=== PATIENT | female | born 1935 | race African-American/Black ===

== ENCOUNTER → 2017-02-07 | Outpatient (CLI) | payer MEDICARE, OTHER ==
[2017-01-10 16:45] VITALS: BP 159/73
[~2017-02-07] MED LIST: AMLO10TA2 PO; ASPI-482 PO; ATOR20TA58 PO; BYSTOLIC10 MG PO; CALC667T PO; CLON0.2T PO; HYDR100T24 PO; OMEP40CA5 PO; VALS1TAB22 PO; VIT1TABL71 PO
--- NOTE | 2017-02-07 13:16 | RAD ---
Chest radiograph 2 view 02/07/2017. Clinical indication: Status post coronary artery bypass. Comparison: 01/06/2017 chest radiograph Findings: Interval median sternotomy and CABG. Small left and trace right pleural effusions and bibasilar atelectasis. No pneumothorax. Left upper extremity vascular stents. Impression: Interval median sternotomy and CABG with small left and trace right pleural effusions and bibasilar atelectasis .
== END | disposition home or self-care (01) ==
LOC: RAD 12:39
PROVIDERS: ATTEND Thoracic Surgery (Cardiothoracic Vascular Surgery)
DX: Z95.1 Presence of aortocoronary bypass graft (principal); J90 Pleural effusion, not elsewhere classified; J98.11 Atelectasis
CPT/HCPCS: 71020

== ENCOUNTER 2017-04-09 19:50 | Inpatient (IN) | payer MEDICARE, OTHER ==
[~2017-04-09] VITALS: Ht 165.1 cm; Wt 71.7 kg
[2017-04-09 21:11] LABS: BASO # 0.1 x10^3/uL (0.0-0.2); BASO % 1 % (0-3); EOS % 3 % (0-3); HEMATOCRIT 30.1 % (36.0-47.0); HEMOGLOBIN 9.7 g/dL (12.0-15.5); LYMPH # 0.6 x10^3/uL (1.0-4.8); LYMPH % 6 % (24-48); MEAN CORPUSCULAR HEMOGLOBIN 30 pg (25-35); MEAN CORPUSCULAR HGB CONC 32 g/dL (31-37); MEAN CORPUSCULAR VOLUME 92 fL (79-100); MONO % 11 % (0-9); NEUT % 80 % (31-73); PLATELET COUNT 182 x10^3/uL (140-400); RED BLOOD COUNT 3.29 x10^6/uL (3.50-5.40); WHITE BLOOD COUNT 9.1 x10^3/uL (4.0-11.0)
[2017-04-09 21:23] LABS: CALCIUM 9.1 mg/dL (8.5-10.1); CREATININE 3.8 mg/dL (0.6-1.0); GFR 13.8; POTASSIUM 3.5 mmol/L (3.5-5.1)
[2017-04-09 21:28] LABS: ALBUMIN 2.9 g/dL (3.4-5.0); ALBUMIN/GLOBULIN RATIO 0.9 (1.0-1.7); TOTAL BILIRUBIN 0.3 mg/dL (0.2-1.0); TOTAL PROTEIN 6.2 g/dL (6.4-8.2)
[2017-04-09] MEDS ORDERED: PIP/TAZO PER PHARMACY MC PRN (23:00)
[2017-04-09] MEDS ORDERED: PIPERACILLIN/TAZOBACTAM 2.25 GM in IV NORMAL SALINE 50ML 50 ML IV ONE (23:30)
[2017-04-09] MEDS ORDERED: ONDANSETRON PF 4 MG/2 ML VIAL. IV PRN (23:45)
--- NOTE | 2017-04-09 23:57 | PHYS DOC ---
Past Medical History Past Medical History: Arthritis, Hypertension, Pneumonia, Renal Disease Past Surgical History: Coronary Bypass Surgery, Hysterectomy, Knee Replacement , Other Additional Past Surgical Histo: ovarian cyst, cataracts Alcohol Use: None Drug Use: None Adult General Chief Complaint Chief Complaint: FEVER HPI HPI Patient is a 82 year old female who presents to the ER today secondary to fever 100.2 at home. Patient reports that she was recently diagnosed with pneumonia and has been on her third round of antibiotics currently. Patient has a history significant for hypertension, end-stage renal disease, currently on hemodialysis every Tuesday. Patient denies any nausea vomiting or diarrhea. Patient has any chest pain or shortness of breath. Patient does have a cough which is clear productive. Patient has any abdominal pain. Patient reports that she was diagnosed with pneumonia again on Tuesday and was started on another antibiotic. Patient reports she's been diagnosed with pneumonia now for approximately one month. Patient has a history significant for hypertension and end-stage renal disease and is currently on hemodialysis. Patient has any diabetes lung or liver problems. Patient has had bypass surgery on January 242016. Patient is status post total abdominal hysterectomy. Patient has had a total knee replacement. Review of systems Constitutional: fever chills Eyes: Denies change in visual acuity, redness, or eye pain All other review systems are negative except as documented in the history of present illness portion. Physical exam Constitutional: Well developed, well nourished, no acute distress, non-toxic appearance. HENT: Normocephalic, atraumatic, bilateral external ears normal, oropharynx moist, no oral exudates, nose normal. Eyes: conjunctiva normal, no discharge. Neck: Normal range of motion, no tenderness, supple, no stridor. Cardiovascular:Heart rate regular rhythm, Lungs & Thorax: Bilateral breath sounds clear to auscultation Abdomen: Bowel sounds normal, soft, no tenderness, no masses, no pulsatile masses. Skin: Warm, dry, Back: No tenderness, Extremities: No tenderness, no cyanosis, Neurologic: Alert and oriented X 3, normal motor function, normal sensory function, no focal deficits noted. Psychologic: Affect normal, judgement normal, mood normal. Patient with infiltrate versus atelectasis to her left lower lobe. Interpreted by MODESTO Woody Assessment and plan 1. 82-year-old female presents here today secondary to fever with a cough. Patient is currently being treated with her third round of antibiotics for pneumonia. Patient had a temperature 100.2 at home. Patient is currently afebrile here with a normal white count. Given her recent diagnosis, her fever at home, her answers renal disease the patient will need to be admitted to the hospital for IV antibiotics to treat her pneumonia that has been resistant to outpatient therapy. Patient's clinically hemodynamically stable. Patient is pulse oxing well. Patient be given vancomycin and Zosyn here in the ED. Patient be given duo nebs as needed. Review of Systems Review of Systems Constitutional: Denies fever or chills [] Eyes: Denies change in visual acuity, redness, or eye pain [] HENT: Denies nasal congestion or sore throat [] Respiratory: Denies cough or shortness of breath [] Cardiovascular: No additional information not addressed in HPI [] GI: Denies abdominal pain, nausea, vomiting, bloody stools or diarrhea [] : Denies dysuria or hematuria [] Musculoskeletal: Denies back pain or joint pain [] Integument: Denies rash or skin lesions [] Neurologic: Denies headache, focal weakness or sensory changes [] Endocrine: Denies polyuria or polydipsia [] Current Medications Current Medications Current Medications Medications (Trade) Dose Ordered Sig/Willard Start Time Stop Time Status Last Admin Dose Admin Piperacillin Sod/ Tazobactam Sod (Zosyn Per Pharmacy) 1 each PRN DAILY PRN 04/09/17 23:00 Piperacillin Sod/ Tazobactam Sod 2.25 gm/Sodium Chloride 50 ml @ 100 mls/hr 1X ONCE 04/09/17 23:30 04/09/17 23:59 04/09/17 23:08 100 MLS/HR Vancomycin HCl (Vanco Per Pharmacy) 1 each PRN DAILY PRN 04/09/17 23:00 Vancomycin HCl 1.75 gm/Sodium Chloride 500 ml @ 250 mls/hr 1X ONCE 04/10/17 00:00 04/10/17 01:59 04/09/17 23:36 250 MLS/HR Allergies Allergies Allergies Coded Allergies Type Severity Reaction Last Updated Verified No Known Drug Allergies 01/06/17 No Physical Exam Physical Exam Constitutional: Well developed, well nourished, no acute distress, non-toxic appearance. [] HENT: Normocephalic, atraumatic, bilateral external ears normal, oropharynx moist, no oral exudates, nose normal. [] Eyes: PERRLA, EOMI, conjunctiva normal, no discharge. [] Neck: Normal range of motion, no tenderness, supple, no stridor. [] Cardiovascular:Heart rate regular rhythm, no murmur [] Lungs & Thorax: Bilateral breath sounds clear to auscultation [] Abdomen: Bowel sounds normal, soft, no tenderness, no masses, no pulsatile masses. [] Skin: Warm, dry, no erythema, no rash. [] Back: No tenderness, no CVA tenderness. [] Extremities: No tenderness, no cyanosis, no clubbing, ROM intact, no edema. [] Neurologic: Alert and oriented X 3, normal motor function, normal sensory function, no focal deficits noted. [] Psychologic: Affect normal, judgement normal, mood normal. [] Current Patient Data Vital Signs Vital Signs Date Time Temp Pulse Resp B/P (MAP) Pulse Ox O2 Delivery O2 Flow Rate FiO2 04/09/17 22:25 73 16 168/73 (104) 94 Room Air 04/09/17 20:09 98.8 98.8 Lab Values Laboratory Tests Test 04/09/17 21:05 White Blood Count 9.1 x10^3/uL (4.0-11.0) Red Blood Count 3.29 x10^6/uL (3.50-5.40) L Hemoglobin 9.7 g/dL (12.0-15.5) L Hematocrit 30.1 % (36.0-47.0) L Mean Corpuscular Volume 92 fL (79-100) Mean Corpuscular Hemoglobin 30 pg (25-35) Mean Corpuscular Hemoglobin Concent 32 g/dL (31-37) Red Cell Distribution Width 18.0 % (11.5-14.5) H Platelet Count 182 x10^3/uL (140-400) Neutrophils (%) (Auto) 80 % (31-73) H Lymphocytes (%) (Auto) 6 % (24-48) L Monocytes (%) (Auto) 11 % (0-9) H Eosinophils (%) (Auto) 3 % (0-3) Basophils (%) (Auto) 1 % (0-3) Neutrophils # (Auto) 7.3 x10^3uL (1.8-7.7) Lymphocytes # (Auto) 0.6 x10^3/uL (1.0-4.8) L Monocytes # (Auto) 1.0 x10^3/uL (0.0-1.1) Eosinophils # (Auto) 0.2 x10^3/uL (0.0-0.7) Basophils # (Auto) 0.1 x10^3/uL (0.0-0.2) Sodium Level 138 mmol/L (136-145) Potassium Level 3.5 mmol/L (3.5-5.1) Chloride Level 102 mmol/L (98-107) Carbon Dioxide Level 23 mmol/L (21-32) Anion Gap 13 (6-14) Blood Urea Nitrogen 16 mg/dL (7-20) Creatinine 3.8 mg/dL (0.6-1.0) H Estimated GFR (Cockcroft-Gault) 13.8 BUN/Creatinine Ratio 4 (6-20) L Glucose Level 151 mg/dL (70-99) H Lactic Acid Level 1.0 mmol/L (0.4-2.0) Calcium Level 9.1 mg/dL (8.5-10.1) Total Bilirubin 0.3 mg/dL (0.2-1.0) Aspartate Amino Transferase (AST) 14 U/L (15-37) L Alanine Aminotransferase (ALT) 14 U/L (14-59) Alkaline Phosphatase 82 U/L (46-116) Troponin I Quantitative < 0.017 ng/mL (0.000-0.055) Total Protein 6.2 g/dL (6.4-8.2) L Albumin 2.9 g/dL (3.4-5.0) L Albumin/Globulin Ratio 0.9 (1.0-1.7) L Laboratory Tests 04/09/17 21:05 Laboratory Tests 04/09/17 21:05 EKG EKG [] Radiology/Procedures Radiology/Procedures [] Course & Med Decision Making Course & Med Decision Making Pertinent Labs and Imaging studies reviewed. (See chart for details) [] Dragon Disclaimer Dragon Disclaimer This electronic medical record was generated, in whole or in part, using a voice recognition dictation system. Departure Departure Impression: Primary Impression: Pneumonia Additional Impressions: Renal failure Failure of outpatient treatment Referrals: MAGNO MANCILLA MD (PCP) Problem Qualifiers HARLEY VALENTIN MD Apr 09, 2017 23:57
[2017-04-10] VITALS (7 sets, daily range): BP systolic 135–190; BP diastolic 50–66
[2017-04-10] MEDS ORDERED: VANCOMYCIN 1.75 GM in IV NORMAL SALINE 500ML BAG 500 ML IV ONE ×2
[2017-04-10] MEDS ORDERED: FERR-26 PO (01:18)
[2017-04-10] MEDS ORDERED: PRED20TA PO (01:18)
[2017-04-10] MEDS ORDERED: METO25TA4 PO (01:18)
[2017-04-10] MEDS ORDERED: POLY17PO29 PO (01:18)
[2017-04-10] MEDS ORDERED: ACET325T9 PO (01:18)
[2017-04-10] MEDS ORDERED: AMIO200T2 PO (01:18)
[2017-04-10] MEDS ORDERED: ASPI325T8 PO (01:18)
[2017-04-10] MEDS ORDERED: BENZ100C15 PO (01:29)
[2017-04-10] MEDS: VANCOMYCIN PER PHARMACY MC PRN ×2 (04:48→09:37)
[2017-04-10] MEDS: PIPERACILLIN/TAZOBACTAM 2.25 GM in IV NORMAL SALINE 50ML 50 ML IV SCH ×3 (06:03→20:55)
[2017-04-10] MEDS: IPRATRPIUM/ALBUTEROL 0.5/2.5MG 3 ML NEBU. NEB SCH ×4 (08:11→20:46)
--- NOTE | 2017-04-10 08:26 | RAD ---
AP chest. History: Fever. AP view was taken of the chest. The heart is enlarged. There are stents in vessels in the left upper arm. There is arthritis in the shoulders. There is atelectasis in the left lung. A mild retrocardiac infiltrate is possible. A lateral view would be of benefit. Impression: 1. Left base atelectasis although an infiltrate is possible.
[2017-04-10] MEDS: ACETAMINOPHEN 325 MG TABLET. PO PRN ×2 (09:14→21:17)
--- NOTE | 2017-04-10 10:09 | EKG ---
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
--- NOTE | 2017-04-10 12:57 | HP ---
ADMIT DATE: 04/10/2017 CHIEF COMPLAINT: Fever. HISTORY OF PRESENT ILLNESS: The patient is a pleasant 82-year-old female who has been treated for pneumonia as an outpatient. She is on third round of antibiotics. Apparently, she is failing that, she still has fever. She still has some shortness of breath and cough. Imaging studies are showing left basilar atelectasis versus infiltrates, I suspect she does have pneumonia. We will admit the patient with consultation to Pulmonary Medicine, IV antibiotics, breathing treatments and oxygen. PAST MEDICAL HISTORY: Arthritis, hypertension, pneumonia, renal disease, coronary artery bypass grafting, hysterectomy, knee replacement, cataracts and ovarian cyst. ALLERGIES: None. FAMILY HISTORY: Coronary artery disease. SOCIAL HISTORY: She does not drink, smoke or take drugs. MEDICATIONS: Reviewed. REVIEW OF SYSTEMS: GENERAL: No history of weight change, weakness or fevers. SKIN: No bruising, hair changes or rashes. EYES: No blurred, double or loss of vision. NOSE AND THROAT: No history of nosebleeds, hoarseness or sore throat. HEART: No history of palpitations, chest pain or shortness of breath on exertion. LUNGS: Denies cough, hemoptysis, wheezing. She complains of shortness of breath. GASTROINTESTINAL: Denies changes in appetite, nausea, vomiting, diarrhea or constipation. GENITOURINARY: No history of frequency, urgency, hesitancy or nocturia. NEUROLOGIC: Denies history of numbness, tingling, tremor or weakness. PSYCHIATRIC: No history of panic, anxiety or depression. ENDOCRINE: No history of heat or cold intolerance, polyuria or polydipsia. EXTREMITIES: Denies muscle weakness, joint pain, pain on walking or stiffness. PHYSICAL EXAMINATION: VITAL SIGNS: Temperature afebrile, pulse 90, respirations 20, blood pressure 117/54. GENERAL: She is alert, cooperative. HEART: Normal S1, S2. LUNGS: Right basilar crackles. ABDOMEN: Soft, positive bowel sounds. EXTREMITIES: 1+ edema. SKIN: No rashes. PSYCHIATRIC: She is flat, but pleasant. ENDOCRINE: No thyromegaly. LYMPHATICS: No cervical nodes. HEMATOPOIETIC: No bruising. LABORATORY DATA: White count 9, hemoglobin 9, platelets 182. Electrolytes normal other than creatinine of 3.8 and a glucose of 151. Albumin is a little low at 2.9. Troponin 0.017. ASSESSMENT AND PLAN: Pneumonia and [id number] renal failure. The patient has been admitted. We will start on IV antibiotics, breathing treatments, oxygen. Consult Pulmonary, consult Nephrology. Continue home medicines. DELONTE WRIGHT DO DR: LEONCIO/naif JOB#: [id number] / [id number]
[2017-04-10] MEDS ORDERED: traMADol 50 MG TABLET PO PRN (13:00)
--- NOTE | 2017-04-10 13:44 | CONS ---
DATE OF CONSULTATION: 04/10/2017 ATTENDING PHYSICIAN: Dr. Guo. REASON FOR CONSULTATION: Pneumonia, fever. HISTORY OF PRESENT ILLNESS: The patient is a pleasant 82-year-old female who has no history of tobacco use. The patient states that she has been treated as an outpatient for pneumonia recently and has had three rounds of antibiotics. She yesterday noted to have a fever of 101. As a result, she was evaluated in the Emergency Room. The patient had a chest x-ray, which was reviewed by me and it shows volume loss in the left lower lobe consistent with either atelectasis or infiltrate. She says when she went to the bathroom today she felt short of breath and had some tightness in her chest as well. She has been feeling tired as well. As a result, I have been asked to see her for further evaluation. She was started on antibiotics vancomycin and Zosyn for broad spectrum coverage. She gives no history to suggest aspiration. No weight loss. She has lower extremity edema, which is more noticeable recently, she is on dialysis. She makes minimal urine. PAST MEDICAL HISTORY: History of arthritis, hypertension, history of pneumonia, history of end-stage renal disease on hemodialysis, history of coronary artery bypass grafting, hysterectomy, knee replacement, cataracts, and ovarian cyst. FAMILY HISTORY: Coronary artery disease. SOCIAL HISTORY: Nonsmoker, nonalcoholic. MEDICATIONS: All reviewed as listed in the MRAD including antibiotics. ALLERGIES: None. PHYSICAL EXAMINATION: GENERAL: She is awake, following commands. VITAL SIGNS: Afebrile today. Her blood pressure latest is 147/50, it was high on admission, pulse ox 94% on room air. NECK: Supple. LUNGS: With diminished breath sounds posteriorly. CARDIOVASCULAR: Regular rate. ABDOMEN: Soft. EXTREMITIES: With 1+ pitting edema bilaterally. LABORATORY DATA: Reviewed. White cell count 9.1, hemoglobin 9.7 and platelets are 182. BUN 16, creatinine 3.8. IMPRESSION: 1. Unexplained fever at home, afebrile today. The sources could be pneumonia, although she has been recently treated as an outpatient on multiple occasions with oral antibiotics. We will need further information by obtaining CT of the chest to better assess for any infiltrates and also would like to rule out other sources of infection as well. 2. No significant history of tobacco use. 3. End-stage renal disease, on hemodialysis. 4. History of coronary artery bypass grafting with mild lower extremity edema. RECOMMENDATIONS: 1. Obtain noncontrast CT chest for further evaluation and to rule out any pneumonia as a cause of her subjective fever. 2. Obtain blood cultures for any fever spike. 3. Continue current broad-spectrum antibiotics, vancomycin and Zosyn. 4. Follow renal recommendations. 5. Further recommendations to follow after review of CT chest. MIGUEL MARY MD DR: AMAURI/naif JOB#: [id number] / [id number]
[2017-04-10] MEDS: PROMETH/CODEINE 6.25/10MG 5 ML SYRUP. PO PRN (14:23)
--- NOTE | 2017-04-10 15:56 | RAD ---
One or more of the following individualized dose reduction techniques were utilized for this examination: 1. Automated exposure control 2. Adjustment of the mA and/or kV according to patient size 3. Use of iterative reconstruction technique CT chest without contrast. History: Fever, cough CT scan of the chest was done without contrast. Thyroid is homogeneous. Peritracheal lymph node is upper normal in size. There are granulomatous calcifications in the subcarinal node. There are small bilateral pleural effusions. The heart is enlarged. Kidneys are small and atrophic. There are high density lesions in both kidneys likely complicated or hemorrhagic cyst. There are mild hazy groundglass infiltrates or edema in both lungs. There are no consolidating infiltrates. There is mild peribronchial thickening. There is scoliosis and degenerative change in the thoracic spine. The patient's had a previous sternotomy. Impression: 1. Ground groundglass infiltrates or pulmonary edema. 2. Small pleural effusions. 3. Cardiomegaly.
[2017-04-10] MEDS ORDERED: LABETALOL 20 MG/4 ML DISP.SYRIN. IVP PRN (21:15)
[2017-04-10] MEDS ORDERED: POLYETHYLENE GLYCOL 3350 17 GM PACKET. PO PRN (21:15)
[2017-04-10] MEDS ORDERED: BENZONATATE 100 MG CAPSULE. PO PRN (21:15)
[2017-04-10] MEDS ORDERED: LABETALOL 20 MG/4 ML DISP.SYRIN. IVP ONE (21:15)
[2017-04-10] MEDS ORDERED: ALBUTEROL SULFATE 2.5 MG/3 ML NEBU. NEB PRN (21:15)
[2017-04-10] MEDS: ACETAMINOPHEN 325 MG TABLET. PO SCH (21:18)
[2017-04-10] MEDS ORDERED: ATORVASTATIN CALCIUM 20 MG TABLET PO SCH (21:30)
[2017-04-11] MEDS ORDERED: DIALYSIS PATIENT. MC PRN (00:45)
[2017-04-11] MEDS: PROMETH/CODEINE 6.25/10MG 5 ML SYRUP. PO PRN ×3 (02:42→17:06)
[2017-04-11 03:03] VITALS: BP 163/68
[2017-04-11 04:57] LABS: BASO # 0.1 x10^3/uL (0.0-0.2); BASO % 1 % (0-3); EOS % 4 % (0-3); HEMATOCRIT 28.2 % (36.0-47.0); LYMPH # 0.7 x10^3/uL (1.0-4.8); LYMPH % 9 % (24-48); MEAN CORPUSCULAR HEMOGLOBIN 30 pg (25-35); MEAN CORPUSCULAR HGB CONC 32 g/dL (31-37); MEAN CORPUSCULAR VOLUME 93 fL (79-100); MONO % 12 % (0-9); NEUT % 75 % (31-73); PLATELET COUNT 164 x10^3/uL (140-400); RED BLOOD COUNT 3.05 x10^6/uL (3.50-5.40); RED CELL DISTRIBUTION WIDTH 18.8 % (11.5-14.5); WHITE BLOOD COUNT 8.6 x10^3/uL (4.0-11.0)
[2017-04-11 05:02] LABS: CALCIUM 9.4 mg/dL (8.5-10.1); CREATININE 6.1 mg/dL (0.6-1.0); POTASSIUM 3.9 mmol/L (3.5-5.1)
[2017-04-11] MEDS: PIPERACILLIN/TAZOBACTAM 2.25 GM in IV NORMAL SALINE 50ML 50 ML IV SCH ×3 (05:38→20:50)
[2017-04-11 07:00] VITALS: BP 182/66
[2017-04-11] MEDS: IPRATRPIUM/ALBUTEROL 0.5/2.5MG 3 ML NEBU. NEB SCH (07:36)
[2017-04-11] MEDS: CALCIUM ACETATE 667 MG CAPSULE PO SCH ×4 (08:00→17:07)
[2017-04-11] MEDS: ASPIRIN 325 MG TABLET PO SCH (08:44)
[2017-04-11] MEDS: amLODIPine BESYLATE 10 MG TABLET PO SCH (08:46)
[2017-04-11] MEDS: PANTOPRAZOLE 40 MG TABLET.DR. PO SCH (08:47)
[2017-04-11] MEDS: METOPROLOL TART IMMED RELEASE 25 MG TABLET. PO SCH ×2 (08:47→20:52)
[2017-04-11] MEDS: FOLIC/VIT B COMP W-C (RENAL) TABLET. PO SCH (08:47)
[2017-04-11] MEDS: AMIODARONE HCL 200 MG TABLET. PO SCH (08:48)
[2017-04-11] MEDS: predniSONE 20 MG TABLET PO SCH (08:48)
[2017-04-11] MEDS: ACETAMINOPHEN 325 MG TABLET. PO SCH (08:50)
[2017-04-11] MEDS: FERROUS SULFATE 325 MG TABLET. PO SCH ×2 (08:50→17:07)
--- NOTE | 2017-04-11 09:14 | PDOC ---
PULMONARY PROGRESS NOTES Subjective PT NOT MORE SOA CONTINUE COUGH Vitals Vital Signs Date Time Temp Pulse Resp B/P (MAP) Pulse Ox O2 Delivery O2 Flow Rate FiO2 04/11/17 08:50 80 175/62 04/11/17 07:37 96 Room Air 04/11/17 03:03 98.1 20 98.1 ROS: No Nausea, No Chest Pain, No Abdominal Pain, No Increase Cough General: Alert Lungs: Wheezing, Crackles Cardiovascular: S1, S2 Abdomen: Soft Neuro Exam: Alert Extremities: No Edema Skin: Warm Labs Laboratory Tests Test 04/09/17 21:05 04/11/17 04:05 04/11/17 04:15 White Blood Count 9.1 x10^3/uL (4.0-11.0) 8.6 x10^3/uL (4.0-11.0) Red Blood Count 3.29 x10^6/uL (3.50-5.40) 3.05 x10^6/uL (3.50-5.40) Hemoglobin 9.7 g/dL (12.0-15.5) 9.0 g/dL (12.0-15.5) Hematocrit 30.1 % (36.0-47.0) 28.2 % (36.0-47.0) Mean Corpuscular Volume 92 fL (79-100) 93 fL (79-100) Mean Corpuscular Hemoglobin 30 pg (25-35) 30 pg (25-35) Mean Corpuscular Hemoglobin Concent 32 g/dL (31-37) 32 g/dL (31-37) Red Cell Distribution Width 18.0 % (11.5-14.5) 18.8 % (11.5-14.5) Platelet Count 182 x10^3/uL (140-400) 164 x10^3/uL (140-400) Neutrophils (%) (Auto) 80 % (31-73) 75 % (31-73) Lymphocytes (%) (Auto) 6 % (24-48) 9 % (24-48) Monocytes (%) (Auto) 11 % (0-9) 12 % (0-9) Eosinophils (%) (Auto) 3 % (0-3) 4 % (0-3) Basophils (%) (Auto) 1 % (0-3) 1 % (0-3) Neutrophils # (Auto) 7.3 x10^3uL (1.8-7.7) 6.4 x10^3uL (1.8-7.7) Lymphocytes # (Auto) 0.6 x10^3/uL (1.0-4.8) 0.7 x10^3/uL (1.0-4.8) Monocytes # (Auto) 1.0 x10^3/uL (0.0-1.1) 1.1 x10^3/uL (0.0-1.1) Eosinophils # (Auto) 0.2 x10^3/uL (0.0-0.7) 0.3 x10^3/uL (0.0-0.7) Basophils # (Auto) 0.1 x10^3/uL (0.0-0.2) 0.1 x10^3/uL (0.0-0.2) Sodium Level 138 mmol/L (136-145) 137 mmol/L (136-145) Potassium Level 3.5 mmol/L (3.5-5.1) 3.9 mmol/L (3.5-5.1) Chloride Level 102 mmol/L (98-107) 103 mmol/L (98-107) Carbon Dioxide Level 23 mmol/L (21-32) 23 mmol/L (21-32) Anion Gap 13 (6-14) 11 (6-14) Blood Urea Nitrogen 16 mg/dL (7-20) 28 mg/dL (7-20) Creatinine 3.8 mg/dL (0.6-1.0) 6.1 mg/dL (0.6-1.0) Estimated GFR (Cockcroft-Gault) 13.8 8.0 BUN/Creatinine Ratio 4 (6-20) Glucose Level 151 mg/dL (70-99) 87 mg/dL (70-99) Lactic Acid Level 1.0 mmol/L (0.4-2.0) Calcium Level 9.1 mg/dL (8.5-10.1) 9.4 mg/dL (8.5-10.1) Total Bilirubin 0.3 mg/dL (0.2-1.0) Aspartate Amino Transf (AST/SGOT) 14 U/L (15-37) Alanine Aminotransferase (ALT/SGPT) 14 U/L (14-59) Alkaline Phosphatase 82 U/L (46-116) Troponin I Quantitative < 0.017 ng/mL (0.000-0.055) Total Protein 6.2 g/dL (6.4-8.2) Albumin 2.9 g/dL (3.4-5.0) Albumin/Globulin Ratio 0.9 (1.0-1.7) Laboratory Tests Test 04/11/17 04:05 04/11/17 04:15 White Blood Count 8.6 x10^3/uL (4.0-11.0) Red Blood Count 3.05 x10^6/uL (3.50-5.40) Hemoglobin 9.0 g/dL (12.0-15.5) Hematocrit 28.2 % (36.0-47.0) Mean Corpuscular Volume 93 fL (79-100) Mean Corpuscular Hemoglobin 30 pg (25-35) Mean Corpuscular Hemoglobin Concent 32 g/dL (31-37) Red Cell Distribution Width 18.8 % (11.5-14.5) Platelet Count 164 x10^3/uL (140-400) Neutrophils (%) (Auto) 75 % (31-73) Lymphocytes (%) (Auto) 9 % (24-48) Monocytes (%) (Auto) 12 % (0-9) Eosinophils (%) (Auto) 4 % (0-3) Basophils (%) (Auto) 1 % (0-3) Neutrophils # (Auto) 6.4 x10^3uL (1.8-7.7) Lymphocytes # (Auto) 0.7 x10^3/uL (1.0-4.8) Monocytes # (Auto) 1.1 x10^3/uL (0.0-1.1) Eosinophils # (Auto) 0.3 x10^3/uL (0.0-0.7) Basophils # (Auto) 0.1 x10^3/uL (0.0-0.2) Sodium Level 137 mmol/L (136-145) Potassium Level 3.9 mmol/L (3.5-5.1) Chloride Level 103 mmol/L (98-107) Carbon Dioxide Level 23 mmol/L (21-32) Anion Gap 11 (6-14) Blood Urea Nitrogen 28 mg/dL (7-20) Creatinine 6.1 mg/dL (0.6-1.0) Estimated GFR (Cockcroft-Gault) 8.0 Glucose Level 87 mg/dL (70-99) Calcium Level 9.4 mg/dL (8.5-10.1) Medications Active Scripts Medications Dose Route/Sig Max Daily Dose Days Date Category Benzonatate 100 Mg Capsule 1 Cap PO PRN Q8HRS PRN 04/10/17 Reported Prednisone 20 Mg Tablet 1 Tab PO DAILY 04/10/17 Reported Metoprolol Tartrate 25 Mg Tablet 1 Tab PO BID 04/10/17 Reported Amiodarone Hcl 200 Mg Tablet 1 Tab PO DAILY 04/10/17 Reported Miralax (Polyethylene Glycol 3350) 17 Gm Powd.pack 1 Packet PO PRN DAILY PRN 04/10/17 Reported Ferrous Sulfate 325 Mg Tablet 1 Tab PO BID 04/10/17 Reported Tylenol (Acetaminophen) 325 Mg Tablet 325 Mg PO DAILY 04/10/17 Reported Aspirin 325 Mg Tablet 1 Tab PO DAILY 04/10/17 Reported Helen-Homa Rx Tablet (Vit B Cmplx 3/Fa/Vit C/Biotin) 1 Each Tablet 1 Each PO DAILY 01/06/17 Reported Amlodipine Besylate 10 Mg Tablet 10 Mg PO DAILY 01/06/17 Reported Calcium Acetate 667 Mg Tablet 667 Mg PO TIDWMEALS 01/06/17 Reported Omeprazole 40 Mg Capsule.dr 40 Mg PO DAILY 01/06/17 Reported Hydralazine Hcl 100 Mg Tablet 100 Mg PO BID 01/06/17 Reported Clonidine Hcl 0.2 Mg Tablet 1 Tab PO QHS 01/06/17 Reported Atorvastatin Calcium 20 Mg Tablet 20 Mg PO HS 01/06/17 Reported Impression . 1. POSSIBLE PNEUMONIA 2. No significant history of tobacco use. 3. End-stage renal disease, on hemodialysis. 4. History of coronary artery bypass grafting with mild lower extremity edema. 5. ABNORMAL CXR CT CONFIRMED GROUND GLASS OPACITIES I THINK MOSTLY PULMONARY EDEMA 6. FEVER ETIOLOGY UNKNOWN DOUBT PULMONARY ORIGIN WILL CONSULT ID Impression: 1. Ground groundglass infiltrates or pulmonary edema. 2. Small pleural effusions. 3. Cardiomegaly. Plan . CONSULT ID CONTINUE ANTIBX FOR NOW ECHO SED RATE ANTHONY HELM MD Apr 11, 2017 09:14
[2017-04-11 11:00] VITALS: BP 159/61
--- NOTE | 2017-04-11 11:20 | PDOC2 ---
CONSULT Date of Consult Date of Consult DATE: 04/11/17 TIME: : Reason for Consult Reason for Consult: ESRD Referring Physician Referring Physician: KYLE Identification/Chief Complaint Chief Complaint SOB Problems: Source Source: Chart review, Patient History of Present Illness Reason for Visit: THIS IS AN 82 YR OLD ADMITTED WITH PNEUMONIA. MULTIPLE ORAL MEDS OP HAVE NOT HELPED. CXRAY CONCERNING FOR AN INFILTRATE. SHE HAS ESRD AND IS ON OP HD ON TTS. HER LAST HD WAS ON SAT. HER LABS ARE C/W ESRD Past Medical History Cardiovascular: HTN, Hyperlipidemia Pulmonary: No pertinent hx CENTRAL NERVOUS SYSTEM: Other GI: GERD Heme/Onc: Anemia NOS Hepatobiliary: No pertinent hx Psych: No pertinent hx Musculoskeletal: Osteoarthritis Rheumatologic: No pertinent hx Infectious disease: No pertinent hx Renal/: Chronic renal failure Endocrine: Hyperparathyroidism Past Surgical History Past Surgical History: Appendectomy, Cataract Removal, Total knee replacement, Tonsillectomy, Hysterectomy Family History Family History: Coronary Artery Disease, Diabetes, Kidney Disease Social History ALCOHOL: none Drugs: None Lives: with Family Current Problem List Problem List Problems Medical Problems: (1) Failure of outpatient treatment Status: Acute (2) Pneumonia Status: Acute (3) Renal failure Status: Acute Current Medications Current Medications Current Medications Piperacillin Sod/ Tazobactam Sod (Zosyn Per Pharmacy) 1 each PRN DAILY PRN MC SEE COMMENTS; Start 04/09/17 at 23:00 Vancomycin HCl (Vanco Per Pharmacy) 1 each PRN DAILY PRN MC SEE COMMENTS Last administered on 04/10/17 09:37; Start 04/09/17 at 23:00 Piperacillin Sod/ Tazobactam Sod 2.25 gm/Sodium Chloride 50 ml @ 100 mls/hr 1X ONCE IV Last administered on 04/09/17 23:08; Start 04/09/17 at 23:30; Stop 04/09/17 at 23:59; Status DC Vancomycin HCl 1.75 gm/Sodium Chloride 500 ml @ 250 mls/hr 1X ONCE IV Last administered on 04/09/17 23:36; Start 04/10/17 at 00:00; Stop 04/10/17 at 01:59 ; Status DC Ondansetron HCl (Zofran) 4 mg PRN Q8HRS PRN IV NAUSEA/VOMITING; Start 04/09/17 at 23:45; Stop 04/10/17 at 23:44; Status DC Acetaminophen (Tylenol) 650 mg PRN Q4HRS PRN PO FEVER Last administered on 04/10 21:17; Start 04/09/17 at 23:45; Stop 04/10/17 at 23:44; Status DC Albuterol/ Ipratropium (Duoneb) 3 ml RTQID NEB Last administered on 04/11/17 07:36; Start 04/10/17 at 08:00; Stop 04/11/17 at 07:59; Status DC Piperacillin Sod/ Tazobactam Sod 2.25 gm/Sodium Chloride 50 ml @ 100 mls/hr Q8HRS IV Last administered on 04/11/17 05:38; Start 04/10/17 at 06:00 Vancomycin HCl 1 each 1X ONCE MC ; Start 04/12/17 at 05:00; Stop 04/12/17 at 05 :01 Tramadol HCl (Ultram) 50 mg PRN Q6HRS PRN PO PAIN Last administered on 14:23; Start 04/10/17 at 13:00 Promethazine HCl/ Codeine (Phenergan With Codeine) 5 ml PRN Q4HRS PRN PO COUGH Last administered on 04/11/17 08:50; Start 04/10/17 at 13:00 Acetaminophen (Tylenol) 325 mg DAILY PO Last administered on 04/11/17 08:50; Start 04/10/17 at 21:18 Amiodarone HCl (Cordarone) 200 mg DAILY PO Last administered on 04/11/17 08:48 ; Start 04/11/17 at 09:00 Amlodipine Besylate (Norvasc) 10 mg DAILY PO Last administered on 04/11/17 08: 46; Start 04/11/17 at 09:00 Aspirin (Brandi Aspirin) 325 mg DAILY08 PO Last administered on 04/11/17 08:44 ; Start 04/11/17 at 08:00 Atorvastatin Calcium (Lipitor) 20 mg HS PO ; Start 04/10/17 at 21:30; Stop 04/10 at 21:30; Status DC Benzonatate (Tessalon Perle) 100 mg PRN Q8HRS PRN PO COUGH; Start 04/10/17 at 21:15 Clonidine HCl (Catapres) 0.2 mg QHS PO ; Start 04/11/17 at 21:00 Ferrous Sulfate (Feosol) 325 mg BIDWMEALS PO Last administered on 04/11/17 08: 50; Start 04/11/17 at 08:00 Metoprolol Tartrate (Lopressor) 25 mg BID PO Last administered on 04/11/17 08: 47; Start 04/11/17 at 09:00 Polyethylene Glycol (miraLAX PACKET) 17 gm PRN DAILY PRN PO CONSTIPATION Last administered on 04/11/17 08:44; Start 04/10/17 at 21:15 Prednisone (Prednisone) 20 mg DAILY PO Last administered on 04/11/17 08:48; Start 04/11/17 at 09:00 Calcium Acetate (Phoslo) 667 mg TIDWMEALS PO Last administered on 04/11/17 08: 00; Start 04/11/17 at 08:00 Hydralazine HCl (Apresoline) 100 mg BID PO Last administered on 04/11/17 08:50 ; Start 04/11/17 at 09:00 Pantoprazole Sodium (Protonix) 40 mg DAILYAC PO Last administered on 04/11/17 08:47; Start 04/11/17 at 07:30 Vitamin B Complex/ Vitamin C (Helen-Homa) 1 tab DAILY PO Last administered on 08:47; Start 04/11/17 at 09:00 Labetalol HCl (Normodyne) 20 mg 1X ONCE IVP Last administered on 04/10/17 21: 17; Start 04/10/17 at 21:15; Stop 04/10/17 at 21:16; Status DC Labetalol HCl (Normodyne) 10 mg PRN Q2HRS PRN IVP HYPERTENSION, SEE COMMENTS; Start 04/10/17 at 21:15 Acetaminophen (Tylenol) 650 mg PRN Q6HRS PRN PO PAIN; Start 04/10/17 at 21:15 Albuterol Sulfate (Ventolin Neb Soln) 2.5 mg PRN Q4HRS PRN NEB SHORTNESS OF BREATH; Start 04/10/17 at 21:15 Atorvastatin Calcium (Lipitor) 20 mg HS PO ; Start 04/11/17 at 21:00 Info (PHARMACY MONITORING -- do not chart) 1 each PRN DAILY PRN MC SEE COMMENTS ; Start 04/11/17 at 00:45 Active Scripts Active Reported Benzonatate 100 Mg Capsule 1 Cap PO PRN Q8HRS PRN Prednisone 20 Mg Tablet 1 Tab PO DAILY Metoprolol Tartrate 25 Mg Tablet 1 Tab PO BID Amiodarone Hcl 200 Mg Tablet 1 Tab PO DAILY Miralax (Polyethylene Glycol 3350) 17 Gm Powd.pack 1 Packet PO PRN DAILY PRN Ferrous Sulfate 325 Mg Tablet 1 Tab PO BID Tylenol (Acetaminophen) 325 Mg Tablet 325 Mg PO DAILY Aspirin 325 Mg Tablet 1 Tab PO DAILY Helen-Homa Rx Tablet (Vit B Cmplx 3/Fa/Vit C/Biotin) 1 Each Tablet 1 Each PO DAILY Amlodipine Besylate 10 Mg Tablet 10 Mg PO DAILY Calcium Acetate 667 Mg Tablet 667 Mg PO TIDWMEALS Omeprazole 40 Mg Capsule.dr 40 Mg PO DAILY Hydralazine Hcl 100 Mg Tablet 100 Mg PO BID Clonidine Hcl 0.2 Mg Tablet 1 Tab PO QHS Atorvastatin Calcium 20 Mg Tablet 20 Mg PO HS Allergies Allergies: Coded Allergies: No Known Drug Allergies (Unverified , 01/06/17) ROS General: YES: Fatigue, Malaise, Appetite PSYCHOLOGICAL ROS: YES: Anxiety Eyes: Yes Decreased vision HEENT: YES: Heacaches Respiratory: YES: Cough, Shortness of breath Gastrointestinal: Yes Constipation Genitourinary: YES Other (ANURIA) Musculoskeletal: Yes Muscular Weakness Neurological: Yes Weakness Skin: Yes Dry Skin Physical Exam General: Alert, Oriented X3 Heart: Regular rate Abdomen: Normal bowel sounds, Soft, No tenderness Extremities: No clubbing Skin: No breakdown Neuro: Normal speech, Cranial nerves 3-12 NL Psych/Mental Status: Mental status NL, Mood NL MUSCULOSKELETAL: No deformity, No swelling Vitals VITALS Vital Signs Date Time Temp Pulse Resp B/P (MAP) Pulse Ox O2 Delivery O2 Flow Rate FiO2 04/11/17 10:07 Room Air 04/11/17 08:50 80 175/62 04/11/17 07:37 96 04/11/17 07:00 98.1 20 98.1 Labs Labs Laboratory Tests Test 04/09/17 21:05 04/11/17 04:05 04/11/17 04:15 White Blood Count 9.1 x10^3/uL (4.0-11.0) 8.6 x10^3/uL (4.0-11.0) Red Blood Count 3.29 x10^6/uL (3.50-5.40) 3.05 x10^6/uL (3.50-5.40) Hemoglobin 9.7 g/dL (12.0-15.5) 9.0 g/dL (12.0-15.5) Hematocrit 30.1 % (36.0-47.0) 28.2 % (36.0-47.0) Mean Corpuscular Volume 92 fL (79-100) 93 fL (79-100) Mean Corpuscular Hemoglobin 30 pg (25-35) 30 pg (25-35) Mean Corpuscular Hemoglobin Concent 32 g/dL (31-37) 32 g/dL (31-37) Red Cell Distribution Width 18.0 % (11.5-14.5) 18.8 % (11.5-14.5) Platelet Count 182 x10^3/uL (140-400) 164 x10^3/uL (140-400) Neutrophils (%) (Auto) 80 % (31-73) 75 % (31-73) Lymphocytes (%) (Auto) 6 % (24-48) 9 % (24-48) Monocytes (%) (Auto) 11 % (0-9) 12 % (0-9) Eosinophils (%) (Auto) 3 % (0-3) 4 % (0-3) Basophils (%) (Auto) 1 % (0-3) 1 % (0-3) Neutrophils # (Auto) 7.3 x10^3uL (1.8-7.7) 6.4 x10^3uL (1.8-7.7) Lymphocytes # (Auto) 0.6 x10^3/uL (1.0-4.8) 0.7 x10^3/uL (1.0-4.8) Monocytes # (Auto) 1.0 x10^3/uL (0.0-1.1) 1.1 x10^3/uL (0.0-1.1) Eosinophils # (Auto) 0.2 x10^3/uL (0.0-0.7) 0.3 x10^3/uL (0.0-0.7) Basophils # (Auto) 0.1 x10^3/uL (0.0-0.2) 0.1 x10^3/uL (0.0-0.2) Sodium Level 138 mmol/L (136-145) 137 mmol/L (136-145) Potassium Level 3.5 mmol/L (3.5-5.1) 3.9 mmol/L (3.5-5.1) Chloride Level 102 mmol/L (98-107) 103 mmol/L (98-107) Carbon Dioxide Level 23 mmol/L (21-32) 23 mmol/L (21-32) Anion Gap 13 (6-14) 11 (6-14) Blood Urea Nitrogen 16 mg/dL (7-20) 28 mg/dL (7-20) Creatinine 3.8 mg/dL (0.6-1.0) 6.1 mg/dL (0.6-1.0) Estimated GFR (Cockcroft-Gault) 13.8 8.0 BUN/Creatinine Ratio 4 (6-20) Glucose Level 151 mg/dL (70-99) 87 mg/dL (70-99) Lactic Acid Level 1.0 mmol/L (0.4-2.0) Calcium Level 9.1 mg/dL (8.5-10.1) 9.4 mg/dL (8.5-10.1) Total Bilirubin 0.3 mg/dL (0.2-1.0) Aspartate Amino Transf (AST/SGOT) 14 U/L (15-37) Alanine Aminotransferase (ALT/SGPT) 14 U/L (14-59) Alkaline Phosphatase 82 U/L (46-116) Troponin I Quantitative < 0.017 ng/mL (0.000-0.055) Total Protein 6.2 g/dL (6.4-8.2) Albumin 2.9 g/dL (3.4-5.0) Albumin/Globulin Ratio 0.9 (1.0-1.7) Laboratory Tests Test 04/11/17 04:05 04/11/17 04:15 White Blood Count 8.6 x10^3/uL (4.0-11.0) Red Blood Count 3.05 x10^6/uL (3.50-5.40) Hemoglobin 9.0 g/dL (12.0-15.5) Hematocrit 28.2 % (36.0-47.0) Mean Corpuscular Volume 93 fL (79-100) Mean Corpuscular Hemoglobin 30 pg (25-35) Mean Corpuscular Hemoglobin Concent 32 g/dL (31-37) Red Cell Distribution Width 18.8 % (11.5-14.5) Platelet Count 164 x10^3/uL (140-400) Neutrophils (%) (Auto) 75 % (31-73) Lymphocytes (%) (Auto) 9 % (24-48) Monocytes (%) (Auto) 12 % (0-9) Eosinophils (%) (Auto) 4 % (0-3) Basophils (%) (Auto) 1 % (0-3) Neutrophils # (Auto) 6.4 x10^3uL (1.8-7.7) Lymphocytes # (Auto) 0.7 x10^3/uL (1.0-4.8) Monocytes # (Auto) 1.1 x10^3/uL (0.0-1.1) Eosinophils # (Auto) 0.3 x10^3/uL (0.0-0.7) Basophils # (Auto) 0.1 x10^3/uL (0.0-0.2) Sodium Level 137 mmol/L (136-145) Potassium Level 3.9 mmol/L (3.5-5.1) Chloride Level 103 mmol/L (98-107) Carbon Dioxide Level 23 mmol/L (21-32) Anion Gap 11 (6-14) Blood Urea Nitrogen 28 mg/dL (7-20) Creatinine 6.1 mg/dL (0.6-1.0) Estimated GFR (Cockcroft-Gault) 8.0 Glucose Level 87 mg/dL (70-99) Calcium Level 9.4 mg/dL (8.5-10.1) Assessment/Plan Assessment/Plan IMP PNEUMONIA ANEMIA HTN ESRD PLAN START ARANESP HD TOMORROW ANTIBIOTICS LONA ENGLAND MD Apr 11, 2017 11:20
--- NOTE | 2017-04-11 11:32 | PDOC ---
PROGRESS NOTES Chief Complaint Chief Complaint Fever ESRD CAD-CABG History of Present Illness History of Present Illness Pt seen at bedside. She is resting comfortably and in no acute distress. The patient denies SOB but does report a dry cough throughout the night. Patient seen by Dr. Perdomo, nephrology who will address ESRD and move forward with dialysis next AM. She is also being followed by Pulm who ordered a CT chest. Pulm plans to move forward with further recommendations following the results of the CT. Continue emperic abx for now. No acute complaints at this time. Will continue to monitor and follow pulmonology plan of care. It was also noted that 1/4 bottles of blood culture grew G+ cocci in clusters, I suspect contaminant. Will continue treatment with empiric Abx Zozysn and Vancomycin to cover. Vitals Vitals Vital Signs Date Time Temp Pulse Resp B/P (MAP) Pulse Ox O2 Delivery O2 Flow Rate FiO2 04/11/17 10:07 Room Air 04/11/17 08:50 80 175/62 04/11/17 07:37 96 04/11/17 07:00 98.1 20 98.1 Physical Exam General: Alert, Oriented X3, Cooperative, No acute distress Heart: Regular rate, Normal S1, Normal S2, No murmurs Lungs: Crackles (Left lower lobe) Abdomen: Normal bowel sounds, Soft, No tenderness Extremities: No clubbing, No cyanosis, Normal pulses, Other (BLE edema) Skin: No rashes, No breakdown, No significant lesion Labs LABS Laboratory Tests Test 04/11/17 04:05 04/11/17 04:15 White Blood Count 8.6 x10^3/uL (4.0-11.0) Red Blood Count 3.05 x10^6/uL (3.50-5.40) Hemoglobin 9.0 g/dL (12.0-15.5) Hematocrit 28.2 % (36.0-47.0) Mean Corpuscular Volume 93 fL (79-100) Mean Corpuscular Hemoglobin 30 pg (25-35) Mean Corpuscular Hemoglobin Concent 32 g/dL (31-37) Red Cell Distribution Width 18.8 % (11.5-14.5) Platelet Count 164 x10^3/uL (140-400) Neutrophils (%) (Auto) 75 % (31-73) Lymphocytes (%) (Auto) 9 % (24-48) Monocytes (%) (Auto) 12 % (0-9) Eosinophils (%) (Auto) 4 % (0-3) Basophils (%) (Auto) 1 % (0-3) Neutrophils # (Auto) 6.4 x10^3uL (1.8-7.7) Lymphocytes # (Auto) 0.7 x10^3/uL (1.0-4.8) Monocytes # (Auto) 1.1 x10^3/uL (0.0-1.1) Eosinophils # (Auto) 0.3 x10^3/uL (0.0-0.7) Basophils # (Auto) 0.1 x10^3/uL (0.0-0.2) Sodium Level 137 mmol/L (136-145) Potassium Level 3.9 mmol/L (3.5-5.1) Chloride Level 103 mmol/L (98-107) Carbon Dioxide Level 23 mmol/L (21-32) Anion Gap 11 (6-14) Blood Urea Nitrogen 28 mg/dL (7-20) Creatinine 6.1 mg/dL (0.6-1.0) Estimated GFR (Cockcroft-Gault) 8.0 Glucose Level 87 mg/dL (70-99) Calcium Level 9.4 mg/dL (8.5-10.1) Review of Systems Review of Systems Gen: +fatigue, +hunger, no fever or chills CV: No CP or palpitations Resp: + dry cough, No SOB Assessment and Plan Assessmemt and Plan Problems Medical Problems: (1) Failure of outpatient treatment Status: Acute (2) Pneumonia Status: Acute (3) Renal failure Status: Acute Assessment Fever PNA ESRD-on dialysis CAD-CABG Plan: continue monitoring home meds recheck labs CT chest PT/OT prn Ultram for pain prn Phenergan with Codeine for antitussive 1/4 blood cultures positive- Will Continue empiric abx Dialysis in the AM Nephrology following Pulm following-Will move forward with their plan of care Problems: Comment Review of Relevant I have reviewed the following items jonah (where applicable) has been applied. Labs Laboratory Tests Test 04/09/17 21:05 04/11/17 04:05 04/11/17 04:15 White Blood Count 9.1 x10^3/uL (4.0-11.0) 8.6 x10^3/uL (4.0-11.0) Red Blood Count 3.29 x10^6/uL (3.50-5.40) 3.05 x10^6/uL (3.50-5.40) Hemoglobin 9.7 g/dL (12.0-15.5) 9.0 g/dL (12.0-15.5) Hematocrit 30.1 % (36.0-47.0) 28.2 % (36.0-47.0) Mean Corpuscular Volume 92 fL (79-100) 93 fL (79-100) Mean Corpuscular Hemoglobin 30 pg (25-35) 30 pg (25-35) Mean Corpuscular Hemoglobin Concent 32 g/dL (31-37) 32 g/dL (31-37) Red Cell Distribution Width 18.0 % (11.5-14.5) 18.8 % (11.5-14.5) Platelet Count 182 x10^3/uL (140-400) 164 x10^3/uL (140-400) Neutrophils (%) (Auto) 80 % (31-73) 75 % (31-73) Lymphocytes (%) (Auto) 6 % (24-48) 9 % (24-48) Monocytes (%) (Auto) 11 % (0-9) 12 % (0-9) Eosinophils (%) (Auto) 3 % (0-3) 4 % (0-3) Basophils (%) (Auto) 1 % (0-3) 1 % (0-3) Neutrophils # (Auto) 7.3 x10^3uL (1.8-7.7) 6.4 x10^3uL (1.8-7.7) Lymphocytes # (Auto) 0.6 x10^3/uL (1.0-4.8) 0.7 x10^3/uL (1.0-4.8) Monocytes # (Auto) 1.0 x10^3/uL (0.0-1.1) 1.1 x10^3/uL (0.0-1.1) Eosinophils # (Auto) 0.2 x10^3/uL (0.0-0.7) 0.3 x10^3/uL (0.0-0.7) Basophils # (Auto) 0.1 x10^3/uL (0.0-0.2) 0.1 x10^3/uL (0.0-0.2) Sodium Level 138 mmol/L (136-145) 137 mmol/L (136-145) Potassium Level 3.5 mmol/L (3.5-5.1) 3.9 mmol/L (3.5-5.1) Chloride Level 102 mmol/L (98-107) 103 mmol/L (98-107) Carbon Dioxide Level 23 mmol/L (21-32) 23 mmol/L (21-32) Anion Gap 13 (6-14) 11 (6-14) Blood Urea Nitrogen 16 mg/dL (7-20) 28 mg/dL (7-20) Creatinine 3.8 mg/dL (0.6-1.0) 6.1 mg/dL (0.6-1.0) Estimated GFR (Cockcroft-Gault) 13.8 8.0 BUN/Creatinine Ratio 4 (6-20) Glucose Level 151 mg/dL (70-99) 87 mg/dL (70-99) Lactic Acid Level 1.0 mmol/L (0.4-2.0) Calcium Level 9.1 mg/dL (8.5-10.1) 9.4 mg/dL (8.5-10.1) Total Bilirubin 0.3 mg/dL (0.2-1.0) Aspartate Amino Transf (AST/SGOT) 14 U/L (15-37) Alanine Aminotransferase (ALT/SGPT) 14 U/L (14-59) Alkaline Phosphatase 82 U/L (46-116) Troponin I Quantitative < 0.017 ng/mL (0.000-0.055) Total Protein 6.2 g/dL (6.4-8.2) Albumin 2.9 g/dL (3.4-5.0) Albumin/Globulin Ratio 0.9 (1.0-1.7) Laboratory Tests Test 04/11/17 04:05 04/11/17 04:15 White Blood Count 8.6 x10^3/uL (4.0-11.0) Red Blood Count 3.05 x10^6/uL (3.50-5.40) Hemoglobin 9.0 g/dL (12.0-15.5) Hematocrit 28.2 % (36.0-47.0) Mean Corpuscular Volume 93 fL (79-100) Mean Corpuscular Hemoglobin 30 pg (25-35) Mean Corpuscular Hemoglobin Concent 32 g/dL (31-37) Red Cell Distribution Width 18.8 % (11.5-14.5) Platelet Count 164 x10^3/uL (140-400) Neutrophils (%) (Auto) 75 % (31-73) Lymphocytes (%) (Auto) 9 % (24-48) Monocytes (%) (Auto) 12 % (0-9) Eosinophils (%) (Auto) 4 % (0-3) Basophils (%) (Auto) 1 % (0-3) Neutrophils # (Auto) 6.4 x10^3uL (1.8-7.7) Lymphocytes # (Auto) 0.7 x10^3/uL (1.0-4.8) Monocytes # (Auto) 1.1 x10^3/uL (0.0-1.1) Eosinophils # (Auto) 0.3 x10^3/uL (0.0-0.7) Basophils # (Auto) 0.1 x10^3/uL (0.0-0.2) Sodium Level 137 mmol/L (136-145) Potassium Level 3.9 mmol/L (3.5-5.1) Chloride Level 103 mmol/L (98-107) Carbon Dioxide Level 23 mmol/L (21-32) Anion Gap 11 (6-14) Blood Urea Nitrogen 28 mg/dL (7-20) Creatinine 6.1 mg/dL (0.6-1.0) Estimated GFR (Cockcroft-Gault) 8.0 Glucose Level 87 mg/dL (70-99) Calcium Level 9.4 mg/dL (8.5-10.1) Microbiology 04/10/17 Blood Culture - Final, Complete Medications Current Medications Piperacillin Sod/ Tazobactam Sod (Zosyn Per Pharmacy) 1 each PRN DAILY PRN MC SEE COMMENTS; Start 04/09/17 at 23:00 Vancomycin HCl (Vanco Per Pharmacy) 1 each PRN DAILY PRN MC SEE COMMENTS Last administered on 04/10/17 09:37; Start 04/09/17 at 23:00 Piperacillin Sod/ Tazobactam Sod 2.25 gm/Sodium Chloride 50 ml @ 100 mls/hr 1X ONCE IV Last administered on 04/09/17 23:08; Start 04/09/17 at 23:30; Stop 04/09/17 at 23:59; Status DC Vancomycin HCl 1.75 gm/Sodium Chloride 500 ml @ 250 mls/hr 1X ONCE IV Last administered on 04/09/17 23:36; Start 04/10/17 at 00:00; Stop 04/10/17 at 01:59 ; Status DC Ondansetron HCl (Zofran) 4 mg PRN Q8HRS PRN IV NAUSEA/VOMITING; Start 04/09/17 at 23:45; Stop 04/10/17 at 23:44; Status DC Acetaminophen (Tylenol) 650 mg PRN Q4HRS PRN PO FEVER Last administered on 04/10 21:17; Start 04/09/17 at 23:45; Stop 04/10/17 at 23:44; Status DC Albuterol/ Ipratropium (Duoneb) 3 ml RTQID NEB Last administered on 04/11/17 07:36; Start 04/10/17 at 08:00; Stop 04/11/17 at 07:59; Status DC Piperacillin Sod/ Tazobactam Sod 2.25 gm/Sodium Chloride 50 ml @ 100 mls/hr Q8HRS IV Last administered on 04/11/17 05:38; Start 04/10/17 at 06:00 Vancomycin HCl 1 each 1X ONCE MC ; Start 04/12/17 at 05:00; Stop 04/12/17 at 05 :01 Tramadol HCl (Ultram) 50 mg PRN Q6HRS PRN PO PAIN Last administered on 14:23; Start 04/10/17 at 13:00 Promethazine HCl/ Codeine (Phenergan With Codeine) 5 ml PRN Q4HRS PRN PO COUGH Last administered on 04/11/17 08:50; Start 04/10/17 at 13:00 Acetaminophen (Tylenol) 325 mg DAILY PO Last administered on 04/11/17 08:50; Start 04/10/17 at 21:18 Amiodarone HCl (Cordarone) 200 mg DAILY PO Last administered on 04/11/17 08:48 ; Start 04/11/17 at 09:00 Amlodipine Besylate (Norvasc) 10 mg DAILY PO Last administered on 04/11/17 08: 46; Start 04/11/17 at 09:00 Aspirin (Brandi Aspirin) 325 mg DAILY08 PO Last administered on 04/11/17 08:44 ; Start 04/11/17 at 08:00 Atorvastatin Calcium (Lipitor) 20 mg HS PO ; Start 04/10/17 at 21:30; Stop 04/10 at 21:30; Status DC Benzonatate (Tessalon Perle) 100 mg PRN Q8HRS PRN PO COUGH; Start 04/10/17 at 21:15 Clonidine HCl (Catapres) 0.2 mg QHS PO ; Start 04/11/17 at 21:00 Ferrous Sulfate (Feosol) 325 mg BIDWMEALS PO Last administered on 04/11/17 08: 50; Start 04/11/17 at 08:00 Metoprolol Tartrate (Lopressor) 25 mg BID PO Last administered on 04/11/17 08: 47; Start 04/11/17 at 09:00 Polyethylene Glycol (miraLAX PACKET) 17 gm PRN DAILY PRN PO CONSTIPATION Last administered on 04/11/17 08:44; Start 04/10/17 at 21:15 Prednisone (Prednisone) 20 mg DAILY PO Last administered on 04/11/17 08:48; Start 04/11/17 at 09:00 Calcium Acetate (Phoslo) 667 mg TIDWMEALS PO Last administered on 04/11/17 08: 00; Start 04/11/17 at 08:00 Hydralazine HCl (Apresoline) 100 mg BID PO Last administered on 04/11/17 08:50 ; Start 04/11/17 at 09:00 Pantoprazole Sodium (Protonix) 40 mg DAILYAC PO Last administered on 04/11/17 08:47; Start 04/11/17 at 07:30 Vitamin B Complex/ Vitamin C (Helen-Homa) 1 tab DAILY PO Last administered on 08:47; Start 04/11/17 at 09:00 Labetalol HCl (Normodyne) 20 mg 1X ONCE IVP Last administered on 04/10/17t 21: 17; Start 04/10/17 at 21:15; Stop 04/10/17 at 21:16; Status DC Labetalol HCl (Normodyne) 10 mg PRN Q2HRS PRN IVP HYPERTENSION, SEE COMMENTS; Start 04/10/17 at 21:15 Acetaminophen (Tylenol) 650 mg PRN Q6HRS PRN PO PAIN; Start 04/10/17 at 21:15 Albuterol Sulfate (Ventolin Neb Soln) 2.5 mg PRN Q4HRS PRN NEB SHORTNESS OF BREATH; Start 04/10/17 at 21:15 Atorvastatin Calcium (Lipitor) 20 mg HS PO ; Start 04/11/17 at 21:00 Info (PHARMACY MONITORING -- do not chart) 1 each PRN DAILY PRN MC SEE COMMENTS ; Start 04/11/17 at 00:45 Active Scripts Active Reported Benzonatate 100 Mg Capsule 1 Cap PO PRN Q8HRS PRN Prednisone 20 Mg Tablet 1 Tab PO DAILY Metoprolol Tartrate 25 Mg Tablet 1 Tab PO BID Amiodarone Hcl 200 Mg Tablet 1 Tab PO DAILY Miralax (Polyethylene Glycol 3350) 17 Gm Powd.pack 1 Packet PO PRN DAILY PRN Ferrous Sulfate 325 Mg Tablet 1 Tab PO BID Tylenol (Acetaminophen) 325 Mg Tablet 325 Mg PO DAILY Aspirin 325 Mg Tablet 1 Tab PO DAILY Helen-Homa Rx Tablet (Vit B Cmplx 3/Fa/Vit C/Biotin) 1 Each Tablet 1 Each PO DAILY Amlodipine Besylate 10 Mg Tablet 10 Mg PO DAILY Calcium Acetate 667 Mg Tablet 667 Mg PO TIDWMEALS Omeprazole 40 Mg Capsule.dr 40 Mg PO DAILY Hydralazine Hcl 100 Mg Tablet 100 Mg PO BID Clonidine Hcl 0.2 Mg Tablet 1 Tab PO QHS Atorvastatin Calcium 20 Mg Tablet 20 Mg PO HS Vitals/I & O Vital Sign - Last 24 Hours 04/10/17 04/10/17 04/10/17 04/10/17 11:41 14:23 15:00 15:30 Temp 98.1 98.1 Pulse 77 Resp 20 20 20 B/P (MAP) 162/59 (93) Pulse Ox 93 97 93 O2 Delivery Room Air Room Air Room Air Room Air 10/104/10/17 04/10/17 04/10/17 16:44 19:00 20:00 20:51 Temp 98.1 98.1 Pulse 80 Resp 20 B/P (MAP) 190/66 (107) Pulse Ox 98 98 O2 Delivery Room Air Room Air Room Air Room Air 04/10/17 04/10/17 04/11/17 04/11/17 21:17 23:00 03:03 07:00 Temp 98.1 98.1 98.1 98.1 98.1 98.1 Pulse 80 71 77 84 Resp 20 20 20 B/P (MAP) 190/66 135/55 (81) 163/68 (99) 182/66 (104) Pulse Ox 100 93 96 O2 Delivery Room Air Room Air Room Air 04/11/17 04/11/17 04/11/17 04/11/17 07:37 08:46 08:47 08:48 Pulse 80 80 80 B/P (MAP) 175/62 175/62 175/62 Pulse Ox 96 O2 Delivery Room Air 04/11/17 04/11/17 08:50 10:07 Pulse 80 B/P (MAP) 175/62 O2 Delivery Room Air DELONTE WRIGHT III DO Apr 11, 2017 11:32
[2017-04-11] MEDS: VANCOMYCIN PER PHARMACY MC PRN (14:50)
[2017-04-11 15:00] VITALS: BP 128/47
[2017-04-11 19:00] VITALS: BP 166/67
[2017-04-11] MEDS: ATORVASTATIN CALCIUM 20 MG TABLET PO SCH (20:51)
[2017-04-11] MEDS: cloNIDine HCL 0.2 MG TABLET PO SCH (20:51)
[2017-04-11] MEDS ORDERED: DARBEPOETIN ALFA 60 MCG/0.3 ML DISP.SYRIN. SQ SCH (21:00)
[2017-04-11 23:00] VITALS: BP 163/65
[2017-04-12] VITALS (7 sets, daily range): BP systolic 131–174; BP diastolic 51–65
[2017-04-12] MEDS ORDERED: VANCOMYCIN RANDOM LEVEL. MC ONE (05:00)
[2017-04-12] MEDS: PIPERACILLIN/TAZOBACTAM 2.25 GM in IV NORMAL SALINE 50ML 50 ML IV SCH ×3 (05:08→21:03)
[2017-04-12] MEDS: PROMETH/CODEINE 6.25/10MG 5 ML SYRUP. PO PRN (05:39)
[2017-04-12 06:13] LABS: BASO % 0 % (0-3); EOS % 0 % (0-3); HEMATOCRIT 26.3 % (36.0-47.0); HEMOGLOBIN 8.6 g/dL (12.0-15.5); LYMPH # 0.6 x10^3/uL (1.0-4.8); LYMPH % 8 % (24-48); MEAN CORPUSCULAR HEMOGLOBIN 30 pg (25-35); MEAN CORPUSCULAR HGB CONC 33 g/dL (31-37); MEAN CORPUSCULAR VOLUME 91 fL (79-100); MONO % 11 % (0-9); NEUT % 81 % (31-73); PLATELET COUNT 188 x10^3/uL (140-400); RED CELL DISTRIBUTION WIDTH 18.4 % (11.5-14.5); WHITE BLOOD COUNT 7.8 x10^3/uL (4.0-11.0)
[2017-04-12 06:33] LABS: CALCIUM 8.7 mg/dL (8.5-10.1); CREATININE 7.7 mg/dL (0.6-1.0); GFR 6.1; POTASSIUM 4.4 mmol/L (3.5-5.1)
[2017-04-12] MEDS: VANCOMYCIN PER PHARMACY MC PRN ×2 (06:59→15:36)
[2017-04-12] MEDS ORDERED: IV NORMAL SALINE 1000ML BAG 1,000 ML IV PRN ×2 (07:27)
[2017-04-12] MEDS ORDERED: DIALYSIS PATIENT. MC PRN ×2 (07:30)
[2017-04-12] MEDS: CALCIUM ACETATE 667 MG CAPSULE PO SCH ×3 (08:00→17:00)
[2017-04-12] MEDS: FERROUS SULFATE 325 MG TABLET. PO SCH ×2 (08:00→15:30)
[2017-04-12] MEDS: ACETAMINOPHEN 325 MG TABLET. PO SCH ×2 (09:00→15:30)
--- NOTE | 2017-04-12 09:53 | PDOC ---
Infectious Disease Note ROS ROS Vital Sign Vital Signs Vital Signs Date Time Temp Pulse Resp B/P (MAP) Pulse Ox O2 Delivery O2 Flow Rate FiO2 04/12/17 07:00 96.1 65 18 134/55 (81) 94 Room Air 96.1 Labs Lab Laboratory Tests Test 04/11/17 17:30 04/12/17 04:55 Erythrocyte Sedimentation Rate 125 (0-25) White Blood Count 7.8 x10^3/uL (4.0-11.0) Red Blood Count 2.90 x10^6/uL (3.50-5.40) Hemoglobin 8.6 g/dL (12.0-15.5) Hematocrit 26.3 % (36.0-47.0) Mean Corpuscular Volume 91 fL (79-100) Mean Corpuscular Hemoglobin 30 pg (25-35) Mean Corpuscular Hemoglobin Concent 33 g/dL (31-37) Red Cell Distribution Width 18.4 % (11.5-14.5) Platelet Count 188 x10^3/uL (140-400) Neutrophils (%) (Auto) 81 % (31-73) Lymphocytes (%) (Auto) 8 % (24-48) Monocytes (%) (Auto) 11 % (0-9) Eosinophils (%) (Auto) 0 % (0-3) Basophils (%) (Auto) 0 % (0-3) Neutrophils # (Auto) 6.3 x10^3uL (1.8-7.7) Lymphocytes # (Auto) 0.6 x10^3/uL (1.0-4.8) Monocytes # (Auto) 0.8 x10^3/uL (0.0-1.1) Eosinophils # (Auto) 0.0 x10^3/uL (0.0-0.7) Basophils # (Auto) 0.0 x10^3/uL (0.0-0.2) Sodium Level 137 mmol/L (136-145) Potassium Level 4.4 mmol/L (3.5-5.1) Chloride Level 103 mmol/L (98-107) Carbon Dioxide Level 23 mmol/L (21-32) Anion Gap 11 (6-14) Blood Urea Nitrogen 42 mg/dL (7-20) Creatinine 7.7 mg/dL (0.6-1.0) Estimated GFR (Cockcroft-Gault) 6.1 Glucose Level 126 mg/dL (70-99) Calcium Level 8.7 mg/dL (8.5-10.1) Random Vancomycin Level 19.5 mcg/mL Objective Assessment Fever 101 prior to admit [facility] bacteremia 1/ - likely contamination ? Pneumonia failed outpatient - levoflox among others CKD on HD Plan Plan of Care Cont Vanc/zosyn She is hoarse and has been for weeks worse reflux as her cough worsens when she lays flat. GI eval Consider EGD evaluate reflux/aspitartion/May be Sandra esophagitis given mult abx F/u labs and cults Thank you # [id number] ERIN FLORENCE MD Apr 12, 2017 09:53
--- NOTE | 2017-04-12 10:49 | PDOC ---
PROGRESS NOTES Chief Complaint Chief Complaint Fever ESRD CAD-CABG PMH: Arthritis HTN Pneumonia Renal Disease Cataracts History of Present Illness History of Present Illness Pt was laying in bed and conversant. She does not appear to be in any acute distress. No SCDs were noted on the legs. She is scheduled to receive HD today and is a regular dialysis pt. She has not missed any dialysis and her last one was this past Tuesday. Discussed plan of care with the pt as well as the RN. Pt mentioned pulmonary discussing doing a thoracentesis. Dr. Perdomo with Nephrology will start Aranesp. Dr. Oates with pulmonary ordered a ESR which came back elevated at 125. He also wants to consult ID and cont. abx BUN - 42 Creatinine - 7.7 Vitals Vitals Vital Signs Date Time Temp Pulse Resp B/P (MAP) Pulse Ox O2 Delivery O2 Flow Rate FiO2 04/12/17 07:00 96.1 65 18 134/55 (81) 94 Room Air 96.1 Physical Exam General: Alert, Oriented X3, Cooperative, No acute distress Heart: Regular rate, Normal S1, Normal S2, No murmurs Lungs: Wheezing, Crackles Abdomen: Normal bowel sounds, Soft, No tenderness Extremities: No clubbing, No cyanosis, Normal pulses Skin: No rashes, No breakdown, No significant lesion Labs LABS Laboratory Tests Test 04/11/17 17:30 04/12/17 04:55 Erythrocyte Sedimentation Rate 125 (0-25) White Blood Count 7.8 x10^3/uL (4.0-11.0) Red Blood Count 2.90 x10^6/uL (3.50-5.40) Hemoglobin 8.6 g/dL (12.0-15.5) Hematocrit 26.3 % (36.0-47.0) Mean Corpuscular Volume 91 fL (79-100) Mean Corpuscular Hemoglobin 30 pg (25-35) Mean Corpuscular Hemoglobin Concent 33 g/dL (31-37) Red Cell Distribution Width 18.4 % (11.5-14.5) Platelet Count 188 x10^3/uL (140-400) Neutrophils (%) (Auto) 81 % (31-73) Lymphocytes (%) (Auto) 8 % (24-48) Monocytes (%) (Auto) 11 % (0-9) Eosinophils (%) (Auto) 0 % (0-3) Basophils (%) (Auto) 0 % (0-3) Neutrophils # (Auto) 6.3 x10^3uL (1.8-7.7) Lymphocytes # (Auto) 0.6 x10^3/uL (1.0-4.8) Monocytes # (Auto) 0.8 x10^3/uL (0.0-1.1) Eosinophils # (Auto) 0.0 x10^3/uL (0.0-0.7) Basophils # (Auto) 0.0 x10^3/uL (0.0-0.2) Sodium Level 137 mmol/L (136-145) Potassium Level 4.4 mmol/L (3.5-5.1) Chloride Level 103 mmol/L (98-107) Carbon Dioxide Level 23 mmol/L (21-32) Anion Gap 11 (6-14) Blood Urea Nitrogen 42 mg/dL (7-20) Creatinine 7.7 mg/dL (0.6-1.0) Estimated GFR (Cockcroft-Gault) 6.1 Glucose Level 126 mg/dL (70-99) Calcium Level 8.7 mg/dL (8.5-10.1) Random Vancomycin Level 19.5 mcg/mL Review of Systems Review of Systems PT complains of joint stiffness Pt complains of fatigue Assessment and Plan Assessmemt and Plan Problems Medical Problems: (1) Failure of outpatient treatment Status: Acute (2) Pneumonia Status: Acute (3) Renal failure Status: Acute Fever ESRD CAD-CABG PMH: Arthritis HTN Pneumonia Renal Disease Cataracts Plan: Recheck labs PT/OT Dialysis Today Cont. dialysis if inpatient cont. abx Cont. to chanellee Appreciate subspecialty input Start Aranesp Problems: Comment Review of Relevant I have reviewed the following items jonah (where applicable) has been applied. Labs Laboratory Tests Test 04/11/17 04:05 04/11/17 04:15 04/11/17 17:30 04/12/17 04:55 White Blood Count 8.6 x10^3/uL (4.0-11.0) 7.8 x10^3/uL (4.0-11.0) Red Blood Count 3.05 x10^6/uL (3.50-5.40) 2.90 x10^6/uL (3.50-5.40) Hemoglobin 9.0 g/dL (12.0-15.5) 8.6 g/dL (12.0-15.5) Hematocrit 28.2 % (36.0-47.0) 26.3 % (36.0-47.0) Mean Corpuscular Volume 93 fL (79-100) 91 fL (79-100) Mean Corpuscular Hemoglobin 30 pg (25-35) 30 pg (25-35) Mean Corpuscular Hemoglobin Concent 32 g/dL (31-37) 33 g/dL (31-37) Red Cell Distribution Width 18.8 % (11.5-14.5) 18.4 % (11.5-14.5) Platelet Count 164 x10^3/uL (140-400) 188 x10^3/uL (140-400) Neutrophils (%) (Auto) 75 % (31-73) 81 % (31-73) Lymphocytes (%) (Auto) 9 % (24-48) 8 % (24-48) Monocytes (%) (Auto) 12 % (0-9) 11 % (0-9) Eosinophils (%) (Auto) 4 % (0-3) 0 % (0-3) Basophils (%) (Auto) 1 % (0-3) 0 % (0-3) Neutrophils # (Auto) 6.4 x10^3uL (1.8-7.7) 6.3 x10^3uL (1.8-7.7) Lymphocytes # (Auto) 0.7 x10^3/uL (1.0-4.8) 0.6 x10^3/uL (1.0-4.8) Monocytes # (Auto) 1.1 x10^3/uL (0.0-1.1) 0.8 x10^3/uL (0.0-1.1) Eosinophils # (Auto) 0.3 x10^3/uL (0.0-0.7) 0.0 x10^3/uL (0.0-0.7) Basophils # (Auto) 0.1 x10^3/uL (0.0-0.2) 0.0 x10^3/uL (0.0-0.2) Sodium Level 137 mmol/L (136-145) 137 mmol/L (136-145) Potassium Level 3.9 mmol/L (3.5-5.1) 4.4 mmol/L (3.5-5.1) Chloride Level 103 mmol/L (98-107) 103 mmol/L (98-107) Carbon Dioxide Level 23 mmol/L (21-32) 23 mmol/L (21-32) Anion Gap 11 (6-14) 11 (6-14) Blood Urea Nitrogen 28 mg/dL (7-20) 42 mg/dL (7-20) Creatinine 6.1 mg/dL (0.6-1.0) 7.7 mg/dL (0.6-1.0) Estimated GFR (Cockcroft-Gault) 8.0 6.1 Glucose Level 87 mg/dL (70-99) 126 mg/dL (70-99) Calcium Level 9.4 mg/dL (8.5-10.1) 8.7 mg/dL (8.5-10.1) Erythrocyte Sedimentation Rate 125 (0-25) Random Vancomycin Level 19.5 mcg/mL Laboratory Tests Test 04/11/17 17:30 04/12/17 04:55 Erythrocyte Sedimentation Rate 125 (0-25) White Blood Count 7.8 x10^3/uL (4.0-11.0) Red Blood Count 2.90 x10^6/uL (3.50-5.40) Hemoglobin 8.6 g/dL (12.0-15.5) Hematocrit 26.3 % (36.0-47.0) Mean Corpuscular Volume 91 fL (79-100) Mean Corpuscular Hemoglobin 30 pg (25-35) Mean Corpuscular Hemoglobin Concent 33 g/dL (31-37) Red Cell Distribution Width 18.4 % (11.5-14.5) Platelet Count 188 x10^3/uL (140-400) Neutrophils (%) (Auto) 81 % (31-73) Lymphocytes (%) (Auto) 8 % (24-48) Monocytes (%) (Auto) 11 % (0-9) Eosinophils (%) (Auto) 0 % (0-3) Basophils (%) (Auto) 0 % (0-3) Neutrophils # (Auto) 6.3 x10^3uL (1.8-7.7) Lymphocytes # (Auto) 0.6 x10^3/uL (1.0-4.8) Monocytes # (Auto) 0.8 x10^3/uL (0.0-1.1) Eosinophils # (Auto) 0.0 x10^3/uL (0.0-0.7) Basophils # (Auto) 0.0 x10^3/uL (0.0-0.2) Sodium Level 137 mmol/L (136-145) Potassium Level 4.4 mmol/L (3.5-5.1) Chloride Level 103 mmol/L (98-107) Carbon Dioxide Level 23 mmol/L (21-32) Anion Gap 11 (6-14) Blood Urea Nitrogen 42 mg/dL (7-20) Creatinine 7.7 mg/dL (0.6-1.0) Estimated GFR (Cockcroft-Gault) 6.1 Glucose Level 126 mg/dL (70-99) Calcium Level 8.7 mg/dL (8.5-10.1) Random Vancomycin Level 19.5 mcg/mL Microbiology 04/10/17 Blood Culture - Preliminary, Resulted 04/10/17 Blood Culture Result 1 (DANIEL) - Preliminary, Resulted Medications Current Medications Piperacillin Sod/ Tazobactam Sod (Zosyn Per Pharmacy) 1 each PRN DAILY PRN MC SEE COMMENTS; Start 04/09/17 at 23:00 Vancomycin HCl (Vanco Per Pharmacy) 1 each PRN DAILY PRN MC SEE COMMENTS Last administered on 04/12/17 06:59; Start 04/09/17 at 23:00 Piperacillin Sod/ Tazobactam Sod 2.25 gm/Sodium Chloride 50 ml @ 100 mls/hr 1X ONCE IV Last administered on 04/09/17 23:08; Start 04/09/17 at 23:30; Stop 04/09/17 at 23:59; Status DC Vancomycin HCl 1.75 gm/Sodium Chloride 500 ml @ 250 mls/hr 1X ONCE IV Last administered on 04/09/17 23:36; Start 04/10/17 at 00:00; Stop 04/10/17 at 01:59 ; Status DC Ondansetron HCl (Zofran) 4 mg PRN Q8HRS PRN IV NAUSEA/VOMITING; Start 04/09/17 at 23:45; Stop 04/10/17 at 23:44; Status DC Acetaminophen (Tylenol) 650 mg PRN Q4HRS PRN PO FEVER Last administered on 04/10 21:17; Start 04/09/17 at 23:45; Stop 04/10/17 at 23:44; Status DC Albuterol/ Ipratropium (Duoneb) 3 ml RTQID NEB Last administered on 04/11/17 07:36; Start 04/10/17 at 08:00; Stop 04/11/17 at 07:59; Status DC Piperacillin Sod/ Tazobactam Sod 2.25 gm/Sodium Chloride 50 ml @ 100 mls/hr Q8HRS IV Last administered on 04/12/17 05:08; Start 04/10/17 at 06:00 Vancomycin HCl 1 each 1X ONCE MC Last administered on 04/12/17 05:00; Start 04/12/17 at 05:00; Stop 04/12/17 at 05:01; Status DC Tramadol HCl (Ultram) 50 mg PRN Q6HRS PRN PO PAIN Last administered on 14:23; Start 04/10/17 at 13:00 Promethazine HCl/ Codeine (Phenergan With Codeine) 5 ml PRN Q4HRS PRN PO COUGH Last administered on 04/12/17 05:39; Start 04/10/17 at 13:00 Acetaminophen (Tylenol) 325 mg DAILY PO Last administered on 04/11/17 08:50; Start 04/10/17 at 21:18 Amiodarone HCl (Cordarone) 200 mg DAILY PO Last administered on 04/11/17 08:48 ; Start 04/11/17 at 09:00 Amlodipine Besylate (Norvasc) 10 mg DAILY PO Last administered on 04/11/17 08: 46; Start 04/11/17 at 09:00 Aspirin (Brandi Aspirin) 325 mg DAILY08 PO Last administered on 04/11/17 08:44 ; Start 04/11/17 at 08:00 Atorvastatin Calcium (Lipitor) 20 mg HS PO ; Start 04/10/17 at 21:30; Stop 04/10 at 21:30; Status DC Benzonatate (Tessalon Perle) 100 mg PRN Q8HRS PRN PO COUGH; Start 04/10/17 at 21:15 Clonidine HCl (Catapres) 0.2 mg QHS PO Last administered on 04/11/17 20:51; Start 04/11/17 at 21:00 Ferrous Sulfate (Feosol) 325 mg BIDWMEALS PO Last administered on 04/11/17 17: 07; Start 04/11/17 at 08:00 Metoprolol Tartrate (Lopressor) 25 mg BID PO Last administered on 04/11/17 20: 52; Start 04/11/17 at 09:00 Polyethylene Glycol (miraLAX PACKET) 17 gm PRN DAILY PRN PO CONSTIPATION Last administered on 04/11/17 08:44; Start 04/10/17 at 21:15 Prednisone (Prednisone) 20 mg DAILY PO Last administered on 04/11/17 08:48; Start 04/11/17 at 09:00 Calcium Acetate (Phoslo) 667 mg TIDWMEALS PO Last administered on 04/11/17 17: 07; Start 04/11/17 at 08:00 Hydralazine HCl (Apresoline) 100 mg BID PO Last administered on 04/11/17 20:51 ; Start 04/11/17 at 09:00 Pantoprazole Sodium (Protonix) 40 mg DAILYAC PO Last administered on 04/11/17 08:47; Start 04/11/17 at 07:30 Vitamin B Complex/ Vitamin C (Helen-Homa) 1 tab DAILY PO Last administered on 08:47; Start 04/11/17 at 09:00 Labetalol HCl (Normodyne) 20 mg 1X ONCE IVP Last administered on 04/10/17 21: 17; Start 04/10/17 at 21:15; Stop 04/10/17 at 21:16; Status DC Labetalol HCl (Normodyne) 10 mg PRN Q2HRS PRN IVP HYPERTENSION, SEE COMMENTS; Start 04/10/17 at 21:15 Acetaminophen (Tylenol) 650 mg PRN Q6HRS PRN PO PAIN; Start 04/10/17 at 21:15 Albuterol Sulfate (Ventolin Neb Soln) 2.5 mg PRN Q4HRS PRN NEB SHORTNESS OF BREATH; Start 04/10/17 at 21:15 Atorvastatin Calcium (Lipitor) 20 mg HS PO Last administered on 04/11/17 20:51 ; Start 04/11/17 at 21:00 Info (PHARMACY MONITORING -- do not chart) 1 each PRN DAILY PRN MC SEE COMMENTS ; Start 04/11/17 at 00:45 Darbepoetin Kemar (Aranesp) 60 mcg WEEKLYHS SQ Last administered on 04/11/17 20 :50; Start 04/11/17 at 21:00 Vancomycin HCl 500 mg/Sodium Chloride 100 ml @ 100 mls/hr TuThSa IV ; Start at 16:00 Sodium Chloride 1,000 ml @ 1,000 mls/hr Q1H PRN IV hypotension; Start 04/12/17 at 07:27; Stop 04/12/17 at 13:26 Sodium Chloride 1,000 ml @ 400 mls/hr Q2H30M PRN IV PATENCY; Start 04/12/17 at 07:27; Stop 04/12/17 at 19:26 Info (PHARMACY MONITORING -- do not chart) 1 each PRN DAILY PRN MC SEE COMMENTS ; Start 04/12/17 at 07:30; Status UNV Info (PHARMACY MONITORING -- do not chart) 1 each PRN DAILY PRN MC SEE COMMENTS ; Start 04/12/17 at 07:30; Status UNV Active Scripts Active Reported Benzonatate 100 Mg Capsule 1 Cap PO PRN Q8HRS PRN Prednisone 20 Mg Tablet 1 Tab PO DAILY Metoprolol Tartrate 25 Mg Tablet 1 Tab PO BID Amiodarone Hcl 200 Mg Tablet 1 Tab PO DAILY Miralax (Polyethylene Glycol 3350) 17 Gm Powd.pack 1 Packet PO PRN DAILY PRN Ferrous Sulfate 325 Mg Tablet 1 Tab PO BID Tylenol (Acetaminophen) 325 Mg Tablet 325 Mg PO DAILY Aspirin 325 Mg Tablet 1 Tab PO DAILY Helen-Homa Rx Tablet (Vit B Cmplx 3/Fa/Vit C/Biotin) 1 Each Tablet 1 Each PO DAILY Amlodipine Besylate 10 Mg Tablet 10 Mg PO DAILY Calcium Acetate 667 Mg Tablet 667 Mg PO TIDWMEALS Omeprazole 40 Mg Capsule.dr 40 Mg PO DAILY Hydralazine Hcl 100 Mg Tablet 100 Mg PO BID Clonidine Hcl 0.2 Mg Tablet 1 Tab PO QHS Atorvastatin Calcium 20 Mg Tablet 20 Mg PO HS Vitals/I & O Vital Sign - Last 24 Hours 04/11/17 04/11/17 04/11/17 04/11/17 11:00 15:00 19:00 19:40 Temp 97.9 97.9 98.5 97.9 97.9 98.5 Pulse 78 75 78 Resp 20 18 18 B/P (MAP) 159/61 (93) 128/47 (74) 166/67 (100) Pulse Ox 97 100 90 O2 Delivery Room Air Room Air Room Air Room Air 04/11/17 04/11/17 04/11/17 04/11/17 20:51 20:51 20:52 23:00 Temp 98.8 98.8 Pulse 70 70 70 77 Resp 18 B/P (MAP) 166/67 166/67 166/67 163/65 (97) Pulse Ox 94 O2 Delivery Room Air 04/12/17 04/12/17 03:00 07:00 Temp 98.7 96.1 98.7 96.1 Pulse 67 65 Resp 20 18 B/P (MAP) 150/63 (92) 134/55 (81) Pulse Ox 94 94 O2 Delivery Room Air Room Air DELONTE WRIGHT III DO Apr 12, 2017 10:48
--- NOTE | 2017-04-12 11:23 | PDOC ---
Renal-Progress Notes Subjective Notes Notes STILL COUGHING History of Present Illness Hx of present illness STABLE Vitals Vitals Vital Signs Date Time Temp Pulse Resp B/P (MAP) Pulse Ox O2 Delivery O2 Flow Rate FiO2 04/12/17 11:00 97.6 64 18 159/51 (87) 96 Room Air 97.6 Weight Weight [ ] Labs Labs Laboratory Tests Test 04/11/17 17:30 04/12/17 04:55 Erythrocyte Sedimentation Rate 125 (0-25) White Blood Count 7.8 x10^3/uL (4.0-11.0) Red Blood Count 2.90 x10^6/uL (3.50-5.40) Hemoglobin 8.6 g/dL (12.0-15.5) Hematocrit 26.3 % (36.0-47.0) Mean Corpuscular Volume 91 fL (79-100) Mean Corpuscular Hemoglobin 30 pg (25-35) Mean Corpuscular Hemoglobin Concent 33 g/dL (31-37) Red Cell Distribution Width 18.4 % (11.5-14.5) Platelet Count 188 x10^3/uL (140-400) Neutrophils (%) (Auto) 81 % (31-73) Lymphocytes (%) (Auto) 8 % (24-48) Monocytes (%) (Auto) 11 % (0-9) Eosinophils (%) (Auto) 0 % (0-3) Basophils (%) (Auto) 0 % (0-3) Neutrophils # (Auto) 6.3 x10^3uL (1.8-7.7) Lymphocytes # (Auto) 0.6 x10^3/uL (1.0-4.8) Monocytes # (Auto) 0.8 x10^3/uL (0.0-1.1) Eosinophils # (Auto) 0.0 x10^3/uL (0.0-0.7) Basophils # (Auto) 0.0 x10^3/uL (0.0-0.2) Sodium Level 137 mmol/L (136-145) Potassium Level 4.4 mmol/L (3.5-5.1) Chloride Level 103 mmol/L (98-107) Carbon Dioxide Level 23 mmol/L (21-32) Anion Gap 11 (6-14) Blood Urea Nitrogen 42 mg/dL (7-20) Creatinine 7.7 mg/dL (0.6-1.0) Estimated GFR (Cockcroft-Gault) 6.1 Glucose Level 126 mg/dL (70-99) Calcium Level 8.7 mg/dL (8.5-10.1) Random Vancomycin Level 19.5 mcg/mL Micro Micro Microbiology 04/10/17 Blood Culture - Preliminary, Resulted 04/10/17 Blood Culture Result 1 (DANIEL) - Preliminary, Resulted Review of Systems Constitutional: yes: weakness, alert, oriented Ears/Nose/Throat: Yes: no symptom reported Pulmonary: Yes cough dry Cardiovascular: Yes no symptom reported Gastrointestional: Yes: constipation Genitourinary: Yes: no symptom reported Musculoskeletal: Yes: muscle stiffness Skin: Yes no symptom reported Psychiatric/Neurological: Yes: no symptom reported Endocrine: Yes: no symptom reported Physical Exam General Appearance: no apparent distress Skin: warm Respiratory: decreased breath sounds Heart: S1S2 Abdomen: soft, bowel sounds present Genitourinary: bladder flat Extremities: pulses present, atrophy Neurology: alert Musculoskeletal: Osteoarthritis Assessment Assessment IMP PNEUMONIA ANEMIA ESRD HTN PLAN ANTIBIOTICS HD TODAY UF TO LONA BRINK MD Apr 12, 2017 11:23
--- NOTE | 2017-04-12 12:30 | PDOC2 ---
GI CONSULT Reason For Consult: ?need for EGD HPI: HPI: 82 y/o female admitted through ER on 04/09. Recent h/o pneumonia treated w/ a few rounds of antibiotics, had a fever at home. Followed by pulm and ID, GI asked to see re: cough and hoarseness w/ h/o GERD. The patient reports long h/ o GERD which is well-controlled w/ Prilosec QD. No recent increased in heartburn, reflux, or indigestion. Denies dysphagia and odynophagia. Says had a swallow evaluation fairly recently that was normal. Cough occurs mostly while laying flat during the night, sometimes while eating. Relates hoarseness to cough/pneumonia. No abd pain. Occasional constipation improved w/ Miralax and stool softeners. On ASA and iron; stools look dark as a result. Had CABG over the summer, also has ESRD on HD. No change in appetite, denies weight loss. No previous EGD or colonoscopy. No gallbladder, liver, or pancreas history. PMH: PMH: CAD, ESRD on HD, pneumonia, HTN, OA, total hysterectomy, right knee replacement , appendectomy, cataract extraction FH: Family History: No pertinent hx Social History: ALCOHOL: none Drugs: None ROS: GEN: +fever HEENT: +hoarseness CV: Denies chest pain RESP: +cough GI: Per HPI : Denies hematuria, dysuria ENDO: Denies weight changes NEURO: Denies confusion, dizziness MSK: +left knee pain SKIN: Denies jaundice, pruritus Vitals: Vitals: Vital Signs Date Time Temp Pulse Resp B/P (MAP) Pulse Ox O2 Delivery O2 Flow Rate FiO2 04/12/17 11:00 97.6 64 18 159/51 (87) 96 Room Air 97.6 Labs: Labs: Laboratory Tests Test 04/11/17 17:30 04/12/17 04:55 Erythrocyte Sedimentation Rate 125 (0-25) White Blood Count 7.8 x10^3/uL (4.0-11.0) Red Blood Count 2.90 x10^6/uL (3.50-5.40) Hemoglobin 8.6 g/dL (12.0-15.5) Hematocrit 26.3 % (36.0-47.0) Mean Corpuscular Volume 91 fL (79-100) Mean Corpuscular Hemoglobin 30 pg (25-35) Mean Corpuscular Hemoglobin Concent 33 g/dL (31-37) Red Cell Distribution Width 18.4 % (11.5-14.5) Platelet Count 188 x10^3/uL (140-400) Neutrophils (%) (Auto) 81 % (31-73) Lymphocytes (%) (Auto) 8 % (24-48) Monocytes (%) (Auto) 11 % (0-9) Eosinophils (%) (Auto) 0 % (0-3) Basophils (%) (Auto) 0 % (0-3) Neutrophils # (Auto) 6.3 x10^3uL (1.8-7.7) Lymphocytes # (Auto) 0.6 x10^3/uL (1.0-4.8) Monocytes # (Auto) 0.8 x10^3/uL (0.0-1.1) Eosinophils # (Auto) 0.0 x10^3/uL (0.0-0.7) Basophils # (Auto) 0.0 x10^3/uL (0.0-0.2) Sodium Level 137 mmol/L (136-145) Potassium Level 4.4 mmol/L (3.5-5.1) Chloride Level 103 mmol/L (98-107) Carbon Dioxide Level 23 mmol/L (21-32) Anion Gap 11 (6-14) Blood Urea Nitrogen 42 mg/dL (7-20) Creatinine 7.7 mg/dL (0.6-1.0) Estimated GFR (Cockcroft-Gault) 6.1 Glucose Level 126 mg/dL (70-99) Calcium Level 8.7 mg/dL (8.5-10.1) Random Vancomycin Level 19.5 mcg/mL Allergies: Coded Allergies: No Known Drug Allergies (Unverified , 01/06/17) Medications: Current Medications Medications (Trade) Dose Ordered Sig/Willard Route PRN Reason Start Time Stop Time Status Last Admin Dose Admin Vancomycin HCl 1 each 1X ONCE MC 04/12/17 05:00 04/12/17 05:01 DC 04/12/17 05:00 Clonidine HCl (Catapres) 0.2 mg QHS PO 04/11/17 21:00 04/11/17 20:51 Atorvastatin Calcium (Lipitor) 20 mg HS PO 04/11/17 21:00 10/2/17 20:51 Darbepoetin Kemar (Aranesp) 60 mcg WEEKLYHS SQ 04/11/17 21:00 04/11/17 20:50 Imaging: Imaging: CXR Impression: 1. Left base atelectasis although an infiltrate is possible. CT chest w/o contrast Impression: 1. Ground groundglass infiltrates or pulmonary edema. 2. Small pleural effusions. 3. Cardiomegaly. PE: GEN: NAD HEENT: Atraumatic, PERRL LUNGS: dry cough HEART: RRR ABD: NABS, S/ND/NT EXTREMITY: No edema SKIN: No rashes, no jaundice NEURO/PSYCH: A & O 3 A/P: A/P: Fever -prior to admission Recent pneumonia, cough, hoarseness -treated w/ antibiotics as outpt, ID following here -CT chest as above, echo ordered -cough worse when supine, sometimes w/ eating -denies dysphagia/odynophagia, relates previous swallow eval unrevealing ESRD on HD, CAD s/p CABG GERD -controlled w/ Prilosec, no previous EGD Anemia -on ASA and iron, no obvious bleeding CRC screen -no previous colonoscopy -- D/w Dr. Montoya. Cough/hoarseness related to pneumonia vs GERD. Continue PPI and check esophagram. No immediate plans for EGD. PEDRO PABLO MCGOWAN Apr 12, 2017 12:30
--- NOTE | 2017-04-12 13:05 | PDOC ---
PULMONARY PROGRESS NOTES Subjective PT NOT MORE SOA CONTINUE COUGH Vitals Vital Signs Date Time Temp Pulse Resp B/P (MAP) Pulse Ox O2 Delivery O2 Flow Rate FiO2 04/12/17 11:00 97.6 64 18 159/51 (87) 96 Room Air 97.6 ROS: No Nausea, No Chest Pain, No Abdominal Pain, No Increase Cough General: Alert Lungs: Wheezing, Crackles Cardiovascular: S1, S2 Abdomen: Soft Neuro Exam: Alert Extremities: No Edema Skin: Warm Labs Laboratory Tests Test 04/11/17 04:05 04/11/17 04:15 04/11/17 17:30 04/12/17 04:55 White Blood Count 8.6 x10^3/uL (4.0-11.0) 7.8 x10^3/uL (4.0-11.0) Red Blood Count 3.05 x10^6/uL (3.50-5.40) 2.90 x10^6/uL (3.50-5.40) Hemoglobin 9.0 g/dL (12.0-15.5) 8.6 g/dL (12.0-15.5) Hematocrit 28.2 % (36.0-47.0) 26.3 % (36.0-47.0) Mean Corpuscular Volume 93 fL (79-100) 91 fL (79-100) Mean Corpuscular Hemoglobin 30 pg (25-35) 30 pg (25-35) Mean Corpuscular Hemoglobin Concent 32 g/dL (31-37) 33 g/dL (31-37) Red Cell Distribution Width 18.8 % (11.5-14.5) 18.4 % (11.5-14.5) Platelet Count 164 x10^3/uL (140-400) 188 x10^3/uL (140-400) Neutrophils (%) (Auto) 75 % (31-73) 81 % (31-73) Lymphocytes (%) (Auto) 9 % (24-48) 8 % (24-48) Monocytes (%) (Auto) 12 % (0-9) 11 % (0-9) Eosinophils (%) (Auto) 4 % (0-3) 0 % (0-3) Basophils (%) (Auto) 1 % (0-3) 0 % (0-3) Neutrophils # (Auto) 6.4 x10^3uL (1.8-7.7) 6.3 x10^3uL (1.8-7.7) Lymphocytes # (Auto) 0.7 x10^3/uL (1.0-4.8) 0.6 x10^3/uL (1.0-4.8) Monocytes # (Auto) 1.1 x10^3/uL (0.0-1.1) 0.8 x10^3/uL (0.0-1.1) Eosinophils # (Auto) 0.3 x10^3/uL (0.0-0.7) 0.0 x10^3/uL (0.0-0.7) Basophils # (Auto) 0.1 x10^3/uL (0.0-0.2) 0.0 x10^3/uL (0.0-0.2) Sodium Level 137 mmol/L (136-145) 137 mmol/L (136-145) Potassium Level 3.9 mmol/L (3.5-5.1) 4.4 mmol/L (3.5-5.1) Chloride Level 103 mmol/L (98-107) 103 mmol/L (98-107) Carbon Dioxide Level 23 mmol/L (21-32) 23 mmol/L (21-32) Anion Gap 11 (6-14) 11 (6-14) Blood Urea Nitrogen 28 mg/dL (7-20) 42 mg/dL (7-20) Creatinine 6.1 mg/dL (0.6-1.0) 7.7 mg/dL (0.6-1.0) Estimated GFR (Cockcroft-Gault) 8.0 6.1 Glucose Level 87 mg/dL (70-99) 126 mg/dL (70-99) Calcium Level 9.4 mg/dL (8.5-10.1) 8.7 mg/dL (8.5-10.1) Erythrocyte Sedimentation Rate 125 (0-25) Random Vancomycin Level 19.5 mcg/mL Laboratory Tests Test 04/11/17 17:30 04/12/17 04:55 Erythrocyte Sedimentation Rate 125 (0-25) White Blood Count 7.8 x10^3/uL (4.0-11.0) Red Blood Count 2.90 x10^6/uL (3.50-5.40) Hemoglobin 8.6 g/dL (12.0-15.5) Hematocrit 26.3 % (36.0-47.0) Mean Corpuscular Volume 91 fL (79-100) Mean Corpuscular Hemoglobin 30 pg (25-35) Mean Corpuscular Hemoglobin Concent 33 g/dL (31-37) Red Cell Distribution Width 18.4 % (11.5-14.5) Platelet Count 188 x10^3/uL (140-400) Neutrophils (%) (Auto) 81 % (31-73) Lymphocytes (%) (Auto) 8 % (24-48) Monocytes (%) (Auto) 11 % (0-9) Eosinophils (%) (Auto) 0 % (0-3) Basophils (%) (Auto) 0 % (0-3) Neutrophils # (Auto) 6.3 x10^3uL (1.8-7.7) Lymphocytes # (Auto) 0.6 x10^3/uL (1.0-4.8) Monocytes # (Auto) 0.8 x10^3/uL (0.0-1.1) Eosinophils # (Auto) 0.0 x10^3/uL (0.0-0.7) Basophils # (Auto) 0.0 x10^3/uL (0.0-0.2) Sodium Level 137 mmol/L (136-145) Potassium Level 4.4 mmol/L (3.5-5.1) Chloride Level 103 mmol/L (98-107) Carbon Dioxide Level 23 mmol/L (21-32) Anion Gap 11 (6-14) Blood Urea Nitrogen 42 mg/dL (7-20) Creatinine 7.7 mg/dL (0.6-1.0) Estimated GFR (Cockcroft-Gault) 6.1 Glucose Level 126 mg/dL (70-99) Calcium Level 8.7 mg/dL (8.5-10.1) Random Vancomycin Level 19.5 mcg/mL Medications Active Scripts Medications Dose Route/Sig Max Daily Dose Days Date Category Benzonatate 100 Mg Capsule 1 Cap PO PRN Q8HRS PRN 04/10/17 Reported Prednisone 20 Mg Tablet 1 Tab PO DAILY 04/10/17 Reported Metoprolol Tartrate 25 Mg Tablet 1 Tab PO BID 04/10/17 Reported Amiodarone Hcl 200 Mg Tablet 1 Tab PO DAILY 04/10/17 Reported Miralax (Polyethylene Glycol 3350) 17 Gm Powd.pack 1 Packet PO PRN DAILY PRN 04/10/17 Reported Ferrous Sulfate 325 Mg Tablet 1 Tab PO BID 04/10/17 Reported Tylenol (Acetaminophen) 325 Mg Tablet 325 Mg PO DAILY 04/10/17 Reported Aspirin 325 Mg Tablet 1 Tab PO DAILY 04/10/17 Reported [facility] Rx Tablet (Vit B Cmplx 3/Fa/Vit C/Biotin) 1 Each Tablet 1 Each PO DAILY 01/06/17 Reported Amlodipine Besylate 10 Mg Tablet 10 Mg PO DAILY 01/06/17 Reported Calcium Acetate 667 Mg Tablet 667 Mg PO TIDWMEALS 01/06/17 Reported Omeprazole 40 Mg Capsule.dr 40 Mg PO DAILY 01/06/17 Reported Hydralazine Hcl 100 Mg Tablet 100 Mg PO BID 01/06/17 Reported Clonidine Hcl 0.2 Mg Tablet 1 Tab PO QHS 01/06/17 Reported Atorvastatin Calcium 20 Mg Tablet 20 Mg PO HS 01/06/17 Reported Impression . 1. POSSIBLE PNEUMONIA 2. No significant history of tobacco use. 3. End-stage renal disease, on hemodialysis. 4. History of coronary artery bypass grafting with mild lower extremity edema. 5. ABNORMAL CXR CT CONFIRMED GROUND GLASS OPACITIES I THINK MOSTLY PULMONARY EDEMA 6. FEVER PER ID Impression: 1. Ground groundglass infiltrates or pulmonary edema. 2. Small pleural effusions. 3. Cardiomegaly. Plan . ESOPHAGRAM PENDING CONTINUE ANTIBX FOR NOW ECHO SED RATE ELEVATED DIURESE FOLLOW UP IN OFFICE ONCE D/C ANTHONY VILLALOBOS MD Apr 12, 2017 13:05
--- NOTE | 2017-04-12 14:59 | CARD ---
APPROVED REPORT EXAM: LIMITED Two-dimensional echocardiogram. Other Information Quality : Average Rhythm : NSR INDICATION LV Function:Systolic Non STEMI Fever Surgery/Intervention CABG: Date: January 2017 2D DIMENSIONS RVDd3.1 (2.9-3.5cm)Left Atrium(2D)3.3 (1.6-4.0cm) IVSd1.2 (0.7-1.1cm)Aortic Root(2D)3.0 (2.0-3.7cm) LVDd4.6 (3.9-5.9cm)PWd1.2 (0.7-1.1cm) LVDs2.7 (2.5-4.0cm)FS (%) 41.3 % SV69.9 mlLVEF(%)72.3 (>50%) LEFT VENTRICLE The left ventricle is normal size. There is borderline concentric left ventricular hypertrophy. Left ventricle systolic function is normal. The Ejection Fraction is >70%. There is normal LV segmental wa ll motion. RIGHT VENTRICLE The right ventricle is normal size. The right ventricular systolic function is normal. ATRIA The left atrium size is normal. GREAT VESSELS The aortic root is normal in size. PERICARDIAL EFFUSION There is no evidence of significant pericardial effusion. Critical Notification Critical Value: No <Conclusion> Left ventricle systolic function is normal. The Ejection Fraction is >70%. There is normal LV segmental wall motion. Limited echo only for wall motion and EF.
[2017-04-12] MEDS: FOLIC/VIT B COMP W-C (RENAL) TABLET. PO SCH (15:29)
[2017-04-12] MEDS: amLODIPine BESYLATE 10 MG TABLET PO SCH (15:30)
[2017-04-12] MEDS: predniSONE 20 MG TABLET PO SCH (15:31)
[2017-04-12] MEDS: ASPIRIN 325 MG TABLET PO SCH (15:31)
[2017-04-12] MEDS: PANTOPRAZOLE 40 MG TABLET.DR. PO SCH (15:31)
[2017-04-12] MEDS: METOPROLOL TART IMMED RELEASE 25 MG TABLET. PO SCH ×2 (15:31→20:23)
[2017-04-12] MEDS: AMIODARONE HCL 200 MG TABLET. PO SCH (15:32)
[2017-04-12] MEDS: VANCOMYCIN 500 MG in IV NORMAL SALINE 100ML 100 ML IV SCH (16:40)
[2017-04-12] MEDS: ATORVASTATIN CALCIUM 20 MG TABLET PO SCH (20:23)
[2017-04-12] MEDS: cloNIDine HCL 0.2 MG TABLET PO SCH (20:24)
[2017-04-13 03:24] VITALS: BP 172/61
[2017-04-13] MEDS: PROMETH/CODEINE 6.25/10MG 5 ML SYRUP. PO PRN ×2 (03:50→09:37)
[2017-04-13] MEDS: ACETAMINOPHEN 325 MG TABLET. PO PRN ×2 (03:52→17:17)
[2017-04-13] MEDS: PIPERACILLIN/TAZOBACTAM 2.25 GM in IV NORMAL SALINE 50ML 50 ML IV SCH ×3 (05:40→21:57)
[2017-04-13 05:52] LABS: BASO % 1 % (0-3); EOS % 6 % (0-3); HEMATOCRIT 26.4 % (36.0-47.0); HEMOGLOBIN 8.8 g/dL (12.0-15.5); LYMPH # 0.5 x10^3/uL (1.0-4.8); LYMPH % 7 % (24-48); MEAN CORPUSCULAR HEMOGLOBIN 30 pg (25-35); MEAN CORPUSCULAR HGB CONC 33 g/dL (31-37); MEAN CORPUSCULAR VOLUME 90 fL (79-100); MONO % 11 % (0-9); NEUT % 76 % (31-73); PLATELET COUNT 188 x10^3/uL (140-400); RED BLOOD COUNT 2.95 x10^6/uL (3.50-5.40); RED CELL DISTRIBUTION WIDTH 17.9 % (11.5-14.5); WHITE BLOOD COUNT 7.1 x10^3/uL (4.0-11.0)
[2017-04-13 06:25] LABS: CALCIUM 8.9 mg/dL (8.5-10.1); CREATININE 4.8 mg/dL (0.6-1.0); GFR 10.5; POTASSIUM 3.9 mmol/L (3.5-5.1)
[2017-04-13 07:00] VITALS: BP 153/58
[2017-04-13] MEDS ORDERED: BARIUM SULFATE 340 GM SUSPENSION. PO ONE (08:00)
[2017-04-13] MEDS ORDERED: SIMETHICONE/SOD BICARB/CITRIC ACID PACKET. PO ONE (08:00)
[2017-04-13] MEDS ORDERED: BARIUM SULFATE 60% 355 ML SUSP PO ONE (08:00)
[2017-04-13] MEDS: ACETAMINOPHEN 325 MG TABLET. PO SCH (09:00)
--- NOTE | 2017-04-13 09:10 | RAD ---
Esophagram Indication: Cough, GERD, dysphagia. Technique: Esophagram with thin and thick barium with effervescent granules. Total fluoroscopy time of 2.5 minutes. Comparison: None Findings: The spot image demonstrates mild dextroscoliosis of the mid thoracic spine. Heart is moderately enlarged in size with CABG changes. Lungs are clear. Punctate round lucencies are seen in the esophagus which may represent adherent air bubbles. No obstructing masses. The gastroesophageal junction demonstrate no abnormal obstructing masses. Prompt passage of contrast is seen through the gastroesophageal junction. Small sliding hiatal hernia. Prompt passage of contrast seen through the duodenum. The stomach demonstrates no abnormal filling defects. No evidence of abnormal motility of the esophagus. Impression: 1. Evidence of gastroesophageal reflux disease. 2. No obstructing mass in the esophagus. 3. Small sliding hiatal hernia.
[2017-04-13] MEDS: CALCIUM ACETATE 667 MG CAPSULE PO SCH ×3 (09:32→17:17)
[2017-04-13] MEDS: FERROUS SULFATE 325 MG TABLET. PO SCH ×2 (09:32→17:17)
[2017-04-13] MEDS: PANTOPRAZOLE 40 MG TABLET.DR. PO SCH ×2 (09:32→16:36)
[2017-04-13] MEDS: ASPIRIN 325 MG TABLET PO SCH (09:32)
[2017-04-13] MEDS: amLODIPine BESYLATE 10 MG TABLET PO SCH (09:33)
[2017-04-13] MEDS: AMIODARONE HCL 200 MG TABLET. PO SCH (09:34)
[2017-04-13] MEDS: METOPROLOL TART IMMED RELEASE 25 MG TABLET. PO SCH ×2 (09:34→21:03)
[2017-04-13] MEDS: FOLIC/VIT B COMP W-C (RENAL) TABLET. PO SCH (09:34)
[2017-04-13] MEDS: predniSONE 20 MG TABLET PO SCH (09:34)
--- NOTE | 2017-04-13 09:45 | PDOC ---
Infectious Disease Note Subjective Subjective Better. Less cough. denies dysphagia today ROS ROS GEN: Denies fevers, chills, sweats HEENT: Denies blurred vision, sore throat CV: Denies chest pain RESP: Denies shortness of air GI: Denies n/v/d NEURO: Denies confusion, dizziness MSK: Denies weakness, joint pain/swelling Vital Sign Vital Signs Vital Signs Date Time Temp Pulse Resp B/P (MAP) Pulse Ox O2 Delivery O2 Flow Rate FiO2 04/13/17 07:30 Room Air 04/13/17 07:00 96.8 71 18 153/58 (89) 94 96.8 Physical Exam PHYSICAL EXAM GENERAL: NAD, Alert, in chair HEENT: PERRL, OC/OP- clear NECK: Supple, no JVD, no LN LUNGS: mild wheeze HEART: S1S2, no gallop, no murmur ABD: Soft, NT, no organomegaly, no rebound EXT: No edema, no cyanosis AUTO STRIPER: Alert, oriented x 3, no focal neurologic deficit SKIN: No rash IV: ok Labs Lab Laboratory Tests Test 04/13/17 05:15 White Blood Count 7.1 x10^3/uL (4.0-11.0) Red Blood Count 2.95 x10^6/uL (3.50-5.40) Hemoglobin 8.8 g/dL (12.0-15.5) Hematocrit 26.4 % (36.0-47.0) Mean Corpuscular Volume 90 fL (79-100) Mean Corpuscular Hemoglobin 30 pg (25-35) Mean Corpuscular Hemoglobin Concent 33 g/dL (31-37) Red Cell Distribution Width 17.9 % (11.5-14.5) Platelet Count 188 x10^3/uL (140-400) Neutrophils (%) (Auto) 76 % (31-73) Lymphocytes (%) (Auto) 7 % (24-48) Monocytes (%) (Auto) 11 % (0-9) Eosinophils (%) (Auto) 6 % (0-3) Basophils (%) (Auto) 1 % (0-3) Neutrophils # (Auto) 5.4 x10^3uL (1.8-7.7) Lymphocytes # (Auto) 0.5 x10^3/uL (1.0-4.8) Monocytes # (Auto) 0.7 x10^3/uL (0.0-1.1) Eosinophils # (Auto) 0.4 x10^3/uL (0.0-0.7) Basophils # (Auto) 0.0 x10^3/uL (0.0-0.2) Sodium Level 139 mmol/L (136-145) Potassium Level 3.9 mmol/L (3.5-5.1) Chloride Level 103 mmol/L (98-107) Carbon Dioxide Level 30 mmol/L (21-32) Anion Gap 6 (6-14) Blood Urea Nitrogen 22 mg/dL (7-20) Creatinine 4.8 mg/dL (0.6-1.0) Estimated GFR (Cockcroft-Gault) 10.5 Glucose Level 84 mg/dL (70-99) Calcium Level 8.9 mg/dL (8.5-10.1) Objective Assessment Fever 101 prior to admit [facility] bacteremia 1/4 - likely contamination ? Pneumonia failed outpatient - levoflox among others. mild wheeze Reflux on Esophogram CKD on HD Plan Plan of Care Cont Vanc/zosyn for now I/S Await further GI f/u F/u labs and cults ERIN FLORENCE MD Apr 13, 2017 09:45
--- NOTE | 2017-04-13 10:53 | PDOC ---
PROGRESS NOTES Chief Complaint Chief Complaint Fever ESRD CAD-CABG PMH: Arthritis HTN Pneumonia Renal Disease Cataracts History of Present Illness History of Present Illness Pt seen at bedside she is resting comfortably and in no acute distress. Pt dialyzed yesterday-creat down to 4.8. Echocardiogram performed yesterday- normal LVSF with an EF of >70%. Pt seen by ISA Rodriguez-continue Anegles/Lilli and consulted GI. GI SYDNEY Desouza and Dr. Montoya- barium swallow. Probable chronic aspiration due to chronic GERD. Patient reports worsening of her cough when she is laying down flat. Nephrology is following. Pulm is following. Cont with IV abx. Will continue to monitor. Await subspecialty input for further plan of care. Barium Swallow: Impression: 1. Evidence of gastroesophageal reflux disease. 2. No obstructing mass in the esophagus. 3. Small sliding hiatal hernia. Vitals Vitals Vital Signs Date Time Temp Pulse Resp B/P (MAP) Pulse Ox O2 Delivery O2 Flow Rate FiO2 04/13/17 09:34 71 153/58 04/13/17 07:30 Room Air 04/13/17 07:00 96.8 18 94 96.8 Physical Exam General: Alert, Oriented X3, Cooperative, No acute distress Heart: Regular rate, Normal S1, Normal S2, No murmurs Lungs: Wheezing, Crackles Abdomen: Normal bowel sounds, Soft, No tenderness, No masses Extremities: No clubbing, No cyanosis, Normal pulses Skin: No rashes, No breakdown, No significant lesion Labs LABS Laboratory Tests Test 04/13/17 05:15 White Blood Count 7.1 x10^3/uL (4.0-11.0) Red Blood Count 2.95 x10^6/uL (3.50-5.40) Hemoglobin 8.8 g/dL (12.0-15.5) Hematocrit 26.4 % (36.0-47.0) Mean Corpuscular Volume 90 fL (79-100) Mean Corpuscular Hemoglobin 30 pg (25-35) Mean Corpuscular Hemoglobin Concent 33 g/dL (31-37) Red Cell Distribution Width 17.9 % (11.5-14.5) Platelet Count 188 x10^3/uL (140-400) Neutrophils (%) (Auto) 76 % (31-73) Lymphocytes (%) (Auto) 7 % (24-48) Monocytes (%) (Auto) 11 % (0-9) Eosinophils (%) (Auto) 6 % (0-3) Basophils (%) (Auto) 1 % (0-3) Neutrophils # (Auto) 5.4 x10^3uL (1.8-7.7) Lymphocytes # (Auto) 0.5 x10^3/uL (1.0-4.8) Monocytes # (Auto) 0.7 x10^3/uL (0.0-1.1) Eosinophils # (Auto) 0.4 x10^3/uL (0.0-0.7) Basophils # (Auto) 0.0 x10^3/uL (0.0-0.2) Sodium Level 139 mmol/L (136-145) Potassium Level 3.9 mmol/L (3.5-5.1) Chloride Level 103 mmol/L (98-107) Carbon Dioxide Level 30 mmol/L (21-32) Anion Gap 6 (6-14) Blood Urea Nitrogen 22 mg/dL (7-20) Creatinine 4.8 mg/dL (0.6-1.0) Estimated GFR (Cockcroft-Gault) 10.5 Glucose Level 84 mg/dL (70-99) Calcium Level 8.9 mg/dL (8.5-10.1) Review of Systems Review of Systems Gen: + fatigue, No fever or chills CV: No CP or Palpitations Resp: + dry cough, No SOB or tachypnea GI: + reflux-worse with laying flat. Assessment and Plan Assessmemt and Plan Problems Medical Problems: (1) Failure of outpatient treatment Status: Acute (2) Pneumonia Status: Acute (3) Renal failure Status: Acute Assessment: GERD PNA ESRD CAD-CABG Arthritis HTN Renal Disease Cataracts Plan: -Echocardiogram -Barium swallow -cont IV abx -cont monitoring cont home meds PT/OT recheck labs ID following GI following Pulm following Nephro following Await subspecialty input for further plan of care Problems: Comment Review of Relevant I have reviewed the following items jonah (where applicable) has been applied. Labs Laboratory Tests Test 04/11/17 17:30 04/12/17 04:55 04/13/17 05:15 Erythrocyte Sedimentation Rate 125 (0-25) White Blood Count 7.8 x10^3/uL (4.0-11.0) 7.1 x10^3/uL (4.0-11.0) Red Blood Count 2.90 x10^6/uL (3.50-5.40) 2.95 x10^6/uL (3.50-5.40) Hemoglobin 8.6 g/dL (12.0-15.5) 8.8 g/dL (12.0-15.5) Hematocrit 26.3 % (36.0-47.0) 26.4 % (36.0-47.0) Mean Corpuscular Volume 91 fL (79-100) 90 fL (79-100) Mean Corpuscular Hemoglobin 30 pg (25-35) 30 pg (25-35) Mean Corpuscular Hemoglobin Concent 33 g/dL (31-37) 33 g/dL (31-37) Red Cell Distribution Width 18.4 % (11.5-14.5) 17.9 % (11.5-14.5) Platelet Count 188 x10^3/uL (140-400) 188 x10^3/uL (140-400) Neutrophils (%) (Auto) 81 % (31-73) 76 % (31-73) Lymphocytes (%) (Auto) 8 % (24-48) 7 % (24-48) Monocytes (%) (Auto) 11 % (0-9) 11 % (0-9) Eosinophils (%) (Auto) 0 % (0-3) 6 % (0-3) Basophils (%) (Auto) 0 % (0-3) 1 % (0-3) Neutrophils # (Auto) 6.3 x10^3uL (1.8-7.7) 5.4 x10^3uL (1.8-7.7) Lymphocytes # (Auto) 0.6 x10^3/uL (1.0-4.8) 0.5 x10^3/uL (1.0-4.8) Monocytes # (Auto) 0.8 x10^3/uL (0.0-1.1) 0.7 x10^3/uL (0.0-1.1) Eosinophils # (Auto) 0.0 x10^3/uL (0.0-0.7) 0.4 x10^3/uL (0.0-0.7) Basophils # (Auto) 0.0 x10^3/uL (0.0-0.2) 0.0 x10^3/uL (0.0-0.2) Sodium Level 137 mmol/L (136-145) 139 mmol/L (136-145) Potassium Level 4.4 mmol/L (3.5-5.1) 3.9 mmol/L (3.5-5.1) Chloride Level 103 mmol/L (98-107) 103 mmol/L (98-107) Carbon Dioxide Level 23 mmol/L (21-32) 30 mmol/L (21-32) Anion Gap 11 (6-14) 6 (6-14) Blood Urea Nitrogen 42 mg/dL (7-20) 22 mg/dL (7-20) Creatinine 7.7 mg/dL (0.6-1.0) 4.8 mg/dL (0.6-1.0) Estimated GFR (Cockcroft-Gault) 6.1 10.5 Glucose Level 126 mg/dL (70-99) 84 mg/dL (70-99) Calcium Level 8.7 mg/dL (8.5-10.1) 8.9 mg/dL (8.5-10.1) Random Vancomycin Level 19.5 mcg/mL Laboratory Tests Test 04/13/17 05:15 White Blood Count 7.1 x10^3/uL (4.0-11.0) Red Blood Count 2.95 x10^6/uL (3.50-5.40) Hemoglobin 8.8 g/dL (12.0-15.5) Hematocrit 26.4 % (36.0-47.0) Mean Corpuscular Volume 90 fL (79-100) Mean Corpuscular Hemoglobin 30 pg (25-35) Mean Corpuscular Hemoglobin Concent 33 g/dL (31-37) Red Cell Distribution Width 17.9 % (11.5-14.5) Platelet Count 188 x10^3/uL (140-400) Neutrophils (%) (Auto) 76 % (31-73) Lymphocytes (%) (Auto) 7 % (24-48) Monocytes (%) (Auto) 11 % (0-9) Eosinophils (%) (Auto) 6 % (0-3) Basophils (%) (Auto) 1 % (0-3) Neutrophils # (Auto) 5.4 x10^3uL (1.8-7.7) Lymphocytes # (Auto) 0.5 x10^3/uL (1.0-4.8) Monocytes # (Auto) 0.7 x10^3/uL (0.0-1.1) Eosinophils # (Auto) 0.4 x10^3/uL (0.0-0.7) Basophils # (Auto) 0.0 x10^3/uL (0.0-0.2) Sodium Level 139 mmol/L (136-145) Potassium Level 3.9 mmol/L (3.5-5.1) Chloride Level 103 mmol/L (98-107) Carbon Dioxide Level 30 mmol/L (21-32) Anion Gap 6 (6-14) Blood Urea Nitrogen 22 mg/dL (7-20) Creatinine 4.8 mg/dL (0.6-1.0) Estimated GFR (Cockcroft-Gault) 10.5 Glucose Level 84 mg/dL (70-99) Calcium Level 8.9 mg/dL (8.5-10.1) Microbiology 04/10/17 Blood Culture - Preliminary, Resulted 04/10/17 Blood Culture Result 1 (DANIEL) - Preliminary, Resulted 04/10/17 Antimicrobic Susceptibility - Preliminary, Resulted Medications Current Medications Piperacillin Sod/ Tazobactam Sod (Zosyn Per Pharmacy) 1 each PRN DAILY PRN MC SEE COMMENTS; Start 04/09/17 at 23:00 Vancomycin HCl (Vanco Per Pharmacy) 1 each PRN DAILY PRN MC SEE COMMENTS Last administered on 04/12/17 15:36; Start 04/09/17 at 23:00 Piperacillin Sod/ Tazobactam Sod 2.25 gm/Sodium Chloride 50 ml @ 100 mls/hr 1X ONCE IV Last administered on 04/09/17 23:08; Start 04/09/17 at 23:30; Stop 04/09/17 at 23:59; Status DC Vancomycin HCl 1.75 gm/Sodium Chloride 500 ml @ 250 mls/hr 1X ONCE IV Last administered on 04/09/17 23:36; Start 04/10/17 at 00:00; Stop 04/10/17 at 01:59 ; Status DC Ondansetron HCl (Zofran) 4 mg PRN Q8HRS PRN IV NAUSEA/VOMITING; Start 04/09/17 at 23:45; Stop 04/10/17 at 23:44; Status DC Acetaminophen (Tylenol) 650 mg PRN Q4HRS PRN PO FEVER Last administered on 04/10 21:17; Start 04/09/17 at 23:45; Stop 04/10/17 at 23:44; Status DC Albuterol/ Ipratropium (Duoneb) 3 ml RTQID NEB Last administered on 04/11/17 07:36; Start 04/10/17 at 08:00; Stop 04/11/17 at 07:59; Status DC Piperacillin Sod/ Tazobactam Sod 2.25 gm/Sodium Chloride 50 ml @ 100 mls/hr Q8HRS IV Last administered on 04/13/17 05:40; Start 04/10/17 at 06:00 Vancomycin HCl 1 each 1X ONCE MC Last administered on 04/12/17 05:00; Start 04/12/17 at 05:00; Stop 04/12/17 at 05:01; Status DC Tramadol HCl (Ultram) 50 mg PRN Q6HRS PRN PO PAIN Last administered on 14:23; Start 04/10/17 at 13:00 Promethazine HCl/ Codeine (Phenergan With Codeine) 5 ml PRN Q4HRS PRN PO COUGH Last administered on 04/13/17 09:37; Start 04/10/17 at 13:00 Acetaminophen (Tylenol) 325 mg DAILY PO Last administered on 04/11/17 08:50; Start 04/10/17 at 21:18 Amiodarone HCl (Cordarone) 200 mg DAILY PO Last administered on 04/13/17 09:34 ; Start 04/11/17 at 09:00 Amlodipine Besylate (Norvasc) 10 mg DAILY PO Last administered on 04/13/17 09: 33; Start 04/11/17 at 09:00 Aspirin (Brandi Aspirin) 325 mg DAILY08 PO Last administered on 04/13/17 09:32 ; Start 04/11/17 at 08:00 Atorvastatin Calcium (Lipitor) 20 mg HS PO ; Start 04/10/17 at 21:30; Stop 04/10 at 21:30; Status DC Benzonatate (Tessalon Perle) 100 mg PRN Q8HRS PRN PO COUGH; Start 04/10/17 at 21:15 Clonidine HCl (Catapres) 0.2 mg QHS PO Last administered on 04/12/17 20:24; Start 04/11/17 at 21:00 Ferrous Sulfate (Feosol) 325 mg BIDWMEALS PO Last administered on 04/13/17 09: 32; Start 04/11/17 at 08:00 Metoprolol Tartrate (Lopressor) 25 mg BID PO Last administered on 04/13/17 09: 34; Start 04/11/17 at 09:00 Polyethylene Glycol (miraLAX PACKET) 17 gm PRN DAILY PRN PO CONSTIPATION Last administered on 04/11/17 08:44; Start 04/10/17 at 21:15 Prednisone (Prednisone) 20 mg DAILY PO Last administered on 04/13/17 09:34; Start 04/11/17 at 09:00 Calcium Acetate (Phoslo) 667 mg TIDWMEALS PO Last administered on 04/13/17 09: 32; Start 04/11/17 at 08:00 Hydralazine HCl (Apresoline) 100 mg BID PO Last administered on 04/13/17 09:33 ; Start 04/11/17 at 09:00 Pantoprazole Sodium (Protonix) 40 mg DAILYAC PO Last administered on 04/13/17 09:32; Start 04/11/17 at 07:30 Vitamin B Complex/ Vitamin C (Helen-Homa) 1 tab DAILY PO Last administered on 09:34; Start 04/11/17 at 09:00 Labetalol HCl (Normodyne) 20 mg 1X ONCE IVP Last administered on 04/10/17 21: 17; Start 04/10/17 at 21:15; Stop 04/10/17 at 21:16; Status DC Labetalol HCl (Normodyne) 10 mg PRN Q2HRS PRN IVP HYPERTENSION, SEE COMMENTS; Start 04/10/17 at 21:15 Acetaminophen (Tylenol) 650 mg PRN Q6HRS PRN PO PAIN Last administered on 03:52; Start 04/10/17 at 21:15 Albuterol Sulfate (Ventolin Neb Soln) 2.5 mg PRN Q4HRS PRN NEB SHORTNESS OF BREATH; Start 04/10/17 at 21:15 Atorvastatin Calcium (Lipitor) 20 mg HS PO Last administered on 04/12/17 20:23 ; Start 04/11/17 at 21:00 Info (PHARMACY MONITORING -- do not chart) 1 each PRN DAILY PRN MC SEE COMMENTS ; Start 04/11/17 at 00:45 Darbepoetin Kemar (Aranesp) 60 mcg WEEKLYHS SQ Last administered on 04/11/17 20 :50; Start 04/11/17 at 21:00 Vancomycin HCl 500 mg/Sodium Chloride 100 ml @ 100 mls/hr TuThSa IV Last administered on 04/12/17 16:40; Start 04/12/17 at 16:00 Sodium Chloride 1,000 ml @ 1,000 mls/hr Q1H PRN IV hypotension; Start 04/12/17 at 07:27; Stop 04/12/17 at 13:26; Status DC Sodium Chloride 1,000 ml @ 400 mls/hr Q2H30M PRN IV PATENCY; Start 04/12/17 at 07:27; Stop 04/12/17 at 19:26; Status DC Info (PHARMACY MONITORING -- do not chart) 1 each PRN DAILY PRN MC SEE COMMENTS ; Start 04/12/17 at 07:30; Status UNV Info (PHARMACY MONITORING -- do not chart) 1 each PRN DAILY PRN MC SEE COMMENTS ; Start 04/12/17 at 07:30; Status UNV Barium Sulfate (Liquid E-Z Paque) 355 ml 1X ONCE PO Last administered on 08:49; Start 04/13/17 at 08:00; Stop 04/13/17 at 08:01; Status DC Barium Sulfate (E-Z-Hd) 340 gm 1X ONCE PO Last administered on 04/13/17 08:49 ; Start 04/13/17 at 08:00; Stop 04/13/17 at 08:01; Status DC Simethicone/ Sodium Bicarb/ Citric Ac (E-Z-Gas) 1 packet 1X ONCE PO Last administered on 10/4/17at 08:49; Start 04/13/17 at 08:00; Stop 04/13/17 at 08:01 ; Status DC Active Scripts Active Reported Benzonatate 100 Mg Capsule 1 Cap PO PRN Q8HRS PRN Prednisone 20 Mg Tablet 1 Tab PO DAILY Metoprolol Tartrate 25 Mg Tablet 1 Tab PO BID Amiodarone Hcl 200 Mg Tablet 1 Tab PO DAILY Miralax (Polyethylene Glycol 3350) 17 Gm Powd.pack 1 Packet PO PRN DAILY PRN Ferrous Sulfate 325 Mg Tablet 1 Tab PO BID Tylenol (Acetaminophen) 325 Mg Tablet 325 Mg PO DAILY Aspirin 325 Mg Tablet 1 Tab PO DAILY Helen-Homa Rx Tablet (Vit B Cmplx 3/Fa/Vit C/Biotin) 1 Each Tablet 1 Each PO DAILY Amlodipine Besylate 10 Mg Tablet 10 Mg PO DAILY Calcium Acetate 667 Mg Tablet 667 Mg PO TIDWMEALS Omeprazole 40 Mg Capsule.dr 40 Mg PO DAILY Hydralazine Hcl 100 Mg Tablet 100 Mg PO BID Clonidine Hcl 0.2 Mg Tablet 1 Tab PO QHS Atorvastatin Calcium 20 Mg Tablet 20 Mg PO HS Vitals/I & O Vital Sign - Last 24 Hours 04/12/17 04/12/17 04/12/17 04/12/17 11:00 15:00 15:30 15:30 Temp 97.6 97.9 97.6 97.9 Pulse 64 65 65 65 Resp 18 18 B/P (MAP) 159/51 (87) 174/54 (94) 174/54 174/54 Pulse Ox 96 94 O2 Delivery Room Air Room Air 04/12/17 04/12/17 04/12/17 04/12/17 15:31 15:32 19:00 20:00 Temp 98.6 98.6 Pulse 65 65 73 Resp 20 B/P (MAP) 174/54 174/54 155/65 (95) Pulse Ox 96 O2 Delivery Room Air Room Air 04/12/17 04/12/17 04/12/17 04/12/17 20:23 20:23 20:24 23:00 Temp 97.8 97.8 Pulse 73 73 73 65 Resp 20 B/P (MAP) 155/65 155/65 155/65 131/52 (78) Pulse Ox 93 O2 Delivery Room Air 04/13/17 04/13/17 04/13/17 04/13/17 03:24 07:00 07:30 09:33 Temp 98.4 96.8 98.4 96.8 Pulse 67 71 71 Resp 20 18 B/P (MAP) 172/61 (98) 153/58 (89) 153/58 Pulse Ox 95 94 O2 Delivery Room Air Room Air Room Air 04/13/17 04/13/17 04/13/17 09:33 09:34 09:34 Pulse 71 71 71 B/P (MAP) 153/58 153/58 153/58 DELONTE WRIGHT III DO Apr 13, 2017 10:53
[2017-04-13 11:00] VITALS: BP 166/62
--- NOTE | 2017-04-13 11:32 | PDOC ---
Subjective: Subjective: Cough might be a little better today - worse when supine. Denies reflux/heartburn - her typical GERD symptoms. Denies dysphagia. Asks about allergies and pet dander as source of cough. Objective: Vital Signs: Vital Signs Date Time Temp Pulse Resp B/P (MAP) Pulse Ox O2 Delivery O2 Flow Rate FiO2 04/13/17 11:00 96.3 72 18 166/62 (96) 98 Room Air 96.3 Labs: Laboratory Tests Test 04/13/17 05:15 White Blood Count 7.1 x10^3/uL Red Blood Count 2.95 x10^6/uL Hemoglobin 8.8 g/dL Hematocrit 26.4 % Mean Corpuscular Volume 90 fL Mean Corpuscular Hemoglobin 30 pg Mean Corpuscular Hemoglobin Concent 33 g/dL Red Cell Distribution Width 17.9 % Platelet Count 188 x10^3/uL Neutrophils (%) (Auto) 76 % Lymphocytes (%) (Auto) 7 % Monocytes (%) (Auto) 11 % Eosinophils (%) (Auto) 6 % Basophils (%) (Auto) 1 % Neutrophils # (Auto) 5.4 x10^3uL Lymphocytes # (Auto) 0.5 x10^3/uL Monocytes # (Auto) 0.7 x10^3/uL Eosinophils # (Auto) 0.4 x10^3/uL Basophils # (Auto) 0.0 x10^3/uL Sodium Level 139 mmol/L Potassium Level 3.9 mmol/L Chloride Level 103 mmol/L Carbon Dioxide Level 30 mmol/L Anion Gap 6 Blood Urea Nitrogen 22 mg/dL Creatinine 4.8 mg/dL Estimated GFR (Cockcroft-Gault) 10.5 Glucose Level 84 mg/dL Calcium Level 8.9 mg/dL Imaging: Barium Swallow 04/13/17 Impression: 1. Evidence of gastroesophageal reflux disease. 2. No obstructing mass in the esophagus. 3. Small sliding hiatal hernia. PE: GEN: NAD, up to chair, was asleep LUNGS: wheezing anteriorly HEART: RRR ABD: NABS, S/ND/NT NEURO/PSYCH: A & O 3 A/P: Recent pneumonia, persistent cough -atbx per ID, had a few courses as outpt as well -fever resolved, wheezing on exam -on prednisone GERD -controlled w/ Prilosec (pantoprazole here), no previous EGD -esophagram as above Anemia -on ASA and iron, no obvious bleeding -no previous colonoscopy -ESRD on HD CAD s/p CABG -- Reflux on esophagram - not sure cough related? Already on PPI Q a.m. which controls her typical GERD symptoms. Other per Dr. Montoya. PEDRO PABLO MCGOWAN Apr 13, 2017 11:32
--- NOTE | 2017-04-13 12:09 | PDOC ---
Renal-Progress Notes Subjective Notes Notes DRY COUGH History of Present Illness Hx of present illness STABLE Vitals Vitals Vital Signs Date Time Temp Pulse Resp B/P (MAP) Pulse Ox O2 Delivery O2 Flow Rate FiO2 04/13/17 11:00 96.3 72 18 166/62 (96) 98 Room Air 96.3 Weight Weight [ ] Labs Labs Laboratory Tests Test 04/13/17 05:15 White Blood Count 7.1 x10^3/uL (4.0-11.0) Red Blood Count 2.95 x10^6/uL (3.50-5.40) Hemoglobin 8.8 g/dL (12.0-15.5) Hematocrit 26.4 % (36.0-47.0) Mean Corpuscular Volume 90 fL (79-100) Mean Corpuscular Hemoglobin 30 pg (25-35) Mean Corpuscular Hemoglobin Concent 33 g/dL (31-37) Red Cell Distribution Width 17.9 % (11.5-14.5) Platelet Count 188 x10^3/uL (140-400) Neutrophils (%) (Auto) 76 % (31-73) Lymphocytes (%) (Auto) 7 % (24-48) Monocytes (%) (Auto) 11 % (0-9) Eosinophils (%) (Auto) 6 % (0-3) Basophils (%) (Auto) 1 % (0-3) Neutrophils # (Auto) 5.4 x10^3uL (1.8-7.7) Lymphocytes # (Auto) 0.5 x10^3/uL (1.0-4.8) Monocytes # (Auto) 0.7 x10^3/uL (0.0-1.1) Eosinophils # (Auto) 0.4 x10^3/uL (0.0-0.7) Basophils # (Auto) 0.0 x10^3/uL (0.0-0.2) Sodium Level 139 mmol/L (136-145) Potassium Level 3.9 mmol/L (3.5-5.1) Chloride Level 103 mmol/L (98-107) Carbon Dioxide Level 30 mmol/L (21-32) Anion Gap 6 (6-14) Blood Urea Nitrogen 22 mg/dL (7-20) Creatinine 4.8 mg/dL (0.6-1.0) Estimated GFR (Cockcroft-Gault) 10.5 Glucose Level 84 mg/dL (70-99) Calcium Level 8.9 mg/dL (8.5-10.1) Micro Micro Microbiology 04/10/17 Blood Culture - Preliminary, Resulted 04/10/17 Blood Culture Result 1 (DANIEL) - Preliminary, Resulted 04/10/17 Antimicrobic Susceptibility - Preliminary, Resulted Review of Systems Constitutional: yes: weakness, alert, oriented Ears/Nose/Throat: Yes: no symptom reported Pulmonary: Yes cough dry Cardiovascular: Yes no symptom reported Gastrointestional: Yes: constipation Genitourinary: Yes: no symptom reported Musculoskeletal: Yes: muscle stiffness Skin: Yes no symptom reported Psychiatric/Neurological: Yes: no symptom reported Endocrine: Yes: no symptom reported Physical Exam General Appearance: no apparent distress Skin: warm Respiratory: decreased breath sounds Heart: S1S2 Abdomen: soft, bowel sounds present Genitourinary: bladder flat Extremities: pulses present, atrophy Neurology: alert Musculoskeletal: Osteoarthritis Assessment Assessment IMP PNEUMONIA ANEMIA ESRD HTN GERD PLAN ANTIBIOTICS HD TOMORROW LONA ENGLAND MD Apr 13, 2017 12:09
--- NOTE | 2017-04-13 12:20 | PDOC ---
PULMONARY PROGRESS NOTES Subjective PT NOT MORE SOA CONTINUE COUGH Vitals Vital Signs Date Time Temp Pulse Resp B/P (MAP) Pulse Ox O2 Delivery O2 Flow Rate FiO2 04/13/17 11:00 96.3 72 18 166/62 (96) 98 Room Air 96.3 ROS: No Nausea, No Chest Pain, No Abdominal Pain, No Increase Cough General: Alert Lungs: Other (decrease bs) Cardiovascular: S1, S2 Abdomen: Soft Neuro Exam: Alert Extremities: No Edema Skin: Warm Labs Laboratory Tests Test 04/11/17 17:30 04/12/17 04:55 04/13/17 05:15 Erythrocyte Sedimentation Rate 125 (0-25) White Blood Count 7.8 x10^3/uL (4.0-11.0) 7.1 x10^3/uL (4.0-11.0) Red Blood Count 2.90 x10^6/uL (3.50-5.40) 2.95 x10^6/uL (3.50-5.40) Hemoglobin 8.6 g/dL (12.0-15.5) 8.8 g/dL (12.0-15.5) Hematocrit 26.3 % (36.0-47.0) 26.4 % (36.0-47.0) Mean Corpuscular Volume 91 fL (79-100) 90 fL (79-100) Mean Corpuscular Hemoglobin 30 pg (25-35) 30 pg (25-35) Mean Corpuscular Hemoglobin Concent 33 g/dL (31-37) 33 g/dL (31-37) Red Cell Distribution Width 18.4 % (11.5-14.5) 17.9 % (11.5-14.5) Platelet Count 188 x10^3/uL (140-400) 188 x10^3/uL (140-400) Neutrophils (%) (Auto) 81 % (31-73) 76 % (31-73) Lymphocytes (%) (Auto) 8 % (24-48) 7 % (24-48) Monocytes (%) (Auto) 11 % (0-9) 11 % (0-9) Eosinophils (%) (Auto) 0 % (0-3) 6 % (0-3) Basophils (%) (Auto) 0 % (0-3) 1 % (0-3) Neutrophils # (Auto) 6.3 x10^3uL (1.8-7.7) 5.4 x10^3uL (1.8-7.7) Lymphocytes # (Auto) 0.6 x10^3/uL (1.0-4.8) 0.5 x10^3/uL (1.0-4.8) Monocytes # (Auto) 0.8 x10^3/uL (0.0-1.1) 0.7 x10^3/uL (0.0-1.1) Eosinophils # (Auto) 0.0 x10^3/uL (0.0-0.7) 0.4 x10^3/uL (0.0-0.7) Basophils # (Auto) 0.0 x10^3/uL (0.0-0.2) 0.0 x10^3/uL (0.0-0.2) Sodium Level 137 mmol/L (136-145) 139 mmol/L (136-145) Potassium Level 4.4 mmol/L (3.5-5.1) 3.9 mmol/L (3.5-5.1) Chloride Level 103 mmol/L (98-107) 103 mmol/L (98-107) Carbon Dioxide Level 23 mmol/L (21-32) 30 mmol/L (21-32) Anion Gap 11 (6-14) 6 (6-14) Blood Urea Nitrogen 42 mg/dL (7-20) 22 mg/dL (7-20) Creatinine 7.7 mg/dL (0.6-1.0) 4.8 mg/dL (0.6-1.0) Estimated GFR (Cockcroft-Gault) 6.1 10.5 Glucose Level 126 mg/dL (70-99) 84 mg/dL (70-99) Calcium Level 8.7 mg/dL (8.5-10.1) 8.9 mg/dL (8.5-10.1) Random Vancomycin Level 19.5 mcg/mL Laboratory Tests Test 04/13/17 05:15 White Blood Count 7.1 x10^3/uL (4.0-11.0) Red Blood Count 2.95 x10^6/uL (3.50-5.40) Hemoglobin 8.8 g/dL (12.0-15.5) Hematocrit 26.4 % (36.0-47.0) Mean Corpuscular Volume 90 fL (79-100) Mean Corpuscular Hemoglobin 30 pg (25-35) Mean Corpuscular Hemoglobin Concent 33 g/dL (31-37) Red Cell Distribution Width 17.9 % (11.5-14.5) Platelet Count 188 x10^3/uL (140-400) Neutrophils (%) (Auto) 76 % (31-73) Lymphocytes (%) (Auto) 7 % (24-48) Monocytes (%) (Auto) 11 % (0-9) Eosinophils (%) (Auto) 6 % (0-3) Basophils (%) (Auto) 1 % (0-3) Neutrophils # (Auto) 5.4 x10^3uL (1.8-7.7) Lymphocytes # (Auto) 0.5 x10^3/uL (1.0-4.8) Monocytes # (Auto) 0.7 x10^3/uL (0.0-1.1) Eosinophils # (Auto) 0.4 x10^3/uL (0.0-0.7) Basophils # (Auto) 0.0 x10^3/uL (0.0-0.2) Sodium Level 139 mmol/L (136-145) Potassium Level 3.9 mmol/L (3.5-5.1) Chloride Level 103 mmol/L (98-107) Carbon Dioxide Level 30 mmol/L (21-32) Anion Gap 6 (6-14) Blood Urea Nitrogen 22 mg/dL (7-20) Creatinine 4.8 mg/dL (0.6-1.0) Estimated GFR (Cockcroft-Gault) 10.5 Glucose Level 84 mg/dL (70-99) Calcium Level 8.9 mg/dL (8.5-10.1) Medications Active Scripts Medications Dose Route/Sig Max Daily Dose Days Date Category Benzonatate 100 Mg Capsule 1 Cap PO PRN Q8HRS PRN 04/10/17 Reported Prednisone 20 Mg Tablet 1 Tab PO DAILY 04/10/17 Reported Metoprolol Tartrate 25 Mg Tablet 1 Tab PO BID 04/10/17 Reported Amiodarone Hcl 200 Mg Tablet 1 Tab PO DAILY 04/10/17 Reported Miralax (Polyethylene Glycol 3350) 17 Gm Powd.pack 1 Packet PO PRN DAILY PRN 04/10/17 Reported Ferrous Sulfate 325 Mg Tablet 1 Tab PO BID 04/10/17 Reported Tylenol (Acetaminophen) 325 Mg Tablet 325 Mg PO DAILY 04/10/17 Reported Aspirin 325 Mg Tablet 1 Tab PO DAILY 04/10/17 Reported Helen-Homa Rx Tablet (Vit B Cmplx 3/Fa/Vit C/Biotin) 1 Each Tablet 1 Each PO DAILY 01/06/17 Reported Amlodipine Besylate 10 Mg Tablet 10 Mg PO DAILY 01/06/17 Reported Calcium Acetate 667 Mg Tablet 667 Mg PO TIDWMEALS 01/06/17 Reported Omeprazole 40 Mg Capsule.dr 40 Mg PO DAILY 01/06/17 Reported Hydralazine Hcl 100 Mg Tablet 100 Mg PO BID 01/06/17 Reported Clonidine Hcl 0.2 Mg Tablet 1 Tab PO QHS 01/06/17 Reported Atorvastatin Calcium 20 Mg Tablet 20 Mg PO HS 01/06/17 Reported Impression . 1. ? PNEUMONIA 2. No significant history of tobacco use. 3. End-stage renal disease, on hemodialysis. 4. History of coronary artery bypass grafting with mild lower extremity edema. 5. ABNORMAL CXR/ CT CONFIRMED [facility]ACITIES I THINK MOSTLY PULMONARY EDEMA 6. FEVER PER ID Plan . ESOPHAGRAM WITH GE REFLUX CONTINUE ANTIBX FOR NOW ECHO REVIEWED SED RATE ELEVATED DIURESE FOLLOW UP IN OFFICE ONCE D/C MIGUEL MARY MD Apr 13, 2017 12:20
[2017-04-13] MEDS: VANCOMYCIN PER PHARMACY MC PRN (12:46)
[2017-04-13 15:00] VITALS: BP 144/56
[2017-04-13 19:00] VITALS: BP 150/57
[2017-04-13] MEDS: ATORVASTATIN CALCIUM 20 MG TABLET PO SCH (21:00)
[2017-04-13] MEDS: cloNIDine HCL 0.2 MG TABLET PO SCH (21:02)
[2017-04-13 23:00] VITALS: BP 139/55
[2017-04-14 03:00] VITALS: BP 152/69
[2017-04-14 05:20] LABS: BASO % 0 % (0-3); EOS % 1 % (0-3); HEMATOCRIT 26.7 % (36.0-47.0); HEMOGLOBIN 8.6 g/dL (12.0-15.5); LYMPH # 0.6 x10^3/uL (1.0-4.8); LYMPH % 10 % (24-48); MEAN CORPUSCULAR HEMOGLOBIN 29 pg (25-35); MEAN CORPUSCULAR HGB CONC 32 g/dL (31-37); MEAN CORPUSCULAR VOLUME 91 fL (79-100); MONO % 12 % (0-9); NEUT % 78 % (31-73); PLATELET COUNT 188 x10^3/uL (140-400); RED BLOOD COUNT 2.93 x10^6/uL (3.50-5.40); RED CELL DISTRIBUTION WIDTH 17.4 % (11.5-14.5); WHITE BLOOD COUNT 6.2 x10^3/uL (4.0-11.0)
[2017-04-14 05:46] LABS: CALCIUM 8.9 mg/dL (8.5-10.1); CREATININE 6.2 mg/dL (0.6-1.0); GFR 7.8
[2017-04-14] MEDS: PANTOPRAZOLE 40 MG TABLET.DR. PO SCH ×2 (06:18→17:15)
[2017-04-14] MEDS: PIPERACILLIN/TAZOBACTAM 2.25 GM in IV NORMAL SALINE 50ML 50 ML IV SCH (06:20)
[2017-04-14 07:00] VITALS: BP 153/54
[2017-04-14] MEDS: predniSONE 20 MG TABLET PO SCH (08:09)
[2017-04-14] MEDS: CALCIUM ACETATE 667 MG CAPSULE PO SCH ×3 (08:09→17:17)
[2017-04-14] MEDS: ASPIRIN 325 MG TABLET PO SCH (08:09)
[2017-04-14] MEDS: FOLIC/VIT B COMP W-C (RENAL) TABLET. PO SCH (08:09)
[2017-04-14] MEDS: FERROUS SULFATE 325 MG TABLET. PO SCH ×2 (08:09→17:17)
[2017-04-14] MEDS: ACETAMINOPHEN 325 MG TABLET. PO SCH (08:35)
[2017-04-14] MEDS: METOPROLOL TART IMMED RELEASE 25 MG TABLET. PO SCH (09:00)
--- NOTE | 2017-04-14 09:19 | PDOC ---
Infectious Disease Note Subjective Subjective Better. Less cough but still occ Slept better and eating more ROS ROS GEN: Denies fevers, chills, sweats HEENT: Denies blurred vision, sore throat CV: Denies chest pain RESP: Denies shortness of air, cough GI: Denies n/v/d NEURO: Denies confusion, dizziness MSK: Denies weakness, joint pain/swelling Vital Sign Vital Signs Vital Signs Date Time Temp Pulse Resp B/P (MAP) Pulse Ox O2 Delivery O2 Flow Rate FiO2 04/14/17 07:00 97.7 59 16 153/54 (87) 95 Room Air 97.7 Physical Exam PHYSICAL EXAM GENERAL: NAD, Alert. 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, no focal neurologic deficit SKIN: No rash IV: ok Labs Lab Laboratory Tests Test 04/14/17 04:58 White Blood Count 6.2 x10^3/uL (4.0-11.0) Red Blood Count 2.93 x10^6/uL (3.50-5.40) Hemoglobin 8.6 g/dL (12.0-15.5) Hematocrit 26.7 % (36.0-47.0) Mean Corpuscular Volume 91 fL (79-100) Mean Corpuscular Hemoglobin 29 pg (25-35) Mean Corpuscular Hemoglobin Concent 32 g/dL (31-37) Red Cell Distribution Width 17.4 % (11.5-14.5) Platelet Count 188 x10^3/uL (140-400) Neutrophils (%) (Auto) 78 % (31-73) Lymphocytes (%) (Auto) 10 % (24-48) Monocytes (%) (Auto) 12 % (0-9) Eosinophils (%) (Auto) 1 % (0-3) Basophils (%) (Auto) 0 % (0-3) Neutrophils # (Auto) 4.8 x10^3uL (1.8-7.7) Lymphocytes # (Auto) 0.6 x10^3/uL (1.0-4.8) Monocytes # (Auto) 0.7 x10^3/uL (0.0-1.1) Eosinophils # (Auto) 0.0 x10^3/uL (0.0-0.7) Basophils # (Auto) 0.0 x10^3/uL (0.0-0.2) Sodium Level 137 mmol/L (136-145) Potassium Level 4.0 mmol/L (3.5-5.1) Chloride Level 101 mmol/L (98-107) Carbon Dioxide Level 30 mmol/L (21-32) Anion Gap 6 (6-14) Blood Urea Nitrogen 36 mg/dL (7-20) Creatinine 6.2 mg/dL (0.6-1.0) Estimated GFR (Cockcroft-Gault) 7.8 Glucose Level 110 mg/dL (70-99) Calcium Level 8.9 mg/dL (8.5-10.1) Objective Assessment Fever 101 prior to admit - resolved STCN bacteremia 1/4 - likely contamination ? Pneumonia failed outpatient - levoflox among others. mild wheeze but clinically better. ? reflux contributing as well. On prednisone Reflux on Esophogram CKD on HD Plan Plan of Care Cont Vanc with HD outpatient for 3 treatments starting 04/16 D/c zosyn and begin daily augmentin for 7 days I/S F/u labs and cults ERIN FLORENCE MD Apr 14, 2017 09:19
[2017-04-14 10:37] VITALS: BP 153/60
--- NOTE | 2017-04-14 11:37 | PDOC ---
PROGRESS NOTES Chief Complaint Chief Complaint Fever ?PNA GERD ESRD CAD-CABG PMH: Arthritis HTN Pneumonia Renal Disease Cataracts History of Present Illness History of Present Illness Pt seen at bedside she is resting comfortably and in no acute distress. Cough continues to improve. No SOB at this time. Creat at 6.2-Pt to be dialyzed today. Echocardiogram showed normal LVSF with an EF of >70%. GI, Nephrology, pulm and ID following. I spoke with Jennifer Shen ID who stated that the patient can be d/c to home today following her dialysis treatment. Per his plan, the patient will receive 3 treatments of Vancomycin following her next 3 dialysis sessions. She will also be switched from Zosyn to Augmentin x7 days. No overnight events. No acute complaints at this time. Probable d/c to home following dialysis today. Barium Swallow: Impression: 1. Evidence of gastroesophageal reflux disease. 2. No obstructing mass in the esophagus. 3. Small sliding hiatal hernia. Vitals Vitals Vital Signs Date Time Temp Pulse Resp B/P (MAP) Pulse Ox O2 Delivery O2 Flow Rate FiO2 04/14/17 10:37 97.7 67 16 153/60 (91) 96 Room Air 97.7 Physical Exam General: Alert, Oriented X3, Cooperative, No acute distress Heart: Regular rate, Normal S1, Normal S2, No murmurs Lungs: Clear, Other (minimal dry cough) Abdomen: Normal bowel sounds, Soft, No tenderness, No masses Extremities: No clubbing, No cyanosis, Normal pulses Skin: No rashes, No breakdown, No significant lesion Labs LABS Laboratory Tests Test 04/14/17 04:58 White Blood Count 6.2 x10^3/uL (4.0-11.0) Red Blood Count 2.93 x10^6/uL (3.50-5.40) Hemoglobin 8.6 g/dL (12.0-15.5) Hematocrit 26.7 % (36.0-47.0) Mean Corpuscular Volume 91 fL (79-100) Mean Corpuscular Hemoglobin 29 pg (25-35) Mean Corpuscular Hemoglobin Concent 32 g/dL (31-37) Red Cell Distribution Width 17.4 % (11.5-14.5) Platelet Count 188 x10^3/uL (140-400) Neutrophils (%) (Auto) 78 % (31-73) Lymphocytes (%) (Auto) 10 % (24-48) Monocytes (%) (Auto) 12 % (0-9) Eosinophils (%) (Auto) 1 % (0-3) Basophils (%) (Auto) 0 % (0-3) Neutrophils # (Auto) 4.8 x10^3uL (1.8-7.7) Lymphocytes # (Auto) 0.6 x10^3/uL (1.0-4.8) Monocytes # (Auto) 0.7 x10^3/uL (0.0-1.1) Eosinophils # (Auto) 0.0 x10^3/uL (0.0-0.7) Basophils # (Auto) 0.0 x10^3/uL (0.0-0.2) Sodium Level 137 mmol/L (136-145) Potassium Level 4.0 mmol/L (3.5-5.1) Chloride Level 101 mmol/L (98-107) Carbon Dioxide Level 30 mmol/L (21-32) Anion Gap 6 (6-14) Blood Urea Nitrogen 36 mg/dL (7-20) Creatinine 6.2 mg/dL (0.6-1.0) Estimated GFR (Cockcroft-Gault) 7.8 Glucose Level 110 mg/dL (70-99) Calcium Level 8.9 mg/dL (8.5-10.1) Review of Systems Review of Systems Gen: + fatigue, No fevers or chills CV: No CP or palpitations Resp: + Mild cough, No SOB Assessment and Plan Assessmemt and Plan Problems Medical Problems: (1) Failure of outpatient treatment Status: Acute (2) Pneumonia Status: Acute (3) Renal failure Status: Acute Assessment: GERD PNA ESRD CAD-CABG Arthritis HTN Cataracts Plan: Reviewed labs Reviewed Barium swallow PT/OT Spoke with Dr. Rodriguez on the phone, will move forward with his plan of senior care with Augmentin x7 days Vancomycin x3 treatments following her next 3 dialysis sessions Pt to be dialyzed today Probable d/c to home following dialysis if cleared by subspecialties She may follow up with pulmonology in clinic if cough continues Problems: Comment Review of Relevant I have reviewed the following items jonah (where applicable) has been applied. Labs Laboratory Tests Test 04/13/17 05:15 04/14/17 04:58 White Blood Count 7.1 x10^3/uL (4.0-11.0) 6.2 x10^3/uL (4.0-11.0) Red Blood Count 2.95 x10^6/uL (3.50-5.40) 2.93 x10^6/uL (3.50-5.40) Hemoglobin 8.8 g/dL (12.0-15.5) 8.6 g/dL (12.0-15.5) Hematocrit 26.4 % (36.0-47.0) 26.7 % (36.0-47.0) Mean Corpuscular Volume 90 fL (79-100) 91 fL (79-100) Mean Corpuscular Hemoglobin 30 pg (25-35) 29 pg (25-35) Mean Corpuscular Hemoglobin Concent 33 g/dL (31-37) 32 g/dL (31-37) Red Cell Distribution Width 17.9 % (11.5-14.5) 17.4 % (11.5-14.5) Platelet Count 188 x10^3/uL (140-400) 188 x10^3/uL (140-400) Neutrophils (%) (Auto) 76 % (31-73) 78 % (31-73) Lymphocytes (%) (Auto) 7 % (24-48) 10 % (24-48) Monocytes (%) (Auto) 11 % (0-9) 12 % (0-9) Eosinophils (%) (Auto) 6 % (0-3) 1 % (0-3) Basophils (%) (Auto) 1 % (0-3) 0 % (0-3) Neutrophils # (Auto) 5.4 x10^3uL (1.8-7.7) 4.8 x10^3uL (1.8-7.7) Lymphocytes # (Auto) 0.5 x10^3/uL (1.0-4.8) 0.6 x10^3/uL (1.0-4.8) Monocytes # (Auto) 0.7 x10^3/uL (0.0-1.1) 0.7 x10^3/uL (0.0-1.1) Eosinophils # (Auto) 0.4 x10^3/uL (0.0-0.7) 0.0 x10^3/uL (0.0-0.7) Basophils # (Auto) 0.0 x10^3/uL (0.0-0.2) 0.0 x10^3/uL (0.0-0.2) Sodium Level 139 mmol/L (136-145) 137 mmol/L (136-145) Potassium Level 3.9 mmol/L (3.5-5.1) 4.0 mmol/L (3.5-5.1) Chloride Level 103 mmol/L (98-107) 101 mmol/L (98-107) Carbon Dioxide Level 30 mmol/L (21-32) 30 mmol/L (21-32) Anion Gap 6 (6-14) 6 (6-14) Blood Urea Nitrogen 22 mg/dL (7-20) 36 mg/dL (7-20) Creatinine 4.8 mg/dL (0.6-1.0) 6.2 mg/dL (0.6-1.0) Estimated GFR (Cockcroft-Gault) 10.5 7.8 Glucose Level 84 mg/dL (70-99) 110 mg/dL (70-99) Calcium Level 8.9 mg/dL (8.5-10.1) 8.9 mg/dL (8.5-10.1) Laboratory Tests Test 04/14/17 04:58 White Blood Count 6.2 x10^3/uL (4.0-11.0) Red Blood Count 2.93 x10^6/uL (3.50-5.40) Hemoglobin 8.6 g/dL (12.0-15.5) Hematocrit 26.7 % (36.0-47.0) Mean Corpuscular Volume 91 fL (79-100) Mean Corpuscular Hemoglobin 29 pg (25-35) Mean Corpuscular Hemoglobin Concent 32 g/dL (31-37) Red Cell Distribution Width 17.4 % (11.5-14.5) Platelet Count 188 x10^3/uL (140-400) Neutrophils (%) (Auto) 78 % (31-73) Lymphocytes (%) (Auto) 10 % (24-48) Monocytes (%) (Auto) 12 % (0-9) Eosinophils (%) (Auto) 1 % (0-3) Basophils (%) (Auto) 0 % (0-3) Neutrophils # (Auto) 4.8 x10^3uL (1.8-7.7) Lymphocytes # (Auto) 0.6 x10^3/uL (1.0-4.8) Monocytes # (Auto) 0.7 x10^3/uL (0.0-1.1) Eosinophils # (Auto) 0.0 x10^3/uL (0.0-0.7) Basophils # (Auto) 0.0 x10^3/uL (0.0-0.2) Sodium Level 137 mmol/L (136-145) Potassium Level 4.0 mmol/L (3.5-5.1) Chloride Level 101 mmol/L (98-107) Carbon Dioxide Level 30 mmol/L (21-32) Anion Gap 6 (6-14) Blood Urea Nitrogen 36 mg/dL (7-20) Creatinine 6.2 mg/dL (0.6-1.0) Estimated GFR (Cockcroft-Gault) 7.8 Glucose Level 110 mg/dL (70-99) Calcium Level 8.9 mg/dL (8.5-10.1) Microbiology 04/10/17 Blood Culture - Preliminary, Resulted 04/10/17 Blood Culture Result 1 (DANIEL) - Preliminary, Resulted 04/10/17 Antimicrobic Susceptibility - Preliminary, Resulted Medications Current Medications Piperacillin Sod/ Tazobactam Sod (Zosyn Per Pharmacy) 1 each PRN DAILY PRN MC SEE COMMENTS; Start 04/09/17 at 23:00 Vancomycin HCl (Vanco Per Pharmacy) 1 each PRN DAILY PRN MC SEE COMMENTS Last administered on 04/13/17 12:46; Start 04/09/17 at 23:00 Piperacillin Sod/ Tazobactam Sod 2.25 gm/Sodium Chloride 50 ml @ 100 mls/hr 1X ONCE IV Last administered on 04/09/17 23:08; Start 04/09/17 at 23:30; Stop 04/09/17 at 23:59; Status DC Vancomycin HCl 1.75 gm/Sodium Chloride 500 ml @ 250 mls/hr 1X ONCE IV Last administered on 04/09/17 23:36; Start 04/10/17 at 00:00; Stop 04/10/17 at 01:59 ; Status DC Ondansetron HCl (Zofran) 4 mg PRN Q8HRS PRN IV NAUSEA/VOMITING; Start 04/09/17 at 23:45; Stop 04/10/17 at 23:44; Status DC Acetaminophen (Tylenol) 650 mg PRN Q4HRS PRN PO FEVER Last administered on 04/10 21:17; Start 04/09/17 at 23:45; Stop 04/10/17 at 23:44; Status DC Albuterol/ Ipratropium (Duoneb) 3 ml RTQID NEB Last administered on 04/11/17 07:36; Start 04/10/17 at 08:00; Stop 04/11/17 at 07:59; Status DC Piperacillin Sod/ Tazobactam Sod 2.25 gm/Sodium Chloride 50 ml @ 100 mls/hr Q8HRS IV Last administered on 04/14/17 06:20; Start 04/10/17 at 06:00; Stop 04/14/17 at 09:18; Status DC Vancomycin HCl 1 each 1X ONCE MC Last administered on 04/12/17 05:00; Start 04/12/17 at 05:00; Stop 04/12/17 at 05:01; Status DC Tramadol HCl (Ultram) 50 mg PRN Q6HRS PRN PO PAIN Last administered on 14:23; Start 04/10/17 at 13:00 Promethazine HCl/ Codeine (Phenergan With Codeine) 5 ml PRN Q4HRS PRN PO COUGH Last administered on 04/13/17 09:37; Start 04/10/17 at 13:00 Acetaminophen (Tylenol) 325 mg DAILY PO Last administered on 04/11/17 08:50; Start 04/10/17 at 21:18 Amiodarone HCl (Cordarone) 200 mg DAILY PO Last administered on 04/13/17 09:34 ; Start 04/11/17 at 09:00 Amlodipine Besylate (Norvasc) 10 mg DAILY PO Last administered on 04/13/17 09: 33; Start 04/11/17 at 09:00 Aspirin (Brandi Aspirin) 325 mg DAILY08 PO Last administered on 04/14/17 08:09 ; Start 04/11/17 at 08:00 Atorvastatin Calcium (Lipitor) 20 mg HS PO ; Start 04/10/17 at 21:30; Stop 04/10 at 21:30; Status DC Benzonatate (Tessalon Perle) 100 mg PRN Q8HRS PRN PO COUGH; Start 04/10/17 at 21:15 Clonidine HCl (Catapres) 0.2 mg QHS PO Last administered on 04/13/17 21:02; Start 04/11/17 at 21:00 Ferrous Sulfate (Feosol) 325 mg BIDWMEALS PO Last administered on 04/14/17 08: 09; Start 04/11/17 at 08:00 Metoprolol Tartrate (Lopressor) 25 mg BID PO Last administered on 04/13/17 21: 03; Start 04/11/17 at 09:00 Polyethylene Glycol (miraLAX PACKET) 17 gm PRN DAILY PRN PO CONSTIPATION Last administered on 04/11/17 08:44; Start 04/10/17 at 21:15 Prednisone (Prednisone) 20 mg DAILY PO Last administered on 04/14/17 08:09; Start 04/11/17 at 09:00 Calcium Acetate (Phoslo) 667 mg TIDWMEALS PO Last administered on 04/14/17 08: 09; Start 04/11/17 at 08:00 Hydralazine HCl (Apresoline) 100 mg BID PO Last administered on 04/13/17 21:04 ; Start 04/11/17 at 09:00 Pantoprazole Sodium (Protonix) 40 mg DAILYAC PO Last administered on 04/13/17 09:32; Start 04/11/17 at 07:30; Stop 04/13/17 at 13:18; Status DC Vitamin B Complex/ Vitamin C (Helen-Homa) 1 tab DAILY PO Last administered on 08:09; Start 04/11/17 at 09:00 Labetalol HCl (Normodyne) 20 mg 1X ONCE IVP Last administered on 04/10/17 21: 17; Start 04/10/17 at 21:15; Stop 04/10/17 at 21:16; Status DC Labetalol HCl (Normodyne) 10 mg PRN Q2HRS PRN IVP HYPERTENSION, SEE COMMENTS; Start 04/10/17 at 21:15 Acetaminophen (Tylenol) 650 mg PRN Q6HRS PRN PO PAIN Last administered on 17:17; Start 04/10/17 at 21:15 Albuterol Sulfate (Ventolin Neb Soln) 2.5 mg PRN Q4HRS PRN NEB SHORTNESS OF BREATH; Start 04/10/17 at 21:15 Atorvastatin Calcium (Lipitor) 20 mg HS PO Last administered on 04/13/17 21:00 ; Start 04/11/17 at 21:00 Info (PHARMACY MONITORING -- do not chart) 1 each PRN DAILY PRN MC SEE COMMENTS ; Start 04/11/17 at 00:45 Darbepoetin Kemar (Aranesp) 60 mcg WEEKLYHS SQ Last administered on 04/11/17 20 :50; Start 04/11/17 at 21:00 Vancomycin HCl 500 mg/Sodium Chloride 100 ml @ 100 mls/hr TuThSa IV Last administered on 04/12/17 16:40; Start 04/12/17 at 16:00 Sodium Chloride 1,000 ml @ 1,000 mls/hr Q1H PRN IV hypotension; Start 04/12/17 at 07:27; Stop 04/12/17 at 13:26; Status DC Sodium Chloride 1,000 ml @ 400 mls/hr Q2H30M PRN IV PATENCY; Start 04/12/17 at 07:27; Stop 04/12/17 at 19:26; Status DC Info (PHARMACY MONITORING -- do not chart) 1 each PRN DAILY PRN MC SEE COMMENTS ; Start 04/12/17 at 07:30; Status UNV Info (PHARMACY MONITORING -- do not chart) 1 each PRN DAILY PRN MC SEE COMMENTS ; Start 04/12/17 at 07:30; Status UNV Barium Sulfate (Liquid E-Z Paque) 355 ml 1X ONCE PO Last administered on 08:49; Start 04/13/17 at 08:00; Stop 04/13/17 at 08:01; Status DC Barium Sulfate (E-Z-Hd) 340 gm 1X ONCE PO Last administered on 04/13/17 08:49 ; Start 04/13/17 at 08:00; Stop 04/13/17 at 08:01; Status DC Simethicone/ Sodium Bicarb/ Citric Ac (E-Z-Gas) 1 packet 1X ONCE PO Last administered on 04/13/17 08:49; Start 04/13/17 at 08:00; Stop 04/13/17 at 08:01 ; Status DC Pantoprazole Sodium (Protonix) 40 mg BIDAC PO Last administered on 04/14/17 06 :18; Start 04/13/17 at 16:30 Amoxicillin/ Clavulanate Potassium (Augmentin 500/ 125mg) 1 tab Q24H PO ; Start 04/14/17 at 18:00 Active Scripts Active Reported Benzonatate 100 Mg Capsule 1 Cap PO PRN Q8HRS PRN Prednisone 20 Mg Tablet 1 Tab PO DAILY Metoprolol Tartrate 25 Mg Tablet 1 Tab PO BID Amiodarone Hcl 200 Mg Tablet 1 Tab PO DAILY Miralax (Polyethylene Glycol 3350) 17 Gm Powd.pack 1 Packet PO PRN DAILY PRN Ferrous Sulfate 325 Mg Tablet 1 Tab PO BID Tylenol (Acetaminophen) 325 Mg Tablet 325 Mg PO DAILY Aspirin 325 Mg Tablet 1 Tab PO DAILY Helen-Homa Rx Tablet (Vit B Cmplx 3/Fa/Vit C/Biotin) 1 Each Tablet 1 Each PO DAILY Amlodipine Besylate 10 Mg Tablet 10 Mg PO DAILY Calcium Acetate 667 Mg Tablet 667 Mg PO TIDWMEALS Omeprazole 40 Mg Capsule.dr 40 Mg PO DAILY Hydralazine Hcl 100 Mg Tablet 100 Mg PO BID Clonidine Hcl 0.2 Mg Tablet 1 Tab PO QHS Atorvastatin Calcium 20 Mg Tablet 20 Mg PO HS Vitals/I & O Vital Sign - Last 24 Hours 04/13/17 04/13/17 04/13/17 04/13/17 15:00 19:00 20:00 21:02 Temp 97.7 97.5 97.7 97.5 Pulse 65 71 73 Resp 18 18 B/P (MAP) 144/56 (85) 150/57 (88) 143/59 Pulse Ox 94 97 O2 Delivery Room Air Room Air Room Air 04/13/17 04/13/17 04/13/17 04/14/17 21:03 21:04 23:00 03:00 Temp 97.7 97.7 97.7 97.7 Pulse 73 73 69 70 Resp 18 18 B/P (MAP) 143/59 143/59 139/55 (83) 152/69 (96) Pulse Ox 93 96 O2 Delivery Room Air Room Air 04/14/17 04/14/17 04/14/17 07:00 08:00 10:37 Temp 97.7 97.7 97.7 97.7 Pulse 59 67 Resp 16 16 B/P (MAP) 153/54 (87) 153/60 (91) Pulse Ox 95 96 O2 Delivery Room Air Room Air Room Air DELONTE WRIGHT III DO Apr 14, 2017 11:37
--- NOTE | 2017-04-14 12:04 | PDOC ---
Renal-Progress Notes Subjective Notes Notes NONE History of Present Illness Hx of present illness STABLE Vitals Vitals Vital Signs Date Time Temp Pulse Resp B/P (MAP) Pulse Ox O2 Delivery O2 Flow Rate FiO2 04/14/17 10:37 97.7 67 16 153/60 (91) 96 Room Air 97.7 Weight Weight [ ] Labs Labs Laboratory Tests Test 04/14/17 04:58 White Blood Count 6.2 x10^3/uL (4.0-11.0) Red Blood Count 2.93 x10^6/uL (3.50-5.40) Hemoglobin 8.6 g/dL (12.0-15.5) Hematocrit 26.7 % (36.0-47.0) Mean Corpuscular Volume 91 fL (79-100) Mean Corpuscular Hemoglobin 29 pg (25-35) Mean Corpuscular Hemoglobin Concent 32 g/dL (31-37) Red Cell Distribution Width 17.4 % (11.5-14.5) Platelet Count 188 x10^3/uL (140-400) Neutrophils (%) (Auto) 78 % (31-73) Lymphocytes (%) (Auto) 10 % (24-48) Monocytes (%) (Auto) 12 % (0-9) Eosinophils (%) (Auto) 1 % (0-3) Basophils (%) (Auto) 0 % (0-3) Neutrophils # (Auto) 4.8 x10^3uL (1.8-7.7) Lymphocytes # (Auto) 0.6 x10^3/uL (1.0-4.8) Monocytes # (Auto) 0.7 x10^3/uL (0.0-1.1) Eosinophils # (Auto) 0.0 x10^3/uL (0.0-0.7) Basophils # (Auto) 0.0 x10^3/uL (0.0-0.2) Sodium Level 137 mmol/L (136-145) Potassium Level 4.0 mmol/L (3.5-5.1) Chloride Level 101 mmol/L (98-107) Carbon Dioxide Level 30 mmol/L (21-32) Anion Gap 6 (6-14) Blood Urea Nitrogen 36 mg/dL (7-20) Creatinine 6.2 mg/dL (0.6-1.0) Estimated GFR (Cockcroft-Gault) 7.8 Glucose Level 110 mg/dL (70-99) Calcium Level 8.9 mg/dL (8.5-10.1) Micro Micro Microbiology 04/10/17 Blood Culture - Preliminary, Resulted 04/10/17 Blood Culture Result 1 (DANIEL) - Preliminary, Resulted 04/10/17 Antimicrobic Susceptibility - Preliminary, Resulted Review of Systems Constitutional: yes: weakness, alert, oriented Ears/Nose/Throat: Yes: no symptom reported Pulmonary: Yes cough dry Cardiovascular: Yes no symptom reported Gastrointestional: Yes: constipation Genitourinary: Yes: no symptom reported Musculoskeletal: Yes: muscle stiffness Skin: Yes no symptom reported Psychiatric/Neurological: Yes: no symptom reported Endocrine: Yes: no symptom reported Physical Exam General Appearance: no apparent distress Skin: warm Respiratory: decreased breath sounds Heart: S1S2 Abdomen: soft, bowel sounds present Genitourinary: bladder flat Extremities: pulses present, atrophy Neurology: alert Musculoskeletal: Osteoarthritis Assessment Assessment IMP PNEUMONIA ANEMIA ESRD HTN GERD PLAN ANTIBIOTICS HD TODAY UF TO LONA BRINK MD Apr 14, 2017 12:04
--- NOTE | 2017-04-14 12:08 | PDOC ---
PULMONARY PROGRESS NOTES Subjective PT NOT MORE SOA COUGH BETTER Vitals Vital Signs Date Time Temp Pulse Resp B/P (MAP) Pulse Ox O2 Delivery O2 Flow Rate FiO2 04/14/17 10:37 97.7 67 16 153/60 (91) 96 Room Air 97.7 ROS: No Nausea, No Chest Pain, No Abdominal Pain, No Increase Cough General: Alert Lungs: Other (minimal dry cough) Cardiovascular: S1, S2 Abdomen: Soft Neuro Exam: Alert Extremities: No Edema Skin: Warm Labs Laboratory Tests Test 04/13/17 05:15 04/14/17 04:58 White Blood Count 7.1 x10^3/uL (4.0-11.0) 6.2 x10^3/uL (4.0-11.0) Red Blood Count 2.95 x10^6/uL (3.50-5.40) 2.93 x10^6/uL (3.50-5.40) Hemoglobin 8.8 g/dL (12.0-15.5) 8.6 g/dL (12.0-15.5) Hematocrit 26.4 % (36.0-47.0) 26.7 % (36.0-47.0) Mean Corpuscular Volume 90 fL (79-100) 91 fL (79-100) Mean Corpuscular Hemoglobin 30 pg (25-35) 29 pg (25-35) Mean Corpuscular Hemoglobin Concent 33 g/dL (31-37) 32 g/dL (31-37) Red Cell Distribution Width 17.9 % (11.5-14.5) 17.4 % (11.5-14.5) Platelet Count 188 x10^3/uL (140-400) 188 x10^3/uL (140-400) Neutrophils (%) (Auto) 76 % (31-73) 78 % (31-73) Lymphocytes (%) (Auto) 7 % (24-48) 10 % (24-48) Monocytes (%) (Auto) 11 % (0-9) 12 % (0-9) Eosinophils (%) (Auto) 6 % (0-3) 1 % (0-3) Basophils (%) (Auto) 1 % (0-3) 0 % (0-3) Neutrophils # (Auto) 5.4 x10^3uL (1.8-7.7) 4.8 x10^3uL (1.8-7.7) Lymphocytes # (Auto) 0.5 x10^3/uL (1.0-4.8) 0.6 x10^3/uL (1.0-4.8) Monocytes # (Auto) 0.7 x10^3/uL (0.0-1.1) 0.7 x10^3/uL (0.0-1.1) Eosinophils # (Auto) 0.4 x10^3/uL (0.0-0.7) 0.0 x10^3/uL (0.0-0.7) Basophils # (Auto) 0.0 x10^3/uL (0.0-0.2) 0.0 x10^3/uL (0.0-0.2) Sodium Level 139 mmol/L (136-145) 137 mmol/L (136-145) Potassium Level 3.9 mmol/L (3.5-5.1) 4.0 mmol/L (3.5-5.1) Chloride Level 103 mmol/L (98-107) 101 mmol/L (98-107) Carbon Dioxide Level 30 mmol/L (21-32) 30 mmol/L (21-32) Anion Gap 6 (6-14) 6 (6-14) Blood Urea Nitrogen 22 mg/dL (7-20) 36 mg/dL (7-20) Creatinine 4.8 mg/dL (0.6-1.0) 6.2 mg/dL (0.6-1.0) Estimated GFR (Cockcroft-Gault) 10.5 7.8 Glucose Level 84 mg/dL (70-99) 110 mg/dL (70-99) Calcium Level 8.9 mg/dL (8.5-10.1) 8.9 mg/dL (8.5-10.1) Laboratory Tests Test 04/14/17 04:58 White Blood Count 6.2 x10^3/uL (4.0-11.0) Red Blood Count 2.93 x10^6/uL (3.50-5.40) Hemoglobin 8.6 g/dL (12.0-15.5) Hematocrit 26.7 % (36.0-47.0) Mean Corpuscular Volume 91 fL (79-100) Mean Corpuscular Hemoglobin 29 pg (25-35) Mean Corpuscular Hemoglobin Concent 32 g/dL (31-37) Red Cell Distribution Width 17.4 % (11.5-14.5) Platelet Count 188 x10^3/uL (140-400) Neutrophils (%) (Auto) 78 % (31-73) Lymphocytes (%) (Auto) 10 % (24-48) Monocytes (%) (Auto) 12 % (0-9) Eosinophils (%) (Auto) 1 % (0-3) Basophils (%) (Auto) 0 % (0-3) Neutrophils # (Auto) 4.8 x10^3uL (1.8-7.7) Lymphocytes # (Auto) 0.6 x10^3/uL (1.0-4.8) Monocytes # (Auto) 0.7 x10^3/uL (0.0-1.1) Eosinophils # (Auto) 0.0 x10^3/uL (0.0-0.7) Basophils # (Auto) 0.0 x10^3/uL (0.0-0.2) Sodium Level 137 mmol/L (136-145) Potassium Level 4.0 mmol/L (3.5-5.1) Chloride Level 101 mmol/L (98-107) Carbon Dioxide Level 30 mmol/L (21-32) Anion Gap 6 (6-14) Blood Urea Nitrogen 36 mg/dL (7-20) Creatinine 6.2 mg/dL (0.6-1.0) Estimated GFR (Cockcroft-Gault) 7.8 Glucose Level 110 mg/dL (70-99) Calcium Level 8.9 mg/dL (8.5-10.1) Medications Active Scripts Medications Dose Route/Sig Max Daily Dose Days Date Category Benzonatate 100 Mg Capsule 1 Cap PO PRN Q8HRS PRN 04/10/17 Reported Prednisone 20 Mg Tablet 1 Tab PO DAILY 04/10/17 Reported Metoprolol Tartrate 25 Mg Tablet 1 Tab PO BID 04/10/17 Reported Amiodarone Hcl 200 Mg Tablet 1 Tab PO DAILY 04/10/17 Reported Miralax (Polyethylene Glycol 3350) 17 Gm Powd.pack 1 Packet PO PRN DAILY PRN 04/10/17 Reported Ferrous Sulfate 325 Mg Tablet 1 Tab PO BID 04/10/17 Reported Tylenol (Acetaminophen) 325 Mg Tablet 325 Mg PO DAILY 04/10/17 Reported Aspirin 325 Mg Tablet 1 Tab PO DAILY 04/10/17 Reported Helen-[facility] Rx Tablet (Vit B Cmplx 3/Fa/Vit C/Biotin) 1 Each Tablet 1 Each PO DAILY 01/06/17 Reported Amlodipine Besylate 10 Mg Tablet 10 Mg PO DAILY 01/06/17 Reported Calcium Acetate 667 Mg Tablet 667 Mg PO TIDWMEALS 01/06/17 Reported Omeprazole 40 Mg Capsule.dr 40 Mg PO DAILY 01/06/17 Reported Hydralazine Hcl 100 Mg Tablet 100 Mg PO BID 01/06/17 Reported Clonidine Hcl 0.2 Mg Tablet 1 Tab PO QHS 01/06/17 Reported Atorvastatin Calcium 20 Mg Tablet 20 Mg PO HS 01/06/17 Reported Impression . 1. DYSPNEA DUE TO CHF .? PNEUMONIA 2. No significant history of tobacco use. 3. End-stage renal disease, on hemodialysis. 4. History of coronary artery bypass grafting with mild lower extremity edema. 5. ABNORMAL CXR/ CT CONFIRMED GROUND GLASS OPACITIES I THINK MOSTLY PULMONARY EDEMA 6. FEVER PER ID/RESOLVED Plan . CLINICALLY BETTER S/P HD/UF ESOPHAGRAM WITH GE REFLUX CONTINUE PO ANTIBX ECHO REVIEWED OK WITH DC FOLLOW UP IN OFFICE ONCE D/C MIGUEL MARY MD Apr 14, 2017 12:08
--- NOTE | 2017-04-14 12:14 | PDOC ---
Subjective: Subjective: Cough better. No reflux. Objective: Vital Signs: Vital Signs Date Time Temp Pulse Resp B/P (MAP) Pulse Ox O2 Delivery O2 Flow Rate FiO2 04/14/17 10:37 97.7 67 16 153/60 (91) 96 Room Air 97.7 Labs: Laboratory Tests Test 04/14/17 04:58 White Blood Count 6.2 x10^3/uL Red Blood Count 2.93 x10^6/uL Hemoglobin 8.6 g/dL Hematocrit 26.7 % Mean Corpuscular Volume 91 fL Mean Corpuscular Hemoglobin 29 pg Mean Corpuscular Hemoglobin Concent 32 g/dL Red Cell Distribution Width 17.4 % Platelet Count 188 x10^3/uL Neutrophils (%) (Auto) 78 % Lymphocytes (%) (Auto) 10 % Monocytes (%) (Auto) 12 % Eosinophils (%) (Auto) 1 % Basophils (%) (Auto) 0 % Neutrophils # (Auto) 4.8 x10^3uL Lymphocytes # (Auto) 0.6 x10^3/uL Monocytes # (Auto) 0.7 x10^3/uL Eosinophils # (Auto) 0.0 x10^3/uL Basophils # (Auto) 0.0 x10^3/uL Sodium Level 137 mmol/L Potassium Level 4.0 mmol/L Chloride Level 101 mmol/L Carbon Dioxide Level 30 mmol/L Anion Gap 6 Blood Urea Nitrogen 36 mg/dL Creatinine 6.2 mg/dL Estimated GFR (Cockcroft-Gault) 7.8 Glucose Level 110 mg/dL Calcium Level 8.9 mg/dL Imaging: Echo <Conclusion> Left ventricle systolic function is normal. The Ejection Fraction is >70%. There is normal LV segmental wall motion. Limited echo only for wall motion and EF. PE: GEN: NAD LUNGS: clear anteriorly HEART: RRR ABD: S/ND/NT NEURO/PSYCH: A & O 3 A/P: Cough -recent pneumonia, several rounds of atbx, also on prednisone, ?CHF GERD -controlled w/ Prilosec (pantoprazole here - increased to BID yesterday), no previous EGD -esophagram w/ reflux Anemia -on ASA and iron, no obvious bleeding -no previous colonoscopy -ESRD on HD, CAD s/p CABG -- She does not wish to pursue EGD at this time. If cough continues, consider as outpt. DC per primary. PEDRO PABLO MCGOWAN Apr 14, 2017 12:14
[2017-04-14] MEDS ORDERED: IV NORMAL SALINE 1000ML BAG 1,000 ML IV PRN (12:43)
[2017-04-14] MEDS ORDERED: diphenhydrAMINE 50 MG/ML VIAL IV PRN ×2 (12:45)
[2017-04-14] MEDS ORDERED: DIALYSIS PATIENT. MC PRN (12:45)
[2017-04-14] MEDS: PROMETH/CODEINE 6.25/10MG 5 ML SYRUP. PO PRN (17:15)
[2017-04-14 17:16] VITALS: BP 164/66
[2017-04-14] MEDS: amLODIPine BESYLATE 10 MG TABLET PO SCH (17:16)
[2017-04-14 17:17] VITALS: BP 164/66
[2017-04-14] MEDS: AMIODARONE HCL 200 MG TABLET. PO SCH (17:17)
[2017-04-14] MEDS: VANCOMYCIN 500 MG in IV NORMAL SALINE 100ML 100 ML IV SCH (17:23)
[2017-04-14] MEDS ORDERED: AMOXICILLIN/K CLAV 500/125MG TABLET. PO SCH (18:00)
== END 2017-04-14 18:58 | disposition home or self-care (01) | DRG 177 ==
LOC: ER 19:50 → 5 NORTH 04-10 00:07
PROVIDERS: ADMIT Internal Medicine; ATTEND Internal Medicine
DX: J69.0 Pneumonitis due to inhalation of food and vomit (principal); N18.6 End stage renal disease; N17.9 Acute kidney failure, unspecified; D64.9 Anemia, unspecified; Z95.1 Presence of aortocoronary bypass graft; I12.0 Hypertensive chronic kidney disease with stage 5 chronic kidney disease or end stage renal disease; M19.90 Unspecified osteoarthritis, unspecified site; K21.9 Gastro-esophageal reflux disease without esophagitis; E78.5 Hyperlipidemia, unspecified; I25.10 Atherosclerotic heart disease of native coronary artery without angina pectoris; K59.00 Constipation, unspecified; Z96.651 Presence of right artificial knee joint; E21.3 Hyperparathyroidism, unspecified; Z99.2 Dependence on renal dialysis; Z82.49 Family history of ischemic heart disease and other diseases of the circulatory system; Z83.3 Family history of diabetes mellitus; Z87.01 Personal history of pneumonia (recurrent); Z98.49 Cataract extraction status, unspecified eye; Z90.710 Acquired absence of both cervix and uterus
CPT/HCPCS: 36415; 71010; 71250; 74220; 80048; 80053; 80202; 83605; 84484; 85025; 85651; 87040; 87205; 93005; 93308; 94250; 94640; 94760; 96365; 96375; J0881; J2543; J3370; J3490; J7040; J7512; J7620; 97110; 97116; 97530; 99285-25

== ENCOUNTER → 2017-12-20 | Outpatient (CLI) | payer MEDICARE, OTHER | END | disposition home or self-care (01) | LOC: ECHO 10:42 | DX: I25.10 Atherosclerotic heart disease of native coronary artery without angina pectoris (principal); I08.3 Combined rheumatic disorders of mitral, aortic and tricuspid valves; I27.20 Pulmonary hypertension, unspecified | CPT/HCPCS: 93306 ==

== ENCOUNTER 2018-09-05 09:14 | Inpatient (IN) | payer MEDICARE, OTHER ==
[~2018-09-05] VITALS: Ht 165.1 cm; Wt 57.2 kg
[~2018-09-05 09:14] MED LIST changes: +ACET325T9 PO; +AMIO200T4 PO; -AMLO10TA2 PO; +AMLO10TA8 PO; +ASPI325T8 PO; +BENZ-8 PO; -CALC667T PO; +CALC667T4 PO; +CLON0.2T10 PO; +FERR325T14 PO; +FERR325T72 PO; +HYDR-2869 PO; +ISOS30TA4 PO; +ISOS60TA2 PO; +LISI-130 PO; +METO25TA4 PO; +POLY17PO29 PO; +PRED20TA PO; +TRAM50TA PO
[2018-09-05] MEDS ORDERED: ASPIRIN 325 MG TABLET PO ONE (09:30)
--- NOTE | 2018-09-05 09:34 | PHYS DOC ---
Past Medical History Past Medical History: Arthritis, CAD, Hypertension, Pneumonia, Renal Disease Past Surgical History: Coronary Bypass Surgery, Hysterectomy, Knee Replacement , Other Additional Past Surgical Histo: ovarian cyst, cataracts Alcohol Use: None Drug Use: None Adult General Chief Complaint Chief Complaint: CHEST PAIN HPI HPI Patient is a 83 year old female presented to ER today for evaluation of substernal chest pain that radiated to her left ARM AND BACK SINCE last night. Patient had a history of coronary artery disease, had triple bypass in the past. She had taken her morning medicationS already. Patient denies any abdominal pain, no nausea vomiting. Patient denied headache. Review of Systems Review of Systems Constitutional: Denies fever or chills [] Eyes: Denies change in visual acuity, redness, or eye pain [] HENT: Denies nasal congestion or sore throat [] Respiratory: Denies cough or shortness of breath [] Cardiovascular: No additional information not addressed in HPI [] GI: Denies abdominal pain, nausea, vomiting, bloody stools or diarrhea [] : Denies dysuria or hematuria [] Musculoskeletal: Denies back pain or joint pain [] Integument: Denies rash or skin lesions [] Neurologic: Denies headache, focal weakness or sensory changes [] Endocrine: Denies polyuria or polydipsia [] All other systems were reviewed and found to be within normal limits, except as documented in this note. Current Medications Current Medications Current Medications Medications (Trade) Dose Ordered Sig/[facility] Start Time Stop Time Status Last Admin Dose Admin Aspirin (Brandi Aspirin) 325 mg 1X ONCE 09/05/18 09:30 09/05/18 09:31 DC 09/05/18 10:11 325 MG Clonidine HCl (Catapres) 0.1 mg 1X ONCE 09/05/18 11:15 09/05/18 11:16 DC 09/05/18 11:21 0.1 MG Nitroglycerin (Nitrostat) 0.4 mg PRN Q5MIN PRN 09/05/18 09:30 09/06/18 09:29 09/05/18 11:14 0.4 MG Allergies Allergies Allergies Coded Allergies Type Severity Reaction Last Updated Verified No Known Drug Allergies 01/06/17 No Physical Exam Physical Exam Constitutional: Well developed, well nourished, no acute distress, non-toxic appearance. [] HENT: Normocephalic, atraumatic, bilateral external ears normal, oropharynx moist, no oral exudates, nose normal. [] Eyes: PERRLA, EOMI, conjunctiva normal, no discharge. [] Neck: Normal range of motion, no tenderness, supple, no stridor. [] Cardiovascular:Heart rate regular rhythm, GRADE 5/6 SYSTOLIC EJECTION MURMUR. Lungs & Thorax: Bilateral breath sounds clear to auscultation [] Abdomen: Bowel sounds normal, soft, no tenderness, no masses, no pulsatile masses. [] Skin: Warm, dry, no erythema, no rash. [] Back: No tenderness, no CVA tenderness. [] Extremities: No tenderness, no cyanosis, no clubbing, ROM intact, no edema. [] Neurologic: Alert and oriented X 3, normal motor function, normal sensory function, no focal deficits noted. [] Psychologic: Affect normal, judgement normal, mood normal. [] Current Patient Data Vital Signs Vital Signs Date Time Temp Pulse Resp B/P (MAP) Pulse Ox O2 Delivery O2 Flow Rate FiO2 09/05/18 11:21 70 161/70 09/05/18 09:25 97.5 16 100 Room Air 97.5 Lab Values Laboratory Tests Test 09/05/18 10:20 White Blood Count 5.6 x10^3/uL (4.0-11.0) Red Blood Count 3.87 x10^6/uL (3.50-5.40) Hemoglobin 12.2 g/dL (12.0-15.5) Hematocrit 38.0 % (36.0-47.0) Mean Corpuscular Volume 98 fL (79-100) Mean Corpuscular Hemoglobin 32 pg (25-35) Mean Corpuscular Hemoglobin Concent 32 g/dL (31-37) Red Cell Distribution Width 14.8 % (11.5-14.5) H Platelet Count 169 x10^3/uL (140-400) Neutrophils (%) (Auto) 64 % (31-73) Lymphocytes (%) (Auto) 15 % (24-48) L Monocytes (%) (Auto) 10 % (0-9) H Eosinophils (%) (Auto) 10 % (0-3) H Basophils (%) (Auto) 1 % (0-3) Neutrophils # (Auto) 3.6 x10^3uL (1.8-7.7) Lymphocytes # (Auto) 0.9 x10^3/uL (1.0-4.8) L Monocytes # (Auto) 0.5 x10^3/uL (0.0-1.1) Eosinophils # (Auto) 0.6 x10^3/uL (0.0-0.7) Basophils # (Auto) 0.1 x10^3/uL (0.0-0.2) Prothrombin Time 14.0 SEC (11.7-14.0) Prothrombin Time INR 1.1 (0.8-1.1) PTT 39 SEC (24-38) H Sodium Level 142 mmol/L (136-145) Potassium Level 4.9 mmol/L (3.5-5.1) Chloride Level 103 mmol/L (98-107) Carbon Dioxide Level 24 mmol/L (21-32) Anion Gap 15 (6-14) H Blood Urea Nitrogen 41 mg/dL (7-20) H Creatinine 7.5 mg/dL (0.6-1.0) H Estimated GFR (Cockcroft-Gault) 6.3 BUN/Creatinine Ratio 5 (6-20) L Glucose Level 101 mg/dL (70-99) H Calcium Level 9.6 mg/dL (8.5-10.1) Magnesium Level 2.6 mg/dL (1.8-2.4) H Total Bilirubin 0.4 mg/dL (0.2-1.0) Aspartate Amino Transferase (AST) 18 U/L (15-37) Alanine Aminotransferase (ALT) 22 U/L (14-59) Alkaline Phosphatase 99 U/L (46-116) Creatine Kinase 166 U/L (26-192) Creatine Kinase MB (Mass) 1.6 ng/mL (0.0-3.6) Creatine Kinase MB Relative Index 1.0 % (0-4) Troponin I Quantitative 0.037 ng/mL (0.000-0.055) WH-Zhl-S-Type Natriuretic Peptide 6340 pg/mL (0-449) H Total Protein 7.1 g/dL (6.4-8.2) Albumin 3.9 g/dL (3.4-5.0) Albumin/Globulin Ratio 1.2 (1.0-1.7) Lipase 340 U/L (73-393) Laboratory Tests 09/05/18 10:20 Laboratory Tests 09/05/18 10:20 EKG EKG ekg: was read at 0920 by this physician, no stemi, rate of 69 bpm. [] Radiology/Procedures Radiology/Procedures [][facility] [address] [place] [address] IMAGING REPORT Signed PATIENT: ROBIN VICENTE ACCOUNT: [id number] : 1935 LOCATION: ER AGE: 83 SEX: F EXAM STATUS: REG ER ORD. PHYSICIAN: ZEHRA MCKEON DO REASON: CHEST PAIN PROCEDURE: PORTABLE CHEST 1V PORTABLE CHEST 1V Clinical Indication: CHEST PAIN TODAY Comparison: AP chest, July 11, 2018. Findings: Median sternotomy wires and changes of CABG. Stable cardiomegaly. Atherosclerotic thoracic aorta. Lungs are clear. There is no pneumothorax. No pleural effusion is appreciated. No acute bone abnormality. Left upper extremity vascular stents redemonstrated. IMPRESSION: No acute cardiopulmonary process. Electronically signed by: Olu Alicea MD (09/05/2018 10:08 AM) [id number] DICTATED and SIGNED BY: OLU ALICEA MD DATE: 09/05/18 1005 Course & Med Decision Making Course & Med Decision Making Pertinent Labs and Imaging studies reviewed. (See chart for details) [] Dragon Disclaimer Dragon Disclaimer This electronic medical record was generated, in whole or in part, using a voice recognition dictation system. Departure Departure Impression: Primary Impression: Chest pain Disposition: ADMITTED INPATIENT Admitting Physician: Other (dr. wyatt street) Condition: STABLE Referrals: MAGNO MANCILLA MD (PCP) ZEHRA MCKEON DO Sep 05, 2018 09:34
--- NOTE | 2018-09-05 09:38 | EKG ---
[facility] [address] [place] [address] Test Date: 2018-09-05 Test Time: 09:19:51 Pat Name: ROBIN VICENTE Department: Room: Gender: F Services Engineer: : 1935 Requested By: ZEHRA MCKEON Order Number: [id number] Reading MD: Nilesh Duarte Measurements Intervals [place] Rate: 69 P: 52 TX: 184 QRS: 5 QRSD: 78 T: 54 QT: 424 QTc: 461 Interpretive Statements SINUS RHYTHM LEFT ATRIAL ABNORMALITY QRS(T) CONTOUR ABNORMALITY CONSIDER ANTEROSEPTAL MYOCARDIAL DAMAGE CONSIDER INFERIOR MYOCARDIAL DAMAGE ABNORMAL ECG Electronically Signed On 09-12-2018 10:55:30 AGRICULTURIST by Nilesh Duarte
--- NOTE | 2018-09-05 10:11 | RAD ---
PORTABLE CHEST 1V Clinical Indication: CHEST PAIN TODAY Comparison: AP chest, July 11, 2018. Findings: Median sternotomy wires and changes of CABG. Stable cardiomegaly. Atherosclerotic thoracic aorta. Lungs are clear. There is no pneumothorax. No pleural effusion is appreciated. No acute bone abnormality. Left upper extremity vascular stents redemonstrated. IMPRESSION: No acute cardiopulmonary process. Electronically signed by: Olu Alicea MD (09/05/2018 10:08 AM) [id number]
[2018-09-05] MEDS: NITROGLYCERIN SUBLINGUAL 0.4 MG BOTTLE OF 25. SL PRN ×2 (10:12→11:14)
[2018-09-05 10:31] LABS: BASO # 0.1 x10^3/uL (0.0-0.2); BASO % 1 % (0-3); EOS # 0.6 x10^3/uL (0.0-0.7); EOS % 10 % (0-3); HEMOGLOBIN 12.2 g/dL (12.0-15.5); LYMPH # 0.9 x10^3/uL (1.0-4.8); LYMPH % 15 % (24-48); MEAN CORPUSCULAR HEMOGLOBIN 32 pg (25-35); MEAN CORPUSCULAR HGB CONC 32 g/dL (31-37); MEAN CORPUSCULAR VOLUME 98 fL (79-100); MONO # 0.5 x10^3/uL (0.0-1.1); MONO % 10 % (0-9); NEUT # 3.6 x10^3uL (1.8-7.7); NEUT % 64 % (31-73); PLATELET COUNT 169 x10^3/uL (140-400); RED BLOOD COUNT 3.87 x10^6/uL (3.50-5.40); RED CELL DISTRIBUTION WIDTH 14.8 % (11.5-14.5); WHITE BLOOD COUNT 5.6 x10^3/uL (4.0-11.0)
[2018-09-05 10:43] LABS: CALCIUM 9.6 mg/dL (8.5-10.1); CREATININE 7.5 mg/dL (0.6-1.0); GFR 6.3; POTASSIUM 4.9 mmol/L (3.5-5.1)
[2018-09-05 10:50] LABS: ALBUMIN 3.9 g/dL (3.4-5.0); ALBUMIN/GLOBULIN RATIO 1.2 (1.0-1.7); MAGNESIUM 2.6 mg/dL (1.8-2.4); TOTAL BILIRUBIN 0.4 mg/dL (0.2-1.0); TOTAL PROTEIN 7.1 g/dL (6.4-8.2)
[2018-09-05] MEDS ORDERED: cloNIDine HCL 0.1 MG TABLET PO ONE (11:15)
[2018-09-05] MEDS ORDERED: MAG HYDROX/ALUMINUM HYD/SIMETH 30 ML ORAL.SUSP PO PRN (11:30)
[2018-09-05] MEDS ORDERED: NITROGLYCERIN SUBLINGUAL 0.4 MG BOTTLE OF 25. SL PRN (11:30)
[2018-09-05] MEDS ORDERED: MORPHINE SULFATE 2 MG/ML VIAL. IV PRN (11:30)
[2018-09-05] MEDS ORDERED: ZOLPIDEM 5 MG TABLET. PO PRN (11:30)
[2018-09-05] MEDS ORDERED: ONDANSETRON PF 4 MG/2 ML VIAL. IV PRN ×2 (11:30)
[2018-09-05] MEDS ORDERED: 0.9 % SODIUM CHLORIDE 10 ML DISP.SYRIN. IV PRN (11:30)
[2018-09-05] MEDS ORDERED: DOCUSATE SODIUM 100 MG CAPSULE. PO PRN (11:30)
[2018-09-05] MEDS ORDERED: MORPHINE SULFATE 4 MG/ML VIAL. IV PRN (11:30)
[2018-09-05] MEDS ORDERED: traMADol 50 MG TABLET PO PRN (11:30)
[2018-09-05] MEDS: METOPROLOL TART IMMED RELEASE 25 MG TABLET. PO SCH ×2 (12:00→21:07)
[2018-09-05] MEDS ORDERED: POLYETHYLENE GLYCOL 3350 17 GM PACKET. PO PRN (12:41)
[2018-09-05 12:45] VITALS: BP 209/86
[2018-09-05] MEDS: ISOSORBIDE MONONITRATE ER 30 MG TAB.ER.24H PO SCH (13:00)
[2018-09-05] MEDS: FOLIC/VIT B COMP W-C (RENAL) TABLET. PO SCH (13:00)
[2018-09-05] MEDS ORDERED: LISINOPRIL 20 MG TABLET PO SCH (14:00)
[2018-09-05] MEDS: cloNIDine HCL 0.2 MG TABLET PO SCH ×2 (14:00→21:08)
--- NOTE | 2018-09-05 14:10 | PDOC2 ---
CARDIAC CONSULT DATE OF CONSULT Date of Consult DATE: 09/05/18 TIME: 14:08 REASON FOR CONSULT Reason for Consult: Chest pain REFERRING PHYSICIAN Referring Physician: Toni SOURCE Source: Chart review, Patient HISTORY OF PRESENT ILLNESS HISTORY OF PRESENT ILLNESS This is a pleasant 83 yo female admitted for complains of chest pain. Reports that she started having this dull achy pain to her left neck and shoulder and chest lasting about 30 minutes. No SOA but alight nausea. No diaphoresis and no palpitations. She is compliant with her medications. She has stopped her lisinopril high dose 20-3 weeks ago due to cough and appears to be no substitute for it. At home she noted her SBP in the 200s this morning but did not check it last night when she was having symptoms and also was having throbbing HAs. PAST MEDICAL HISTORY Past Medical History Cardiovascular: CAD, HTN, Hyperlipidemia Pulmonary: No pertinent hx CENTRAL NERVOUS SYSTEM: Other GI: GERD Heme/Onc: Anemia NOS Hepatobiliary: No pertinent hx Psych: No pertinent hx Musculoskeletal: Osteoarthritis Rheumatologic: No pertinent hx Infectious disease: No pertinent hx Renal/: Chronic renal failure Endocrine: Hyperparathyroidism PAST SURGICAL HISTORY Past Surgical History CABG in 01/2017 Appendectomy, Cataract Removal, Total knee replacement, Tonsillectomy, Hysterectomy FAMILY HISTORY Family History: Coronary Artery Disease, Diabetes, Hypertension SOCIAL HISTORY Smoke: No ALCOHOL: none Drugs: None Lives: with Family CURRENT MEDICATIONS CURRENT MEDICATIONS Current Medications Medications (Trade) Dose Ordered Sig/Willard Route PRN Reason Start Time Stop Time Status Last Admin Dose Admin Aspirin (Brandi Aspirin) 325 mg 1X ONCE PO 09/05/18 09:30 09/05/18 09:31 DC 09/05/18 10:11 Nitroglycerin (Nitrostat) 0.4 mg PRN Q5MIN PRN SL CP RATING > 1/10 09/05/18 09:30 09/05/18 12:42 DC 09/05/18 11:14 Clonidine HCl (Catapres) 0.1 mg 1X ONCE PO 09/05/18 11:15 09/05/18 11:16 DC 09/05/18 11:21 Hydralazine HCl (Apresoline) 100 mg TID PO 09/05/18 14:00 09/05/18 13:25 ALLERGIES ALLERGIES: Coded Allergies: No Known Drug Allergies (Unverified , 01/06/17) ROS Review of System 14 point ROS evaluated with pertinent positives noted per HPI PHYSICAL EXAM General: Alert, Oriented X3, Cooperative, No acute distress HEENT: Atraumatic, Mucous membr. moist/pink Lungs: Clear to auscultation, Normal air movement Heart: Regular rate (SR), Normal S1, Normal S2, Other (2/6 systolic murmur to LLS border) Abdomen: Soft, No tenderness Extremities: No cyanosis, No edema Skin: No breakdown, No significant lesion Neuro: Normal speech, Sensation intact Psych/Mental Status: Mental status NL, Mood NL MUSCULOSKELETAL: Osteoarthritic changes both hands VITALS VITALS Vital Signs Date Time Temp Pulse Resp B/P (MAP) Pulse Ox O2 Delivery O2 Flow Rate FiO2 09/05/18 13:25 57 209/86 09/05/18 12:45 98.4 18 98 Room Air 98.4 LABS Lab: Laboratory Tests Test 09/05/18 10:20 White Blood Count 5.6 x10^3/uL (4.0-11.0) Red Blood Count 3.87 x10^6/uL (3.50-5.40) Hemoglobin 12.2 g/dL (12.0-15.5) Hematocrit 38.0 % (36.0-47.0) Mean Corpuscular Volume 98 fL (79-100) Mean Corpuscular Hemoglobin 32 pg (25-35) Mean Corpuscular Hemoglobin Concent 32 g/dL (31-37) Red Cell Distribution Width 14.8 % (11.5-14.5) Platelet Count 169 x10^3/uL (140-400) Neutrophils (%) (Auto) 64 % (31-73) Lymphocytes (%) (Auto) 15 % (24-48) Monocytes (%) (Auto) 10 % (0-9) Eosinophils (%) (Auto) 10 % (0-3) Basophils (%) (Auto) 1 % (0-3) Neutrophils # (Auto) 3.6 x10^3uL (1.8-7.7) Lymphocytes # (Auto) 0.9 x10^3/uL (1.0-4.8) Monocytes # (Auto) 0.5 x10^3/uL (0.0-1.1) Eosinophils # (Auto) 0.6 x10^3/uL (0.0-0.7) Basophils # (Auto) 0.1 x10^3/uL (0.0-0.2) Prothrombin Time 14.0 SEC (11.7-14.0) Prothromb Time International Ratio 1.1 (0.8-1.1) Activated Partial Thromboplast Time 39 SEC (24-38) Sodium Level 142 mmol/L (136-145) Potassium Level 4.9 mmol/L (3.5-5.1) Chloride Level 103 mmol/L (98-107) Carbon Dioxide Level 24 mmol/L (21-32) Anion Gap 15 (6-14) Blood Urea Nitrogen 41 mg/dL (7-20) Creatinine 7.5 mg/dL (0.6-1.0) Estimated GFR (Cockcroft-Gault) 6.3 BUN/Creatinine Ratio 5 (6-20) Glucose Level 101 mg/dL (70-99) Calcium Level 9.6 mg/dL (8.5-10.1) Magnesium Level 2.6 mg/dL (1.8-2.4) Total Bilirubin 0.4 mg/dL (0.2-1.0) Aspartate Amino Transf (AST/SGOT) 18 U/L (15-37) Alanine Aminotransferase (ALT/SGPT) 22 U/L (14-59) Alkaline Phosphatase 99 U/L (46-116) Creatine Kinase 166 U/L (26-192) Creatine Kinase MB (Mass) 1.6 ng/mL (0.0-3.6) Creatine Kinase MB Relative Index 1.0 % (0-4) Troponin I Quantitative 0.037 ng/mL (0.000-0.055) CL-Luu-R-Type Natriuretic Peptide 6340 pg/mL (0-449) Total Protein 7.1 g/dL (6.4-8.2) Albumin 3.9 g/dL (3.4-5.0) Albumin/Globulin Ratio 1.2 (1.0-1.7) Lipase 340 U/L (73-393) ECHOCARDIOGRAM ECHOCARDIOGRAM <Conclusion> The left ventricular systolic function is normal. The Ejection Fraction is 60-65%. There is normal LV segmental wall motion. Trace to mild mitral regurgitation. Mild tricuspid regurgitation. There is moderate pulmonary hypertension. The PA pressure was estimated at 54 mmHg. There is no evidence of significant pericardial effusion. DATE: 09/05/18 1997 ASSESSMENT/PLAN ASSESSMENT/PLAN 1. Chest pain: likely from high BP, doubt ACS 2. Recent cough: prompting discontinuation of lisinopril for the last 2-3 weeks 3. Accelerated HTN: due to stoppage of lisinopril. 4. CAD: CABG 01/2017, clinically stable. 5. HLP 6. HX of asymptomatic SB. 7. ESRD Recommendations 1. Continue BP regimen. Start on losartan. Monitor BP trend. Caution with BB or clonidine with hx of bradycardia. 2. Continue secondary prevention. Continue low dose metoprolol. 3. Trend troponin, TTE. 4. Fluid off loading per HD 5. Med adjustment per BP trend overnight. WINDY HERNANDEZ APRN Sep 05, 2018 14:10
[2018-09-05 14:19] VITALS: BP 168/73
[2018-09-05] MEDS ORDERED: LOSARTAN POTASSIUM 50 MG TABLET. PO ONE (14:30)
--- NOTE | 2018-09-05 16:37 | CARD ---
MR#: [id number] Date of Study: 09/05/2018 Ordering Physician: PATRICIA LOVELACE, Referring Physician: PATRICIA LOVELACE Tech: Beena Plascencia RDCS APPROVED REPORT EXAM: Two-dimensional and M-mode echocardiogram with Doppler and color Doppler. Other Information Quality : Good INDICATION Chest Pain 2D DIMENSIONS Left Atrium(2D)3.1 (1.6-4.0cm)IVSd1.3 (0.7-1.1cm) Aortic Root(2D)2.8 (2.0-3.7cm)LVDd4.3 (3.9-5.9cm) LVOT Diameter2.1 (1.8-2.4cm)PWd1.3 (0.7-1.1cm) LVDs1.8 (2.5-4.0cm)FS (%) 30.0 % SV71.8 mlLVEF(%)60.0 (>50%) Aortic Valve AoV Peak Kev.209.3cm/sAoV VTI45.2cm AO Peak GR.17.5mmHgLVOT Peak Kev.118.0cm/s AO Mean GR.9mmHgAVA (VMAX)1.86cm2 BETTY (VTI)2.30cm2 Mitral Valve MV E Pxujlylf181.5cm/sMV DECEL [id number] MV A Gcfthuhp299.1cm/sE/A Ratio0.9 Tricuspid Valve TR P. Ejwppgdn599ds/sRAP [id number] TR Peak Gr.29azWxAYVV92fvCj Pulmonary Vein S1 Etzxsvbg84.8cm/sD2 Cxpvveqs67.0cm/s LEFT VENTRICLE The left ventricle is normal size. There is mild concentric left ventricular hypertrophy. The left ve ntricular systolic function is normal. The Ejection Fraction is 60-65%. There is normal LV segmental wall motion. RIGHT VENTRICLE The right ventricle is normal size. The right ventricular systolic function is normal. ATRIA The left atrium size is normal. The right atrium size is normal. The interatrial septum is intact wit h no evidence for an atrial septal defect or patent foramen ovale as noted on 2-D or Doppler imaging. AORTIC VALVE The aortic valve is mildly thickened but opens well. Doppler and Color Flow revealed no significant a ortic regurgitation. There is no significant aortic valvular stenosis. MITRAL VALVE The mitral valve is calcified but opens well. Mitral annular calcification is mild. There is no evide nce of mitral valve prolapse. There is no mitral valve stenosis. Doppler and Color-flow revealed trac e to mild mitral regurgitation. TRICUSPID VALVE The tricuspid valve is normal in structure and function. Doppler and Color Flow revealed mild tricusp id regurgitation. There is moderate pulmonary hypertension. The PA pressure was estimated at 54 mmHg. There is no tricuspid valve stenosis. PULMONIC VALVE The pulmonic valve is not well visualized. Doppler and Color Flow revealed mild pulmonic valvular reg urgitation. There is no pulmonic valvular stenosis. GREAT VESSELS The aortic root is normal in size. The ascending aorta is not well seen. The IVC is normal in size an d collapses >50% with inspiration. PERICARDIAL EFFUSION There is no evidence of significant pericardial effusion. Critical Notification Critical Value: No <Conclusion> The left ventricular systolic function is normal. The Ejection Fraction is 60-65%. There is normal LV segmental wall motion. Trace to mild mitral regurgitation. Mild tricuspid regurgitation. There is moderate pulmonary hypertension. The PA pressure was estimated at 54 mmHg. There is no evidence of significant pericardial effusion. Signed by : Nilesh Duarte, Electronically Approved : 09/05/2018 16:37:12
[2018-09-05] MEDS: PANTOPRAZOLE 40 MG TABLET.DR. PO SCH (16:47)
[2018-09-05] MEDS: hydrALAZINE 20 MG/ML VIAL. IVP PRN (16:50)
[2018-09-05 17:31] VITALS: BP 174/74
[2018-09-05] MEDS: FERROUS SULFATE 325 MG TABLET. PO SCH (17:52)
[2018-09-05 19:43] VITALS: BP 195/78
--- NOTE | 2018-09-05 20:01 | PDOC1 ---
History and Physical Date of Admission Date of Admission September 05, 2018 Identification/Chief Complaint Chief Complaint my chest hurts Problems: (1) Chest pain (2) Hypertensive urgency Source Source: Chart review, Patient History of Present Illness History of Present Illness Svetlana is an 83-year-old female with past medical history of coronary artery disease status post CABG in 2017. Patient also has end-stage renal disease on hemodialysis and has several admissions for similar presentation with accelerated hypertension. Patient comes today with a similar presentation with her pain being on and off for a few moments she relates. The patient says that the discomfort is over the precordial area. No nausea no vomiting no diaphoresis or sensation of impending doom was reported we were asked to admit the patient for chest pain rule out. At the time my evaluation patient is in no acute distress. She is hemodynamically stable her blood pressure continues to be high which could be the reason of her chest pressure. No recent changes to her medications have been done no recent infections no cough sputum production no fever reported no pleurisy Plan of care explained detail all of her concerns were addressed to the best of my abilities Past Medical History Cardiovascular: CAD, HTN, Hyperlipidemia Pulmonary: No pertinent hx CENTRAL NERVOUS SYSTEM: Other GI: GERD Heme/Onc: Anemia NOS Rheumatologic: No pertinent hx Renal/: Chronic renal failure Endocrine: Hyperparathyroidism Past Surgical History Past Surgical History: Appendectomy, CABG, Cataract Removal, Total knee replacement, Tonsillectomy, Hysterectomy Family History Family History: Coronary Artery Disease, Diabetes, Hypertension Social History Smoke: No ALCOHOL: none Drugs: None Current Problem List Problem List Problems Medical Problems: (1) Chest pain Status: Acute Current Medications Current Medications Current Medications Medications (Trade) Dose Ordered Sig/Willard Start Time Stop Time Status Last Admin Dose Admin Acetaminophen (Tylenol) 650 mg PRN Q6HRS PRN 09/05/18 11:30 Al Hydroxide/Mg Hydroxide (Mylanta Plus Xs) 30 ml PRN Q2HR PRN 09/05/18 11:30 Aspirin (Brandi Aspirin) 325 mg DAILY 09/06/18 09:00 Atorvastatin Calcium (Lipitor) 20 mg HS 09/05/18 21:00 Clonidine HCl (Catapres) 0.2 mg BID 09/05/18 14:00 Docusate Sodium (Colace) 100 mg PRN DAILY PRN 09/05/18 11:30 Ferrous Sulfate (Feosol) 325 mg BIDWMEALS 09/05/18 17:00 09/05/18 17:52 325 MG Hydralazine HCl (Apresoline Inj) 10 mg PRN Q4HRS PRN 09/05/18 13:45 09/05/18 16:50 10 MG Hydralazine HCl (Apresoline) 100 mg TID 09/05/18 14:00 09/05/18 13:25 100 MG Isosorbide Mononitrate (Imdur) 60 mg DAILY 09/05/18 13:00 Lisinopril (Prinivil) 40 mg DAILY 09/05/18 14:00 Losartan Potassium (Cozaar) 100 mg DAILY 09/06/18 09:00 Metoprolol Tartrate (Lopressor) 12.5 mg BID 09/05/18 12:00 Morphine Sulfate (Morphine Sulfate) 4 mg PRN Q2HR PRN 09/05/18 11:30 Nitroglycerin (Nitrostat) 0.4 mg PRN Q5MIN PRN 09/05/18 11:30 Ondansetron HCl (Zofran) 4 mg PRN Q4HRS PRN 09/05/18 11:30 Pantoprazole Sodium (Protonix) 40 mg DAILYAC 09/05/18 16:30 09/05/18 16:47 40 MG Polyethylene Glycol (miraLAX PACKET) 17 gm PRN DAILY PRN 09/05/18 12:41 Sodium Chloride (Normal Saline Flush) 3 ml QSHIFT PRN 09/05/18 11:30 Tramadol HCl (Ultram) 50 mg PRN Q6HRS PRN 09/05/18 11:30 Vitamin B Complex/ Vitamin C (Helen-Homa) 1 tab DAILY 09/05/18 13:00 Zolpidem Tartrate (Ambien) 5 mg PRN QHS PRN 09/05/18 11:30 Allergies Allergies Allergies Coded Allergies Type Severity Reaction Last Updated Verified No Known Drug Allergies 01/06/17 No ROS Review of System CONSTITUTIONAL: No fever or chills EYES: No recent changes SKIN: No rash or itching CARDIOVASCULAR: + chest pain, no syncope, palpitations, or edema RESPIRATORY: No SOB or cough GASTROINTESTINAL: No nausea, vomiting or abdominal pain NEUROLOGICAL: No headaches or weakness ENDOCRINE: No cold or heat intolerance GENITOURINARY: No urgency or frequency of urination MUSCULOSKELETAL: No back pain or joint pain LYMPHATICS: No enlarged lymph nodes PSYCHIATRIC: No anxiety or depression Physical Exam Physical Exam General: Alert, Oriented X3, Cooperative, No acute distress HEENT: Atraumatic, Mucous membr. moist/pink Lungs: Clear to auscultation, Normal air movement Heart: Regular rate (SR), Normal S1, Normal S2, Other (2/6 systolic murmur to LLS border) Abdomen: Soft, No tenderness Extremities: No cyanosis, No edema Skin: No breakdown, No significant lesion Neuro: Normal speech, Sensation intact Psych/Mental Status: Mental status NL, Mood NL MUSCULOSKELETAL: Osteoarthritic changes both hands Vitals Vitals Vital Signs Date Time Temp Pulse Resp B/P (MAP) Pulse Ox O2 Delivery O2 Flow Rate FiO2 09/05/18 19:43 97.9 65 21 195/78 (117) 98 Room Air 97.9 Labs Labs Laboratory Tests Test 09/05/18 10:20 09/05/18 17:25 White Blood Count 5.6 x10^3/uL (4.0-11.0) Red Blood Count 3.87 x10^6/uL (3.50-5.40) Hemoglobin 12.2 g/dL (12.0-15.5) Hematocrit 38.0 % (36.0-47.0) Mean Corpuscular Volume 98 fL (79-100) Mean Corpuscular Hemoglobin 32 pg (25-35) Mean Corpuscular Hemoglobin Concent 32 g/dL (31-37) Red Cell Distribution Width 14.8 % (11.5-14.5) Platelet Count 169 x10^3/uL (140-400) Neutrophils (%) (Auto) 64 % (31-73) Lymphocytes (%) (Auto) 15 % (24-48) Monocytes (%) (Auto) 10 % (0-9) Eosinophils (%) (Auto) 10 % (0-3) Basophils (%) (Auto) 1 % (0-3) Neutrophils # (Auto) 3.6 x10^3uL (1.8-7.7) Lymphocytes # (Auto) 0.9 x10^3/uL (1.0-4.8) Monocytes # (Auto) 0.5 x10^3/uL (0.0-1.1) Eosinophils # (Auto) 0.6 x10^3/uL (0.0-0.7) Basophils # (Auto) 0.1 x10^3/uL (0.0-0.2) Prothrombin Time 14.0 SEC (11.7-14.0) Prothromb Time International Ratio 1.1 (0.8-1.1) Activated Partial Thromboplast Time 39 SEC (24-38) Sodium Level 142 mmol/L (136-145) Potassium Level 4.9 mmol/L (3.5-5.1) Chloride Level 103 mmol/L (98-107) Carbon Dioxide Level 24 mmol/L (21-32) Anion Gap 15 (6-14) Blood Urea Nitrogen 41 mg/dL (7-20) Creatinine 7.5 mg/dL (0.6-1.0) Estimated GFR (Cockcroft-Gault) 6.3 BUN/Creatinine Ratio 5 (6-20) Glucose Level 101 mg/dL (70-99) Calcium Level 9.6 mg/dL (8.5-10.1) Magnesium Level 2.6 mg/dL (1.8-2.4) Total Bilirubin 0.4 mg/dL (0.2-1.0) Aspartate Amino Transf (AST/SGOT) 18 U/L (15-37) Alanine Aminotransferase (ALT/SGPT) 22 U/L (14-59) Alkaline Phosphatase 99 U/L (46-116) Creatine Kinase 166 U/L (26-192) Creatine Kinase MB (Mass) 1.6 ng/mL (0.0-3.6) Creatine Kinase MB Relative Index 1.0 % (0-4) Troponin I Quantitative 0.037 ng/mL (0.000-0.055) 0.033 ng/mL (0.000-0.055) MG-Eio-P-Type Natriuretic Peptide 6340 pg/mL (0-449) Total Protein 7.1 g/dL (6.4-8.2) Albumin 3.9 g/dL (3.4-5.0) Albumin/Globulin Ratio 1.2 (1.0-1.7) Lipase 340 U/L (73-393) Laboratory Tests Test 09/05/18 10:20 09/05/18 17:25 White Blood Count 5.6 x10^3/uL (4.0-11.0) Red Blood Count 3.87 x10^6/uL (3.50-5.40) Hemoglobin 12.2 g/dL (12.0-15.5) Hematocrit 38.0 % (36.0-47.0) Mean Corpuscular Volume 98 fL (79-100) Mean Corpuscular Hemoglobin 32 pg (25-35) Mean Corpuscular Hemoglobin Concent 32 g/dL (31-37) Red Cell Distribution Width 14.8 % (11.5-14.5) Platelet Count 169 x10^3/uL (140-400) Neutrophils (%) (Auto) 64 % (31-73) Lymphocytes (%) (Auto) 15 % (24-48) Monocytes (%) (Auto) 10 % (0-9) Eosinophils (%) (Auto) 10 % (0-3) Basophils (%) (Auto) 1 % (0-3) Neutrophils # (Auto) 3.6 x10^3uL (1.8-7.7) Lymphocytes # (Auto) 0.9 x10^3/uL (1.0-4.8) Monocytes # (Auto) 0.5 x10^3/uL (0.0-1.1) Eosinophils # (Auto) 0.6 x10^3/uL (0.0-0.7) Basophils # (Auto) 0.1 x10^3/uL (0.0-0.2) Prothrombin Time 14.0 SEC (11.7-14.0) Prothromb Time International Ratio 1.1 (0.8-1.1) Activated Partial Thromboplast Time 39 SEC (24-38) Sodium Level 142 mmol/L (136-145) Potassium Level 4.9 mmol/L (3.5-5.1) Chloride Level 103 mmol/L (98-107) Carbon Dioxide Level 24 mmol/L (21-32) Anion Gap 15 (6-14) Blood Urea Nitrogen 41 mg/dL (7-20) Creatinine 7.5 mg/dL (0.6-1.0) Estimated GFR (Cockcroft-Gault) 6.3 BUN/Creatinine Ratio 5 (6-20) Glucose Level 101 mg/dL (70-99) Calcium Level 9.6 mg/dL (8.5-10.1) Magnesium Level 2.6 mg/dL (1.8-2.4) Total Bilirubin 0.4 mg/dL (0.2-1.0) Aspartate Amino Transf (AST/SGOT) 18 U/L (15-37) Alanine Aminotransferase (ALT/SGPT) 22 U/L (14-59) Alkaline Phosphatase 99 U/L (46-116) Creatine Kinase 166 U/L (26-192) Creatine Kinase MB (Mass) 1.6 ng/mL (0.0-3.6) Creatine Kinase MB Relative Index 1.0 % (0-4) Troponin I Quantitative 0.037 ng/mL (0.000-0.055) 0.033 ng/mL (0.000-0.055) PN-Mqs-I-Type Natriuretic Peptide 6340 pg/mL (0-449) Total Protein 7.1 g/dL (6.4-8.2) Albumin 3.9 g/dL (3.4-5.0) Albumin/Globulin Ratio 1.2 (1.0-1.7) Lipase 340 U/L (73-393) VTE Prophylaxis Ordered VTE Prophylaxis Devices: Yes VTE Pharmacological Prophylaxi: Yes Assessment/Plan Assessment/Plan Chest pain secondary to hypertensive urgency. Pretty much same presentation as her previous admission Lisinopril was discontinued recently since she refers cough but it has not improved, unli,thai a side effect of medication she may need GEERd work up in the outpatient setting. Hypertensive urgency History of CAD: CABG 01/2017, clinically stable. dyslipidemia ESRD on HD Plan: We will order echo to assess for wall motion abnormalities and ejection fraction We'll do dialysis as per nephrology diet consultant We will look trend troponins Reassess in the a.m. Resume home medications Further recommendations based on clinical course DVT prophylaxis PATRICIA LOVELACE MD Sep 05, 2018 20:01
[2018-09-05] MEDS: ATORVASTATIN CALCIUM 20 MG TABLET PO SCH (21:07)
[2018-09-05 23:31] VITALS: BP 163/67
[2018-09-06 03:31] VITALS: BP 183/77
[2018-09-06] MEDS: hydrALAZINE 20 MG/ML VIAL. IVP PRN ×2 (04:20→09:43)
[2018-09-06 07:00] VITALS: BP 197/86
[2018-09-06] MEDS: ACETAMINOPHEN 325 MG TABLET. PO PRN ×2 (07:28→17:40)
[2018-09-06 08:35] LABS: CHOLESTEROL/HDL RATIO 2.8
--- NOTE | 2018-09-06 11:08 | NUR ---
SS following for discharge planning. Pt is from home and currently on room air. No discharge needs noted at this time. SS will continue to follow for pending discharge needs.
[2018-09-06 11:10] VITALS: BP 184/98
[2018-09-06] MEDS: ASPIRIN 325 MG TABLET PO SCH ×2 (11:12→17:42)
[2018-09-06] MEDS: PANTOPRAZOLE 40 MG TABLET.DR. PO SCH ×2 (11:12→17:40)
[2018-09-06] MEDS: FERROUS SULFATE 325 MG TABLET. PO SCH ×3 (11:12→17:40)
[2018-09-06] MEDS: FOLIC/VIT B COMP W-C (RENAL) TABLET. PO SCH ×2 (11:12→17:41)
[2018-09-06] MEDS: LOSARTAN POTASSIUM 50 MG TABLET. PO SCH ×2 (11:12→17:42)
[2018-09-06] MEDS: METOPROLOL TART IMMED RELEASE 25 MG TABLET. PO SCH ×3 (11:13→20:12)
[2018-09-06] MEDS: cloNIDine HCL 0.2 MG TABLET PO SCH ×3 (11:14→20:12)
[2018-09-06] MEDS: ISOSORBIDE MONONITRATE ER 30 MG TAB.ER.24H PO SCH ×2 (11:15→17:41)
[2018-09-06] MEDS: CALCIUM ACETATE 667 MG CAPSULE PO SCH ×2 (11:15→17:41)
--- NOTE | 2018-09-06 11:56 | PDOC2 ---
CONSULT Date of Consult Date of Consult DATE: 09/06/18 TIME: 11:52 Reason for Consult Reason for Consult: ESRD Referring Physician Referring Physician: RADU Identification/Chief Complaint Chief Complaint CHEST PAIN Source Source: Chart review, Patient History of Present Illness Reason for Visit: THIS IS AN 83 YR OLD WITH A HX OF CAD. SHE IS ADMITTED WITH CHEST PAIN LAST SEVERAL DAYS. OCC RELATED SOB. NO OTHER RELATED SYMPTOMS. SHE HAS ESRD DUE TO HTN AND IS ON HD ON MWF. LAST HD WAS ON TUESDAY. SHE IS COMPLIANT. HER BP HAS BEEN LABILE. LABS ARE C/W ESRD Past Medical History Cardiovascular: CAD, HTN, Hyperlipidemia Pulmonary: No pertinent hx CENTRAL NERVOUS SYSTEM: Other GI: GERD Heme/Onc: Anemia NOS Musculoskeletal: Osteoarthritis Rheumatologic: No pertinent hx Renal/: Chronic renal failure Endocrine: Hyperparathyroidism Past Surgical History Past Surgical History: Appendectomy, CABG, Cataract Removal, Total knee replacement, Tonsillectomy, Hysterectomy Family History Family History: Coronary Artery Disease, Diabetes, Hypertension Social History No ALCOHOL: none Drugs: None Lives: with Family Current Problem List Problem List Problems Medical Problems: (1) Chest pain Status: Acute Current Medications Current Medications Current Medications Aspirin (Brandi Aspirin) 325 mg 1X ONCE PO Last administered on 09/05/18at 10:11 ; Start 09/05/18 at 09:30; Stop 09/05/18 at 09:31; Status DC Nitroglycerin (Nitrostat) 0.4 mg PRN Q5MIN PRN SL CP RATING > 1/10 Last administered on 09/05/18at 11:14; Start 09/05/18 at 09:30; Stop 09/05/18 at 12:42 ; Status DC Clonidine HCl (Catapres) 0.1 mg 1X ONCE PO Last administered on 09/05/18at 11: 21; Start 09/05/18 at 11:15; Stop 09/05/18 at 11:16; Status DC Ondansetron HCl (Zofran) 4 mg PRN Q8HRS PRN IV NAUSEA/VOMITING; Start 09/05/18 at 11:30; Stop 09/05/18 at 12:42; Status DC Nitroglycerin (Nitrostat) 0.4 mg PRN Q5MIN PRN SL CHEST PAIN; Start 09/05/18 at 11:30 Morphine Sulfate (Morphine Sulfate) 2 mg PRN Q2HR PRN IV PAIN; Start 09/05/18 at 11:30 Morphine Sulfate (Morphine Sulfate) 4 mg PRN Q2HR PRN IV PAIN; Start 09/05/18 at 11:30 Zolpidem Tartrate (Ambien) 5 mg PRN QHS PRN PO INSOMNIA; Start 09/05/18 at 11: 30 Ondansetron HCl (Zofran) 4 mg PRN Q4HRS PRN IV NAUSEA/VOMITING; Start 09/05/18 at 11:30 Acetaminophen (Tylenol) 650 mg PRN Q6HRS PRN PO MILD PAIN / TEMP Last administered on 09/06/18at 07:28; Start 09/05/18 at 11:30 Docusate Sodium (Colace) 100 mg PRN DAILY PRN PO CONSTIPATION (1st Choice); Start 09/05/18 at 11:30 Al Hydroxide/Mg Hydroxide (Mylanta Plus Xs) 30 ml PRN Q2HR PRN PO HEARTBURN / GAS; Start 09/05/18 at 11:30 Sodium Chloride (Normal Saline Flush) 3 ml QSHIFT PRN IV AFTER MEDS AND BLOOD DRAWS; Start 09/05/18 at 11:30 Aspirin (Brandi Aspirin) 325 mg DAILY PO Last administered on 09/06/18at 11:12; Start 09/06/18 at 09:00 Atorvastatin Calcium (Lipitor) 20 mg HS PO Last administered on 09/05/18at 21:07 ; Start 09/05/18 at 21:00 Clonidine HCl (Catapres) 0.2 mg BID PO Last administered on 09/06/18at 11:14; Start 09/05/18 at 14:00 Ferrous Sulfate (Feosol) 325 mg BIDWMEALS PO Last administered on 09/06/18at 11: 12; Start 09/05/18 at 17:00 Lisinopril (Prinivil) 40 mg DAILY PO ; Start 09/05/18 at 14:00; Stop 09/06/18 at 08:06; Status DC Metoprolol Tartrate (Lopressor) 12.5 mg BID PO Last administered on 09/06/18at 11:13; Start 09/05/18 at 12:00 Tramadol HCl (Ultram) 50 mg PRN Q6HRS PRN PO MILD TO MODERATE PAIN; Start 09/05 at 11:30 Hydralazine HCl (Apresoline) 100 mg TID PO Last administered on 09/06/18 11:14 ; Start 09/05/18 at 14:00 Isosorbide Mononitrate (Imdur) 60 mg DAILY PO Last administered on 09/06/18 11 :15; Start 09/05/18 at 13:00 Pantoprazole Sodium (Protonix) 40 mg DAILYAC PO Last administered on 09/06/18 11:12; Start 09/05/18 at 16:30 Polyethylene Glycol (miraLAX PACKET) 17 gm PRN DAILY PRN PO CONSTIPATION (2nd Choice); Start 09/05/18 at 12:41 Vitamin B Complex/ Vitamin C (Helen-Homa) 1 tab DAILY PO Last administered on 11:12; Start 09/05/18 at 13:00 Hydralazine HCl (Apresoline Inj) 10 mg PRN Q4HRS PRN IVP ELEVATED BP, SEE COMMENTS Last administered on 09/06/18at 09:43; Start 09/05/18 at 13:45 Losartan Potassium (Cozaar) 100 mg 1X ONCE PO Last administered on 09/05/18 14:20; Start 09/05/18 at 14:30; Stop 09/05/18 at 14:31; Status DC Losartan Potassium (Cozaar) 100 mg DAILY PO Last administered on 09/06/18 11: 12; Start 09/06/18 at 09:00 Calcium Acetate (Phoslo) 1,334 mg TIDWMEALS PO Last administered on 09/06/18 11:15; Start 09/06/18 at 12:00 Active Scripts Active Tramadol Hcl 50 Mg Tablet 50 Mg PO PRN Q6HRS PRN 30 Days Aspirin 325 Mg Tablet 325 Mg PO DAILY 30 Days Catapres (Clonidine Hcl) 0.2 Mg Tablet 0.2 Mg PO BID 30 Days Atorvastatin Calcium 20 Mg Tablet 20 Mg PO HS 30 Days Feosol (Ferrous Sulfate) 325 Mg Tablet 325 Mg PO BIDWMEALS 30 Days Lisinopril 40 Mg Tablet 1 Tab PO DAILY Isosorbide Mononitrate Er (Isosorbide Mononitrate) 60 Mg Tab.er.24h 1 Tab PO DAILY Metoprolol Tartrate 25 Mg Tablet 12.5 Mg PO BID 30 Days Hydralazine Hcl 50 Mg Tablet 100 Mg PO TID 30 Days Reported Miralax (Polyethylene Glycol 3350) 17 Gm Powd.pack 1 Packet PO PRN DAILY PRN Helen-Homa Rx Tablet (Vit B Cmplx 3/Fa/Vit C/Biotin) 1 Each Tablet 1 Each PO DAILY Omeprazole 40 Mg Capsule.dr 40 Mg PO DAILY Allergies Allergies: Coded Allergies: No Known Drug Allergies (Unverified , 01/06/17) ROS General: YES: Fatigue, Malaise PSYCHOLOGICAL ROS: YES: Anxiety Eyes: Yes Decreased vision HEENT: YES: Aidaches ALLERGY AND IMMUNOLOGY: YES: Seasonal Allergies Cardiovascular: yes Chest Pain Gastrointestinal: Yes Constipation Genitourinary: YES Other (ANURIA) Musculoskeletal: Yes Muscular Weakness Neurological: Yes Weakness Skin: Yes Dry Skin Physical Exam General: Alert, Oriented X3, Cooperative, No acute distress HEENT: Atraumatic, PERRLA, EOMI, Mucous membr. moist/pink Lungs: Clear to auscultation Heart: Regular rate, Normal S1, Normal S2 Abdomen: Normal bowel sounds, Soft, No tenderness, No hepatosplenomegaly Extremities: No clubbing, No cyanosis Skin: No breakdown, No significant lesion Neuro: Normal speech, Sensation intact, Cranial nerves 3-12 NL Psych/Mental Status: Mental status NL, Mood NL MUSCULOSKELETAL: No joint tenderness, No deformity, No swelling Vitals VITALS Vital Signs Date Time Temp Pulse Resp B/P (MAP) Pulse Ox O2 Delivery O2 Flow Rate FiO2 09/06/18 11:15 75 197/86 09/06/18 07:00 98.0 24 98 Room Air 98.0 Labs Labs Laboratory Tests Test 09/05/18 10:20 09/05/18 17:25 09/06/18 06:00 White Blood Count 5.6 x10^3/uL (4.0-11.0) Red Blood Count 3.87 x10^6/uL (3.50-5.40) Hemoglobin 12.2 g/dL (12.0-15.5) Hematocrit 38.0 % (36.0-47.0) Mean Corpuscular Volume 98 fL (79-100) Mean Corpuscular Hemoglobin 32 pg (25-35) Mean Corpuscular Hemoglobin Concent 32 g/dL (31-37) Red Cell Distribution Width 14.8 % (11.5-14.5) Platelet Count 169 x10^3/uL (140-400) Neutrophils (%) (Auto) 64 % (31-73) Lymphocytes (%) (Auto) 15 % (24-48) Monocytes (%) (Auto) 10 % (0-9) Eosinophils (%) (Auto) 10 % (0-3) Basophils (%) (Auto) 1 % (0-3) Neutrophils # (Auto) 3.6 x10^3uL (1.8-7.7) Lymphocytes # (Auto) 0.9 x10^3/uL (1.0-4.8) Monocytes # (Auto) 0.5 x10^3/uL (0.0-1.1) Eosinophils # (Auto) 0.6 x10^3/uL (0.0-0.7) Basophils # (Auto) 0.1 x10^3/uL (0.0-0.2) Prothrombin Time 14.0 SEC (11.7-14.0) Prothromb Time International Ratio 1.1 (0.8-1.1) Activated Partial Thromboplast Time 39 SEC (24-38) Sodium Level 142 mmol/L (136-145) Potassium Level 4.9 mmol/L (3.5-5.1) Chloride Level 103 mmol/L (98-107) Carbon Dioxide Level 24 mmol/L (21-32) Anion Gap 15 (6-14) Blood Urea Nitrogen 41 mg/dL (7-20) Creatinine 7.5 mg/dL (0.6-1.0) Estimated GFR (Cockcroft-Gault) 6.3 BUN/Creatinine Ratio 5 (6-20) Glucose Level 101 mg/dL (70-99) Calcium Level 9.6 mg/dL (8.5-10.1) Magnesium Level 2.6 mg/dL (1.8-2.4) Total Bilirubin 0.4 mg/dL (0.2-1.0) Aspartate Amino Transf (AST/SGOT) 18 U/L (15-37) Alanine Aminotransferase (ALT/SGPT) 22 U/L (14-59) Alkaline Phosphatase 99 U/L (46-116) Creatine Kinase 166 U/L (26-192) Creatine Kinase MB (Mass) 1.6 ng/mL (0.0-3.6) Creatine Kinase MB Relative Index 1.0 % (0-4) Troponin I Quantitative 0.037 ng/mL (0.000-0.055) 0.033 ng/mL (0.000-0.055) XI-Cww-L-Type Natriuretic Peptide 6340 pg/mL (0-449) Total Protein 7.1 g/dL (6.4-8.2) Albumin 3.9 g/dL (3.4-5.0) Albumin/Globulin Ratio 1.2 (1.0-1.7) Lipase 340 U/L (73-393) Triglycerides Level 101 mg/dL (0-150) Cholesterol Level 136 mg/dL (0-200) LDL Cholesterol, Calculated 68 mg/dL (0-100) VLDL Cholesterol, Calculated 20 mg/dL (0-40) Non-HDL Cholesterol Calculated 88 mg/dL (0-129) HDL Cholesterol 48 mg/dL (40-60) Cholesterol/HDL Ratio 2.8 Laboratory Tests Test 09/05/18 17:25 09/06/18 06:00 Troponin I Quantitative 0.033 ng/mL (0.000-0.055) Triglycerides Level 101 mg/dL (0-150) Cholesterol Level 136 mg/dL (0-200) LDL Cholesterol, Calculated 68 mg/dL (0-100) VLDL Cholesterol, Calculated 20 mg/dL (0-40) Non-HDL Cholesterol Calculated 88 mg/dL (0-129) HDL Cholesterol 48 mg/dL (40-60) Cholesterol/HDL Ratio 2.8 Assessment/Plan Assessment/Plan IMP CHEST PAIN HX OF CAD ESRD ANEMIA HTN PLAN CARDIOLOGY EVALUATION HD TODAY UF TO DW LONA ENGLAND MD Sep 06, 2018 11:56
[2018-09-06] MEDS ORDERED: LABETALOL 20 MG/4 ML DISP.SYRIN. IVP PRN (14:15)
[2018-09-06] MEDS ORDERED: diphenhydrAMINE 50 MG/ML VIAL IV PRN (14:15)
--- NOTE | 2018-09-06 16:26 | PDOC ---
PROGRESS NOTES Chief Complaint Chief Complaint Chest pain secondary to hypertensive urgency. Pretty much same presentation as her previous admission Lisinopril was discontinued recently since she refers cough but it has not improved, unlikely a side effect of medication she may need GERD work up in the outpatient setting. Losartan started today Hypertensive urgency History of CAD: CABG 01/2017, clinically stable. dyslipidemia ESRD on HD Plan: ECHO reviewed will follow response to losartan We'll do dialysis as per nephrology it support consultant Reassess in the a.m. Resume home medications Further recommendations based on clinical course DVT prophylaxis History of Present Illness History of Present Illness Patient still having high BP, no chest pain, no headaches or signs of malignant hypertension during my visit. will follow response to losartan Vitals Vitals Vital Signs Date Time Temp Pulse Resp B/P (MAP) Pulse Ox O2 Delivery O2 Flow Rate FiO2 09/06/18 15:00 Room Air 09/06/18 11:15 75 197/86 09/06/18 11:10 97.6 20 99 97.6 Physical Exam General: Alert, Oriented X3, Cooperative, No acute distress Heart: Regular rate, Normal S1, Normal S2 Lungs: Clear Abdomen: Normal bowel sounds, Soft, No tenderness, No hepatosplenomegaly Extremities: No clubbing, No cyanosis Skin: No breakdown, No significant lesion Labs LABS Laboratory Tests Test 09/05/18 17:25 09/06/18 06:00 Troponin I Quantitative 0.033 ng/mL (0.000-0.055) Triglycerides Level 101 mg/dL (0-150) Cholesterol Level 136 mg/dL (0-200) LDL Cholesterol, Calculated 68 mg/dL (0-100) VLDL Cholesterol, Calculated 20 mg/dL (0-40) Non-HDL Cholesterol Calculated 88 mg/dL (0-129) HDL Cholesterol 48 mg/dL (40-60) Cholesterol/HDL Ratio 2.8 Review of Systems Review of Systems as per hpi otherwise 10 point ROS negative. Assessment and Plan Assessmemt and Plan Problems Medical Problems: (1) Chest pain Status: Acute Comment Review of Relevant I have reviewed the following items jonah (where applicable) has been applied. Labs Laboratory Tests Test 09/05/18 10:20 09/05/18 17:25 09/06/18 06:00 White Blood Count 5.6 x10^3/uL (4.0-11.0) Red Blood Count 3.87 x10^6/uL (3.50-5.40) Hemoglobin 12.2 g/dL (12.0-15.5) Hematocrit 38.0 % (36.0-47.0) Mean Corpuscular Volume 98 fL (79-100) Mean Corpuscular Hemoglobin 32 pg (25-35) Mean Corpuscular Hemoglobin Concent 32 g/dL (31-37) Red Cell Distribution Width 14.8 % (11.5-14.5) Platelet Count 169 x10^3/uL (140-400) Neutrophils (%) (Auto) 64 % (31-73) Lymphocytes (%) (Auto) 15 % (24-48) Monocytes (%) (Auto) 10 % (0-9) Eosinophils (%) (Auto) 10 % (0-3) Basophils (%) (Auto) 1 % (0-3) Neutrophils # (Auto) 3.6 x10^3uL (1.8-7.7) Lymphocytes # (Auto) 0.9 x10^3/uL (1.0-4.8) Monocytes # (Auto) 0.5 x10^3/uL (0.0-1.1) Eosinophils # (Auto) 0.6 x10^3/uL (0.0-0.7) Basophils # (Auto) 0.1 x10^3/uL (0.0-0.2) Prothrombin Time 14.0 SEC (11.7-14.0) Prothromb Time International Ratio 1.1 (0.8-1.1) Activated Partial Thromboplast Time 39 SEC (24-38) Sodium Level 142 mmol/L (136-145) Potassium Level 4.9 mmol/L (3.5-5.1) Chloride Level 103 mmol/L (98-107) Carbon Dioxide Level 24 mmol/L (21-32) Anion Gap 15 (6-14) Blood Urea Nitrogen 41 mg/dL (7-20) Creatinine 7.5 mg/dL (0.6-1.0) Estimated GFR (Cockcroft-Gault) 6.3 BUN/Creatinine Ratio 5 (6-20) Glucose Level 101 mg/dL (70-99) Calcium Level 9.6 mg/dL (8.5-10.1) Magnesium Level 2.6 mg/dL (1.8-2.4) Total Bilirubin 0.4 mg/dL (0.2-1.0) Aspartate Amino Transf (AST/SGOT) 18 U/L (15-37) Alanine Aminotransferase (ALT/SGPT) 22 U/L (14-59) Alkaline Phosphatase 99 U/L (46-116) Creatine Kinase 166 U/L (26-192) Creatine Kinase MB (Mass) 1.6 ng/mL (0.0-3.6) Creatine Kinase MB Relative Index 1.0 % (0-4) Troponin I Quantitative 0.037 ng/mL (0.000-0.055) 0.033 ng/mL (0.000-0.055) ZZ-Orr-F-Type Natriuretic Peptide 6340 pg/mL (0-449) Total Protein 7.1 g/dL (6.4-8.2) Albumin 3.9 g/dL (3.4-5.0) Albumin/Globulin Ratio 1.2 (1.0-1.7) Lipase 340 U/L (73-393) Triglycerides Level 101 mg/dL (0-150) Cholesterol Level 136 mg/dL (0-200) LDL Cholesterol, Calculated 68 mg/dL (0-100) VLDL Cholesterol, Calculated 20 mg/dL (0-40) Non-HDL Cholesterol Calculated 88 mg/dL (0-129) HDL Cholesterol 48 mg/dL (40-60) Cholesterol/HDL Ratio 2.8 Laboratory Tests Test 09/05/18 17:25 09/06/18 06:00 Troponin I Quantitative 0.033 ng/mL (0.000-0.055) Triglycerides Level 101 mg/dL (0-150) Cholesterol Level 136 mg/dL (0-200) LDL Cholesterol, Calculated 68 mg/dL (0-100) VLDL Cholesterol, Calculated 20 mg/dL (0-40) Non-HDL Cholesterol Calculated 88 mg/dL (0-129) HDL Cholesterol 48 mg/dL (40-60) Cholesterol/HDL Ratio 2.8 Medications Current Medications Aspirin (Brandi Aspirin) 325 mg 1X ONCE PO Last administered on 09/05/18at 10:11 ; Start 09/05/18 at 09:30; Stop 09/05/18 at 09:31; Status DC Nitroglycerin (Nitrostat) 0.4 mg PRN Q5MIN PRN SL CP RATING > 1/10 Last administered on 09/05/18at 11:14; Start 09/05/18 at 09:30; Stop 09/05/18 at 12:42 ; Status DC Clonidine HCl (Catapres) 0.1 mg 1X ONCE PO Last administered on 09/05/18at 11: 21; Start 09/05/18 at 11:15; Stop 09/05/18 at 11:16; Status DC Ondansetron HCl (Zofran) 4 mg PRN Q8HRS PRN IV NAUSEA/VOMITING; Start 09/05/18 at 11:30; Stop 09/05/18 at 12:42; Status DC Nitroglycerin (Nitrostat) 0.4 mg PRN Q5MIN PRN SL CHEST PAIN; Start 09/05/18 at 11:30 Morphine Sulfate (Morphine Sulfate) 2 mg PRN Q2HR PRN IV PAIN; Start 09/05/18 at 11:30 Morphine Sulfate (Morphine Sulfate) 4 mg PRN Q2HR PRN IV PAIN; Start 09/05/18 at 11:30 Zolpidem Tartrate (Ambien) 5 mg PRN QHS PRN PO INSOMNIA; Start 09/05/18 at 11: 30 Ondansetron HCl (Zofran) 4 mg PRN Q4HRS PRN IV NAUSEA/VOMITING; Start 09/05/18 at 11:30 Acetaminophen (Tylenol) 650 mg PRN Q6HRS PRN PO MILD PAIN / TEMP Last administered on 09/06/18at 07:28; Start 09/05/18 at 11:30 Docusate Sodium (Colace) 100 mg PRN DAILY PRN PO CONSTIPATION (1st Choice); Start 09/05/18 at 11:30 Al Hydroxide/Mg Hydroxide (Mylanta Plus Xs) 30 ml PRN Q2HR PRN PO HEARTBURN / GAS; Start 09/05/18 at 11:30 Sodium Chloride (Normal Saline Flush) 3 ml QSHIFT PRN IV AFTER MEDS AND BLOOD DRAWS; Start 09/05/18 at 11:30 Aspirin (Brandi Aspirin) 325 mg DAILY PO Last administered on 09/06/18at 11:12; Start 09/06/18 at 09:00 Atorvastatin Calcium (Lipitor) 20 mg HS PO Last administered on 09/05/18at 21:07 ; Start 09/05/18 at 21:00 Clonidine HCl (Catapres) 0.2 mg BID PO Last administered on 09/06/18 11:14; Start 09/05/18 at 14:00 Ferrous Sulfate (Feosol) 325 mg BIDWMEALS PO Last administered on 09/06/18 11: 12; Start 09/05/18 at 17:00 Lisinopril (Prinivil) 40 mg DAILY PO ; Start 09/05/18 at 14:00; Stop 09/06/18 at 08:06; Status DC Metoprolol Tartrate (Lopressor) 12.5 mg BID PO Last administered on 09/06/18 11:13; Start 09/05/18 at 12:00 Tramadol HCl (Ultram) 50 mg PRN Q6HRS PRN PO MILD TO MODERATE PAIN; Start 09/05 at 11:30 Hydralazine HCl (Apresoline) 100 mg TID PO Last administered on 09/06/18 11:14 ; Start 09/05/18 at 14:00 Isosorbide Mononitrate (Imdur) 60 mg DAILY PO Last administered on 09/06/18 11 :15; Start 09/05/18 at 13:00 Pantoprazole Sodium (Protonix) 40 mg DAILYAC PO Last administered on 09/06/18 11:12; Start 09/05/18 at 16:30 Polyethylene Glycol (miraLAX PACKET) 17 gm PRN DAILY PRN PO CONSTIPATION (2nd Choice); Start 09/05/18 at 12:41 Vitamin B Complex/ Vitamin C (Helen-Homa) 1 tab DAILY PO Last administered on 11:12; Start 09/05/18 at 13:00 Hydralazine HCl (Apresoline Inj) 10 mg PRN Q4HRS PRN IVP ELEVATED BP, SEE COMMENTS Last administered on 09/06/18 09:43; Start 09/05/18 at 13:45 Losartan Potassium (Cozaar) 100 mg 1X ONCE PO Last administered on 09/05/18 14:20; Start 09/05/18 at 14:30; Stop 09/05/18 at 14:31; Status DC Losartan Potassium (Cozaar) 100 mg DAILY PO Last administered on 09/06/18 11: 12; Start 09/06/18 at 09:00 Calcium Acetate (Phoslo) 1,334 mg TIDWMEALS PO Last administered on 09/06/18at 11:15; Start 09/06/18 at 12:00 Labetalol HCl (Normodyne Iv Push) 10 mg PRN Q1HR PRN IVP SBP>170; Start at 14:15; Stop 09/06/18 at 21:00 Diphenhydramine HCl (Benadryl) 25 mg PRN Q5MIN PRN IV ITCHING; Start 09/06/18 at 14:15; Stop 09/06/18 at 21:00 Active Scripts Active Tramadol Hcl 50 Mg Tablet 50 Mg PO PRN Q6HRS PRN 30 Days Aspirin 325 Mg Tablet 325 Mg PO DAILY 30 Days Catapres (Clonidine Hcl) 0.2 Mg Tablet 0.2 Mg PO BID 30 Days Atorvastatin Calcium 20 Mg Tablet 20 Mg PO HS 30 Days Feosol (Ferrous Sulfate) 325 Mg Tablet 325 Mg PO BIDWMEALS 30 Days Lisinopril 40 Mg Tablet 1 Tab PO DAILY Isosorbide Mononitrate Er (Isosorbide Mononitrate) 60 Mg Tab.er.24h 1 Tab PO DAILY Metoprolol Tartrate 25 Mg Tablet 12.5 Mg PO BID 30 Days Hydralazine Hcl 50 Mg Tablet 100 Mg PO TID 30 Days Reported Miralax (Polyethylene Glycol 3350) 17 Gm Powd.pack 1 Packet PO PRN DAILY PRN Helen-Homa Rx Tablet (Vit B Cmplx 3/Fa/Vit C/Biotin) 1 Each Tablet 1 Each PO DAILY Omeprazole 40 Mg Capsule.dr 40 Mg PO DAILY Vitals/I & O Vital Sign - Last 24 Hours 09/05/18 09/05/18 09/05/18 09/05/18 16:50 17:31 19:43 20:00 Temp 97.9 97.9 Pulse 56 68 65 Resp 21 B/P (MAP) 197/79 174/74 (107) 195/78 (117) Pulse Ox 98 O2 Delivery Room Air Room Air 09/05/18 09/05/18 09/05/18 09/05/18 21:07 21:08 21:08 23:31 Temp 98.1 98.1 Pulse 65 65 65 71 Resp 18 B/P (MAP) 195/78 195/78 195/78 163/67 (99) Pulse Ox 100 O2 Delivery Room Air 09/06/18 09/06/18 09/06/18 09/06/18 03:31 04:20 07:00 08:00 Temp 97.7 98.0 97.7 98.0 Pulse 69 69 75 Resp 18 24 B/P (MAP) 183/77 (112) 183/77 197/86 (123) Pulse Ox 98 98 O2 Delivery Room Air Room Air Room Air 09/06/18 09/06/18 09/06/18 09/06/18 09:43 11:10 11:12 11:13 Temp 97.6 97.6 Pulse 75 83 75 75 Resp 20 B/P (MAP) 197/86 184/98 (126) 197/86 197/86 Pulse Ox 99 O2 Delivery Room Air 09/06/18 09/06/18 09/06/18 09/06/18 11:14 11:14 11:15 15:00 Pulse 75 75 75 B/P (MAP) 197/86 197/86 197/86 O2 Delivery Room Air Intake and Output 09/05/18 09/05/18 09/06/18 15:00 23:00 07:00 Intake Total 400 ml 400 ml Balance 400 ml 400 ml PATRICIA LOVELACE MD Sep 06, 2018 16:26
[2018-09-06 16:30] VITALS: BP 177/76
--- NOTE | 2018-09-06 16:40 | PDOC ---
PROGRESS NOTES Subjective Subjective Patient seen and examined The patient is feeling mildly better. Objective Objective Vital Signs Date Time Temp Pulse Resp B/P (MAP) Pulse Ox O2 Delivery O2 Flow Rate FiO2 09/06/18 15:00 Room Air 09/06/18 11:14 75 197/86 09/06/18 11:10 97.6 20 99 97.6 Intake and Output 09/06/18 07:00 Intake Total 800 ml Balance 800 ml Intake Oral 800 ml # Voids 1 Physical Exam Abdomen: Normal bowel sounds Heart: Regular rate General: mild distress Lungs: Other (mildly decreased breath sounds) Assessment Assessment Problems Medical Problems: (1) Chest pain Status: Acute ASSESSMENT/PLAN 1. Chest pain: Resolving. Echo with normal LV systolic function but elevated PA. 54 mmHg. Continuing present treatment. Fluid status as per renal. 2. Recent cough: prompting discontinuation of lisinopril for the last 2-3 weeks 3. Accelerated HTN: Improved but still elevated. We'll adjust medications. 4. CAD: CABG 01/2017, clinically stable. 5. HLP 6. HX of asymptomatic SB. 7. ESRD. Dialysis as per the renal service. Comment Review of Relevant I have reviewed the following items jonah (where applicable) has been applied. Labs Laboratory Tests Test 09/05/18 10:20 09/05/18 17:25 09/06/18 06:00 White Blood Count 5.6 x10^3/uL (4.0-11.0) Red Blood Count 3.87 x10^6/uL (3.50-5.40) Hemoglobin 12.2 g/dL (12.0-15.5) Hematocrit 38.0 % (36.0-47.0) Mean Corpuscular Volume 98 fL (79-100) Mean Corpuscular Hemoglobin 32 pg (25-35) Mean Corpuscular Hemoglobin Concent 32 g/dL (31-37) Red Cell Distribution Width 14.8 % (11.5-14.5) Platelet Count 169 x10^3/uL (140-400) Neutrophils (%) (Auto) 64 % (31-73) Lymphocytes (%) (Auto) 15 % (24-48) Monocytes (%) (Auto) 10 % (0-9) Eosinophils (%) (Auto) 10 % (0-3) Basophils (%) (Auto) 1 % (0-3) Neutrophils # (Auto) 3.6 x10^3uL (1.8-7.7) Lymphocytes # (Auto) 0.9 x10^3/uL (1.0-4.8) Monocytes # (Auto) 0.5 x10^3/uL (0.0-1.1) Eosinophils # (Auto) 0.6 x10^3/uL (0.0-0.7) Basophils # (Auto) 0.1 x10^3/uL (0.0-0.2) Prothrombin Time 14.0 SEC (11.7-14.0) Prothromb Time International Ratio 1.1 (0.8-1.1) Activated Partial Thromboplast Time 39 SEC (24-38) Sodium Level 142 mmol/L (136-145) Potassium Level 4.9 mmol/L (3.5-5.1) Chloride Level 103 mmol/L (98-107) Carbon Dioxide Level 24 mmol/L (21-32) Anion Gap 15 (6-14) Blood Urea Nitrogen 41 mg/dL (7-20) Creatinine 7.5 mg/dL (0.6-1.0) Estimated GFR (Cockcroft-Gault) 6.3 BUN/Creatinine Ratio 5 (6-20) Glucose Level 101 mg/dL (70-99) Calcium Level 9.6 mg/dL (8.5-10.1) Magnesium Level 2.6 mg/dL (1.8-2.4) Total Bilirubin 0.4 mg/dL (0.2-1.0) Aspartate Amino Transf (AST/SGOT) 18 U/L (15-37) Alanine Aminotransferase (ALT/SGPT) 22 U/L (14-59) Alkaline Phosphatase 99 U/L (46-116) Creatine Kinase 166 U/L (26-192) Creatine Kinase MB (Mass) 1.6 ng/mL (0.0-3.6) Creatine Kinase MB Relative Index 1.0 % (0-4) Troponin I Quantitative 0.037 ng/mL (0.000-0.055) 0.033 ng/mL (0.000-0.055) JY-Hjk-G-Type Natriuretic Peptide 6340 pg/mL (0-449) Total Protein 7.1 g/dL (6.4-8.2) Albumin 3.9 g/dL (3.4-5.0) Albumin/Globulin Ratio 1.2 (1.0-1.7) Lipase 340 U/L (73-393) Triglycerides Level 101 mg/dL (0-150) Cholesterol Level 136 mg/dL (0-200) LDL Cholesterol, Calculated 68 mg/dL (0-100) VLDL Cholesterol, Calculated 20 mg/dL (0-40) Non-HDL Cholesterol Calculated 88 mg/dL (0-129) HDL Cholesterol 48 mg/dL (40-60) Cholesterol/HDL Ratio 2.8 Laboratory Tests Test 09/05/18 17:25 09/06/18 06:00 Troponin I Quantitative 0.033 ng/mL (0.000-0.055) Triglycerides Level 101 mg/dL (0-150) Cholesterol Level 136 mg/dL (0-200) LDL Cholesterol, Calculated 68 mg/dL (0-100) VLDL Cholesterol, Calculated 20 mg/dL (0-40) Non-HDL Cholesterol Calculated 88 mg/dL (0-129) HDL Cholesterol 48 mg/dL (40-60) Cholesterol/HDL Ratio 2.8 Medications Current Medications Aspirin (Brandi Aspirin) 325 mg 1X ONCE PO Last administered on 09/05/18at 10:11 ; Start 09/05/18 at 09:30; Stop 09/05/18 at 09:31; Status DC Nitroglycerin (Nitrostat) 0.4 mg PRN Q5MIN PRN SL CP RATING > 1/10 Last administered on 09/05/18at 11:14; Start 09/05/18 at 09:30; Stop 09/05/18 at 12:42 ; Status DC Clonidine HCl (Catapres) 0.1 mg 1X ONCE PO Last administered on 09/05/18at 11: 21; Start 09/05/18 at 11:15; Stop 09/05/18 at 11:16; Status DC Ondansetron HCl (Zofran) 4 mg PRN Q8HRS PRN IV NAUSEA/VOMITING; Start 09/05/18 at 11:30; Stop 09/05/18 at 12:42; Status DC Nitroglycerin (Nitrostat) 0.4 mg PRN Q5MIN PRN SL CHEST PAIN; Start 09/05/18 at 11:30 Morphine Sulfate (Morphine Sulfate) 2 mg PRN Q2HR PRN IV PAIN; Start 09/05/18 at 11:30 Morphine Sulfate (Morphine Sulfate) 4 mg PRN Q2HR PRN IV PAIN; Start 09/05/18 at 11:30 Zolpidem Tartrate (Ambien) 5 mg PRN QHS PRN PO INSOMNIA; Start 09/05/18 at 11: 30 Ondansetron HCl (Zofran) 4 mg PRN Q4HRS PRN IV NAUSEA/VOMITING; Start 09/05/18 at 11:30 Acetaminophen (Tylenol) 650 mg PRN Q6HRS PRN PO MILD PAIN / TEMP Last administered on 09/06/18at 07:28; Start 09/05/18 at 11:30 Docusate Sodium (Colace) 100 mg PRN DAILY PRN PO CONSTIPATION (1st Choice); Start 09/05/18 at 11:30 Al Hydroxide/Mg Hydroxide (Mylanta Plus Xs) 30 ml PRN Q2HR PRN PO HEARTBURN / GAS; Start 09/05/18 at 11:30 Sodium Chloride (Normal Saline Flush) 3 ml QSHIFT PRN IV AFTER MEDS AND BLOOD DRAWS; Start 09/05/18 at 11:30 Aspirin (Brandi Aspirin) 325 mg DAILY PO ; Start 09/06/18 at 09:00 Atorvastatin Calcium (Lipitor) 20 mg HS PO Last administered on 09/05/18at 21:07 ; Start 09/05/18 at 21:00 Clonidine HCl (Catapres) 0.2 mg BID PO Last administered on 09/05/18at 21:08; Start 09/05/18 at 14:00 Ferrous Sulfate (Feosol) 325 mg BIDWMEALS PO Last administered on 09/05/18at 17: 52; Start 09/05/18 at 17:00 Lisinopril (Prinivil) 40 mg DAILY PO ; Start 09/05/18 at 14:00; Stop 09/06/18 at 08:06; Status DC Metoprolol Tartrate (Lopressor) 12.5 mg BID PO Last administered on 09/05/18at 21:07; Start 09/05/18 at 12:00 Tramadol HCl (Ultram) 50 mg PRN Q6HRS PRN PO MILD TO MODERATE PAIN; Start 09/05 at 11:30 Hydralazine HCl (Apresoline) 100 mg TID PO Last administered on 09/06/18at 11:14 ; Start 09/05/18 at 14:00 Isosorbide Mononitrate (Imdur) 60 mg DAILY PO ; Start 09/05/18 at 13:00 Pantoprazole Sodium (Protonix) 40 mg DAILYAC PO Last administered on 09/05/18at 16:47; Start 09/05/18 at 16:30 Polyethylene Glycol (miraLAX PACKET) 17 gm PRN DAILY PRN PO CONSTIPATION (2nd Choice); Start 09/05/18 at 12:41 Vitamin B Complex/ Vitamin C (Helen-Homa) 1 tab DAILY PO ; Start 09/05/18 at 13: 00 Hydralazine HCl (Apresoline Inj) 10 mg PRN Q4HRS PRN IVP ELEVATED BP, SEE COMMENTS Last administered on 09/06/18at 09:43; Start 09/05/18 at 13:45 Losartan Potassium (Cozaar) 100 mg 1X ONCE PO Last administered on 09/05/18at 14:20; Start 09/05/18 at 14:30; Stop 09/05/18 at 14:31; Status DC Losartan Potassium (Cozaar) 100 mg DAILY PO ; Start 09/06/18 at 09:00 Calcium Acetate (Phoslo) 1,334 mg TIDWMEALS PO Last administered on 09/06/18at 11:15; Start 09/06/18 at 12:00 Labetalol HCl (Normodyne Iv Push) 10 mg PRN Q1HR PRN IVP SBP>170; Start at 14:15; Stop 09/06/18 at 21:00 Diphenhydramine HCl (Benadryl) 25 mg PRN Q5MIN PRN IV ITCHING; Start 09/06/18 at 14:15; Stop 09/06/18 at 21:00 Active Scripts Active Tramadol Hcl 50 Mg Tablet 50 Mg PO PRN Q6HRS PRN 30 Days Aspirin 325 Mg Tablet 325 Mg PO DAILY 30 Days Catapres (Clonidine Hcl) 0.2 Mg Tablet 0.2 Mg PO BID 30 Days Atorvastatin Calcium 20 Mg Tablet 20 Mg PO HS 30 Days Feosol (Ferrous Sulfate) 325 Mg Tablet 325 Mg PO BIDWMEALS 30 Days Lisinopril 40 Mg Tablet 1 Tab PO DAILY Isosorbide Mononitrate Er (Isosorbide Mononitrate) 60 Mg Tab.er.24h 1 Tab PO DAILY Metoprolol Tartrate 25 Mg Tablet 12.5 Mg PO BID 30 Days Hydralazine Hcl 50 Mg Tablet 100 Mg PO TID 30 Days Reported Miralax (Polyethylene Glycol 3350) 17 Gm Powd.pack 1 Packet PO PRN DAILY PRN Helen-Homa Rx Tablet (Vit B Cmplx 3/Fa/Vit C/Biotin) 1 Each Tablet 1 Each PO DAILY Omeprazole 40 Mg Capsule.dr 40 Mg PO DAILY Vitals/I & O Vital Sign - Last 24 Hours 09/05/18 09/05/18 09/05/18 09/05/18 16:50 17:31 19:43 20:00 Temp 97.9 97.9 Pulse 56 68 65 Resp 21 B/P (MAP) 197/79 174/74 (107) 195/78 (117) Pulse Ox 98 O2 Delivery Room Air Room Air 09/05/18 09/05/18 09/05/18 09/05/18 21:07 21:08 21:08 23:31 Temp 98.1 98.1 Pulse 65 65 65 71 Resp 18 B/P (MAP) 195/78 195/78 195/78 163/67 (99) Pulse Ox 100 O2 Delivery Room Air 09/06/18 09/06/18 09/06/18 09/06/18 03:31 04:20 07:00 08:00 Temp 97.7 98.0 97.7 98.0 Pulse 69 69 75 Resp 18 24 B/P (MAP) 183/77 (112) 183/77 197/86 (123) Pulse Ox 98 98 O2 Delivery Room Air Room Air Room Air 09/06/18 09/06/18 09/06/18 09/06/18 09:43 11:10 11:14 15:00 Temp 97.6 97.6 Pulse 75 83 75 Resp 20 B/P (MAP) 197/86 184/98 (126) 197/86 Pulse Ox 99 O2 Delivery Room Air Room Air Intake and Output 09/05/18 09/05/18 09/06/18 15:00 23:00 07:00 Intake Total 400 ml 400 ml Balance 400 ml 400 ml FLYNN JEWELL MD Sep 06, 2018 16:40
[2018-09-06 19:56] VITALS: BP 153/69
[2018-09-06] MEDS: ATORVASTATIN CALCIUM 20 MG TABLET PO SCH (20:12)
[2018-09-06] MEDS: HEPARIN for SUB-Q USE 5,000 UNIT/ML VIAL. SQ SCH (20:21)
[2018-09-06 23:16] VITALS: BP 130/61
[2018-09-06 23:20] LABS: BILIRUBIN,URINE NEGATIVE (NEG); CLARITY,URINE TURBID; COLOR,URINE YELLOW; NITRITE,URINE NEGATIVE (NEG); PH,URINE 7.5; PROTEIN,URINE >=300 mg/dL (NEG-TRACE); UROBILINOGEN,URINE 0.2 mg/dL (0.2 mg/dL)
[2018-09-06 23:41] LABS: BACTERIA,URINE MANY /HPF (0-FEW); SQUAMOUS EPITHELIAL CELL,UR MANY /LPF; TRICHOMONAS,URINE PRESENT; WBC,URINE TNTC /HPF (0-4)
[2018-09-07 02:31] VITALS: BP 121/59
[2018-09-07] MEDS: HEPARIN for SUB-Q USE 5,000 UNIT/ML VIAL. SQ SCH ×2 (06:00→14:00)
[2018-09-07 07:00] VITALS: BP 163/72
[2018-09-07] MEDS: CALCIUM ACETATE 667 MG CAPSULE PO SCH ×2 (08:47→11:59)
[2018-09-07] MEDS: ASPIRIN 325 MG TABLET PO SCH (08:47)
[2018-09-07] MEDS: LOSARTAN POTASSIUM 50 MG TABLET. PO SCH (08:48)
[2018-09-07] MEDS: FERROUS SULFATE 325 MG TABLET. PO SCH (08:49)
[2018-09-07] MEDS: FOLIC/VIT B COMP W-C (RENAL) TABLET. PO SCH (08:49)
[2018-09-07] MEDS: PANTOPRAZOLE 40 MG TABLET.DR. PO SCH (08:49)
[2018-09-07] MEDS: cloNIDine HCL 0.2 MG TABLET PO SCH (08:49)
[2018-09-07] MEDS: ISOSORBIDE MONONITRATE ER 30 MG TAB.ER.24H PO SCH (08:50)
[2018-09-07] MEDS: METOPROLOL TART IMMED RELEASE 25 MG TABLET. PO SCH (08:50)
[2018-09-07 10:55] VITALS: BP 143/64
--- NOTE | 2018-09-07 11:03 | PDOC ---
Renal-Progress Notes Subjective Notes Notes NONE History of Present Illness Hx of present illness BETTER Vitals Vitals Vital Signs Date Time Temp Pulse Resp B/P (MAP) Pulse Ox O2 Delivery O2 Flow Rate FiO2 09/07/18 10:55 97.8 58 16 143/64 (90) 95 Room Air 97.8 Weight Weight [ ] I.O. Intake and Output Intake and Output 09/07/18 06:59 Intake Total 850 ml Output Total 600 ml Balance 250 ml Intake Oral 850 ml Output Urine Total 600 ml Labs Labs Laboratory Tests Test 09/06/18 23:00 Urine Collection Type Clean catch Urine Color Yellow Urine Clarity Turbid Urine pH 7.5 Urine Specific [place] 1.015 Urine Protein >=300 mg/dL (NEG-TRACE) Urine Glucose (UA) Negative mg/dL (NEG) Urine Ketones (Stick) Negative mg/dL (NEG) Urine Blood Small (NEG) Urine Nitrite Negative (NEG) Urine Bilirubin Negative (NEG) Urine Urobilinogen Dipstick 0.2 mg/dL (0.2 mg/dL) Urine Leukocyte Esterase Large (NEG) Urine RBC 3-5 /HPF (0-2) Urine WBC Tntc /HPF (0-4) Urine Squamous Epithelial Cells Many /LPF Urine Renal Epithelial Cells Few /LPF Urine Bacteria Many /HPF (0-FEW) Urine Trichomonas Present Review of Systems Constitutional: yes: alert, oriented Ears/Nose/Throat: Yes: no symptom reported Eyes: Yes: no symptom reported Pulmonary: Yes no symptom reported Cardiovascular: Yes chest pain Gastrointestional: Yes: constipation Genitourinary: Yes: no symptom reported Musculoskeletal: Yes: no symptom reported Psychiatric/Neurological: Yes: no symptom reported Endocrine: Yes: no symptom reported Physical Exam General Appearance: no apparent distress Skin: warm Respiratory: bilateral CTA Heart: S1S2, RRR Abdomen: soft, bowel sounds present Genitourinary: bladder flat Extremities: pulses present Neurology: alert, oriented Musculoskeletal: Osteoarthritis Assessment Assessment IMP CHEST PAIN HTN-BETTER ANEMIA ESRD PLAN HD [facility] LONA LEMOS MD Sep 07, 2018 11:03
[2018-09-07] MEDS ORDERED: LOSA-73 PO (11:26)
[2018-09-07] MEDS ORDERED: metroNIDAZOLE 500 MG TABLET PO ONE (12:00)
--- NOTE | 2018-09-07 13:28 | PDOC3 ---
Discharge Summary Visit Information Date of Admission: Sep 05, 2018 Date of Discharge: Sep 07, 2018 Admitting Diagnosis Comment: Chest pain secondary to hypertensive urgency. Pretty much same presentation as her previous admission Lisinopril was discontinued recently since she refers cough but it has not improved, unli,thai a side effect of medication she may need GEERd work up in the outpatient setting. Hypertensive urgency History of CAD: CABG 01/2017, clinically stable. dyslipidemia ESRD on HD Final Diagnosis Chest pain secondary to hypertensive urgency. Pretty much same presentation as her previous admission GERD. Hypertensive urgency resolved History of CAD: CABG 01/2017, clinically stable. dyslipidemia ESRD on HD Brief Hospital Course Allergies Allergies Coded Allergies Type Severity Reaction Last Updated Verified No Known Drug Allergies 01/06/17 No Vital Signs Vital Signs Date Time Temp Pulse Resp B/P (MAP) Pulse Ox O2 Delivery O2 Flow Rate FiO2 09/07/18 10:55 97.8 58 16 143/64 (90) 95 Room Air 97.8 Lab Results Laboratory Tests Test 09/05/18 17:25 09/06/18 06:00 09/06/18 23:00 Troponin I Quantitative 0.033 ng/mL (0.000-0.055) Triglycerides Level 101 mg/dL (0-150) Cholesterol Level 136 mg/dL (0-200) LDL Cholesterol, Calculated 68 mg/dL (0-100) VLDL Cholesterol, Calculated 20 mg/dL (0-40) Non-HDL Cholesterol Calculated 88 mg/dL (0-129) HDL Cholesterol 48 mg/dL (40-60) Cholesterol/HDL Ratio 2.8 Urine Collection Type Clean catch Urine Color Yellow Urine Clarity Turbid Urine pH 7.5 Urine Specific [place] 1.015 Urine Protein >=300 mg/dL (NEG-TRACE) Urine Glucose (UA) Negative mg/dL (NEG) Urine Ketones (Stick) Negative mg/dL (NEG) Urine Blood Small (NEG) Urine Nitrite Negative (NEG) Urine Bilirubin Negative (NEG) Urine Urobilinogen Dipstick 0.2 mg/dL (0.2 mg/dL) Urine Leukocyte Esterase Large (NEG) Urine RBC 3-5 /HPF (0-2) Urine WBC Tntc /HPF (0-4) Urine Squamous Epithelial Cells Many /LPF Urine Renal Epithelial Cells Few /LPF Urine Bacteria Many /HPF (0-FEW) Urine Trichomonas Present Laboratory Tests Test 09/06/18 23:00 Urine Collection Type Clean catch Urine Color Yellow Urine Clarity Turbid Urine pH 7.5 Urine Specific [place] 1.015 Urine Protein >=300 mg/dL (NEG-TRACE) Urine Glucose (UA) Negative mg/dL (NEG) Urine Ketones (Stick) Negative mg/dL (NEG) Urine Blood Small (NEG) Urine Nitrite Negative (NEG) Urine Bilirubin Negative (NEG) Urine Urobilinogen Dipstick 0.2 mg/dL (0.2 mg/dL) Urine Leukocyte Esterase Large (NEG) Urine RBC 3-5 /HPF (0-2) Urine WBC Tntc /HPF (0-4) Urine Squamous Epithelial Cells Many /LPF Urine Renal Epithelial Cells Few /LPF Urine Bacteria Many /HPF (0-FEW) Urine Trichomonas Present Brief Hospital Course Ms. Schneider is a 83 old male with the above-mentioned comorbidities of end- stage renal disease on hemodialysis coronary artery disease who presented with hypertensive urgency again. The patient was taken off her lisinopril due to some cough complains and she has been off the medication but still with cough which problems us to believe that very unlikely is a medication side effect. This may be more related to GERD and she was started on PPI on this hospital stay and she was started back on losartan with improvement in her blood pressure control. Dietary recommendations were given to the patient prior to discharge. There was a mild elevation of troponin which most likely is attributed to the demand ischemia given for hypertensive urgency. No further cardiological evaluation was necessary from our consultants and she was in good spirits to be dismissed home Greater than 35 minutes were spent in the discharge brought the patient counseling coronation of care and arrangements were safe discharge. Physical exam: Lungs clear to auscultation with good inspiratory effort and cardiovascular S1- S2 regular rhythm with a systolic murmur 2 out of 6 no radiation to the carotids Neurologic cranial nerves II-12 intact motor or sensory deficits appreciated Discharge Information Condition at Discharge: Improved Follow Up: Weeks Disposition/Orders: D/C to Home Scheduled Aspirin (Aspirin) 325 Mg Tablet, 325 MG PO DAILY for antiplatelet for 30 Days, # 30 Prescribed by: PATRICIA LOVELACE MD on 07/15/18 1543 Last Action: Continued on 09/05/18 1131 by PATRICIA LOVELACE MD Atorvastatin Calcium (Atorvastatin Calcium) 20 Mg Tablet, 20 MG PO HS for dyslipidemia for 30 Days, #30 Prescribed by: PATRICIA LOVELACE MD on 07/15/18 1543 Last Action: Continued on 09/05/181131 by PATRICIA LOVELACE MD Clonidine Hcl (Catapres) 0.2 Mg Tablet, 0.2 MG PO BID for hypertension for 30 Days, #60 Prescribed by: PATRICIA LOVELACE MD on 07/15/18 1543 Last Action: Continued on 09/05/181131 by PATRICIA LOVELACE MD Ferrous Sulfate (Feosol) 325 Mg Tablet, 325 MG PO BIDWMEALS for anemia for 30 Days, #60 Prescribed by: PATRICIA LOVELACE MD on 07/15/18 1543 Last Action: Continued on 09/05/181131 by PATRICIA LOVELACE MD Hydralazine Hcl (Hydralazine Hcl) 50 Mg Tablet, 100 MG PO TID for HTN for 30 Days, #180 Prescribed by: SANIYA PEPE MD on 07/14/18 1108 Last Action: Converted on 09/05/181131 by PATRICIA LOVELACE MD Isosorbide Mononitrate (Isosorbide Mononitrate Er) 60 Mg Tab.er.24h, 1 TAB PO DAILY for CHF, #30 Ref 5 Prescribed by: PATRICIA LOVELACE MD on 07/15/18 1506 Last Action: Converted on 09/05/181131 by PATRICIA LOVELACE MD Losartan Potassium (Cozaar ) 50 Mg Tablet, 100 MG PO DAILY for HTN for 30 Days , #60 Prescribed by: PATRICIA LOVELACE MD on 09/07/18 1126 Metoprolol Tartrate (Metoprolol Tartrate) 25 Mg Tablet, 12.5 MG PO BID for htn for 30 Days, #30 Prescribed by: SANIYA PEPE MD on 07/14/18 1108 Last Action: Continued on 09/05/181131 by PATRICIA LOVELACE MD Omeprazole (Omeprazole) 40 Mg Capsule.dr, 40 MG PO DAILY, (Reported) Entered as Reported by: JORDANA MERCHANT on 01/06/17 1618 Last Action: Converted on 09/05/181131 by PATRICIA LOVELACE MD Vit B Cmplx 3/Fa/Vit C/Biotin ([place]en-[facility] Rx Tablet) 1 Each Tablet, 1 EACH PO DAILY, (Reported) Entered as Reported by: JORDANA MERCHANT on 01/06/17 2326 Last Action: Converted on 09/05/181131 by PATRICIA LOVELACE MD Scheduled PRN Polyethylene Glycol 3350 (Miralax) 17 Gm Powd.pack, 1 PACKET PO PRN DAILY PRN for CONSTIPATION, #30 Ref 3 (Reported) Entered as Reported by: ROCCO MARTINEZ on 04/10/17 0118 Last Action: Converted on 09/05/181131 by PATRICIA LOVELACE MD Tramadol Hcl (Tramadol Hcl) 50 Mg Tablet, 50 MG PO PRN Q6HRS PRN for MILD TO MODERATE PAIN for 30 Days Prescribed by: PATRICIA LOVELACE MD on 07/15/18 1543 Last Action: Continued on 09/05/181131 by PATRICIA LOVELACE MD Discontinued Medications Lisinopril (Lisinopril) 40 Mg Tablet, 1 TAB PO DAILY for HTN, #30 Ref 5 Prescribed by: PATRICIA LOVELACE MD on 07/15/18 1506 Last Action: Continued on 09/05/181131 by MD RADU RENDON HECTOR M MD Sep 07, 2018 13:27
--- NOTE | 2018-09-07 13:39 | PDOC ---
CARDIO Progress Notes Date and Time Date of Service 09/07/2018 Time of Evaluation 1030 Subjective Subjective: No Chest Pain, No shortness of breath, No Palpitations Vitals Vitals Vital Signs Date Time Temp Pulse Resp B/P (MAP) Pulse Ox O2 Delivery O2 Flow Rate FiO2 09/07/18 10:55 97.8 58 16 143/64 (90) 95 Room Air 97.8 Weight Weight [ ] Input and Output Intake and Output Intake and Output 09/07/18 06:59 Intake Total 850 ml Output Total 600 ml Balance 250 ml Intake Oral 850 ml Output Urine Total 600 ml Laboratory Labs Laboratory Tests Test 09/06/18 23:00 Urine Collection Type Clean catch Urine Color Yellow Urine Clarity Turbid Urine pH 7.5 Urine Specific [place] 1.015 Urine Protein >=300 mg/dL (NEG-TRACE) Urine Glucose (UA) Negative mg/dL (NEG) Urine Ketones (Stick) Negative mg/dL (NEG) Urine Blood Small (NEG) Urine Nitrite Negative (NEG) Urine Bilirubin Negative (NEG) Urine Urobilinogen Dipstick 0.2 mg/dL (0.2 mg/dL) Urine Leukocyte Esterase Large (NEG) Urine RBC 3-5 /HPF (0-2) Urine WBC Tntc /HPF (0-4) Urine Squamous Epithelial Cells Many /LPF Urine Renal Epithelial Cells Few /LPF Urine Bacteria Many /HPF (0-FEW) Urine Trichomonas Present Review of Systems Constitutional: yes: alert, oriented Ears/Nose/Throat: Yes: no symptom reported Eyes: Yes: no symptom reported Pulmonary: Yes no symptom reported Cardiovascular: Yes chest pain Gastrointestional: Yes: constipation Genitourinary: Yes: no symptom reported Musculoskeletal: Yes: no symptom reported Psychiatric/Neurological: Yes: no symptom reported Endocrine: Yes: no symptom reported Physical Exam HEENT: Neck Supple W Full Motion Chest: Symmetric LUNGS: Clear to Auscultation Heart: S1S2, RRR (SB mid50s) Abdomen: Soft N/T Extremities: No Edema, No Calf Tenderness Neurology: alert, oriented, follow commands Assessment Assessment 1. Chest pain: likely from high BP, doubt ACS. None further 2. Recent cough: prompting discontinuation of lisinopril for the last 2-3 weeks 3. Accelerated HTN: much improved with losartan 4. CAD: CABG 01/2017, clinically stable. 5. HLP 6. HX of asymptomatic SB: mid 50s, no blocks or pauses 7. ESRD 8. Moderate pulmonary HTN Recommendations 1. Continue BP regimen with losartan addition. Caution with further increase in BB or clonidine with hx of bradycardia. 2. Continue secondary prevention. If BP remains labile moving forward then will consider amlodipine 3. Fluid off loading per HD 4. Follow up in office in 4 weeks. WINDY HERNANDEZ APRN Sep 07, 2018 13:39
[2018-09-07 15:21] VITALS: BP 143/64
--- NOTE | 2018-09-07 17:06 | NUR ---
Pt alert and oriented throughout shift. Pt denied pain throughout shift. Pt was educated on chest pain, and new medication Cozaar. Pt was given prescription for Cozaar. Pt tolerated IV removal. Catheter tip intact, pressure applied, bleeding stopped, bandage applied. Pt denied questions at discharge. Pt and all belongings wheeled out to family vehicle by CASINO CAGE SUPERVISOR.
== END 2018-09-07 15:30 | disposition home or self-care (01) | DRG 304 ==
LOC: ER 09:14 → 2 NORTH 11:23
PROVIDERS: ADMIT Internal Medicine; ATTEND Internal Medicine
PROC: 5A1D70Z Performance of Urinary Filtration, Intermittent, Less than 6 Hours Per Day (ICD-10-PCS; principal; 2018-09-06)
DX: I16.0 Hypertensive urgency (principal); N18.6 End stage renal disease; I24.8 Other forms of acute ischemic heart disease; I25.10 Atherosclerotic heart disease of native coronary artery without angina pectoris; K21.9 Gastro-esophageal reflux disease without esophagitis; D64.9 Anemia, unspecified; E78.5 Hyperlipidemia, unspecified; I27.20 Pulmonary hypertension, unspecified; Z96.659 Presence of unspecified artificial knee joint; E21.3 Hyperparathyroidism, unspecified; I12.0 Hypertensive chronic kidney disease with stage 5 chronic kidney disease or end stage renal disease; M19.90 Unspecified osteoarthritis, unspecified site; Z90.710 Acquired absence of both cervix and uterus; Z98.42 Cataract extraction status, left eye; Z98.41 Cataract extraction status, right eye; Z99.2 Dependence on renal dialysis; Z95.1 Presence of aortocoronary bypass graft; Z87.01 Personal history of pneumonia (recurrent); Z82.49 Family history of ischemic heart disease and other diseases of the circulatory system; Z83.3 Family history of diabetes mellitus
CPT/HCPCS: 36415; 71045; 80053; 80061; 81001; 82550; 82553; 83690; 83735; 83880; 84484; 85025; 85610; 85730; 87086; 87186; 93005; 93306; J0360; 97110; 99285-25

== ENCOUNTER → 2019-11-01 | Outpatient (CLI) | payer MEDICARE, OTHER ==
[~2019-11-01] MED LIST changes: +LOSA-73 PO; +OMEP40CA45 PO; -OMEP40CA5 PO
--- NOTE | 2019-11-01 13:41 | RAD ---
Right lower extreme knee venous duplex ultrasound study without comparison for right lower extreme knee swelling and pain. TECHNIQUE AND FINDINGS: Real-time grayscale and color and spectral Doppler evaluation of the veins of the right lower extremity is performed. Incidentally noted is calcified atherosclerosis of the common femoral artery. The common femoral, superficial femoral, and popliteal veins are all compressible and demonstrate normal color flow and normal augmentation. There is normal color flow to the posterior tibial peroneal veins. Profunda femoral vein is patent as well. IMPRESSION: 1. No evidence of deep vein thrombosis in the right lower survey. 2. Instantly noted atherosclerosis of the common femoral artery. Electronically signed by: Marcin Greco MD (11/01/2019 1:38 PM) [id number]
== END | disposition home or self-care (01) ==
LOC: US 12:50
PROVIDERS: ATTEND Nurse Practitioner Family
DX: I70.201 Unspecified atherosclerosis of native arteries of extremities, right leg (principal); M79.661 Pain in right lower leg
CPT/HCPCS: 93971

== ENCOUNTER → 2019-11-27 | Outpatient (CLI) | payer MEDICARE, OTHER ==
[~2019-11-27] MED LIST changes: +ASPI-612 PO; +ATOR40TA59 PO; +CINA30TA2 PO; +LACT1CAP19 PO
== END | disposition home or self-care (01) ==
LOC: LAB 14:24
PROVIDERS: ATTEND Internal Medicine Cardiovascular Disease
DX: Z01.818 Encounter for other preprocedural examination (principal); Z11.59 Encounter for screening for other viral diseases; I73.9 Peripheral vascular disease, unspecified
CPT/HCPCS: C9803; U0003; 36415

== ENCOUNTER 2019-11-30 07:03 | Outpatient (CLI) | payer MEDICARE, OTHER ==
[~2019-11-30] VITALS: Ht 167.6 cm; Wt 61.7 kg
[2019-11-30] VITALS (8 sets, daily range): BP systolic 98–158; BP diastolic 48–67
[~2019-11-30 07:03] MED LIST changes: -ASPI-612 PO; -ATOR40TA59 PO; -CINA30TA2 PO; -LACT1CAP19 PO
[2019-11-30 07:33] LABS: CALCIUM 8.9 mg/dL (8.5-10.1); CREATININE 4.9 mg/dL (0.6-1.0); GFR 10.2; POTASSIUM 4.4 mmol/L (3.5-5.1)
[2019-11-30] MEDS ORDERED: LIDOCAINE 1% Multi-Dose 20 ML VIAL. ONE (07:35)
[2019-11-30] MEDS ORDERED: HYDR100T24 PO (07:36)
[2019-11-30] MEDS ORDERED: CALC667T4 PO (07:36)
[2019-11-30] MEDS ORDERED: CINA30TA2 PO (07:36)
[2019-11-30] MEDS ORDERED: ASPI-612 PO (07:36)
[2019-11-30] MEDS ORDERED: IODIXANOL 320 MG/ML 100 ML VIAL. ONE (07:36)
[2019-11-30] MEDS ORDERED: AMLO10TA8 PO (07:36)
[2019-11-30] MEDS ORDERED: ATOR40TA59 PO (07:36)
[2019-11-30 07:45] LABS: PROTHROMBIN TIME PATIENT 12.7 SEC (11.7-14.0)
[2019-11-30 08:06] LABS: BASO # 0.1 x10^3/uL (0.0-0.2); BASO % 1 % (0-3); EOS # 0.6 x10^3/uL (0.0-0.7); EOS % 8 % (0-3); HEMATOCRIT 34.3 % (36.0-47.0); HEMOGLOBIN 10.9 g/dL (12.0-15.5); LYMPH # 1.2 x10^3/uL (1.0-4.8); LYMPH % 15 % (24-48); MEAN CORPUSCULAR HEMOGLOBIN 31 pg (25-35); MEAN CORPUSCULAR HGB CONC 32 g/dL (31-37); MEAN CORPUSCULAR VOLUME 97 fL (79-100); MONO # 0.9 x10^3/uL (0.0-1.1); MONO % 11 % (0-9); NEUT % 65 % (31-73); PLATELET COUNT 205 x10^3/uL (140-400); RED BLOOD COUNT 3.52 x10^6/uL (3.50-5.40); RED CELL DISTRIBUTION WIDTH 14.5 % (11.5-14.5); WHITE BLOOD COUNT 7.7 x10^3/uL (4.0-11.0)
[2019-11-30] MEDS ORDERED: fentaNYL PF VIAL 100 MCG/2 ML VIAL ONE (08:39)
[2019-11-30] MEDS ORDERED: MIDAZOLAM HCL/PF 5 MG/5 ML VIAL. ONE (08:39)
[2019-11-30] MEDS ORDERED: HEPARIN for IV BOLUS 10,000 UNIT/10 ML VIAL. ONE (08:39)
[2019-11-30] MEDS ORDERED: IODIXANOL 320 MG/ML 100 ML VIAL. IART ONE (09:15)
[2019-11-30] MEDS ORDERED: LIDOCAINE 1% Multi-Dose 20 ML VIAL. INJ ONE (09:15)
[2019-11-30] MEDS ORDERED: fentaNYL PF VIAL 100 MCG/2 ML VIAL IV ONE (09:15)
[2019-11-30] MEDS ORDERED: MIDAZOLAM HCL/PF 5 MG/5 ML VIAL. IV ONE (09:15)
--- NOTE | 2019-11-30 09:31 | PDOC ---
MODERATE SEDATION ASSESSMENT RISKS/ALTERNATIVES Risks/Alternatives Risks and alternatives of this type of sedation and procedure discussed with: RISK/ALTERNATIVES: Patient H & P ON CHART H & P H & P on chart and reviewed for co-morbid conditions and appropriate labs. H&P ON CHART: Yes STATUS PREG STATUS ASSESSED: N/A MEDS/ALLERGIES REVIEWED Meds/Allergies Reviewed Medications and Allergies including time and route of recently administered narcotics and sedatives. MEDS/ALLERGIES REVIEWED: Yes ASA RATING ASA RATING: III AIRWAY ASSESSMENT Airway Assessment Airway patency, oral function limitations, presence of caps, crowns, dentures, partials, and ability to extend neck assessed. AIRWAY ASSESSMENT: Yes MALLAMPATI SCORE MALLAMPATI SCORE: II PRE-SEDATION ASSESSMENT PRE-SEDATION ASSESSMENT: Yes CASI BOBBY MD November 30, 2019 09:31
[2019-11-30] MEDS ORDERED: ACETAMINOPHEN 325 MG TABLET. PO PRN (09:45)
--- NOTE | 2019-11-30 09:58 | CARD ---
MR#: [id number] Date of Study: 11/30/2019 Ordering Physician: CASI DUARTE, Referring Physician: CASI DUARTE Tech: Davina Rodriguez APPROVED REPORT Patient StatusOUT-PATIENT Gage Maker: Davina Rodriguez Procedure(s) performed: Aortogram with bilateral lower extremity runoff fl time: 5.5 mins dose: 22 gycm2 contrast: 123 ml moderate sedation: 52 mins INDICATION FOR PROCEDURE The indication(s) include : Peripheral artery disease with claudication. PROCEDURE NARRATIVE After explaining the risks, benefits and alternative options, informed consent was obtained for patie nt. Patient was brought to the cardiac Cafeteria Clerk and both her groins were prepped and draped in the u sual fashion. 20 cc of 2% lidocaine was infiltrated into the skin and subcutaneous tissues of left g roin for local anesthesia. Arterial access was obtained in the left common femoral artery and a 5 Fr ench sheath inserted. 5 [place] pigtail catheter was used to perform aortogram with bilateral lower e xtremity runoff. A 5 [place] crossover catheter was used to cross the aortic markel which was then ex changed over a wire to a 4 [place] angled glide catheter and with tip position in the right superficia l femoral artery, selective right lower extremity angiography was performed. Patient tolerated the p rocedure well. Hemostasis in the left groin was achieved using Angio-Seal. There were no immediate complications. FINDINGS 1. No significant stenosis involving the distal descending aorta. 2. No significant stenosis involving bilateral common and external iliac arteries. 3. No significant stenosis involving bilateral common femoral arteries. 4. The right superficial femoral artery showed luminal irregularities without any significant stenos is. The left superficial femoral artery showed 50% discrete stenosis in the midsegment. 5. The right popliteal artery showed chronic total occlusion with distal reconstitution via collater als. The left popliteal artery did not show any significant stenosis. 6. There was 1 vessel anterior tibial artery runoff below the knee right lower extremity with comple te occlusions of peroneal and posterior tibial arteries. The very distal segment was not well visual ized. There appears to be three-vessel runoff below the knee and left lower extremity - the distal s egments were not well visualized. 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 Plan for Lexiscan nuclear stress test to rule out ischemia secondary to her known history of coronary disease followed by surgical revascularization for PAD. Signed by : Casi Duarte, Electronically Approved : 11/30/2019 09:58:01
[2019-11-30] MEDS ORDERED: ACETAMINOPHEN 325 MG TABLET. PO ONE (10:32)
--- NOTE | 2019-11-30 11:53 | NUR ---
Discharge Note: ROBIN VICENTE Discharge instructions and discharge home medications reviewed with Patient and Ashvin (son) and a copy given. All questions have been answered and understanding verbalized. The following instructions and handouts were given: Angioseal, PVD, Groin site care, Sedation. Discontinued lines and drains: Right FA IV dc'd and tip intact. Patient discharged to home with son via personal car.
== END 2019-11-30 11:43 | disposition home or self-care (01) ==
LOC: CCL 07:03
PROVIDERS: ATTEND Internal Medicine Cardiovascular Disease
DX: I70.211 Atherosclerosis of native arteries of extremities with intermittent claudication, right leg (principal); I77.1 Stricture of artery; I10 Essential (primary) hypertension; I25.2 Old myocardial infarction; Z79.82 Long term (current) use of aspirin; Z79.899 Other long term (current) drug therapy
CPT/HCPCS: 36247; 36415; 75630; 80048; 85025; 85610; 99152; 99153; C1760; C1769; C1892; G0269; J1644; J2250; J3010; J3490; Q9967; C1771

== ENCOUNTER 2020-08-29 04:15 | Emergency (ER) | payer MEDICARE, OTHER ==
[~2020-08-29] VITALS: Ht 167.6 cm; Wt 63.6 kg
[~2020-08-29 04:15] MED LIST changes: -AMIO200T4 PO; +AMIO200T6 PO; +AMLO-187 PO; -AMLO10TA8 PO; +ASPI-886 PO; +ATOR40TA59 PO; +CINA30TA24 PO; -ISOS30TA4 PO; +ISOS30TA68 PO; -ISOS60TA2 PO; +ISOS60TA55 PO; +LACT1CAP19 PO
[2020-08-29] MEDS ORDERED: LIDOCAINE 2%/EPI 1:100,000 20 ML VIAL. INJ ONE (05:00)
[2020-08-29] MEDS ORDERED: ONDANSETRON ODT 4 MG TAB.RAPDIS. PO ONE (05:00)
--- NOTE | 2020-08-29 05:03 | PHYS DOC ---
Past Medical History Past Medical History: Arthritis, CAD, Hypertension, Pneumonia, Renal Disease, Renal Failure Past Surgical History: Coronary Bypass Surgery, Hysterectomy, Knee Replacement, Other Additional Past Surgical Histo: ovarian cyst, cataracts; bilateral popliteal bypass Past Surgical History AV fistula, right chest tunneled temporary HD cath Smoking Status: Never Smoker Alcohol Use: None Drug Use: None General Adult EDM: Chief Complaint: POST-OP PROBLEM HPI: HPI: Patient is a 85 year old female who presents with bleeding from her right chest tunneled dialysis catheter site. The patient notes she had a TDC placed by interventional radiology yesterday due to her AV fistula clotting off. She had a coughing spell early this a.m. and noticed some bleeding from the catheter site. She was recently started back on Xarelto. Denies fever or chills, vomiting, or abdominal pain. Reports some nausea. Review of Systems: Review of Systems: Constitutional: Denies fever or chills Eyes: Denies redness or eye pain HENT: Denies nasal congestion or sore throat Respiratory: Reports cough; denies shortness of breath Cardiovascular: Denies chest pain or palpitations GI: Denies abdominal pain, patient notes some nausea, denies vomiting : Denies dysuria or hematuria Musculoskeletal: Denies back pain or joint pain Integument: Denies rash or skin lesions Neurologic: Denies headache, focal weakness or sensory changes Complete systems were reviewed and found to be within normal limits, except as documented in this note. Current Medications: Current Medications Medications (Trade) Dose Ordered Sig/[facility] Start Time Stop Time Status Last Admin Dose Admin Lidocaine/ Epinephrine (LIDOCAINE 2%-EPI 1:100,000 multi-dose) 20 ml 1X ONCE 08/29/20 05:00 08/29/20 05:01 UNV Allergies: Allergies: Allergies Coded Allergies Type Severity Reaction Last Updated Verified No Known Drug Allergies 01/06/17 No Physical Exam: PE: Constitutional: Well developed, well nourished, no acute distress, non-toxic appearance HENT: Normocephalic, atraumatic, hard of hearing Eyes: Conjunctiva normal, no discharge Neck: Normal range of motion, no tenderness, supple Lungs & Thorax: No respiratory distress, equal chest rise and fall, tunneled HD catheter to right anterior chest, oozing noted from catheter site, sutures in place Abdomen: Soft, no tenderness Skin: Warm, dry, no erythema, no rash Extremities: No tenderness, ROM intact, no edema Neurologic: Alert and oriented X 3, no focal deficits noted Psychologic: Affect normal, judgment normal Current Patient Data: Vital Signs: Vital Signs Date Time Temp Pulse Resp B/P (MAP) Pulse Ox O2 Delivery O2 Flow Rate FiO2 08/29/20 04:15 98.0 83 18 163/68 (99) 97 Room Air 98.0 EKG: EKG: [] Radiology/Procedures: Radiology/Procedures: [] Course & Med Decision Making: Course & Med Decision Making Patient is a 85-year-old female who presented to the ED with bleeding from her tunneled dialysis catheter site, which was placed by IR yesterday. She notes she was recently started on Xarelto which could explain the bleeding. The catheter was cleaned and hemostasis was achieved with pressure and a single suture placed near the entrance of the catheter tunnel. Nausea addressed. Abdomen nonperitoneal. Afebrile. CXR without acute process. Patient stable for discharge with outpatient follow-up with PCP/nephrology. Discussed findings and plan with patient and daughter, who acknowledge understanding and agreement. E[place]on Disclaimer: [place] Disclaimer: This electronic medical record was generated, in whole or in part, using a voice recognition dictation system. Additional Procedures Progress Postoperative bleeding control Verbal consent obtained. Time out performed. Hand hygiene utilized. Sterile gloves doned. Wound cleaned with ChloraPrep. Sterile drape placed. Anesthesia obtained via a 30-gauge hypodermic needle with (1) mL's of lidocaine 2% with epinephrine. Wound well approximated with simple interrupted 4-0 nylon suture x 1. Entrance of catheter further secured with Dermabond skin glue. Sterile dressing applied. Patient tolerated procedure well and without difficulty. Departure Departure Impression: Primary Impression: Hemorrhage from dialysis catheter Additional Impression: Nausea Disposition: 01 DC HOME SELF CARE/HOMELESS Condition: STABLE Referrals: MAGNO MANCILLA MD (PCP) BRIAN YOO MD Patient Instructions: Central Line Placement, Dialysis Access, Instructions, Nausea, Adult, [id number] Scripts Ondansetron (ONDANSETRON ODT) 4 Mg Tab.rapdis 1 TAB PO PRN Q6-8HRS PRN for NAUSEA, #16 TAB Prov: MARGE DIEZ DO 08/29/20 MARGE DIEZ DO Aug 29, 2020 05:03
[2020-08-29] MEDS ORDERED: ONDA4TAB12 PO (05:32)
--- NOTE | 2020-08-29 06:19 | RAD ---
AP portable chest radiograph 08/29/2020 Clinical History: Cough. An AP erect portable digital radiograph of the chest was obtained. Comparison study is dated 08/25/2020. A right internal jugular large bore central venous catheter is unchanged position. The patient is pos t CABG procedure. The cardiac silhouette is mildly enlarged. The thoracic aorta is tortuous. Atherosc lerotic calcification of the thoracic aorta is seen. No acute pulmonary infiltrate is noted. No pneum othorax or pleural effusion is seen. Extensive stents are seen throughout the medial aspect of the le ft arm. The osseous structures are unchanged. Impression: No acute abnormality is seen. Electronically signed by: Jermaine eKnyon MD (08/29/2020 6:16 AM) [id number]
[2020-08-29 06:28] VITALS: BP 146/67
== END 2020-08-29 06:30 | disposition home or self-care (01) ==
LOC: ER 04:15
DX: T82.838A Hemorrhage due to vascular prosthetic devices, implants and grafts, initial encounter (principal); R11.0 Nausea; I12.9 Hypertensive chronic kidney disease with stage 1 through stage 4 chronic kidney disease, or unspecified chronic kidney disease; N18.9 Chronic kidney disease, unspecified; I25.10 Atherosclerotic heart disease of native coronary artery without angina pectoris; Z90.710 Acquired absence of both cervix and uterus; Z95.1 Presence of aortocoronary bypass graft; Y84.1 Kidney dialysis as the cause of abnormal reaction of the patient, or of later complication, without mention of misadventure at the time of the procedure
CPT/HCPCS: 99283; J3490; 12001; 71045

== ENCOUNTER 2020-08-30 10:59 | Inpatient (IN) | payer MEDICARE, OTHER ==
[~2020-08-30] VITALS: Ht 167.6 cm; Wt 66.6 kg
[~2020-08-30 10:59] MED LIST changes: +ONDA4TAB12 PO
[2020-08-30] MEDS ORDERED: GELATIN SPONGE SIZE 12-7MM SPONGE. ONE (11:34)
[2020-08-30] MEDS ORDERED: GELATIN SPONGE SIZE 12-7MM SPONGE. TP ONE (11:45)
--- NOTE | 2020-08-30 12:40 | ED.ADGEN ---
Past Medical History Past Medical History: Arthritis, CAD, Hypertension, Pneumonia, Renal Disease, Renal Failure Past Surgical History: Coronary Bypass Surgery, Hysterectomy, Knee Replacement, Other Additional Past Surgical Histo: ovarian cyst, cataracts; bilateral popliteal bypass Smoking Status: Never Smoker Alcohol Use: None Drug Use: None General Adult EDM: Chief Complaint: OTHER COMPLAINTS HPI: HPI: Patient is a 85 old female with past medical history end-stage renal disease on hemodialysis Tuesday/Tuesday/Tuesday who presents to the ED with complaints of bleeding from her dialysis port site. Pt reports that she went to dialysis yesterday and later came to the ED for evaluation of bleeding from around her temporary hemodialysis catheter. The ER doctor placed a suture in the site and sent her home. PT returns to the ED today because the bleeding from temporary hemodialysis catheter site hasnt stopped. Patient states that the area around her dialysis catheter is tender. Denies any injury. Review of Systems: Review of Systems: Complete ROS is negative unless otherwise noted in HPI. Current Medications: Current Medications Medications (Trade) Dose Ordered Sig/Willard Start Time Stop Time Status Last Admin Dose Admin Gelatin (Gelfoam Size 12-7mm) 1 each 1X ONCE 08/30/20 11:45 08/30/20 11:46 DC 08/30/20 12:00 1 EACH Lidocaine/ Epinephrine (LIDOCAINE 2%-EPI 1:100,000 multi-dose) 20 ml 1X ONCE 08/30/20 13:45 08/30/20 13:46 DC Tranexamic Acid (Cyklokapron) 1,000 mg 1X ONCE 08/30/20 12:45 08/30/20 12:46 DC 08/30/20 13:08 1,000 MG Allergies: Allergies: Allergies Coded Allergies Type Severity Reaction Last Updated Verified No Known Drug Allergies 01/06/17 No Physical Exam: PE: See Above Constitutional: Well developed, well nourished, no acute distress, non-toxic appearance. [] HENT: Normocephalic, atraumatic, bilateral external ears normal, nose normal. [] Eyes: PERRLA, conjunctiva normal, no discharge. [] Neck: Normal range of motion, supple, no stridor. [] Cardiovascular:Heart rate regular rhythm Lungs & Thorax: Respirations even and unlabored, no retractions, no respiratory distress, tunneled HD catheter to right anterior chest, oozing noted from catheter site, with small skin tear just above the suture that is in place Abdomen: soft, no tenderness Skin: Warm, dry, no erythema, no rash. [] Extremities: No cyanosis, ROM intact, no edema. [] Neurologic: Alert and oriented X 3, no focal deficits noted. [] Psychologic: Affect normal, judgement normal, mood normal. [] Current Patient Data: Labs: Laboratory Tests Test 08/30/20 13:50 White Blood Count 9.6 x10^3/uL (4.0-11.0) Red Blood Count 2.26 x10^6/uL (3.50-5.40) L Hemoglobin 7.2 g/dL (12.0-15.5) L Hematocrit 22.1 % (36.0-47.0) L Mean Corpuscular Volume 98 fL (79-100) Mean Corpuscular Hemoglobin 32 pg (25-35) Mean Corpuscular Hemoglobin Concent 33 g/dL (31-37) Red Cell Distribution Width 13.3 % (11.5-14.5) Platelet Count 208 x10^3/uL (140-400) Neutrophils (%) (Auto) 65 % (31-73) Lymphocytes (%) (Auto) 17 % (24-48) L Monocytes (%) (Auto) 9 % (0-9) Eosinophils (%) (Auto) 8 % (0-3) H Basophils (%) (Auto) 1 % (0-3) Neutrophils # (Auto) 6.2 x10^3/uL (1.8-7.7) Lymphocytes # (Auto) 1.6 x10^3/uL (1.0-4.8) Monocytes # (Auto) 0.9 x10^3/uL (0.0-1.1) Eosinophils # (Auto) 0.8 x10^3/uL (0.0-0.7) H Basophils # (Auto) 0.1 x10^3/uL (0.0-0.2) Laboratory Tests 08/30/20 13:50 Vital Signs: Vital Signs Date Time Temp Pulse Resp B/P (MAP) Pulse Ox O2 Delivery O2 Flow Rate FiO2 08/30/20 12:00 98.7 92 18 118/57 (77) 98 Room Air 98.7 EKG: EKG: [] Heart Score: Risk Factors: Risk Factors: DM, Current or recent (<one month) smoker, HTN, HLP, family history of CAD, obesity. Risk Scores: Score 0 - 3: 2.5% MACE over next 6 weeks - Discharge Home Score 4 - 6: 20.3% MACE over next 6 weeks - Admit for Clinical Observation Score 7 - 10: 72.7% MACE over next 6 weeks - Early Invasive Strategies Radiology/Procedures: Radiology/Procedures: I attempted to stop the bleeding at the hemodialysis catheter site with Surgifoam unsuccessfully, TXA was then topically applied by myself, the oozing c ontinued. At 1400 I used 2% lidocaine with epinephrine to infiltrate the tissue around the catheter, the bleeding significantly followed and a pressure dressing was applied over the site. Course & Med Decision Making: Course & Med Decision Making Pertinent Labs and Imaging studies reviewed. (See chart for details) Spoke with Dr. Saldaña who is the admitting physician, and care was assumed following discussion of patient. Will admit patient for bleeding of hem odialysis catheter site. Patient's vital signs stable. Patient remains afebrile, appears nontoxic, r espirations even and unlabored. Patient will be admitted to the medical surgical floor. Patient's case and plan of care also discussed with Dr. Alycia Berg Disclaimer: Morena Disclaimer: This electronic medical record was generated, in whole or in part, using a voice recognition dictation system. Departure Departure Impression: Primary Impression: Hemorrhage from dialysis catheter Additional Impression: Anemia Disposition: ADMITTED INPT THIS HOSP Admitting Physician: MAGDIEL (Nataliia) Condition: STABLE Referrals: MAGNO MANCILLA MD (PCP) Problem Qualifiers MARK MAHAJAN APRN Aug 30, 2020 12:40
[2020-08-30] MEDS ORDERED: TRANEXAMIC ACID 1,000 MG/10 ML VIAL. TOP ONE (12:45)
[2020-08-30] MEDS ORDERED: LIDOCAINE 2%/EPI 1:100,000 20 ML VIAL. INJ ONE (13:45)
[2020-08-30 14:13] LABS: BASO # 0.1 x10^3/uL (0.0-0.2); BASO % 1 % (0-3); EOS # 0.8 x10^3/uL (0.0-0.7); EOS % 8 % (0-3); HEMATOCRIT 22.1 % (36.0-47.0); HEMOGLOBIN 7.2 g/dL (12.0-15.5); LYMPH # 1.6 x10^3/uL (1.0-4.8); LYMPH % 17 % (24-48); MEAN CORPUSCULAR HEMOGLOBIN 32 pg (25-35); MEAN CORPUSCULAR HGB CONC 33 g/dL (31-37); MEAN CORPUSCULAR VOLUME 98 fL (79-100); MONO # 0.9 x10^3/uL (0.0-1.1); MONO % 9 % (0-9); NEUT # 6.2 x10^3/uL (1.8-7.7); NEUT % 65 % (31-73); PLATELET COUNT 208 x10^3/uL (140-400); RED BLOOD COUNT 2.26 x10^6/uL (3.50-5.40); RED CELL DISTRIBUTION WIDTH 13.3 % (11.5-14.5); WHITE BLOOD COUNT 9.6 x10^3/uL (4.0-11.0)
--- NOTE | 2020-08-30 15:07 | PDOC1 ---
History and Physical Date of Admission Date of Admission DATE: 08/30/20 TIME: 15:04 Identification/Chief Complaint Chief Complaint Bleeding from temporary HD port Source Source: Caregiver, Patient History of Present Illness History of Present Illness Ms. Schneider is a 85 old female with past medical history end-stage renal disease on hemodialysis Tuesday/Tuesday/Tuesday who presents to the ED with complaints of bleeding from her dialysis port site. She was just discharged from our service 2 days ago after initially presenting with thrombosed left AV shunt. She had temporary hemodialysis catheter placed and IR performed shuntogram, declot, and angioplasty for management of clotted fistula graft. Patency was restored with thrombolysis and angioplasty. Due to a high risk of rapid rethrombosis, recommended a minimum of three weeks of anticoagulation with Eliquis and catheter dialysis. She had dialysis yesterday and presented to the ED due to bleeding from around her temporary hemodialysis catheter. She returns to the ED again today due to continued bleeding from her temporary hemodialysis catheter site. She was treated with topical lidocaine with epi and topical tranexamic acid in ED, with still some noted bleeding from her temporary HD port site. Her hemoglobin on 08/26 was 8.4, and today her hemoglobin is 7.2. Will admit patient for further medical management. Past Medical History Cardiovascular: CAD, HTN, Hyperlipidemia Pulmonary: No pertinent hx CENTRAL NERVOUS SYSTEM: Other GI: GERD Heme/Onc: Anemia NOS Musculoskeletal: Osteoarthritis Rheumatologic: No pertinent hx Renal/: Chronic renal failure Endocrine: Hyperparathyroidism Past Surgical History Past Surgical History: Appendectomy, CABG, Cataract Removal, Total knee replacement, Tonsillectomy, Hysterectomy Family History Family History: Coronary Artery Disease, Hypertension Social History Smoke: No ALCOHOL: none Drugs: None Current Problem List Problem List Problems Medical Problems: (1) Anemia Status: Acute (2) Hemorrhage from dialysis catheter Status: Acute Current Medications Current Medications Current Medications Gelatin (Gelfoam Size 12-7mm) 1 each STK-MED ONCE .ROUTE ; Start 08/30/20 at 11:34; Stop 08/30/20 at 11:34; Status DC Gelatin (Gelfoam Size 12-7mm) 1 each 1X ONCE TP Last administered on 08/30/20at 12:00; Start 08/30/20 at 11:45; Stop 08/30/20 at 11:46; Status DC Tranexamic Acid (Cyklokapron) 1,000 mg 1X ONCE TOP Last administered on 08/30/20at 13:08; Start 08/30/20 at 12:45; Stop 08/30/20 at 12:46; Status DC Lidocaine/ Epinephrine (LIDOCAINE 2%-EPI 1:100,000 multi-dose) 20 ml 1X ONCE INJ ; Start 08/30/20 at 13:45; Stop 08/30/20 at 13:46; Status DC Active Scripts Active Ondansetron Odt (Ondansetron) 4 Mg Tab.rapdis 1 Tab PO PRN Q6-8HRS PRN Culturelle (Lactobacillus Rhamnosus Gg) 1 Each Cap.sprink 1 Cap PO BID 30 Days Metoprolol Tartrate 25 Mg Tablet 12.5 Mg PO BID 30 Days Reported Sensipar (Cinacalcet Hcl) 30 Mg Tablet 1 Tab PO DAILY 30 Days Calcium Acetate 667 Mg Tablet 667 Mg PO TIDWMEALS Amlodipine Besylate 10 Mg Tablet 10 Mg PO DAILY Atorvastatin Calcium 40 Mg Tablet 1 Tab PO DAILY Aspirin Ec (Aspirin) 81 Mg Tablet.dr 1 Tab PO DAILY Miralax (Polyethylene Glycol 3350) 17 Gm Powd.pack 1 Packet PO PRN DAILY PRN Helen-Homa Rx Tablet (Vit B Cmplx 3/Fa/Vit C/Biotin) 1 Each Tablet 1 Each PO DAILY Omeprazole 40 Mg Capsule.dr 40 Mg PO DAILY Allergies Allergies: Coded Allergies: No Known Drug Allergies (Unverified , 01/06/17) ROS Review of System GENERAL: No history of weight change, weakness or fevers. SKIN: No bruising, hair changes or rashes. EYES: No blurred, double or loss of vision. NOSE AND THROAT: No history of nosebleeds, hoarseness or sore throat. HEART: Denies chest pain, denies palpitations. LUNGS: Denies cough, hemoptysis, wheezing or shortness of breath. GASTROINTESTINAL: Denies nausea, vomiting, abdominal pain. GENITOURINARY: Denies dysuria, frequency, urgency, hematuria. NEUROLOGIC: Denies history of numbness, tingling, tremor or weakness. PSYCHIATRIC: Denies anxiety, denies depression. ENDOCRINE: No history of heat or cold intolerance, polyuria or polydipsia. EXTREMITIES: Denies muscle weakness, joint pain, pain on walking or stiffness. Physical Exam Physical Exam General: Alert, Oriented X3, Cooperative, No acute distress HEENT: PERRLA, EOMI Lungs: Clear to auscultation, Normal air movement Heart: RRR, no murmurs Cardiovascular: S1, S2 Abdomen: Normal bowel sounds, Soft, No tenderness Extremities: No clubbing, No cyanosis Skin: Temporary hemodialysis port to right chest wall, bandaged with seeping blood. No rashes, No significant lesion Neuro: Normal speech, Normal tone, Sensation intact Psych/Mental Status: Mental status NL, Mood NL Vitals Vitals Vital Signs Date Time Temp Pulse Resp B/P (MAP) Pulse Ox O2 Delivery O2 Flow Rate FiO2 08/30/20 12:00 98.7 92 18 118/57 (77) 98 Room Air 98.7 Labs Labs Laboratory Tests Test 08/30/20 13:50 White Blood Count 9.6 x10^3/uL (4.0-11.0) Red Blood Count 2.26 x10^6/uL (3.50-5.40) Hemoglobin 7.2 g/dL (12.0-15.5) Hematocrit 22.1 % (36.0-47.0) Mean Corpuscular Volume 98 fL (79-100) Mean Corpuscular Hemoglobin 32 pg (25-35) Mean Corpuscular Hemoglobin Concent 33 g/dL (31-37) Red Cell Distribution Width 13.3 % (11.5-14.5) Platelet Count 208 x10^3/uL (140-400) Neutrophils (%) (Auto) 65 % (31-73) Lymphocytes (%) (Auto) 17 % (24-48) Monocytes (%) (Auto) 9 % (0-9) Eosinophils (%) (Auto) 8 % (0-3) Basophils (%) (Auto) 1 % (0-3) Neutrophils # (Auto) 6.2 x10^3/uL (1.8-7.7) Lymphocytes # (Auto) 1.6 x10^3/uL (1.0-4.8) Monocytes # (Auto) 0.9 x10^3/uL (0.0-1.1) Eosinophils # (Auto) 0.8 x10^3/uL (0.0-0.7) Basophils # (Auto) 0.1 x10^3/uL (0.0-0.2) Laboratory Tests Test 08/30/20 13:50 White Blood Count 9.6 x10^3/uL (4.0-11.0) Red Blood Count 2.26 x10^6/uL (3.50-5.40) Hemoglobin 7.2 g/dL (12.0-15.5) Hematocrit 22.1 % (36.0-47.0) Mean Corpuscular Volume 98 fL (79-100) Mean Corpuscular Hemoglobin 32 pg (25-35) Mean Corpuscular Hemoglobin Concent 33 g/dL (31-37) Red Cell Distribution Width 13.3 % (11.5-14.5) Platelet Count 208 x10^3/uL (140-400) Neutrophils (%) (Auto) 65 % (31-73) Lymphocytes (%) (Auto) 17 % (24-48) Monocytes (%) (Auto) 9 % (0-9) Eosinophils (%) (Auto) 8 % (0-3) Basophils (%) (Auto) 1 % (0-3) Neutrophils # (Auto) 6.2 x10^3/uL (1.8-7.7) Lymphocytes # (Auto) 1.6 x10^3/uL (1.0-4.8) Monocytes # (Auto) 0.9 x10^3/uL (0.0-1.1) Eosinophils # (Auto) 0.8 x10^3/uL (0.0-0.7) Basophils # (Auto) 0.1 x10^3/uL (0.0-0.2) VTE Prophylaxis Ordered VTE Prophylaxis Devices: Yes VTE Pharmacological Prophylaxi: No Assessment/Plan Assessment/Plan End-stage renal disease on hemodialysis Acute blood loss anemia Plan: Will admit patient for observation Will transfuse 1 unit of packed red blood cells. Will hold Eliquis for now until bleeding can be stopped. Hemoglobin improved and bleeding can be stopped she may discharge tomorrow and resume Eliquis per her previously prescribed course. Consult nephrology if she needs to stay in the hospital to resume her scheduled hemodialysis. Resume home medications FEN - Renal diet PPX - SCDs FULL CODE Dispo - observation for above Justifications for Admission Other Justification BRIJESH NUNN MD Aug 30, 2020 15:07
[2020-08-30] MEDS ORDERED: BISACODYL 10 MG SUPP.RECT. PR PRN (15:30)
[2020-08-30] MEDS ORDERED: MAG HYDROX/ALUMINUM HYD/SIMETH 30 ML ORAL.SUSP PO PRN (15:30)
[2020-08-30] MEDS ORDERED: MAGNESIUM HYDROXIDE 2,400 MG/30 ML ORAL.SUSP. PO PRN (15:30)
[2020-08-30] MEDS ORDERED: CALCIUM CARBONATE 500 MG TAB.CHEW PO PRN (15:30)
[2020-08-30] MEDS ORDERED: ONDANSETRON PF 4 MG/2 ML VIAL. IVP PRN (15:30)
[2020-08-30 19:00] VITALS: BP 117/40
[2020-08-30] MEDS: ACETAMINOPHEN 325 MG TABLET. PO PRN (19:30)
[2020-08-30 20:51] VITALS: BP 114/46
[2020-08-30 21:40] VITALS: BP 139/40
[2020-08-30 23:00] VITALS: BP 124/55
[2020-08-31] VITALS (12 sets, daily range): BP systolic 118–156; BP diastolic 42–62
[2020-08-31 01:22] LABS: HEMATOCRIT 21.8 % (36.0-47.0); HEMOGLOBIN 7.3 g/dL (12.0-15.5)
[2020-08-31] MEDS: ACETAMINOPHEN 325 MG TABLET. PO PRN (07:43)
--- NOTE | 2020-08-31 10:28 | PDOC ---
[employer] PROGRESS NOTE Date of Service DOS: DATE: 08/31/20 TIME: 10:20 Chief Complaint Chief Complaint End-stage renal disease on hemodialysis Acute blood loss anemia Plan: Will hold Eliquis for now until bleeding can be stopped. If Hemoglobin improved and bleeding can be stopped she may discharge later today and resume Eliquis per her previously prescribed course. Consult nephrology if she needs to stay in the hospital to resume her scheduled hemodialysis. Resume home medications FEN - Renal diet PPX - SCDs FULL CODE Dispo - observation for above History of Present Illness History of Present Illness Ms. Schneider is a 85 old female with past medical history end-stage renal disease on hemodialysis Tuesday/Tuesday/Tuesday who presents to the ED with complaints of bleeding from her dialysis port site. She was just discharged from our service 2 days ago after initially presenting with thrombosed left AV shunt. She had temporary hemodialysis catheter placed and IR performed shuntogram, declot, and angioplasty for management of clotted fistula graft. Patency was restored with thrombolysis and angioplasty. Due to a high risk of rapid rethrombosis, recommended a minimum of three weeks of anticoagulation with Eliquis and catheter dialysis. She had dialysis yesterday and presented to the ED due to bleeding from around her temporary hemodialysis catheter. She returns to the ED again today due to continued bleeding from her temporary hemodialysis catheter site. She was treated with topical lidocaine with epi and topical tranexamic acid in ED, with still some noted bleeding from her temporary HD port site. Her hemoglobin on 08/26 was 8.4, and today her hemoglobin is 7.2. Admitted for further care. Hb 7.3 after transfusion. Has been oozing from tunneled site all night long. She is feeling well otherwise. Vitals/I&O Vitals/I&O: Vital Signs Date Time Temp Pulse Resp B/P (MAP) Pulse Ox O2 Delivery O2 Flow Rate FiO2 08/31/20 07:00 98.4 83 16 136/51 (79) 99 Room Air 98.4 08/30/20 23:00 1.0 I & O 08/30/20 08/30/20 08/31/20 15:00 23:00 07:00 Intake Total 15 ml 125 ml Output Total 0 ml 0 ml Balance 15 ml 125 ml Physical Exam Lungs: Clear Labs Labs: Laboratory Tests Test 08/30/20 13:50 08/31/20 01:00 White Blood Count 9.6 x10^3/uL (4.0-11.0) Red Blood Count 2.26 x10^6/uL (3.50-5.40) Hemoglobin 7.2 g/dL (12.0-15.5) 7.3 g/dL (12.0-15.5) Hematocrit 22.1 % (36.0-47.0) 21.8 % (36.0-47.0) Mean Corpuscular Volume 98 fL (79-100) Mean Corpuscular Hemoglobin 32 pg (25-35) Mean Corpuscular Hemoglobin Concent 33 g/dL (31-37) Red Cell Distribution Width 13.3 % (11.5-14.5) Platelet Count 208 x10^3/uL (140-400) Neutrophils (%) (Auto) 65 % (31-73) Lymphocytes (%) (Auto) 17 % (24-48) Monocytes (%) (Auto) 9 % (0-9) Eosinophils (%) (Auto) 8 % (0-3) Basophils (%) (Auto) 1 % (0-3) Neutrophils # (Auto) 6.2 x10^3/uL (1.8-7.7) Lymphocytes # (Auto) 1.6 x10^3/uL (1.0-4.8) Monocytes # (Auto) 0.9 x10^3/uL (0.0-1.1) Eosinophils # (Auto) 0.8 x10^3/uL (0.0-0.7) Basophils # (Auto) 0.1 x10^3/uL (0.0-0.2) Assessment and Plan Assessmemt and Plan Problems Medical Problems: (1) Anemia Status: Acute (2) Hemorrhage from dialysis catheter Status: Acute Comment Review of Relevant I have reviewed the following items jonah (where applicable) has been applied. Medications: Current Medications Medications (Trade) Dose Ordered Sig/Willard Route PRN Reason Start Time Stop Time Status Last Admin Dose Admin Gelatin (Gelfoam Size 12-7mm) 1 each 1X ONCE TP 08/30/20 11:45 08/30/20 11:46 DC 08/30/20 12:00 Tranexamic Acid (Cyklokapron) 1,000 mg 1X ONCE TOP 08/30/20 12:45 08/30/20 12:46 DC 08/30/20 13:08 Acetaminophen (Tylenol) 650 mg PRN Q6HRS PRN PO Headaches, Temp > 101.5F 08/30/20 15:30 08/31/20 07:43 Justifications for Admission Other Justification Bleeding from HD site, blood loss anemia MACK YOO MD Aug 31, 2020 10:28
[2020-08-31] MEDS ORDERED: TRANEXAMIC ACID 1,000 MG/10 ML VIAL. TOP ONE (10:30)
[2020-08-31] MEDS ORDERED: GELATIN SPONGE SIZE 12-7MM SPONGE. TP ONE (10:30)
[2020-08-31] MEDS ORDERED: AMINOCAPROIC ACID 500 MG TABLET. PO ONE (10:30)
[2020-08-31] MEDS ORDERED: CYANOCOBALAMIN (VITAMIN B-12) 1,000 MCG/ML VIAL IM ONE (17:30)
[2020-08-31] MEDS: VITAMIN B12,B9,B6 COMPLEX 1 TABLET. PO SCH (18:19)
[2020-08-31] MEDS ORDERED: POLYVINYL ALCOHOL 1.4% OPHTH SOLUTION 15ML BOTTLE. OU PRN (21:45)
[2020-09-01 00:30] VITALS: BP 150/62
[2020-09-01 01:28] VITALS: BP 155/59
[2020-09-01 02:05] VITALS: BP 150/50
[2020-09-01] MEDS: ACETAMINOPHEN 325 MG TABLET. PO PRN (02:18)
[2020-09-01 07:00] VITALS: BP 168/66
[2020-09-01] MEDS: VITAMIN B12,B9,B6 COMPLEX 1 TABLET. PO SCH (08:05)
[2020-09-01 08:20] LABS: HEMATOCRIT 24.8 % (36.0-47.0); HEMOGLOBIN 8.3 g/dL (12.0-15.5); RED BLOOD COUNT 2.62 x10^6/uL (3.50-5.40); RED CELL DISTRIBUTION WIDTH 13.9 % (11.5-14.5); WHITE BLOOD COUNT 8.1 x10^3/uL (4.0-11.0)
[2020-09-01 11:00] VITALS: BP 149/56
--- NOTE | 2020-09-01 11:29 | PDOC ---
Renal-Progress Notes Subjective Notes Notes TIRED History of Present Illness Hx of present illness STABLE Vitals Vitals Vital Signs Date Time Temp Pulse Resp B/P (MAP) Pulse Ox O2 Delivery O2 Flow Rate FiO2 09/01/20 11:00 97.8 70 18 149/56 (87) 98 Room Air 97.8 Weight Weight [ ] I.O. Intake and Output Intake and Output 09/01/20 07:00 Output Total 0 ml Balance 0 ml Output Urine Total 0 ml Labs Labs Laboratory Tests Test 08/31/20 16:30 09/01/20 06:35 Hematocrit 20.8 % (36.0-47.0) 24.8 % (36.0-47.0) White Blood Count 8.1 x10^3/uL (4.0-11.0) Red Blood Count 2.62 x10^6/uL (3.50-5.40) Hemoglobin 8.3 g/dL (12.0-15.5) Mean Corpuscular Volume 95 fL (79-100) Mean Corpuscular Hemoglobin 32 pg (25-35) Mean Corpuscular Hemoglobin Concent 34 g/dL (31-37) Red Cell Distribution Width 13.9 % (11.5-14.5) Platelet Count 199 x10^3/uL (140-400) Review of Systems Constitutional: yes: weakness, alert, oriented Ears/Nose/Throat: Yes: no symptom reported Eyes: Yes: no symptom reported Pulmonary: Yes no symptom reported Cardiovascular: Yes no symptom reported Gastrointestional: Yes: no symptom reported Genitourinary: Yes: no symptom reported Musculoskeletal: Yes: muscle stiffness Skin: Yes no symptom reported Psychiatric/Neurological: Yes: no symptom reported Endocrine: Yes: no symptom reported Physical Exam General Appearance: no apparent distress Skin: warm Respiratory: bilateral CTA Heart: S1S2, RRR Abdomen: soft, bowel sounds present Genitourinary: bladder flat Extremities: pulses present Neurology: alert, oriented Musculoskeletal: Osteoarthritis Assessment Assessment IMP ESRD ANEMIA RECENT LEFT ARM AVF THROMBECTOMY S/P RIGHT IJ TDC - BLEEDING FROM SITE-HEMOSTASIS ACHIEVED THIS AM HX OF HTN DECONDITIONING PLAN HD TODAY UF TO DW ARANESP AMBULATE WITH PT IF STABLE OK TO D/C WILL FOLLOW LONA ENGLAND MD Sep 01, 2020 11:29
--- NOTE | 2020-09-01 11:47 | SNU/HH DC ---
DISCHARGE WITH HOME HEALTH DISCHARGE INFORMATION: Final Diagnosis: Problems Medical Problems: (1) Anemia Status: Acute (2) Hemorrhage from dialysis catheter Status: Acute Condition on Discharge: Stable CODE STATUS: Code Status: Full HOME HEALTH: Face to Face: I certify this patient is under my care and that I, or a nurse practitioner or physician's offset assistant press operator working with me, had a face to face encounter that meets the physician face to face encounter requirements with this patient on []. Medical Complications: Other (ESRD) Senior Living For: Assess & Educate Safety RN For Eval/Treatment: Yes Physical Therapy For: Evalulation/Treatment Occupational Therapy For: Evaluation/Treatment Home Health Aide For: Self-care FLOUR MIXER HELPER For: Community Resources Pt Meets Homebound Status: Extreme weakness w/ amb. POST DISCHARGE ORDERS: Activity Instructions for Disc: Activity as tolerated Weight Bearing Status after Di: No restrictions Bathing Instructions: Shower-keep dressing dry DIET AFTER DISCHARGE: Cardiac Wound/Incision Care: Ice to area for comfort, Other, see below CHECKS AFTER DISCHARGE: Checks after discharge: Check blood press - daily TREATMENT/EQUIPMENT ORDERS: Adaptive Equipment Issued: None CERTIFICATION STATEMENT: Certification Statement: Certification Statement: Based on the above finding, I certify that this patient is confined to the home and needs intermittent fpc care, physical therapy and/or speech therapy, or continues to need occupational therapy.~ This patient is under my care, and I have initiated the establishment of the plan of care.~ This patient will be followed by myself or a community physician who will periodically review the plan of care. Home Meds Active Scripts Ondansetron (ONDANSETRON ODT) 4 Mg Tab.rapdis, 1 TAB PO PRN Q6-8HRS PRN for NAUSEA, #16 TAB Prov:MARGE DIEZ DO 08/29/20 Lactobacillus Rhamnosus Gg (CULTURELLE) 1 Each Cap.sprink, 1 CAP PO BID for probiotic for 30 Days, #60 CAP Prov:PATRICIA LOVELACE MD 12/25/19 Metoprolol Tartrate (METOPROLOL TARTRATE) 25 Mg Tablet, 12.5 MG PO BID for htn for 30 Days, #30 TAB Prov:SANIYA PEPE MD 07/14/18 Reported Medications Cinacalcet Hcl (SENSIPAR) 30 Mg Tablet, 1 TAB PO DAILY for rx for 30 Days, #30 TAB 0 Refills 11/30/19 Calcium Acetate (CALCIUM ACETATE) 667 Mg Tablet, 667 MG PO TIDWMEALS for DIALYSIS PATIENTS, CAP 11/30/19 Amlodipine Besylate (AMLODIPINE BESYLATE) 10 Mg Tablet, 10 MG PO DAILY for rx, TAB 11/30/19 Atorvastatin Calcium (ATORVASTATIN CALCIUM) 40 Mg Tablet, 1 TAB PO DAILY for rx, #30 TAB 5 Refills 11/30/19 Aspirin (ASPIRIN EC) 81 Mg Tablet.dr, 1 TAB PO DAILY for rx, #30 TAB 3 Refills 11/30/19 Polyethylene Glycol 3350 (MIRALAX) 17 Gm Powd.pack, 1 PACKET PO PRN DAILY PRN for CONSTIPATION, #30 PACKET 3 Refills 04/10/17 Vit B Cmplx 3/Fa/Vit C/Biotin (MARISELA-MELLY RX TABLET) 1 Each Tablet, 1 EACH PO DAILY, TAB 01/06/17 Omeprazole (OMEPRAZOLE) 40 Mg Capsule.dr, 40 MG PO DAILY, CAP 01/06/17 DELONTE WRIGHT III DO Sep 01, 2020 11:47
--- NOTE | 2020-09-01 11:48 | PDOC ---
[employer] PROGRESS NOTE Date of Service DOS: DATE: 09/01/20 TIME: 11:42 Chief Complaint Chief Complaint End-stage renal disease on hemodialysis Acute blood loss anemia Plan: Will hold Eliquis for now until bleeding can be stopped. If Hemoglobin improved and bleeding can be stopped she may discharge later today and resume Eliquis per her previously prescribed course. Consult nephrology if she needs to stay in the hospital to resume her scheduled hemodialysis. Resume home medications FEN - Renal diet PPX - SCDs FULL CODE Dispo - observation for above History of Present Illness History of Present Illness 09/01- Pt is happy to be seen by physician. Discussed probable discharge with home health pending dialysis. Discussed plan with staff: pt has complained of some lightheadedness, PT/OT may be necessary for increased strength. Pt appears to have tolerated transfusion well: hgb has risen to 8.3 today (7.3 on 08/31). Ms. Schneider is a 85 old female with past medical history end-stage renal disease on hemodialysis Tuesday/Tuesday/Tuesday who presents to the ED with complaints of bleeding from her dialysis port site. She was just discharged from our rvice 2 days ago after initially presenting with thrombosed left AV shunt. She had temporary hemodialysis catheter placed and IR performed shuntogram, declot, and angioplasty for management of clotted fistula graft. Patency was restored with thrombolysis and angioplasty. Due to a high risk of rapid rethrombosis, recommended a minimum of three weeks of anticoagulation with Eliquis and catheter dialysis. She had dialysis yesterday and presented to the ED due to bleeding from around her temporary hemodialysis catheter. She returns to the ED again today due to continued bleeding from her temporary hemodialysis catheter site. She was treated with topical lidocaine with epi and topical tranexamic acid in ED, with still some noted bleeding from her temporary HD port site. Her hemoglobin on 08/26 was 8.4, and on 08/30 her hemoglobin is 7.2. Admitted for further care. Hb 7.3 directly after transfusion. Has been oozing from tunneled site all night long. She is feeling well otherwise. Vitals/I&O Vitals/I&O: Vital Signs Date Time Temp Pulse Resp B/P (MAP) Pulse Ox O2 Delivery O2 Flow Rate FiO2 09/01/20 11:00 97.8 70 18 149/56 (87) 98 Room Air 97.8 I & O 08/31/20 08/31/20 09/01/20 15:00 23:00 07:00 Output Total 0 ml 0 ml Balance 0 ml 0 ml Physical Exam General: Alert, Oriented X3, Cooperative, No acute distress Lungs: Clear Abdomen: Soft Extremities: No clubbing, No cyanosis Skin: No rashes, No significant lesion Labs Labs: Laboratory Tests Test 08/31/20 16:30 09/01/20 06:35 Hematocrit 20.8 % (36.0-47.0) 24.8 % (36.0-47.0) White Blood Count 8.1 x10^3/uL (4.0-11.0) Red Blood Count 2.62 x10^6/uL (3.50-5.40) Hemoglobin 8.3 g/dL (12.0-15.5) Mean Corpuscular Volume 95 fL (79-100) Mean Corpuscular Hemoglobin 32 pg (25-35) Mean Corpuscular Hemoglobin Concent 34 g/dL (31-37) Red Cell Distribution Width 13.9 % (11.5-14.5) Platelet Count 199 x10^3/uL (140-400) Review of Systems Review of Systems: Pt has described some lightheadedness, Otherwise, no new complaints Assessment and Plan Assessmemt and Plan Assessment Anemia Hemmorrhage from dialysis catheter Plan Discharge with home health Dialysis as by nephrology consult, PT/OT Home meds DVT prophalaxis, Appreciate nephrology consult Comment Review of Relevant I have reviewed the following items jonah (where applicable) has been applied. Medications: Current Medications Medications (Trade) Dose Ordered Sig/Willard Route PRN Reason Start Time Stop Time Status Last Admin Dose Admin Vitamin B Complex (Folbic Tablet) 1 tab DAILY PO 08/31/20 17:30 09/01/20 08:05 Cyanocobalamin (Vitamin B-12) 1,000 mcg 1X ONCE IM 08/31/20 17:30 08/31/20 17:31 DC 08/31/20 18:19 Glycerin/ Hypromellose/ Polyethylene (Artificial Tears) 1 drop PRN Q15MIN PRN OU DRY EYE 08/31/20 21:45 08/31/20 22:33 Justifications for Admission Other Justification Bleeding from HD site, blood loss anemia CASTLE,NIAL K III DO Sep 01, 2020 11:48 am
[2020-09-01] MEDS ORDERED: DARBEPOETIN ALFA 60 MCG/0.3 ML DISP.SYRIN. SQ ONE (12:00)
--- NOTE | 2020-09-01 12:34 | NUR ---
SW following for discharge planning. Spoke with RN and reviewed chart. SW met with pt today. Pt stated she and her daughter live together in a [facility] apartment. Pt current with [facility] and out-patient dialysis at [facility], , (fax). Pt admitted over the weekend with bleeding from her newly placed fistula. Pt refusing SNU on discharge. Pt to discharge home today, 09/01 with resumption of [facility]. Kavitha Ariza notified. No further SW needs at this time.
[2020-09-01] MEDS ORDERED: DIALYSIS PATIENT. MC PRN (13:00)
[2020-09-01] MEDS ORDERED: IV NORMAL SALINE 1000ML BAG 1,000 ML IV PRN ×2 (13:00)
--- NOTE | 2020-09-01 13:23 | DS ---
DATE OF DISCHARGE: 09/01/2020 ADMISSION DIAGNOSES: Acute blood loss anemia; end-stage renal disease, on dialysis. DISCHARGE DIAGNOSES: Resolving anemia; chronic end-stage renal disease, on dialysis; status post left arm arteriovenous fistula with thrombectomy; status post right IJ temporary dialysis catheter that was bleeding that is resolving; hypertension; deconditioning. CONSULTS: Dr. Perdomo. HOSPITAL COURSE: The patient is a pleasant elderly female who presented with anemia, was bleeding from her temporary dialysis catheter site. We admitted her. We consulted Dr. Perdomo. She does have a fistula on the left arm. It was maturing. We are now using that and that seems to be working. I discussed the case with the nurse and the manager of case management this morning, I examined the patient, she is doing well. We plan to discharge. DISPOSITION: Home. ACTIVITY: As tolerated. DIET: Renal diet. MEDICATIONS: Please see the MRAD. TOTAL TIME: 32 minutes. DELONTE WRIGHT DO DR: LEONCIO/naif JOB#: [id number] / [id number]
--- NOTE | 2020-09-01 19:30 | NUR ---
Patient ready for discharge, her daughter is present to take her, dtr assisted with dressing pt, discharge instructions reviewed, dtr asks for ice pack for discomfort at temporary dialysis insertion site, pack given with ice, additional instruction added to her d/c paperwork to have towel between site and her ice pack, patient and daughter did acknowledge. left per W/C, report of all belongings with her.
== END 2020-09-01 19:35 | disposition home or self-care (01) | DRG 314 ==
LOC: ER 10:59 → 5 NORTH 14:50 → OBSVTOIN 09-01 08:38
PROVIDERS: ADMIT Family Medicine; ATTEND Family Medicine
PROC: 30233N1 Transfusion of Nonautologous Red Blood Cells into Peripheral Vein, Percutaneous Approach (ICD-10-PCS; principal; 2020-09-01)
PROC: 5A1D70Z Performance of Urinary Filtration, Intermittent, Less than 6 Hours Per Day (ICD-10-PCS; 2020-09-01)
DX: T82.838A Hemorrhage due to vascular prosthetic devices, implants and grafts, initial encounter (principal); N18.6 End stage renal disease; D62 Acute posthemorrhagic anemia; I12.0 Hypertensive chronic kidney disease with stage 5 chronic kidney disease or end stage renal disease; T82.818A Embolism due to vascular prosthetic devices, implants and grafts, initial encounter; T82.868A Thrombosis due to vascular prosthetic devices, implants and grafts, initial encounter; E78.5 Hyperlipidemia, unspecified; I25.10 Atherosclerotic heart disease of native coronary artery without angina pectoris; Y83.2 Surgical operation with anastomosis, bypass or graft as the cause of abnormal reaction of the patient, or of later complication, without mention of misadventure at the time of the procedure; Y84.1 Kidney dialysis as the cause of abnormal reaction of the patient, or of later complication, without mention of misadventure at the time of the procedure; Z82.49 Family history of ischemic heart disease and other diseases of the circulatory system; Z90.710 Acquired absence of both cervix and uterus; Z95.1 Presence of aortocoronary bypass graft; Z96.659 Presence of unspecified artificial knee joint; Z99.2 Dependence on renal dialysis; E21.3 Hyperparathyroidism, unspecified; K21.9 Gastro-esophageal reflux disease without esophagitis; M19.90 Unspecified osteoarthritis, unspecified site; Z90.49 Acquired absence of other specified parts of digestive tract
CPT/HCPCS: 36415; 36430; 71045; 85014; 85018; 85025; 85027; 86850; 86900; 86901; 86920; 99285; G0378; G0379; J0881; J3420; J3490; P9016

== ENCOUNTER → 2021-03-03 | Outpatient (CLI) | payer MEDICARE, OTHER ==
[~2021-03-03] MED LIST changes: -OMEP40CA45 PO; +OMEP40CA7 PO; +REGADENOSON 0.4 MG/5 ML DISP.SYRIN. IV ONE; -VALS1TAB22 PO; +VALS1TAB23 PO
--- NOTE | 2021-03-03 14:14 | CARD ---
MR#: [id number] Date of Study: 03/03/2021 Ordering Physician: FLYNN JEWELL, Referring Physician: FLYNN JEWELL, Tech: Amy Rosales [facility] APPROVED REPORT EXAM: Two-dimensional and M-mode echocardiogram with Doppler and color Doppler. Other Information Quality : AverageHR: 79bpm Rhythm : NSR INDICATION Murmur RISK FACTORS Hypertension Hyperlipidemia 2D DIMENSIONS RVDd3.6 (2.9-3.5cm)Left Atrium(2D)3.0 (1.6-4.0cm) IVSd1.0 (0.7-1.1cm)Aortic Root(2D)3.3 (2.0-3.7cm) LVDd3.9 (3.9-5.9cm)LVOT Diameter2.1 (1.8-2.4cm) PWd1.0 (0.7-1.1cm)LVDs2.4 (2.5-4.0cm) FS (%) 38.8 %SV46.0 ml LVEF(%)69.9 (>50%) Aortic Valve AoV Peak Kev.203.4cm/sAoV VTI49.5cm AO Peak GR.16.5mmHgLVOT Peak Kev.114.2cm/s AO Mean GR.9mmHgAVA (VMAX)1.96cm2 Mitral Valve MV E Gwkoosqi25.6cm/sMV DECEL EMLF100jf MV A Xzkemyns917.7cm/sE/A Ratio0.6 Tricuspid Valve TR P. Slrwhwzo721nk/sTR Peak Gr.29mmHg LEFT VENTRICLE The left ventricle is normal size. There is borderline to mild concentric left ventricular hypertroph y. The left ventricular systolic function is normal and the ejection fraction is within normal range. Estimated ejection fraction 60-65%. There is normal LV segmental wall motion. Transmitral Doppler fl ow pattern is Grade I-abnormal relaxation pattern. RIGHT VENTRICLE The right ventricle is normal size. There is normal right ventricular wall thickness. The right ventr icular systolic function is normal. ATRIA The left atrium size is normal. The right atrium size is normal. The interatrial septum is intact wit h no evidence for an atrial septal defect or patent foramen ovale as noted on 2-D or Doppler imaging. AORTIC VALVE The aortic valve is sclerotic with restricted leaflet motion. Doppler and Color Flow revealed trace a ortic regurgitation. There is no significant aortic valvular stenosis. MITRAL VALVE The mitral valve is normal in structure and function. There is no evidence of mitral valve prolapse. There is no mitral valve stenosis. Doppler and Color-flow revealed trace mitral regurgitation. TRICUSPID VALVE The tricuspid valve is normal in structure and function. Doppler and Color Flow revealed trace tricus pid regurgitation. Estimated PAP 32 mmHg. There is no tricuspid valve stenosis. PULMONIC VALVE Doppler and Color Flow revealed mild pulmonic valvular regurgitation. There is no pulmonic valvular s tenosis. GREAT VESSELS The aortic root is normal in size. The ascending aorta is normal in size. The IVC is normal in size a nd collapses >50% with inspiration. PERICARDIAL EFFUSION There is no evidence of significant pericardial effusion. Critical Notification Critical Value: No <Conclusion> The left ventricular systolic function is normal and the ejection fraction is within normal range. E stimated ejection fraction 60-65%. There is normal LV segmental wall motion. Signed by : Eugenio Aquino, Electronically Approved : 03/03/2021 14:13:53
--- NOTE | 2021-03-04 23:12 | RAD ---
MR#: [id number] Date of Study: 03/03/2021 Ordering Physician: FLYNN JEWELL, Referring Physician: JOHN POLANCO Tech: RT Vinicio Henning) (N) APPROVED REPORT Test Type: Pharmacological Stress Nurse/Tech: KANDACE KENDALL Test Indications: NSTEMI Cardiac History: CABG, HTN, NSTEMI- SEE EMR Medications: SEE EMR Medical History: SEE EMR Resting ECG: SR Resting Heart Rate: 64 bpm Resting Blood Pressure: 171/62mmHg Pretest Chest Pain: No chest pain Nurse/Tech Notes S1,S2, BP ELEVATED, LUNGS CTA, DENIED SOA OR CP AT REST. Consent: The procedure was explained to the patient in lay terms. Informed consent was witnessed. Jer eout was entered into [employer]. History and Stress Test performed by Jessica Cook, JOHNTCRadha, ARRT (R) (N) Pharm. Details Pharmacologic stress testing was performed using 0.4mg per 5ml of regadenoson given intravenously ove r 7-10 seconds. Stress Symptoms PT HAD SHORTNESS OF AIR DURING INITIAL TESTING, SLOWLY SUBSIDED, DENIED CHEST PAIN. AFTER TESTING THE PT GOT NAUSEATED AND ALSO HAD A HEADACHE. SHE STATED SHE WAS SLIGHTLY LIGHT-HEADED. PT OBSERVED IN [facility], UNTIL PT WAS FEELING BETTER. POST EXERCISE Reason for Termination: Infusion complete Max HR: 98 bpm Max Blood Pressure: 140/59mmHg Blood Pressure response to exercise: Normal blood pressure response during stress. Heart Rate response to exercise: WNL Chest Pain: No. Arrhythmia: No. NO SIGNIFICANT CHANGES NOTED FROM BASELINE EKG. ST Change: No. INTERPRETATION Stress EKG Conclusion: No evidence of stress induced EKG changes. Imaging Protocol IMAGE PROTOCOL: Rest Tc-99m/stress Tc-99m 1 day Rest: Stress: Viability: Radiopharm.Tc99m ZvxkxrppnUq44i Sestamibi Pldo08mOw 31mCi Duration 15min. 10min. Img Date 03/03/2021 03/03/2021 Rest Admin Site:IV - Right HandAdministrator:RT Vinicio Henning)(N) Stress Admin Site: IV - Right HandAdministrator: JOHN MillerTCRadha, ARRT (R)(N) STRESS DATA End Diast. Vol.65.0mlAv. Heart Rate66.0bpm End Syst. Vol.14.0mlCO Index BSA0.0L/min Myocardial Vtbs162.0gEject. Imvvpyxh12.0% Stress Rates Pk. Fill Rate2.71EDV/secLVtime Pk. Fill 250.98msec Pk. Empty Rate3.87ESV/secLVtime Pk. Wntmi340.06msec 07/13 Pk. Fill1.34EDV/sec Stress Scores Regional WT0.00Summed WT0.00 Regional WM0.00Summed WM6.00 The rest and stress images show normal perfusion, normal contraction and thickening. LV Perf. Quant 17 Seg. SSS2.00 17 Seg. SRS1.00 17 Seg. SDS1.00 Stress Defect Extent (% LAD)0.00Rest Defect Extent (% LAD)0.00Rev. Defect Extent (% LAD)0.00 Stress Defect Extent (% LCX) 31.30Rest Defect Extent (% LCX)13.80Rev. Defect Extent (% LCX)7.50 Stress Defect Extent (% RCA)0.00Rest Defect Extent (% RCA)0.00Rev. Defect Extent (% RCA)0.00 Stress Defect Extent (% CLIFF)5.40Rest Defect Extent (% CLIFF)2.40Rev. Defect Extent (% CLIFF)1.30 Other Information Quality:Average Risk Assessment: Low Risk Conclusion 1. No evidence of EKG changes with stress testing. 2. Normal perfusion at stress/rest. 3. Low risk study. 4. EF > 60%. Signed by : Eugenio Aquino, Electronically Approved : 03/04/2021 23:12:21
== END ==
LOC: NM 09:12
PROVIDERS: ATTEND Internal Medicine Cardiovascular Disease
DX: I08.8 Other rheumatic multiple valve diseases (principal); I21.4 Non-ST elevation (NSTEMI) myocardial infarction; R01.1 Cardiac murmur, unspecified
CPT/HCPCS: 78452; 93017; 93306; A9500; J2785

== ENCOUNTER 2021-03-13 09:49 | Observation (INO) | payer MEDICARE, OTHER ==
[~2021-03-13] VITALS: Ht 167.6 cm; Wt 67.0 kg
[~2021-03-13 09:49] MED LIST changes: -REGADENOSON 0.4 MG/5 ML DISP.SYRIN. IV ONE
--- NOTE | 2021-03-13 10:35 | ED.ADGEN ---
Past Medical History Past Medical History: Arthritis, CAD, Hypertension, Pneumonia, Renal Disease, Renal Failure Additional Past Medical Histor: ESRD Past Surgical History: Coronary Bypass Surgery, Hysterectomy, Knee Replacement, Other Additional Past Surgical Histo: ovarian cyst, cataracts; bilateral popliteal bypass Smoking Status: Never Smoker Alcohol Use: None Drug Use: None General Adult EDM: Chief Complaint: COUGH HPI: HPI: Patient is a 86 year old female coming in for posttussive emesis. Patient states she has been coughing up clear mucus. Also has been having diarrhea for the past 2 or 3 weeks. Denies any blood in her diarrhea. Today had some breath that was worse with exertion have difficulty walking. Patient had a stress test done about 2 weeks ago. She is unsure of the results. Received both of her Covid vaccines in the spring. Review of Systems: Review of Systems: All other systems within normal limits except for as noted in the HPI Current Medications: Current Medications Medications (Trade) Dose Ordered Sig/Willard Start Time Stop Time Status Last Admin Dose Admin Calcium Gluconate (Calcium Gluconate) 1,000 mg 1X ONCE 03/13/21 13:15 03/13/21 13:17 DC Dextrose (Dextrose 50%-Water Syringe) 25 gm 1X ONCE 03/13/21 13:15 03/13/21 13:17 DC Insulin Human Regular (HumuLIN R VIAL) 10 unit 1X ONCE 03/13/21 13:15 03/13/21 13:17 DC Sodium Polystyrene Sulfonate (Kayexalate) 30 gm 1X ONCE 03/13/21 13:15 03/13/21 13:17 DC Allergies: Allergies: Allergies Coded Allergies Type Severity Reaction Last Updated Verified No Known Drug Allergies 01/06/17 No Physical Exam: PE: Constitutional: Well developed, well nourished, no acute distress, non-toxic appearance. [] HENT: Normocephalic, atraumatic, bilateral external ears normal, nose normal. [] Eyes: PERRLA, conjunctiva normal, no discharge. [] Neck: No rigidity, supple, no stridor. [] Cardiovascular: Regular rate and rhythm, brisk cap refill [] Lungs & Thorax: Non labored symmetric respirations, no tachypnea or respiratory distress [] Abdomen: Soft, nondistended. Skin: Warm, dry, no erythema, no rash. [] Back: Unremarkable Extremities: No deformities, range of motion grossly intact, no lower extremity edema [] Neurologic: Alert and oriented X 3, no focal deficits noted. [] Psychologic: Affect normal, judgement normal, mood normal. [] Current Patient Data: Labs: Laboratory Tests Test 03/13/21 11:04 White Blood Count 5.5 x10^3/uL (4.0-11.0) Red Blood Count 2.95 x10^6/uL (3.50-5.40) L Hemoglobin 9.6 g/dL (12.0-15.5) L Hematocrit 28.7 % (36.0-47.0) L Mean Corpuscular Volume 97 fL (79-100) Mean Corpuscular Hemoglobin 32 pg (25-35) Mean Corpuscular Hemoglobin Concent 33 g/dL (31-37) Red Cell Distribution Width 15.7 % (11.5-14.5) H Platelet Count 221 x10^3/uL (140-400) Neutrophils (%) (Auto) 65 % (31-73) Lymphocytes (%) (Auto) 13 % (24-48) L Monocytes (%) (Auto) 17 % (0-9) H Eosinophils (%) (Auto) 5 % (0-3) H Basophils (%) (Auto) 1 % (0-3) Neutrophils # (Auto) 3.6 x10^3/uL (1.8-7.7) Lymphocytes # (Auto) 0.7 x10^3/uL (1.0-4.8) L Monocytes # (Auto) 0.9 x10^3/uL (0.0-1.1) Eosinophils # (Auto) 0.3 x10^3/uL (0.0-0.7) Basophils # (Auto) 0.0 x10^3/uL (0.0-0.2) Sodium Level 134 mmol/L (136-145) L Potassium Level 7.4 mmol/L (3.5-5.1) *H Chloride Level 95 mmol/L (98-107) L Carbon Dioxide Level 26 mmol/L (21-32) Anion Gap 13 (6-14) Blood Urea Nitrogen 96 mg/dL (7-20) H Creatinine 14.8 mg/dL (0.6-1.0) H Estimated GFR (Cockcroft-Gault) 2.8 BUN/Creatinine Ratio 6 (6-20) Glucose Level 80 mg/dL (70-99) Calcium Level 9.2 mg/dL (8.5-10.1) Phosphorus Level 8.9 mg/dL (2.6-4.7) H Magnesium Level 2.9 mg/dL (1.8-2.4) H Total Bilirubin 0.6 mg/dL (0.2-1.0) Aspartate Amino Transferase (AST) 14 U/L (15-37) L Alanine Aminotransferase (ALT) 18 U/L (14-59) Alkaline Phosphatase 83 U/L (46-116) Myoglobin 518 ng/mL (9-82) H Troponin I Quantitative < 0.017 ng/mL (0.000-0.055) NL-Daf-C-Type Natriuretic Peptide 3244 pg/mL (0-449) H Total Protein 6.6 g/dL (6.4-8.2) Albumin 3.5 g/dL (3.4-5.0) Albumin/Globulin Ratio 1.1 (1.0-1.7) Lipase 224 U/L (73-393) Laboratory Tests 03/13/21 11:04 Laboratory Tests 03/13/21 11:04 Vital Signs: Vital Signs Date Time Temp Pulse Resp B/P (MAP) Pulse Ox O2 Delivery O2 Flow Rate FiO2 03/13/21 12:05 68 225/92 (136) 97 Room Air 03/13/21 10:06 98.9 16 98.9 EKG: EKG: Sinus rhythm, heart rate 70/min, normal axis, no ST elevation or depression, no ectopy. [] Heart Score: C/O Chest Pain: No HEART Score for Chest Pain: HEART Score for Chest Pain Response (Comments) Value History Slighlty/Non-Suspicious 0 ECG Nonspecific Repolarizatio 1 Age > 65 2 Risk Factors 1 or 2 Risk Factors 1 Troponin < Normal Limit 0 Total 4 Risk Factors: Risk Factors: DM, Current or recent (<one month) smoker, HTN, HLP, family history of CAD, obesity. Risk Scores: Score 0 - 3: 2.5% MACE over next 6 weeks - Discharge Home Score 4 - 6: 20.3% MACE over next 6 weeks - Admit for Clinical Observation Score 7 - 10: 72.7% MACE over next 6 weeks - Early Invasive Strategies Radiology/Procedures: Radiology/Procedures: [facility] [address] [place] [address] IMAGING REPORT Signed PATIENT: ROBIN VICENTE ACCOUNT: [id number] : 1935 LOCATION: ER AGE: 86 SEX: F EXAM STATUS: REG ER ORD. PHYSICIAN: HUGO PAUL MD REASON: cough PROCEDURE: CHEST PA & LATERAL PA and lateral views of the chest. Comparison: 08/29/2020. Indication: Cough Findings: Sternotomy wires and CABG clips are reidentified. Right internal jugular hemodialysis catheter is been removed. Left upper extremity vascular stents are identified. Persistent degenerative change of the left shoulder. The heart size is enlarged but stable. No pneumothorax or effusion. No air space or intersti tial disease. The bony structures are intact. Impression: 1. No acute cardiopulmonary process. Electronically signed by: Akbar Colon MD (03/13/2021 11:24 AM) [id number] DICTATED and SIGNED BY: AKBAR COLON MD DATE: 03/13/21 [id number] [] Course & Med Decision Making: Course & Med Decision Making Pertinent Labs and Imaging studies reviewed. (See chart for details) [] Discussed with nephrology, would not be able to do hemodialysis for a couple of hours so hyperkalemia treated with calcium and insulin. Dragon Disclaimer: Morena Disclaimer: This electronic medical record was generated, in whole or in part, using a voice recognition dictation system. Departure Departure Impression: Primary Impression: Hyperkalemia Disposition: ADMITTED INPATIENT Admitting Physician: MAGDIEL Condition: GUARDED Referrals: MAGNO MANCILLA MD (PCP) HUGO PAUL MD Mar 13, 2021 10:35
[2021-03-13 11:20] LABS: BASO % 1 % (0-3); EOS # 0.3 x10^3/uL (0.0-0.7); EOS % 5 % (0-3); HEMATOCRIT 28.7 % (36.0-47.0); HEMOGLOBIN 9.6 g/dL (12.0-15.5); LYMPH # 0.7 x10^3/uL (1.0-4.8); LYMPH % 13 % (24-48); MEAN CORPUSCULAR HEMOGLOBIN 32 pg (25-35); MEAN CORPUSCULAR HGB CONC 33 g/dL (31-37); MEAN CORPUSCULAR VOLUME 97 fL (79-100); MONO # 0.9 x10^3/uL (0.0-1.1); MONO % 17 % (0-9); NEUT # 3.6 x10^3/uL (1.8-7.7); NEUT % 65 % (31-73); PLATELET COUNT 221 x10^3/uL (140-400); RED BLOOD COUNT 2.95 x10^6/uL (3.50-5.40); RED CELL DISTRIBUTION WIDTH 15.7 % (11.5-14.5); WHITE BLOOD COUNT 5.5 x10^3/uL (4.0-11.0)
--- NOTE | 2021-03-13 11:27 | RAD ---
PA and lateral views of the chest. Comparison: 08/29/2020. Indication: Cough Findings: Sternotomy wires and CABG clips are reidentified. Right internal jugular hemodialysis catheter is bee n removed. Left upper extremity vascular stents are identified. Persistent degenerative change of the left shoulder. The heart size is enlarged but stable. No pneumothorax or effusion. No air space or interstitial disease. The bony structures are intact. Impression: 1. No acute cardiopulmonary process. Electronically signed by: Akbar Colon MD (03/13/2021 11:24 AM) [id number]
[2021-03-13 11:48] LABS: ALBUMIN 3.5 g/dL (3.4-5.0); ALBUMIN/GLOBULIN RATIO 1.1 (1.0-1.7); CALCIUM 9.2 mg/dL (8.5-10.1); CREATININE 14.8 mg/dL (0.6-1.0); GFR 2.8; MAGNESIUM 2.9 mg/dL (1.8-2.4); PHOSPHORUS 8.9 mg/dL (2.6-4.7); TOTAL BILIRUBIN 0.6 mg/dL (0.2-1.0); TOTAL PROTEIN 6.6 g/dL (6.4-8.2)
[2021-03-13 11:52] LABS: POTASSIUM 7.4 mmol/L (3.5-5.1)
[2021-03-13] MEDS ORDERED: CALCIUM GLUCONATE 1,000 MG/10 ML VIAL. IVP ONE (13:15)
[2021-03-13] MEDS ORDERED: SODIUM POLYSTYRENE SULFON/SORB 15 GM/60 ML ORAL.SUSP. PO ONE (13:15)
[2021-03-13] MEDS ORDERED: DEXTROSE 50% 25 GM / 50ML DISP.SYRIN. IV ONE (13:15)
[2021-03-13] MEDS ORDERED: INSULIN REGULAR 100 UNIT/ML 3ML VIAL. IV ONE (13:15)
--- NOTE | 2021-03-13 13:15 | PDOC1 ---
History and Physical Date of Admission Date of Admission DATE: 03/13/21 TIME: 13:15 Identification/Chief Complaint Chief Complaint COUGH WITH EMESIS, HIGH K diarrhea for the past 2 or 3 weeks. History of Present Illness History of Present Illness 86 year old female seen in ER posttussive emesis. AND K elevation of 7.4 /she has been coughing up clear mucus. Also has been having diarrhea for the past 2 or 3 weeks. no blood in her diarrhea. Today had some breath that was worse with exertion have difficulty walking. needs Emergent dialysis today - severe Hyperkalemia CAD - s/p CABG 01/2017, clinically stable. / Anemia of chronic renal disease Past Medical History Past Medical History Past Medical History Past Medical History: Arthritis, CAD, Hypertension, Pneumonia, Renal Disease, Renal Failure Additional Past Medical Histor: ESRD Past Surgical History: Coronary Bypass Surgery, Hysterectomy, Knee Replacement, Other Additional Past Surgical Histo: ovarian cyst, cataracts; bilateral popliteal bypass Smoking Status: Never Smoker Alcohol Use: None Drug Use: None fhx htn Cardiovascular: CAD, HTN, Hyperlipidemia Pulmonary: No pertinent hx CENTRAL NERVOUS SYSTEM: Other GI: GERD Heme/Onc: Anemia NOS Musculoskeletal: Osteoarthritis Rheumatologic: No pertinent hx Renal/: Chronic renal failure Endocrine: Hyperparathyroidism Past Surgical History Past Surgical History: Appendectomy, CABG, Cataract Removal, Total knee replacement, Tonsillectomy, Hysterectomy Family History Family History: Coronary Artery Disease, Hypertension Social History Smoke: No ALCOHOL: none Drugs: None Current Medications Current Medications Active Scripts Active Ondansetron Odt (Ondansetron) 4 Mg Tab.rapdis 1 Tab PO PRN Q6-8HRS PRN Culturelle (Lactobacillus Rhamnosus Gg) 1 Each Cap.sprink 1 Cap PO BID 30 Days Metoprolol Tartrate 25 Mg Tablet 12.5 Mg PO BID 30 Days Reported Sensipar (Cinacalcet Hcl) 30 Mg Tablet 1 Tab PO DAILY 30 Days Calcium Acetate 667 Mg Tablet 667 Mg PO TIDWMEALS Amlodipine Besylate 10 Mg Tablet 10 Mg PO DAILY Atorvastatin Calcium 40 Mg Tablet 1 Tab PO DAILY Aspirin Ec (Aspirin) 81 Mg Tablet.dr 1 Tab PO DAILY Miralax (Polyethylene Glycol 3350) 17 Gm Powd.pack 1 Packet PO PRN DAILY PRN [facility] Rx Tablet (Vit B Cmplx 3/Fa/Vit C/Biotin) 1 Each Tablet 1 Each PO DAILY Omeprazole 40 Mg Capsule.dr 40 Mg PO DAILY Allergies Allergies: Coded Allergies: No Known Drug Allergies (Unverified , 01/06/17) ROS General: YES: Fatigue, Appetite PSYCHOLOGICAL ROS: No: Anxiety, Behavioral Disorder, Concentration difficultie, Decreased libido, Depression, Disorientation, Hallucinations, Hostility, Irritablity, Memory difficulties, Mood Swings, Obsessive thoughts, Physical abuse, Sexual abuse, Sleep disturbances, Suicidal ideation, Other Eyes: No Blurry vision, No Decreased vision, No Double vision, No Dry eyes, No Excessive tearing, No Eye Pain, No Itchy Eyes, No Loss of vision, No Photophobia, No Scotomata, No Uses contacts, No Uses glasses, No Other HEENT: No: Heacaches, Visual Changes, Hearing change, Nasal congestion, Nasal discharge, Oral lesions, Sinus pain, Sore Throat, Epistaxis, Sneezing, Snoring, Tinnitus, Vertigo, Vocal changes, Other ALLERGY AND IMMUNOLOGY: No: Hives, Insect Bite Sensitivity, Itchy/Watery Eyes, Nasal Congestion, Post Nasal Drip, Seasonal Allergies, Other Hematological and Lymphatic: No: Bleeding Problems, Blood Clots, Blood Transfusions, Brusing, Night Sweats, Pallor, Swollen Lymph Nodes, Other Respiratory: YES: Cough, Shortness of breath Gastrointestinal: Yes Vomiting; No Nausea, No Abdominal Pain, No Diarrhea, No Constipation, No Melena, No Hematochezia, No Other Genitourinary: No Dysuria, No Frequency, No Incontinence, No Hematuria, No Retention, No Discharge, No Urgency, No Pain, No Flank Pain, No Other, No , No , No , No , No , No , No Musculoskeletal: Yes Joint Stiffness; No Gait Disturbance, No Joint Pain, No Joint Swelling, No Muscle Pain, No Muscular Weakness, No Pain In:, No Swelling In:, No Other Neurological: Yes Confusion; No Behavorial Changes, No Bowel/Bladder ControlChng, No Dizziness, No Gait Disturbance, No Headaches, No Impaired Coord/balance, No Memory Loss, No Numbness/Tingling, No Seizures, No Speech Problems, No Tremors, No Visual Changes, No Weakness, No Other Skin: Yes Dry Skin; No Eczema, No Hair Changes, No Lumps, No Mole Changes, No Mottling, No Nail Changes, No Pruritus, No Rash, No Skin Lesion Changes, No Other, No Acne Physical Exam General: Alert, Oriented X3, Cooperative, No acute distress HEENT: Atraumatic, PERRLA, EOMI, Mucous membr. moist/pink Lungs: Clear to auscultation, Normal air movement Heart: RRR Breasts: Not examined Abdomen: Normal bowel sounds, Soft Rectal Exam: not examined Extremities: No cyanosis Neuro: Normal speech, Cranial nerves 3-12 NL Psych/Mental Status: Mental status NL, Mood NL Vitals Vitals Vital Signs Date Time Temp Pulse Resp B/P (MAP) Pulse Ox O2 Delivery O2 Flow Rate FiO2 03/13/21 12:05 68 225/92 (136) 97 Room Air 03/13/21 10:06 98.9 16 98.9 Labs Labs Laboratory Tests Test 03/13/21 11:04 White Blood Count 5.5 x10^3/uL (4.0-11.0) Red Blood Count 2.95 x10^6/uL (3.50-5.40) Hemoglobin 9.6 g/dL (12.0-15.5) Hematocrit 28.7 % (36.0-47.0) Mean Corpuscular Volume 97 fL (79-100) Mean Corpuscular Hemoglobin 32 pg (25-35) Mean Corpuscular Hemoglobin Concent 33 g/dL (31-37) Red Cell Distribution Width 15.7 % (11.5-14.5) Platelet Count 221 x10^3/uL (140-400) Neutrophils (%) (Auto) 65 % (31-73) Lymphocytes (%) (Auto) 13 % (24-48) Monocytes (%) (Auto) 17 % (0-9) Eosinophils (%) (Auto) 5 % (0-3) Basophils (%) (Auto) 1 % (0-3) Neutrophils # (Auto) 3.6 x10^3/uL (1.8-7.7) Lymphocytes # (Auto) 0.7 x10^3/uL (1.0-4.8) Monocytes # (Auto) 0.9 x10^3/uL (0.0-1.1) Eosinophils # (Auto) 0.3 x10^3/uL (0.0-0.7) Basophils # (Auto) 0.0 x10^3/uL (0.0-0.2) Sodium Level 134 mmol/L (136-145) Potassium Level 7.4 mmol/L (3.5-5.1) Chloride Level 95 mmol/L (98-107) Carbon Dioxide Level 26 mmol/L (21-32) Anion Gap 13 (6-14) Blood Urea Nitrogen 96 mg/dL (7-20) Creatinine 14.8 mg/dL (0.6-1.0) Estimated GFR (Cockcroft-Gault) 2.8 BUN/Creatinine Ratio 6 (6-20) Glucose Level 80 mg/dL (70-99) Calcium Level 9.2 mg/dL (8.5-10.1) Phosphorus Level 8.9 mg/dL (2.6-4.7) Magnesium Level 2.9 mg/dL (1.8-2.4) Total Bilirubin 0.6 mg/dL (0.2-1.0) Aspartate Amino Transf (AST/SGOT) 14 U/L (15-37) Alanine Aminotransferase (ALT/SGPT) 18 U/L (14-59) Alkaline Phosphatase 83 U/L (46-116) Myoglobin 518 ng/mL (9-82) Troponin I Quantitative < 0.017 ng/mL (0.000-0.055) PV-Uhk-J-Type Natriuretic Peptide 3244 pg/mL (0-449) Total Protein 6.6 g/dL (6.4-8.2) Albumin 3.5 g/dL (3.4-5.0) Albumin/Globulin Ratio 1.1 (1.0-1.7) Lipase 224 U/L (73-393) Laboratory Tests Test 03/13/21 11:04 White Blood Count 5.5 x10^3/uL (4.0-11.0) Red Blood Count 2.95 x10^6/uL (3.50-5.40) Hemoglobin 9.6 g/dL (12.0-15.5) Hematocrit 28.7 % (36.0-47.0) Mean Corpuscular Volume 97 fL (79-100) Mean Corpuscular Hemoglobin 32 pg (25-35) Mean Corpuscular Hemoglobin Concent 33 g/dL (31-37) Red Cell Distribution Width 15.7 % (11.5-14.5) Platelet Count 221 x10^3/uL (140-400) Neutrophils (%) (Auto) 65 % (31-73) Lymphocytes (%) (Auto) 13 % (24-48) Monocytes (%) (Auto) 17 % (0-9) Eosinophils (%) (Auto) 5 % (0-3) Basophils (%) (Auto) 1 % (0-3) Neutrophils # (Auto) 3.6 x10^3/uL (1.8-7.7) Lymphocytes # (Auto) 0.7 x10^3/uL (1.0-4.8) Monocytes # (Auto) 0.9 x10^3/uL (0.0-1.1) Eosinophils # (Auto) 0.3 x10^3/uL (0.0-0.7) Basophils # (Auto) 0.0 x10^3/uL (0.0-0.2) Sodium Level 134 mmol/L (136-145) Potassium Level 7.4 mmol/L (3.5-5.1) Chloride Level 95 mmol/L (98-107) Carbon Dioxide Level 26 mmol/L (21-32) Anion Gap 13 (6-14) Blood Urea Nitrogen 96 mg/dL (7-20) Creatinine 14.8 mg/dL (0.6-1.0) Estimated GFR (Cockcroft-Gault) 2.8 BUN/Creatinine Ratio 6 (6-20) Glucose Level 80 mg/dL (70-99) Calcium Level 9.2 mg/dL (8.5-10.1) Phosphorus Level 8.9 mg/dL (2.6-4.7) Magnesium Level 2.9 mg/dL (1.8-2.4) Total Bilirubin 0.6 mg/dL (0.2-1.0) Aspartate Amino Transf (AST/SGOT) 14 U/L (15-37) Alanine Aminotransferase (ALT/SGPT) 18 U/L (14-59) Alkaline Phosphatase 83 U/L (46-116) Myoglobin 518 ng/mL (9-82) Troponin I Quantitative < 0.017 ng/mL (0.000-0.055) MO-Xxk-S-Type Natriuretic Peptide 3244 pg/mL (0-449) Total Protein 6.6 g/dL (6.4-8.2) Albumin 3.5 g/dL (3.4-5.0) Albumin/Globulin Ratio 1.1 (1.0-1.7) Lipase 224 U/L (73-393) VTE Prophylaxis Ordered VTE Prophylaxis Devices: Contraindicated VTE Pharmacological Prophylaxi: No Assessment/Plan Assessment/Plan Impression: Hyperkalemia POST- TUSSIVE EMESIS esrd on dialysis Arthritis, CAD, Hypertension CAD - s/p CABG 01/2017, clinically stable. Anemia of chronic renal disease ADMITTED emergent dialysis today nephrology consult dvt prophylaxis home meds Justifications for Admission Other Justification Bleeding from HD site, blood loss anemia RAYA AHMILTON MD Mar 13, 2021 13:15
[2021-03-13] MEDS ORDERED: ACETAMINOPHEN 325 MG TABLET. PO PRN (13:45)
[2021-03-13] MEDS ORDERED: fentaNYL PF VIAL 100 MCG/2 ML VIAL IVP PRN (13:45)
[2021-03-13] MEDS ORDERED: ONDANSETRON PF 4 MG/2 ML VIAL. IVP PRN (13:45)
--- NOTE | 2021-03-13 13:57 | PDOC2 ---
CONSULT Date of Consult Date of Consult DATE: 03/13/21 TIME: 13:51 Reason for Consult Reason for Consult: ESRD, HyperKalemia History of Present Illness Reason for Visit: Patient is a 86 year old female coming in for posttussive emesis. Patient states she has been coughing up clear mucus. Also has been having diarrhea for the past 2 or 3 weeks. Denies any blood in her diarrhea. Today had some breath that was worse with exertion have difficulty walking. Patient had a stress test done about 2 weeks ago. She is unsure of the results. Received both of her Covid vaccines in the spring. Past Medical History Cardiovascular: CAD, HTN, Hyperlipidemia Pulmonary: No pertinent hx CENTRAL NERVOUS SYSTEM: Other GI: GERD Heme/Onc: Anemia NOS Musculoskeletal: Osteoarthritis Rheumatologic: No pertinent hx Renal/: Chronic renal failure Endocrine: Hyperparathyroidism Past Surgical History Past Surgical History: Appendectomy, CABG, Cataract Removal, Total knee replacement, Tonsillectomy, Hysterectomy Family History Family History: Coronary Artery Disease, Hypertension Social History ALCOHOL: none Drugs: None Lives: with Family Current Problem List Problem List Problems Medical Problems: (1) Hyperkalemia Status: Acute Current Medications Current Medications Current Medications Calcium Gluconate (Calcium Gluconate) 1,000 mg 1X ONCE IVP ; Start 03/13/21 at 13:15; Stop 03/13/21 at 13:17; Status DC Dextrose (Dextrose 50%-Water Syringe) 25 gm 1X ONCE IV ; Start 03/13/21 at 13:15; Stop 03/13/21 at 13:17; Status DC Insulin Human Regular (HumuLIN R VIAL) 10 unit 1X ONCE IV ; Start 03/13/21 at 13:15; Stop 03/13/21 at 13:17; Status DC Sodium Polystyrene Sulfonate (Kayexalate) 30 gm 1X ONCE PO ; Start 03/13/21 at 13:15; Stop 03/13/21 at 13:17; Status DC Ondansetron HCl (Zofran) 4 mg PRN Q8HRS PRN IVP NAUSEA/VOMITING; Start 03/13/21 at 13:45; Stop 03/14/21 at 13:44 Fentanyl Citrate (Fentanyl 2ml Vial) 50 mcg PRN Q1HR PRN IVP PAIN; Start 03/13/21 at 13:45; Stop 03/14/21 at 13:44 Acetaminophen (Tylenol) 650 mg PRN Q4HRS PRN PO FEVER > 100.3'F; Start 03/13/21 at 13:45; Stop 03/14/21 at 13:44 Active Scripts Active Ondansetron Odt (Ondansetron) 4 Mg Tab.rapdis 1 Tab PO PRN Q6-8HRS PRN Culturelle (Lactobacillus Rhamnosus Gg) 1 Each Cap.sprink 1 Cap PO BID 30 Days Metoprolol Tartrate 25 Mg Tablet 12.5 Mg PO BID 30 Days Reported Sensipar (Cinacalcet Hcl) 30 Mg Tablet 1 Tab PO DAILY 30 Days Calcium Acetate 667 Mg Tablet 667 Mg PO TIDWMEALS Amlodipine Besylate 10 Mg Tablet 10 Mg PO DAILY Atorvastatin Calcium 40 Mg Tablet 1 Tab PO DAILY Aspirin Ec (Aspirin) 81 Mg Tablet. 1 Tab PO DAILY Miralax (Polyethylene Glycol 3350) 17 Gm Powd.pack 1 Packet PO PRN DAILY PRN [facility] Rx Tablet (Vit B Cmplx 3/Fa/Vit C/Biotin) 1 Each Tablet 1 Each PO DAILY Omeprazole 40 Mg Capsule. 40 Mg PO DAILY Allergies Allergies: Coded Allergies: No Known Drug Allergies (Unverified , 01/06/17) ROS Review of System As per HPI, rest of the ROS is negative Physical Exam Physical Exam Gen a/o x 3. NAD HEEN OM moist neck supple CV RRR Lungs CTA, Non labored Abd Soft , NT Ext Trace LE edema. Neuro Non focal No liriano Vital Signs Vital Signs Date Time Temp Pulse Resp B/P (MAP) Pulse Ox O2 Delivery O2 Flow Rate FiO2 03/13/21 12:05 68 225/92 (136) 97 Room Air 03/13/21 10:06 98.9 16 98.9 Assessment & Plan ESRD - [facility], has been on HD for 7 years- Dr. Teran Emergent dialysis today - severe Hyperkalemia - Discussed treatment plan with Abril HyperKalemia K 7.4 POA- emergent dialysis HTN urgency anti hypertensives , HD with UF CAD - s/p CABG 01/2017, clinically stable. Anemia of chronic renal disease Labs Labs Laboratory Tests Test 03/13/21 11:04 White Blood Count 5.5 x10^3/uL (4.0-11.0) Red Blood Count 2.95 x10^6/uL (3.50-5.40) Hemoglobin 9.6 g/dL (12.0-15.5) Hematocrit 28.7 % (36.0-47.0) Mean Corpuscular Volume 97 fL (79-100) Mean Corpuscular Hemoglobin 32 pg (25-35) Mean Corpuscular Hemoglobin Concent 33 g/dL (31-37) Red Cell Distribution Width 15.7 % (11.5-14.5) Platelet Count 221 x10^3/uL (140-400) Neutrophils (%) (Auto) 65 % (31-73) Lymphocytes (%) (Auto) 13 % (24-48) Monocytes (%) (Auto) 17 % (0-9) Eosinophils (%) (Auto) 5 % (0-3) Basophils (%) (Auto) 1 % (0-3) Neutrophils # (Auto) 3.6 x10^3/uL (1.8-7.7) Lymphocytes # (Auto) 0.7 x10^3/uL (1.0-4.8) Monocytes # (Auto) 0.9 x10^3/uL (0.0-1.1) Eosinophils # (Auto) 0.3 x10^3/uL (0.0-0.7) Basophils # (Auto) 0.0 x10^3/uL (0.0-0.2) Sodium Level 134 mmol/L (136-145) Potassium Level 7.4 mmol/L (3.5-5.1) Chloride Level 95 mmol/L (98-107) Carbon Dioxide Level 26 mmol/L (21-32) Anion Gap 13 (6-14) Blood Urea Nitrogen 96 mg/dL (7-20) Creatinine 14.8 mg/dL (0.6-1.0) Estimated GFR (Cockcroft-Gault) 2.8 BUN/Creatinine Ratio 6 (6-20) Glucose Level 80 mg/dL (70-99) Calcium Level 9.2 mg/dL (8.5-10.1) Phosphorus Level 8.9 mg/dL (2.6-4.7) Magnesium Level 2.9 mg/dL (1.8-2.4) Total Bilirubin 0.6 mg/dL (0.2-1.0) Aspartate Amino Transf (AST/SGOT) 14 U/L (15-37) Alanine Aminotransferase (ALT/SGPT) 18 U/L (14-59) Alkaline Phosphatase 83 U/L (46-116) Myoglobin 518 ng/mL (9-82) Troponin I Quantitative < 0.017 ng/mL (0.000-0.055) EB-Isc-Q-Type Natriuretic Peptide 3244 pg/mL (0-449) Total Protein 6.6 g/dL (6.4-8.2) Albumin 3.5 g/dL (3.4-5.0) Albumin/Globulin Ratio 1.1 (1.0-1.7) Lipase 224 U/L (73-393) Laboratory Tests Test 03/13/21 11:04 White Blood Count 5.5 x10^3/uL (4.0-11.0) Red Blood Count 2.95 x10^6/uL (3.50-5.40) Hemoglobin 9.6 g/dL (12.0-15.5) Hematocrit 28.7 % (36.0-47.0) Mean Corpuscular Volume 97 fL (79-100) Mean Corpuscular Hemoglobin 32 pg (25-35) Mean Corpuscular Hemoglobin Concent 33 g/dL (31-37) Red Cell Distribution Width 15.7 % (11.5-14.5) Platelet Count 221 x10^3/uL (140-400) Neutrophils (%) (Auto) 65 % (31-73) Lymphocytes (%) (Auto) 13 % (24-48) Monocytes (%) (Auto) 17 % (0-9) Eosinophils (%) (Auto) 5 % (0-3) Basophils (%) (Auto) 1 % (0-3) Neutrophils # (Auto) 3.6 x10^3/uL (1.8-7.7) Lymphocytes # (Auto) 0.7 x10^3/uL (1.0-4.8) Monocytes # (Auto) 0.9 x10^3/uL (0.0-1.1) Eosinophils # (Auto) 0.3 x10^3/uL (0.0-0.7) Basophils # (Auto) 0.0 x10^3/uL (0.0-0.2) Sodium Level 134 mmol/L (136-145) Potassium Level 7.4 mmol/L (3.5-5.1) Chloride Level 95 mmol/L (98-107) Carbon Dioxide Level 26 mmol/L (21-32) Anion Gap 13 (6-14) Blood Urea Nitrogen 96 mg/dL (7-20) Creatinine 14.8 mg/dL (0.6-1.0) Estimated GFR (Cockcroft-Gault) 2.8 BUN/Creatinine Ratio 6 (6-20) Glucose Level 80 mg/dL (70-99) Calcium Level 9.2 mg/dL (8.5-10.1) Phosphorus Level 8.9 mg/dL (2.6-4.7) Magnesium Level 2.9 mg/dL (1.8-2.4) Total Bilirubin 0.6 mg/dL (0.2-1.0) Aspartate Amino Transf (AST/SGOT) 14 U/L (15-37) Alanine Aminotransferase (ALT/SGPT) 18 U/L (14-59) Alkaline Phosphatase 83 U/L (46-116) Myoglobin 518 ng/mL (9-82) Troponin I Quantitative < 0.017 ng/mL (0.000-0.055) KL-Jll-U-Type Natriuretic Peptide 3244 pg/mL (0-449) Total Protein 6.6 g/dL (6.4-8.2) Albumin 3.5 g/dL (3.4-5.0) Albumin/Globulin Ratio 1.1 (1.0-1.7) Lipase 224 U/L (73-393) Review All relevant outside records, renal labs, imaging studies, telemetry/EKG's were reviewed. Images Images 1. No acute cardiopulmonary process. BRIAN YOO MD Mar 13, 2021 13:57
[2021-03-13 14:45] LABS: INFLUENZA A PATIENT NEGATIVE (NEGATIVE); INFLUENZA B PATIENT NEGATIVE (NEGATIVE)
[2021-03-13] MEDS ORDERED: 0.9 % SODIUM CHLORIDE 10 ML DISP.SYRIN. IV PRN (14:45)
[2021-03-13] MEDS ORDERED: DIALYSIS PATIENT. MC PRN ×3 (14:45)
[2021-03-13] MEDS ORDERED: DOCUSATE SODIUM 100 MG CAPSULE. PO PRN (14:45)
[2021-03-13] MEDS ORDERED: ALBUTEROL SULFATE 2.5 MG/3 ML NEBU. NEB PRN (14:45)
--- NOTE | 2021-03-13 15:55 | EKG ---
[facility] [address] [place] [address] Test Date: 2021-03-13 Test Time: 10:20:07 Pat Name: ROBIN VICENTE Department: Room: Gender: F [employer]: : 1935 Requested By: HUGO PAUL Order Number: [id number] Reading MD: Measurements Intervals [place] Rate: 76 P: 34 VT: 190 QRS: 12 QRSD: 80 T: 27 QT: 386 QTc: 439 Interpretive Statements SINUS ARRHYTHMIA OTHERWISE NORMAL ECG RI6.02 No previous ECG available for comparison
[2021-03-13 20:10] VITALS: BP 165/66
--- NOTE | 2021-03-13 20:10 | NUR ---
The patient, ROBIN VICENTE, 86 y/o, F admitted by RAYA HAMILTON MD, was given written information regarding hospital policies, unit procedures and contact persons. Valuables were checked and left with her.
[2021-03-13 23:21] VITALS: BP 155/65
[2021-03-14 03:00] VITALS: BP 138/69
[2021-03-14 05:20] LABS: BASO % 1 % (0-3); EOS # 0.2 x10^3/uL (0.0-0.7); EOS % 4 % (0-3); HEMATOCRIT 27.5 % (36.0-47.0); HEMOGLOBIN 9.2 g/dL (12.0-15.5); LYMPH # 1.1 x10^3/uL (1.0-4.8); LYMPH % 21 % (24-48); MEAN CORPUSCULAR HEMOGLOBIN 33 pg (25-35); MEAN CORPUSCULAR HGB CONC 33 g/dL (31-37); MEAN CORPUSCULAR VOLUME 99 fL (79-100); MONO # 0.8 x10^3/uL (0.0-1.1); MONO % 17 % (0-9); NEUT # 2.9 x10^3/uL (1.8-7.7); NEUT % 57 % (31-73); PLATELET COUNT 192 x10^3/uL (140-400); RED CELL DISTRIBUTION WIDTH 15.5 % (11.5-14.5); WHITE BLOOD COUNT 5.1 x10^3/uL (4.0-11.0)
[2021-03-14 05:29] LABS: CALCIUM 9.4 mg/dL (8.5-10.1); CREATININE 13.4 mg/dL (0.6-1.0); GFR 3.2
[2021-03-14 05:31] LABS: POTASSIUM 6.4 mmol/L (3.5-5.1)
[2021-03-14 07:00] VITALS: BP 146/50
[2021-03-14] MEDS ORDERED: LIDOCAINE WITH 8.4% SOD BICARB 3 ML DISP.SYRIN. ONE (10:43)
[2021-03-14] MEDS ORDERED: HEPARIN for IV BOLUS 10,000 UNIT/10 ML VIAL. ONE (10:44)
[2021-03-14 11:00] VITALS: BP 139/64
[2021-03-14] MEDS ORDERED: LIDOCAINE WITH 8.4% SOD BICARB 3 ML DISP.SYRIN. INJ ONE (11:30)
--- NOTE | 2021-03-14 11:59 | PDOC ---
PROGRESS NOTES Date of Service: DATE: 03/14/21 TIME: 11:59 Chief Complaint Chief Complaint VTE Prophylaxis Ordered VTE Prophylaxis Devices: Contraindicated VTE Pharmacological Prophylaxi: No Assessment/Plan Assessment/Plan Impression: Hyperkalemia POST- TUSSIVE EMESIS esrd on dialysis Arthritis, CAD, Hypertension CAD - s/p CABG 01/2017, clinically stable. Anemia of chronic renal disease ADMITTED emergent dialysis today nephrology consult dvt prophylaxis home meds AVF IS THROMBOSED. HAS ACUTE HD CATHETER. FOR DIALYSIS AGAIN 03-14 D/W RN History of Present Illness History of Present Illness Identification/Chief Complaint Chief Complaint COUGH WITH EMESIS, HIGH K diarrhea for the past 2 or 3 weeks. History of Present Illness History of Present Illness 86 year old female seen in ER posttussive emesis. AND K elevation of 7.4 /she has been coughing up clear mucus. Also has been having diarrhea for the past 2 or 3 weeks. no blood in her diarrhea. Today had some breath that was worse with exertion have difficulty walking. needs Emergent dialysis today - severe Hyperkalemia CAD - s/p CABG 01/2017, clinically stable. / Anemia of chronic renal disease Past Medical History Past Medical History Past Medical History Past Medical History: Arthritis, CAD, Hypertension, Pneumonia, Renal Disease, Renal Failure Additional Past Medical Histor: ESRD Past Surgical History: Coronary Bypass Surgery, Hysterectomy, Knee Replacement, Other Additional Past Surgical Histo: ovarian cyst, cataracts; bilateral popliteal bypass Smoking Status: Never Smoker Alcohol Use: None Drug Use: None fhx htn Cardiovascular: CAD, HTN, Hyperlipidemia Pulmonary: No pertinent hx CENTRAL NERVOUS SYSTEM: Other GI: GERD Heme/Onc: Anemia NOS Musculoskeletal: Osteoarthritis Rheumatologic: No pertinent hx Renal/: Chronic renal failure Endocrine: Hyperparathyroidism Past Surgical History Past Surgical History: Appendectomy, CABG, Cataract Removal, Total knee replacement, Tonsillectomy, Hysterectomy Family History Family History: Coronary Artery Disease, Hypertension Social History Smoke: No ALCOHOL: none Drugs: None Current Medications Current Medications Active Scripts Active Ondansetron Odt (Ondansetron) 4 Mg Tab.rapdis 1 Tab PO PRN Q6-8HRS PRN Culturelle (Lactobacillus Rhamnosus Gg) 1 Each Cap.sprink 1 Cap PO BID 30 Days Metoprolol Tartrate 25 Mg Tablet 12.5 Mg PO BID 30 Days Reported Sensipar (Cinacalcet Hcl) 30 Mg Tablet 1 Tab PO DAILY 30 Days Calcium Acetate 667 Mg Tablet 667 Mg PO TIDWMEALS Amlodipine Besylate 10 Mg Tablet 10 Mg PO DAILY Atorvastatin Calcium 40 Mg Tablet 1 Tab PO DAILY Aspirin Ec (Aspirin) 81 Mg Tablet.dr 1 Tab PO DAILY Miralax (Polyethylene Glycol 3350) 17 Gm Powd.pack 1 Packet PO PRN DAILY PRN Helen-[facility]oma Rx Tablet (Vit B Cmplx 3/Fa/Vit C/Biotin) 1 Each Tablet 1 Each PO DAILY Omeprazole 40 Mg Capsule.dr 40 Mg PO DAILY Allergies Allergies: Coded Allergies: No Known Drug Allergies (Unverified , 01/06/17) ROS General: YES: Fatigue, Appetite PSYCHOLOGICAL ROS: No: Anxiety, Behavioral Disorder, Concentration difficultie, Decreased libido, Depression, Disorientation, Hallucinations, Hostility, Irritablity, Memory difficulties, Mood Swings, Obsessive thoughts, Physical abuse, Sexual abuse, Sleep disturbances, Suicidal ideation, Other Eyes: No Blurry vision, No Decreased vision, No Double vision, No Dry eyes, No Excessive tearing, No Eye Pain, No Itchy Eyes, No Loss of vision, No Photophobia, No Scotomata, No Uses contacts, No Uses glasses, No Other HEENT: No: Heacaches, Visual Changes, Hearing change, Nasal congestion, Nasal discharge, Oral lesions, Sinus pain, Sore Throat, Epistaxis, Sneezing, Snoring, Tinnitus, Vertigo, Vocal changes, Other ALLERGY AND IMMUNOLOGY: No: Hives, Insect Bite Sensitivity, Itchy/Watery Eyes, Nasal Congestion, Post Nasal Drip, Seasonal Allergies, Other Hematological and Lymphatic: No: Bleeding Problems, Blood Clots, Blood Transfusions, Brusing, Night Sweats, Pallor, Swollen Lymph Nodes, Other Respiratory: YES: Cough, Shortness of breath Gastrointestinal: Yes Vomiting; No Nausea, No Abdominal Pain, No Diarrhea, No Constipation, No Melena, No Hematochezia, No Other Genitourinary: No Dysuria, No Frequency, No Incontinence, No Hematuria, No Retention, No Discharge, No Urgency, No Pain, No Flank Pain, No Other, No , No , No , No , No , No , No Musculoskeletal: Yes Joint Stiffness; No Gait Disturbance, No Joint Pain, No Joint Swelling, No Muscle Pain, No Muscular Weakness, No Pain In:, No Swelling In:, No Other Neurological: Yes Confusion; No Behavorial Changes, No Bowel/Bladder ControlChng, No Dizziness, No Gait Disturbance, No Headaches, No Impaired Coord/balance, No Memory Loss, No Numbness/Tingling, No Seizures, No Speech Problems, No Tremors, No Visual Changes, No Weakness, No Other Skin: Yes Dry Skin; No Eczema, No Hair Changes, No Lumps, No Mole Changes, No Mottling, No Nail Changes, No Pruritus, No Rash, No Skin Lesion Changes, No Other, No Acne Vitals Vitals Vital Signs Date Time Temp Pulse Resp B/P (MAP) Pulse Ox O2 Delivery O2 Flow Rate FiO2 03/14/21 07:00 97.8 72 16 146/50 (82) 98 Room Air 97.8 Physical Exam General: Alert, Oriented X3, Cooperative, No acute distress Lungs: Clear Abdomen: Normal bowel sounds, Soft Extremities: No cyanosis Labs LABS Laboratory Tests Test 03/13/21 14:16 03/13/21 17:36 03/14/21 05:00 Influenza Type A Antigen Negative (NEGATIVE) Influenza Type B Antigen Negative (NEGATIVE) SARS-CoV-2 Antigen (Rapid) Negative (NEGATIVE) Glucose (Fingerstick) 85 mg/dL (70-99) White Blood Count 5.1 x10^3/uL (4.0-11.0) Red Blood Count 2.80 x10^6/uL (3.50-5.40) Hemoglobin 9.2 g/dL (12.0-15.5) Hematocrit 27.5 % (36.0-47.0) Mean Corpuscular Volume 99 fL (79-100) Mean Corpuscular Hemoglobin 33 pg (25-35) Mean Corpuscular Hemoglobin Concent 33 g/dL (31-37) Red Cell Distribution Width 15.5 % (11.5-14.5) Platelet Count 192 x10^3/uL (140-400) Neutrophils (%) (Auto) 57 % (31-73) Lymphocytes (%) (Auto) 21 % (24-48) Monocytes (%) (Auto) 17 % (0-9) Eosinophils (%) (Auto) 4 % (0-3) Basophils (%) (Auto) 1 % (0-3) Neutrophils # (Auto) 2.9 x10^3/uL (1.8-7.7) Lymphocytes # (Auto) 1.1 x10^3/uL (1.0-4.8) Monocytes # (Auto) 0.8 x10^3/uL (0.0-1.1) Eosinophils # (Auto) 0.2 x10^3/uL (0.0-0.7) Basophils # (Auto) 0.0 x10^3/uL (0.0-0.2) Sodium Level 134 mmol/L (136-145) Potassium Level 6.4 mmol/L (3.5-5.1) Chloride Level 96 mmol/L (98-107) Carbon Dioxide Level 25 mmol/L (21-32) Anion Gap 13 (6-14) Blood Urea Nitrogen 84 mg/dL (7-20) Creatinine 13.4 mg/dL (0.6-1.0) Estimated GFR (Cockcroft-Gault) 3.2 Glucose Level 77 mg/dL (70-99) Calcium Level 9.4 mg/dL (8.5-10.1) Troponin I Quantitative < 0.017 ng/mL (0.000-0.055) Assessment and Plan Assessmemt and Plan Problems Medical Problems: (1) Hyperkalemia Status: Acute Comment Review of Relevant I have reviewed the following items jonah (where applicable) has been applied. Labs Laboratory Tests Test 03/13/21 11:04 03/13/21 14:16 03/13/21 17:36 03/14/21 05:00 White Blood Count 5.5 x10^3/uL (4.0-11.0) 5.1 x10^3/uL (4.0-11.0) Red Blood Count 2.95 x10^6/uL (3.50-5.40) 2.80 x10^6/uL (3.50-5.40) Hemoglobin 9.6 g/dL (12.0-15.5) 9.2 g/dL (12.0-15.5) Hematocrit 28.7 % (36.0-47.0) 27.5 % (36.0-47.0) Mean Corpuscular Volume 97 fL (79-100) 99 fL (79-100) Mean Corpuscular Hemoglobin 32 pg (25-35) 33 pg (25-35) Mean Corpuscular Hemoglobin Concent 33 g/dL (31-37) 33 g/dL (31-37) Red Cell Distribution Width 15.7 % (11.5-14.5) 15.5 % (11.5-14.5) Platelet Count 221 x10^3/uL (140-400) 192 x10^3/uL (140-400) Neutrophils (%) (Auto) 65 % (31-73) 57 % (31-73) Lymphocytes (%) (Auto) 13 % (24-48) 21 % (24-48) Monocytes (%) (Auto) 17 % (0-9) 17 % (0-9) Eosinophils (%) (Auto) 5 % (0-3) 4 % (0-3) Basophils (%) (Auto) 1 % (0-3) 1 % (0-3) Neutrophils # (Auto) 3.6 x10^3/uL (1.8-7.7) 2.9 x10^3/uL (1.8-7.7) Lymphocytes # (Auto) 0.7 x10^3/uL (1.0-4.8) 1.1 x10^3/uL (1.0-4.8) Monocytes # (Auto) 0.9 x10^3/uL (0.0-1.1) 0.8 x10^3/uL (0.0-1.1) Eosinophils # (Auto) 0.3 x10^3/uL (0.0-0.7) 0.2 x10^3/uL (0.0-0.7) Basophils # (Auto) 0.0 x10^3/uL (0.0-0.2) 0.0 x10^3/uL (0.0-0.2) Sodium Level 134 mmol/L (136-145) 134 mmol/L (136-145) Potassium Level 7.4 mmol/L (3.5-5.1) 6.4 mmol/L (3.5-5.1) Chloride Level 95 mmol/L (98-107) 96 mmol/L (98-107) Carbon Dioxide Level 26 mmol/L (21-32) 25 mmol/L (21-32) Anion Gap 13 (6-14) 13 (6-14) Blood Urea Nitrogen 96 mg/dL (7-20) 84 mg/dL (7-20) Creatinine 14.8 mg/dL (0.6-1.0) 13.4 mg/dL (0.6-1.0) Estimated GFR (Cockcroft-Gault) 2.8 3.2 BUN/Creatinine Ratio 6 (6-20) Glucose Level 80 mg/dL (70-99) 77 mg/dL (70-99) Calcium Level 9.2 mg/dL (8.5-10.1) 9.4 mg/dL (8.5-10.1) Phosphorus Level 8.9 mg/dL (2.6-4.7) Magnesium Level 2.9 mg/dL (1.8-2.4) Total Bilirubin 0.6 mg/dL (0.2-1.0) Aspartate Amino Transf (AST/SGOT) 14 U/L (15-37) Alanine Aminotransferase (ALT/SGPT) 18 U/L (14-59) Alkaline Phosphatase 83 U/L (46-116) Myoglobin 518 ng/mL (9-82) Troponin I Quantitative < 0.017 ng/mL (0.000-0.055) < 0.017 ng/mL (0.000-0.055) WN-Ilg-P-Type Natriuretic Peptide 3244 pg/mL (0-449) Total Protein 6.6 g/dL (6.4-8.2) Albumin 3.5 g/dL (3.4-5.0) Albumin/Globulin Ratio 1.1 (1.0-1.7) Lipase 224 U/L (73-393) Influenza Type A Antigen Negative (NEGATIVE) Influenza Type B Antigen Negative (NEGATIVE) SARS-CoV-2 Antigen (Rapid) Negative (NEGATIVE) Glucose (Fingerstick) 85 mg/dL (70-99) Laboratory Tests Test 03/13/21 14:16 03/13/21 17:36 03/14/21 05:00 Influenza Type A Antigen Negative (NEGATIVE) Influenza Type B Antigen Negative (NEGATIVE) SARS-CoV-2 Antigen (Rapid) Negative (NEGATIVE) Glucose (Fingerstick) 85 mg/dL (70-99) White Blood Count 5.1 x10^3/uL (4.0-11.0) Red Blood Count 2.80 x10^6/uL (3.50-5.40) Hemoglobin 9.2 g/dL (12.0-15.5) Hematocrit 27.5 % (36.0-47.0) Mean Corpuscular Volume 99 fL (79-100) Mean Corpuscular Hemoglobin 33 pg (25-35) Mean Corpuscular Hemoglobin Concent 33 g/dL (31-37) Red Cell Distribution Width 15.5 % (11.5-14.5) Platelet Count 192 x10^3/uL (140-400) Neutrophils (%) (Auto) 57 % (31-73) Lymphocytes (%) (Auto) 21 % (24-48) Monocytes (%) (Auto) 17 % (0-9) Eosinophils (%) (Auto) 4 % (0-3) Basophils (%) (Auto) 1 % (0-3) Neutrophils # (Auto) 2.9 x10^3/uL (1.8-7.7) Lymphocytes # (Auto) 1.1 x10^3/uL (1.0-4.8) Monocytes # (Auto) 0.8 x10^3/uL (0.0-1.1) Eosinophils # (Auto) 0.2 x10^3/uL (0.0-0.7) Basophils # (Auto) 0.0 x10^3/uL (0.0-0.2) Sodium Level 134 mmol/L (136-145) Potassium Level 6.4 mmol/L (3.5-5.1) Chloride Level 96 mmol/L (98-107) Carbon Dioxide Level 25 mmol/L (21-32) Anion Gap 13 (6-14) Blood Urea Nitrogen 84 mg/dL (7-20) Creatinine 13.4 mg/dL (0.6-1.0) Estimated GFR (Cockcroft-Gault) 3.2 Glucose Level 77 mg/dL (70-99) Calcium Level 9.4 mg/dL (8.5-10.1) Troponin I Quantitative < 0.017 ng/mL (0.000-0.055) Medications Current Medications Calcium Gluconate (Calcium Gluconate) 1,000 mg 1X ONCE IVP Last administered on 03/13/21at 14:44; Start 03/13/21 at 13:15; Stop 03/13/21 at 13:17; Status DC Dextrose (Dextrose 50%-Water Syringe) 25 gm 1X ONCE IV Last administered on 03/13/21at 14:48; Start 03/13/21 at 13:15; Stop 03/13/21 at 13:17; Status DC Insulin Human Regular (HumuLIN R VIAL) 10 unit 1X ONCE IV Last administered on 03/13/21at 14:50; Start 03/13/21 at 13:15; Stop 03/13/21 at 13:17; Status DC Sodium Polystyrene Sulfonate (Kayexalate) 30 gm 1X ONCE PO Last administered on 03/13/21at 14:51; Start 03/13/21 at 13:15; Stop 03/13/21 at 13:17; Status DC Ondansetron HCl (Zofran) 4 mg PRN Q8HRS PRN IVP NAUSEA/VOMITING; Start 03/13/21 at 13:45; Stop 03/14/21 at 13:44 Fentanyl Citrate (Fentanyl 2ml Vial) 50 mcg PRN Q1HR PRN IVP PAIN; Start 03/13/21 at 13:45; Stop 03/14/21 at 13:44 Acetaminophen (Tylenol) 650 mg PRN Q4HRS PRN PO FEVER > 100.3'F Last administered on 03/14/21at 02:10; Start 03/13/21 at 13:45; Stop 03/14/21 at 13:44 Info (PHARMACY MONITORING -- do not chart) 1 each PRN DAILY PRN MC SEE COMMENTS; Start 03/13/21 at 14:45 Info (PHARMACY MONITORING -- do not chart) 1 each PRN DAILY PRN MC SEE COMMENTS; Start 03/13/21 at 14:45; Status UNV Info (PHARMACY MONITORING -- do not chart) 1 each PRN DAILY PRN MC SEE COMMENTS; Start 03/13/21 at 14:45; Status UNV Sodium Chloride (Normal Saline Flush) 3 ml QSHIFT PRN IV AFTER MEDS AND BLOOD DRAWS; Start 03/13/21 at 14:45 Acetaminophen (Tylenol) 650 mg PRN Q4HRS PRN PO TEMP OVER 100.4F OR MILD PAIN; Start 03/13/21 at 14:45 Docusate Sodium (Colace) 100 mg PRN BID PRN PO HARD STOOLS; Start 03/13/21 at 14:45 Albuterol Sulfate (Ventolin Neb Soln) 2.5 mg PRN Q4HRS PRN NEB SHORTNESS OF BREATH; Start 03/13/21 at 14:45 Guaifenesin (Robitussin) 200 mg PRN Q4HRS PRN PO COUGH; Start 03/13/21 at 14:45 Lidocaine HCl (Buffered Lidocaine 1%) 3 ml STK-MED ONCE .ROUTE ; Start 03/14/21 at 10:43; Stop 03/14/21 at 10:43; Status DC Heparin Sodium (Porcine) (Heparin Sodium) 10,000 unit STK-MED ONCE .ROUTE ; Start 03/14/21 at 10:44; Stop 03/14/21 at 10:44; Status DC Lidocaine HCl (Buffered Lidocaine 1%) 6 ml 1X ONCE INJ ; Start 03/14/21 at 11:30; Stop 03/14/21 at 11:31; Status DC Active Scripts Active Ondansetron Odt (Ondansetron) 4 Mg Tab.rapdis 1 Tab PO PRN Q6-8HRS PRN Culturelle (Lactobacillus Rhamnosus Gg) 1 Each Cap.sprink 1 Cap PO BID 30 Days Metoprolol Tartrate 25 Mg Tablet 12.5 Mg PO BID 30 Days Reported Sensipar (Cinacalcet Hcl) 30 Mg Tablet 1 Tab PO DAILY 30 Days Calcium Acetate 667 Mg Tablet 667 Mg PO TIDWMEALS Amlodipine Besylate 10 Mg Tablet 10 Mg PO DAILY Atorvastatin Calcium 40 Mg Tablet 1 Tab PO DAILY Aspirin Ec (Aspirin) 81 Mg Tablet. 1 Tab PO DAILY Miralax (Polyethylene Glycol 3350) 17 Gm Powd.pack 1 Packet PO PRN DAILY PRN [facility] Rx Tablet (Vit B Cmplx 3/Fa/Vit C/Biotin) 1 Each Tablet 1 Each PO DAILY Omeprazole 40 Mg Capsule.dr 40 Mg PO DAILY Vitals/I & O Vital Sign - Last 24 Hours 03/13/21 03/13/21 03/13/21 03/13/21 12:05 18:48 19:18 20:10 Pulse 68 72 66 B/P (MAP) 225/92 (136) 174/70 (104) 172/72 (105) Pulse Ox 97 98 98 O2 Delivery Room Air Room Air Room Air Room Air 03/13/21 03/13/21 03/14/21 03/14/21 20:10 23:21 03:00 07:00 Temp 97.7 97.7 97.7 97.8 97.7 97.7 97.7 97.8 Pulse 91 73 75 72 Resp 20 16 16 16 B/P (MAP) 165/66 (99) 155/65 (95) 138/69 (92) 146/50 (82) Pulse Ox 98 99 98 98 O2 Delivery Room Air Room Air Room Air Room Air Intake and Output 03/13/21 03/13/21 03/14/21 15:00 23:00 07:00 Intake Total 120 ml 150 ml Balance 120 ml 150 ml Justicifation of Admission Dx: Justifications for Admission: Justification of Admission Dx: Yes RAYA HAMILTON MD Mar 14, 2021 11:59
[2021-03-14] MEDS: ACETAMINOPHEN 325 MG TABLET. PO PRN ×2 (12:14→19:02)
--- NOTE | 2021-03-14 12:51 | PDOC ---
PROGRESS NOTES Date of Service DATE: 03/14/21 TIME: 12:49 Subjective Subjective IN FOLLOW UP OF ESRD AND HYPERK+ Objective Objective Vital Signs Date Time Temp Pulse Resp B/P (MAP) Pulse Ox O2 Delivery O2 Flow Rate FiO2 03/14/21 07:00 97.8 72 16 146/50 (82) 98 Room Air 97.8 Intake and Output 03/14/21 07:00 Intake Total 270 ml Balance 270 ml Intake Oral 170 ml Tube Feeding 100 ml Physical Exam Heart: Regular rate, Normal S1, Normal S2, No murmurs, Gallops General: Alert Lungs: Clear to auscultation, Normal air movement Psych/Mental Status: Mental status NL, Mood NL Diagnosis RENAL FAILURE: ESRD, Other (HYPERKALEMIA) Assessment Assessment Problems Medical Problems: (1) Hyperkalemia Status: Acute Plan Plan of Care AVF IS THROMBOSED. HAS ACUTE HD CATHETER. FOR DIALYSIS AGAIN TODAY DUE TO HYPERKALEMIA Comment Review of Relevant I have reviewed the following items jonah (where applicable) has been applied. Labs Laboratory Tests Test 03/13/21 11:04 03/13/21 14:16 03/13/21 17:36 03/14/21 05:00 White Blood Count 5.5 x10^3/uL (4.0-11.0) 5.1 x10^3/uL (4.0-11.0) Red Blood Count 2.95 x10^6/uL (3.50-5.40) 2.80 x10^6/uL (3.50-5.40) Hemoglobin 9.6 g/dL (12.0-15.5) 9.2 g/dL (12.0-15.5) Hematocrit 28.7 % (36.0-47.0) 27.5 % (36.0-47.0) Mean Corpuscular Volume 97 fL (79-100) 99 fL (79-100) Mean Corpuscular Hemoglobin 32 pg (25-35) 33 pg (25-35) Mean Corpuscular Hemoglobin Concent 33 g/dL (31-37) 33 g/dL (31-37) Red Cell Distribution Width 15.7 % (11.5-14.5) 15.5 % (11.5-14.5) Platelet Count 221 x10^3/uL (140-400) 192 x10^3/uL (140-400) Neutrophils (%) (Auto) 65 % (31-73) 57 % (31-73) Lymphocytes (%) (Auto) 13 % (24-48) 21 % (24-48) Monocytes (%) (Auto) 17 % (0-9) 17 % (0-9) Eosinophils (%) (Auto) 5 % (0-3) 4 % (0-3) Basophils (%) (Auto) 1 % (0-3) 1 % (0-3) Neutrophils # (Auto) 3.6 x10^3/uL (1.8-7.7) 2.9 x10^3/uL (1.8-7.7) Lymphocytes # (Auto) 0.7 x10^3/uL (1.0-4.8) 1.1 x10^3/uL (1.0-4.8) Monocytes # (Auto) 0.9 x10^3/uL (0.0-1.1) 0.8 x10^3/uL (0.0-1.1) Eosinophils # (Auto) 0.3 x10^3/uL (0.0-0.7) 0.2 x10^3/uL (0.0-0.7) Basophils # (Auto) 0.0 x10^3/uL (0.0-0.2) 0.0 x10^3/uL (0.0-0.2) Sodium Level 134 mmol/L (136-145) 134 mmol/L (136-145) Potassium Level 7.4 mmol/L (3.5-5.1) 6.4 mmol/L (3.5-5.1) Chloride Level 95 mmol/L (98-107) 96 mmol/L (98-107) Carbon Dioxide Level 26 mmol/L (21-32) 25 mmol/L (21-32) Anion Gap 13 (6-14) 13 (6-14) Blood Urea Nitrogen 96 mg/dL (7-20) 84 mg/dL (7-20) Creatinine 14.8 mg/dL (0.6-1.0) 13.4 mg/dL (0.6-1.0) Estimated GFR (Cockcroft-Gault) 2.8 3.2 BUN/Creatinine Ratio 6 (6-20) Glucose Level 80 mg/dL (70-99) 77 mg/dL (70-99) Calcium Level 9.2 mg/dL (8.5-10.1) 9.4 mg/dL (8.5-10.1) Phosphorus Level 8.9 mg/dL (2.6-4.7) Magnesium Level 2.9 mg/dL (1.8-2.4) Total Bilirubin 0.6 mg/dL (0.2-1.0) Aspartate Amino Transf (AST/SGOT) 14 U/L (15-37) Alanine Aminotransferase (ALT/SGPT) 18 U/L (14-59) Alkaline Phosphatase 83 U/L (46-116) Myoglobin 518 ng/mL (9-82) Troponin I Quantitative < 0.017 ng/mL (0.000-0.055) < 0.017 ng/mL (0.000-0.055) IS-Tyo-W-Type Natriuretic Peptide 3244 pg/mL (0-449) Total Protein 6.6 g/dL (6.4-8.2) Albumin 3.5 g/dL (3.4-5.0) Albumin/Globulin Ratio 1.1 (1.0-1.7) Lipase 224 U/L (73-393) Influenza Type A Antigen Negative (NEGATIVE) Influenza Type B Antigen Negative (NEGATIVE) SARS-CoV-2 RNA (AB) Negative (Negative) SARS-CoV-2 Antigen (Rapid) Negative (NEGATIVE) Glucose (Fingerstick) 85 mg/dL (70-99) Laboratory Tests Test 03/13/21 14:16 03/13/21 17:36 03/14/21 05:00 Influenza Type A Antigen Negative (NEGATIVE) Influenza Type B Antigen Negative (NEGATIVE) SARS-CoV-2 RNA (AB) Negative (Negative) SARS-CoV-2 Antigen (Rapid) Negative (NEGATIVE) Glucose (Fingerstick) 85 mg/dL (70-99) White Blood Count 5.1 x10^3/uL (4.0-11.0) Red Blood Count 2.80 x10^6/uL (3.50-5.40) Hemoglobin 9.2 g/dL (12.0-15.5) Hematocrit 27.5 % (36.0-47.0) Mean Corpuscular Volume 99 fL (79-100) Mean Corpuscular Hemoglobin 33 pg (25-35) Mean Corpuscular Hemoglobin Concent 33 g/dL (31-37) Red Cell Distribution Width 15.5 % (11.5-14.5) Platelet Count 192 x10^3/uL (140-400) Neutrophils (%) (Auto) 57 % (31-73) Lymphocytes (%) (Auto) 21 % (24-48) Monocytes (%) (Auto) 17 % (0-9) Eosinophils (%) (Auto) 4 % (0-3) Basophils (%) (Auto) 1 % (0-3) Neutrophils # (Auto) 2.9 x10^3/uL (1.8-7.7) Lymphocytes # (Auto) 1.1 x10^3/uL (1.0-4.8) Monocytes # (Auto) 0.8 x10^3/uL (0.0-1.1) Eosinophils # (Auto) 0.2 x10^3/uL (0.0-0.7) Basophils # (Auto) 0.0 x10^3/uL (0.0-0.2) Sodium Level 134 mmol/L (136-145) Potassium Level 6.4 mmol/L (3.5-5.1) Chloride Level 96 mmol/L (98-107) Carbon Dioxide Level 25 mmol/L (21-32) Anion Gap 13 (6-14) Blood Urea Nitrogen 84 mg/dL (7-20) Creatinine 13.4 mg/dL (0.6-1.0) Estimated GFR (Cockcroft-Gault) 3.2 Glucose Level 77 mg/dL (70-99) Calcium Level 9.4 mg/dL (8.5-10.1) Troponin I Quantitative < 0.017 ng/mL (0.000-0.055) Medications Current Medications Calcium Gluconate (Calcium Gluconate) 1,000 mg 1X ONCE IVP Last administered on 03/13/21at 14:44; Start 03/13/21 at 13:15; Stop 03/13/21 at 13:17; Status DC Dextrose (Dextrose 50%-Water Syringe) 25 gm 1X ONCE IV Last administered on 03/13/21at 14:48; Start 03/13/21 at 13:15; Stop 03/13/21 at 13:17; Status DC Insulin Human Regular (HumuLIN R VIAL) 10 unit 1X ONCE IV Last administered on 03/13/21at 14:50; Start 03/13/21 at 13:15; Stop 03/13/21 at 13:17; Status DC Sodium Polystyrene Sulfonate (Kayexalate) 30 gm 1X ONCE PO Last administered on 03/13/21at 14:51; Start 03/13/21 at 13:15; Stop 03/13/21 at 13:17; Status DC Ondansetron HCl (Zofran) 4 mg PRN Q8HRS PRN IVP NAUSEA/VOMITING; Start 03/13/21 at 13:45; Stop 03/14/21 at 13:44 Fentanyl Citrate (Fentanyl 2ml Vial) 50 mcg PRN Q1HR PRN IVP PAIN; Start 03/13/21 at 13:45; Stop 03/14/21 at 13:44 Acetaminophen (Tylenol) 650 mg PRN Q4HRS PRN PO FEVER > 100.3'F Last administered on 03/14/21at 02:10; Start 03/13/21 at 13:45; Stop 03/14/21 at 13:44 Info (PHARMACY MONITORING -- do not chart) 1 each PRN DAILY PRN MC SEE COMMENTS; Start 03/13/21 at 14:45 Info (PHARMACY MONITORING -- do not chart) 1 each PRN DAILY PRN MC SEE COMMENTS; Start 03/13/21 at 14:45; Status UNV Info (PHARMACY MONITORING -- do not chart) 1 each PRN DAILY PRN MC SEE COMMENTS; Start 03/13/21 at 14:45; Status UNV Sodium Chloride (Normal Saline Flush) 3 ml QSHIFT PRN IV AFTER MEDS AND BLOOD DRAWS; Start 03/13/21 at 14:45 Acetaminophen (Tylenol) 650 mg PRN Q4HRS PRN PO TEMP OVER 100.4F OR MILD PAIN Last administered on 03/14/21at 12:14; Start 03/13/21 at 14:45 Docusate Sodium (Colace) 100 mg PRN BID PRN PO HARD STOOLS; Start 03/13/21 at 14:45 Albuterol Sulfate (Ventolin Neb Soln) 2.5 mg PRN Q4HRS PRN NEB SHORTNESS OF BREATH; Start 03/13/21 at 14:45 Guaifenesin (Robitussin) 200 mg PRN Q4HRS PRN PO COUGH; Start 03/13/21 at 14:45 Lidocaine HCl (Buffered Lidocaine 1%) 3 ml STK-MED ONCE .ROUTE ; Start 03/14/21 at 10:43; Stop 03/14/21 at 10:43; Status DC Heparin Sodium (Porcine) (Heparin Sodium) 10,000 unit STK-MED ONCE .ROUTE ; Start 03/14/21 at 10:44; Stop 03/14/21 at 10:44; Status DC Lidocaine HCl (Buffered Lidocaine 1%) 6 ml 1X ONCE INJ Last administered on 03/14/21at 11:45; Start 03/14/21 at 11:30; Stop 03/14/21 at 11:31; Status DC Active Scripts Active Ondansetron Odt (Ondansetron) 4 Mg Tab.rapdis 1 Tab PO PRN Q6-8HRS PRN Culturelle (Lactobacillus Rhamnosus Gg) 1 Each Cap.sprink 1 Cap PO BID 30 Days Metoprolol Tartrate 25 Mg Tablet 12.5 Mg PO BID 30 Days Reported Sensipar (Cinacalcet Hcl) 30 Mg Tablet 1 Tab PO DAILY 30 Days Calcium Acetate 667 Mg Tablet 667 Mg PO TIDWMEALS Amlodipine Besylate 10 Mg Tablet 10 Mg PO DAILY Atorvastatin Calcium 40 Mg Tablet 1 Tab PO DAILY Aspirin Ec (Aspirin) 81 Mg Tablet. 1 Tab PO DAILY Miralax (Polyethylene Glycol 3350) 17 Gm Powd.pack 1 Packet PO PRN DAILY PRN [facility] Rx Tablet (Vit B Cmplx 3/Fa/Vit C/Biotin) 1 Each Tablet 1 Each PO DAILY Omeprazole 40 Mg Capsule. 40 Mg PO DAILY Vitals/I & O Vital Sign - Last 24 Hours 03/13/21 03/13/21 03/13/21 03/13/21 18:48 19:18 20:10 20:10 Temp 97.7 97.7 Pulse 72 66 91 Resp 20 B/P (MAP) 174/70 (104) 172/72 (105) 165/66 (99) Pulse Ox 98 98 98 O2 Delivery Room Air Room Air Room Air Room Air 03/13/21 03/14/21 03/14/21 23:21 03:00 07:00 Temp 97.7 97.7 97.8 97.7 97.7 97.8 Pulse 73 75 72 Resp 16 16 16 B/P (MAP) 155/65 (95) 138/69 (92) 146/50 (82) Pulse Ox 99 98 98 O2 Delivery Room Air Room Air Room Air Intake and Output 03/13/21 03/13/21 03/14/21 15:00 23:00 07:00 Intake Total 120 ml 150 ml Balance 120 ml 150 ml Justifications for Admission General Conditions Other justification for admit: severe hyperkalemia Other Justification Bleeding from HD site, blood loss anemia MARGE BEY MD Mar 14, 2021 12:51
[2021-03-14] MEDS ORDERED: diphenhydrAMINE 50 MG/ML VIAL IV PRN ×2 (14:00)
[2021-03-14] MEDS ORDERED: DIALYSIS PATIENT. MC PRN ×2 (14:00)
[2021-03-14] MEDS ORDERED: ACETAMINOPHEN 500 MG TABLET PO PRN (14:00)
[2021-03-14] MEDS ORDERED: ALBUMIN HUMAN 25% 200 ML IV PRN (14:00)
[2021-03-14] MEDS ORDERED: IV NORMAL SALINE 1000ML BAG 1,000 ML IV PRN ×2 (14:00)
--- NOTE | 2021-03-14 14:27 | RAD ---
Exam Date: 03/14/2021 12:33 PM XR CHEST 1V Indication: Reason: TEMPORARY DIAYLSIS CATHETER PLACEMENT / Spl. Instructions: / History: . Comparison: March 13, 2021 FINDINGS/ IMPRESSION: Right central venous catheter terminates in the right atrium or at the cavoatrial junction. Aorta is calcified. Postoperative changes are noted. The cardiac silhouette and pulmonary vasculature are within normal limits. There is no focal consolidation, pleural effusion or pneumothorax. Electronically signed by: Matt Padilla MD (03/14/2021 2:24 PM) [facility]
--- NOTE | 2021-03-14 18:10 | RAD ---
PLACEMENT OF NON- TUNNELED HEMODIALYSIS CATHETER , ULTRASOUND GUIDED VASCULAR ACCESS. History: Renal failure Procedure: Procedure was explained to the patient including risks, benefits and alternatives. Written informed c onsent was obtained. The patient was in a supine position on the bed. The neck was evaluated sonographically. Ultrasound-guided access: Ultrasound evaluation showed the targeted vein to be patent and compressib le and under ultrasound guidance. An ultrasound image was saved and sent to PACS. Sterile ultrasound technique was used. The patient was prepped and draped using maximum sterile technique, including the use of: Current hema deline approved cutaneous antisepsis, a large sterile sheet to establish a sterile field. 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 Sterile ultrasound technique was used. Under real-time ultrasound a 21-gauge needle was advanced into the internal jugular vein after local anesthesia with 1% lidocaine. Needle placement was confirmed by return of venous blood flow. A 0.018 wire was placed through the needle. The needle was exchanged over the wire for a transitional sheath after a dermatotomy. This was used to introduce an Amplatz guidewire. This was then secured in place with a flow switch. Transitional sheath was exchanged over the wire to introduce the catheter into the jugular vein. The catheter was accessed and showed good clinical function with aspiration and infusion. The cathete r were flushed and packed per protocol. The catheter was secured to the skin with nondissolvable mon ofilament suture. Overhead chest x-ray was performed to evaluate catheter position. Impression: 1. NON- TUNNELED Hemodialysis catheter via the right internal jugular vein approach, ready to utilize . Electronically signed by: Nikhil Stratton MD (03/14/2021 6:08 PM) [id number]
[2021-03-14] MEDS ORDERED: CLOP75TA PO (19:07)
[2021-03-14] MEDS ORDERED: METO25TA4 PO (19:07)
[2021-03-14] MEDS ORDERED: ONDANSETRON ODT 4 MG TAB.RAPDIS. PO PRN (19:30)
[2021-03-14] MEDS ORDERED: POLYETHYLENE GLYCOL 3350 17 GM PACKET. PO PRN (19:30)
[2021-03-14 19:37] VITALS: BP 143/70
[2021-03-14] MEDS: LACTOBACILLUS RHAMNOSUS GG 1 CAPSULE. PO SCH (20:51)
[2021-03-14] MEDS: traMADol 50 MG TABLET PO PRN (20:52)
[2021-03-14] MEDS: METOPROLOL TART IMMED RELEASE 25 MG TABLET. PO SCH (20:52)
[2021-03-14 23:37] VITALS: BP 128/60
[2021-03-15 03:48] VITALS: BP 122/47
[2021-03-15] MEDS: PANTOPRAZOLE 40 MG TABLET.DR. PO SCH (05:12)
[2021-03-15 07:00] VITALS: BP 137/53
[2021-03-15] MEDS: CALCIUM ACETATE 667 MG CAPSULE PO SCH ×3 (08:36→17:45)
[2021-03-15] MEDS: CINACALCET HCL 30 MG TABLET PO SCH (08:36)
[2021-03-15] MEDS: ASPIRIN ENTERIC COATED 81 MG TABLET.DR. PO SCH (08:36)
[2021-03-15] MEDS: ATORVASTATIN CALCIUM 40 MG TABLET. PO SCH (08:36)
[2021-03-15] MEDS: LACTOBACILLUS RHAMNOSUS GG 1 CAPSULE. PO SCH ×2 (08:36→21:01)
[2021-03-15] MEDS: CLOPIDOGREL BISULFATE 75 MG TABLET PO SCH (08:36)
[2021-03-15] MEDS: FOLIC/VIT B COMP W-C (RENAL) TABLET. PO SCH (08:36)
[2021-03-15] MEDS: METOPROLOL TART IMMED RELEASE 25 MG TABLET. PO SCH ×2 (08:37→21:01)
[2021-03-15 09:34] LABS: ALBUMIN 2.8 g/dL (3.4-5.0); ALBUMIN/GLOBULIN RATIO 0.8 (1.0-1.7); CALCIUM 9.3 mg/dL (8.5-10.1); CREATININE 7.5 mg/dL (0.6-1.0); GFR 6.2; POTASSIUM 5.7 mmol/L (3.5-5.1); TOTAL BILIRUBIN 0.4 mg/dL (0.2-1.0); TOTAL PROTEIN 6.3 g/dL (6.4-8.2)
[2021-03-15 11:00] VITALS: BP 111/48
--- NOTE | 2021-03-15 11:06 | PDOC ---
PROGRESS NOTES Date of Service: DATE: 03/15/21 TIME: 11:05 Chief Complaint Chief Complaint VTE Prophylaxis Ordered VTE Prophylaxis Devices: Contraindicated VTE Pharmacological Prophylaxi: No Assessment/Plan Assessment/Plan Impression: Hyperkalemia POST- TUSSIVE EMESIS esrd on dialysis Arthritis, CAD, Hypertension CAD - s/p CABG 01/2017, clinically stable. Anemia of chronic renal disease ADMITTED emergent dialysis today nephrology consult dvt prophylaxis home meds AVF IS THROMBOSED. HAS ACUTE HD CATHETER. FOR DIALYSIS AGAIN 03-14 D/W RN History of Present Illness History of Present Illness Identification/Chief Complaint Chief Complaint COUGH WITH EMESIS, HIGH K diarrhea for the past 2 or 3 weeks. History of Present Illness History of Present Illness 86 year old female seen in ER posttussive emesis. AND K elevation of 7.4 /she has been coughing up clear mucus. Also has been having diarrhea for the past 2 or 3 weeks. no blood in her diarrhea. Today had some breath that was worse with exertion have difficulty walking. needs Emergent dialysis today - severe Hyperkalemia CAD - s/p CABG 01/2017, clinically stable. / Anemia of chronic renal disease Past Medical History Past Medical History Past Medical History Past Medical History: Arthritis, CAD, Hypertension, Pneumonia, Renal Disease, Renal Failure Additional Past Medical Histor: ESRD Past Surgical History: Coronary Bypass Surgery, Hysterectomy, Knee Replacement, Other Additional Past Surgical Histo: ovarian cyst, cataracts; bilateral popliteal bypass Smoking Status: Never Smoker Alcohol Use: None Drug Use: None fhx htn Cardiovascular: CAD, HTN, Hyperlipidemia Pulmonary: No pertinent hx CENTRAL NERVOUS SYSTEM: Other GI: GERD Heme/Onc: Anemia NOS Musculoskeletal: Osteoarthritis Rheumatologic: No pertinent hx Renal/: Chronic renal failure Endocrine: Hyperparathyroidism Past Surgical History Past Surgical History: Appendectomy, CABG, Cataract Removal, Total knee replacement, Tonsillectomy, Hysterectomy Family History Family History: Coronary Artery Disease, Hypertension Social History Smoke: No ALCOHOL: none Drugs: None Current Medications Current Medications Active Scripts Active Ondansetron Odt (Ondansetron) 4 Mg Tab.rapdis 1 Tab PO PRN Q6-8HRS PRN Culturelle (Lactobacillus Rhamnosus Gg) 1 Each Cap.sprink 1 Cap PO BID 30 Days Metoprolol Tartrate 25 Mg Tablet 12.5 Mg PO BID 30 Days Reported Sensipar (Cinacalcet Hcl) 30 Mg Tablet 1 Tab PO DAILY 30 Days Calcium Acetate 667 Mg Tablet 667 Mg PO TIDWMEALS Amlodipine Besylate 10 Mg Tablet 10 Mg PO DAILY Atorvastatin Calcium 40 Mg Tablet 1 Tab PO DAILY Aspirin Ec (Aspirin) 81 Mg Tablet.dr 1 Tab PO DAILY Miralax (Polyethylene Glycol 3350) 17 Gm Powd.pack 1 Packet PO PRN DAILY PRN Helen-Homa Rx Tablet (Vit B Cmplx 3/Fa/Vit C/Biotin) 1 Each Tablet 1 Each PO DAILY Omeprazole 40 Mg Capsule.dr 40 Mg PO DAILY Allergies Allergies: Coded Allergies: No Known Drug Allergies (Unverified , 01/06/17) ROS General: YES: Fatigue, Appetite PSYCHOLOGICAL ROS: No: Anxiety, Behavioral Disorder, Concentration difficultie, Decreased libido, Depression, Disorientation, Hallucinations, Hostility, Irritablity, Memory difficulties, Mood Swings, Obsessive thoughts, Physical abuse, Sexual abuse, Sleep disturbances, Suicidal ideation, Other Eyes: No Blurry vision, No Decreased vision, No Double vision, No Dry eyes, No Excessive tearing, No Eye Pain, No Itchy Eyes, No Loss of vision, No Photophobia, No Scotomata, No Uses contacts, No Uses glasses, No Other HEENT: No: Heacaches, Visual Changes, Hearing change, Nasal congestion, Nasal discharge, Oral lesions, Sinus pain, Sore Throat, Epistaxis, Sneezing, Snoring, Tinnitus, Vertigo, Vocal changes, Other ALLERGY AND IMMUNOLOGY: No: Hives, Insect Bite Sensitivity, Itchy/Watery Eyes, Nasal Congestion, Post Nasal Drip, Seasonal Allergies, Other Hematological and Lymphatic: No: Bleeding Problems, Blood Clots, Blood Transfusions, Brusing, Night Sweats, Pallor, Swollen Lymph Nodes, Other Respiratory: YES: Cough, Shortness of breath Gastrointestinal: Yes Vomiting; No Nausea, No Abdominal Pain, No Diarrhea, No Constipation, No Melena, No Hematochezia, No Other Genitourinary: No Dysuria, No Frequency, No Incontinence, No Hematuria, No Retention, No Discharge, No Urgency, No Pain, No Flank Pain, No Other, No , No , No , No , No , No , No Musculoskeletal: Yes Joint Stiffness; No Gait Disturbance, No Joint Pain, No Joint Swelling, No Muscle Pain, No Muscular Weakness, No Pain In:, No Swelling In:, No Other Neurological: Yes Confusion; No Behavorial Changes, No Bowel/Bladder ControlChng, No Dizziness, No Gait Disturbance, No Headaches, No Impaired Coord/balance, No Memory Loss, No Numbness/Tingling, No Seizures, No Speech Problems, No Tremors, No Visual Changes, No Weakness, No Other Skin: Yes Dry Skin; No Eczema, No Hair Changes, No Lumps, No Mole Changes, No Mottling, No Nail Changes, No Pruritus, No Rash, No Skin Lesion Changes, No Other, No Acne Vitals Vitals Vital Signs Date Time Temp Pulse Resp B/P (MAP) Pulse Ox O2 Delivery O2 Flow Rate FiO2 03/15/21 08:38 68 137/53 03/15/21 07:00 98.2 16 97 Room Air 98.2 Physical Exam General: Alert, Oriented X3, Cooperative, No acute distress Heart: Regular rate, Normal S1, Normal S2, No murmurs, Gallops Lungs: Clear Abdomen: Normal bowel sounds, Soft, No tenderness Extremities: No clubbing, No cyanosis, No edema Labs LABS Laboratory Tests Test 03/15/21 08:30 Sodium Level 136 mmol/L (136-145) Potassium Level 5.7 mmol/L (3.5-5.1) Chloride Level 98 mmol/L (98-107) Carbon Dioxide Level 29 mmol/L (21-32) Anion Gap 9 (6-14) Blood Urea Nitrogen 34 mg/dL (7-20) Creatinine 7.5 mg/dL (0.6-1.0) Estimated GFR (Cockcroft-Gault) 6.2 BUN/Creatinine Ratio 5 (6-20) Glucose Level 83 mg/dL (70-99) Calcium Level 9.3 mg/dL (8.5-10.1) Total Bilirubin 0.4 mg/dL (0.2-1.0) Aspartate Amino Transf (AST/SGOT) 20 U/L (15-37) Alanine Aminotransferase (ALT/SGPT) 20 U/L (14-59) Alkaline Phosphatase 71 U/L (46-116) Total Protein 6.3 g/dL (6.4-8.2) Albumin 2.8 g/dL (3.4-5.0) Albumin/Globulin Ratio 0.8 (1.0-1.7) Assessment and Plan Assessmemt and Plan Problems Medical Problems: (1) Hyperkalemia Status: Acute Comment Review of Relevant I have reviewed the following items jonah (where applicable) has been applied. Labs Laboratory Tests Test 03/13/21 14:16 03/13/21 17:36 03/14/21 05:00 03/15/21 08:30 Influenza Type A Antigen Negative (NEGATIVE) Influenza Type B Antigen Negative (NEGATIVE) SARS-CoV-2 RNA (AB) Negative (Negative) SARS-CoV-2 Antigen (Rapid) Negative (NEGATIVE) Glucose (Fingerstick) 85 mg/dL (70-99) White Blood Count 5.1 x10^3/uL (4.0-11.0) Red Blood Count 2.80 x10^6/uL (3.50-5.40) Hemoglobin 9.2 g/dL (12.0-15.5) Hematocrit 27.5 % (36.0-47.0) Mean Corpuscular Volume 99 fL (79-100) Mean Corpuscular Hemoglobin 33 pg (25-35) Mean Corpuscular Hemoglobin Concent 33 g/dL (31-37) Red Cell Distribution Width 15.5 % (11.5-14.5) Platelet Count 192 x10^3/uL (140-400) Neutrophils (%) (Auto) 57 % (31-73) Lymphocytes (%) (Auto) 21 % (24-48) Monocytes (%) (Auto) 17 % (0-9) Eosinophils (%) (Auto) 4 % (0-3) Basophils (%) (Auto) 1 % (0-3) Neutrophils # (Auto) 2.9 x10^3/uL (1.8-7.7) Lymphocytes # (Auto) 1.1 x10^3/uL (1.0-4.8) Monocytes # (Auto) 0.8 x10^3/uL (0.0-1.1) Eosinophils # (Auto) 0.2 x10^3/uL (0.0-0.7) Basophils # (Auto) 0.0 x10^3/uL (0.0-0.2) Sodium Level 134 mmol/L (136-145) 136 mmol/L (136-145) Potassium Level 6.4 mmol/L (3.5-5.1) 5.7 mmol/L (3.5-5.1) Chloride Level 96 mmol/L (98-107) 98 mmol/L (98-107) Carbon Dioxide Level 25 mmol/L (21-32) 29 mmol/L (21-32) Anion Gap 13 (6-14) 9 (6-14) Blood Urea Nitrogen 84 mg/dL (7-20) 34 mg/dL (7-20) Creatinine 13.4 mg/dL (0.6-1.0) 7.5 mg/dL (0.6-1.0) Estimated GFR (Cockcroft-Gault) 3.2 6.2 Glucose Level 77 mg/dL (70-99) 83 mg/dL (70-99) Calcium Level 9.4 mg/dL (8.5-10.1) 9.3 mg/dL (8.5-10.1) Troponin I Quantitative < 0.017 ng/mL (0.000-0.055) BUN/Creatinine Ratio 5 (6-20) Total Bilirubin 0.4 mg/dL (0.2-1.0) Aspartate Amino Transf (AST/SGOT) 20 U/L (15-37) Alanine Aminotransferase (ALT/SGPT) 20 U/L (14-59) Alkaline Phosphatase 71 U/L (46-116) Total Protein 6.3 g/dL (6.4-8.2) Albumin 2.8 g/dL (3.4-5.0) Albumin/Globulin Ratio 0.8 (1.0-1.7) Laboratory Tests Test 03/15/21 08:30 Sodium Level 136 mmol/L (136-145) Potassium Level 5.7 mmol/L (3.5-5.1) Chloride Level 98 mmol/L (98-107) Carbon Dioxide Level 29 mmol/L (21-32) Anion Gap 9 (6-14) Blood Urea Nitrogen 34 mg/dL (7-20) Creatinine 7.5 mg/dL (0.6-1.0) Estimated GFR (Cockcroft-Gault) 6.2 BUN/Creatinine Ratio 5 (6-20) Glucose Level 83 mg/dL (70-99) Calcium Level 9.3 mg/dL (8.5-10.1) Total Bilirubin 0.4 mg/dL (0.2-1.0) Aspartate Amino Transf (AST/SGOT) 20 U/L (15-37) Alanine Aminotransferase (ALT/SGPT) 20 U/L (14-59) Alkaline Phosphatase 71 U/L (46-116) Total Protein 6.3 g/dL (6.4-8.2) Albumin 2.8 g/dL (3.4-5.0) Albumin/Globulin Ratio 0.8 (1.0-1.7) Medications Current Medications Calcium Gluconate (Calcium Gluconate) 1,000 mg 1X ONCE IVP Last administered on 03/13/21at 14:44; Start 03/13/21 at 13:15; Stop 03/13/21 at 13:17; Status DC Dextrose (Dextrose 50%-Water Syringe) 25 gm 1X ONCE IV Last administered on 03/13/21at 14:48; Start 03/13/21 at 13:15; Stop 03/13/21 at 13:17; Status DC Insulin Human Regular (HumuLIN R VIAL) 10 unit 1X ONCE IV Last administered on 03/13/21at 14:50; Start 03/13/21 at 13:15; Stop 03/13/21 at 13:17; Status DC Sodium Polystyrene Sulfonate (Kayexalate) 30 gm 1X ONCE PO Last administered on 03/13/21at 14:51; Start 03/13/21 at 13:15; Stop 03/13/21 at 13:17; Status DC Ondansetron HCl (Zofran) 4 mg PRN Q8HRS PRN IVP NAUSEA/VOMITING; Start 03/13/21 at 13:45; Stop 03/14/21 at 13:44; Status DC Fentanyl Citrate (Fentanyl 2ml Vial) 50 mcg PRN Q1HR PRN IVP PAIN; Start 03/13/21 at 13:45; Stop 03/14/21 at 13:44; Status DC Acetaminophen (Tylenol) 650 mg PRN Q4HRS PRN PO FEVER > 100.3'F Last administered on 03/14/21at 02:10; Start 03/13/21 at 13:45; Stop 03/14/21 at 13:44; Status DC Info (PHARMACY MONITORING -- do not chart) 1 each PRN DAILY PRN MC SEE COMMENTS; Start 03/13/21 at 14:45 Info (PHARMACY MONITORING -- do not chart) 1 each PRN DAILY PRN MC SEE COMMENTS; Start 03/13/21 at 14:45; Status UNV Info (PHARMACY MONITORING -- do not chart) 1 each PRN DAILY PRN MC SEE COMMENTS; Start 03/13/21 at 14:45; Status UNV Sodium Chloride (Normal Saline Flush) 3 ml QSHIFT PRN IV AFTER MEDS AND BLOOD DRAWS; Start 03/13/21 at 14:45 Acetaminophen (Tylenol) 650 mg PRN Q4HRS PRN PO TEMP OVER 100.4F OR MILD PAIN Last administered on 03/14/21at 19:02; Start 03/13/21 at 14:45 Docusate Sodium (Colace) 100 mg PRN BID PRN PO HARD STOOLS; Start 03/13/21 at 14:45 Albuterol Sulfate (Ventolin Neb Soln) 2.5 mg PRN Q4HRS PRN NEB SHORTNESS OF BREATH; Start 03/13/21 at 14:45 Guaifenesin (Robitussin) 200 mg PRN Q4HRS PRN PO COUGH; Start 03/13/21 at 14:45 Lidocaine HCl (Buffered Lidocaine 1%) 3 ml STK-MED ONCE .ROUTE ; Start 03/14/21 at 10:43; Stop 03/14/21 at 10:43; Status DC Heparin Sodium (Porcine) (Heparin Sodium) 10,000 unit STK-MED ONCE .ROUTE ; Start 03/14/21 at 10:44; Stop 03/14/21 at 10:44; Status DC Lidocaine HCl (Buffered Lidocaine 1%) 6 ml 1X ONCE INJ Last administered on 03/14/21at 11:45; Start 03/14/21 at 11:30; Stop 03/14/21 at 11:31; Status DC Sodium Chloride 1,000 ml @ 1,000 mls/hr Q1H PRN IV hypotension; Start 03/14/21 at 14:00; Stop 03/14/21 at 19:59; Status DC Albumin Human 200 ml @ 200 mls/hr 1X PRN PRN IV Hypotension; Start 03/14/21 at 14:00; Stop 03/14/21 at 19:59; Status DC Acetaminophen (Tylenol) 500 mg 1X PRN PRN PO MILD PAIN / TEMP > 100.3'F; Start 03/14/21 at 14:00; Stop 03/14/21 at 21:00; Status DC Diphenhydramine HCl (Benadryl) 25 mg 1X PRN PRN IV ITCHING; Start 03/14/21 at 14:00; Stop 03/14/21 at 21:00; Status DC Diphenhydramine HCl (Benadryl) 25 mg 1X PRN PRN IV ITCHING; Start 03/14/21 at 14:00; Stop 03/14/21 at 21:00; Status DC Sodium Chloride 1,000 ml @ 400 mls/hr Q2H30M PRN IV PATENCY; Start 03/14/21 at 14:00; Stop 03/15/21 at 01:59; Status DC Info (PHARMACY MONITORING -- do not chart) 1 each PRN DAILY PRN MC SEE COMMENTS; Start 03/14/21 at 14:00; Status UNV Info (PHARMACY MONITORING -- do not chart) 1 each PRN DAILY PRN MC SEE COMMENTS; Start 03/14/21 at 14:00; Status UNV Amlodipine Besylate (Norvasc) 5 mg DAILY PO Last administered on 03/15/21at 08:38; Start 03/15/21 at 09:00 Aspirin (Ecotrin) 81 mg DAILY PO Last administered on 03/15/21at 08:36; Start 03/15/21 at 09:00 Atorvastatin Calcium (Lipitor) 40 mg DAILY PO Last administered on 03/15/21at 08:36; Start 03/15/21 at 09:00 Cinacalcet (Sensipar) 30 mg DAILY PO Last administered on 03/15/21at 08:36; Start 03/15/21 at 09:00 Clopidogrel Bisulfate (Plavix) 75 mg DAILY PO Last administered on 03/15/21at 08:36; Start 03/15/21 at 09:00 Lactobacillus Rhamnosus (Culturelle) 1 cap BID PO Last administered on 03/15/21at 08:36; Start 03/14/21 at 21:00 Metoprolol Tartrate (Lopressor) 25 mg BID PO Last administered on 03/15/21at 08:37; Start 03/14/21 at 21:00 Ondansetron HCl (Zofran Odt) 4 mg PRN Q6HRS PRN PO NAUSEA; Start 03/14/21 at 19:30 Polyethylene Glycol (miraLAX PACKET) 17 gm PRN DAILY PRN PO CONSTIPATION; Start 03/14/21 at 19:30 Calcium Acetate (Phoslo) 1,334 mg TIDWMEALS PO Last administered on 03/15/21at 08:36; Start 03/15/21 at 08:00 Pantoprazole Sodium (Protonix) 40 mg DAILYAC PO Last administered on 03/15/21at 05:12; Start 03/15/21 at 07:30 Vitamin B Complex/ Vitamin C (Helen-Homa) 1 tab DAILY PO Last administered on 03/15/21at 08:36; Start 03/15/21 at 09:00 Tramadol HCl (Ultram) 50 mg PRN Q6HRS PRN PO PAIN Last administered on 03/14/21at 20:52; Start 03/14/21 at 19:30 Active Scripts Active Ondansetron Odt (Ondansetron) 4 Mg Tab.rapdis 1 Tab PO PRN Q6-8HRS PRN Culturelle (Lactobacillus Rhamnosus Gg) 1 Each Cap.sprink 1 Cap PO BID 30 Days Metoprolol Tartrate 25 Mg Tablet 12.5 Mg PO BID 30 Days Reported Metoprolol Tartrate 25 Mg Tablet 25 Mg PO BID Clopidogrel (Clopidogrel Bisulfate) 75 Mg Tablet 75 Mg PO DAILY Sensipar (Cinacalcet Hcl) 30 Mg Tablet 1 Tab PO DAILY 30 Days Calcium Acetate 667 Mg Tablet 1,334 Mg PO TIDWMEALS Amlodipine Besylate 10 Mg Tablet 5 Mg PO DAILY Atorvastatin Calcium 40 Mg Tablet 1 Tab PO DAILY Aspirin Ec (Aspirin) 81 Mg Tablet.dr 1 Tab PO DAILY Miralax (Polyethylene Glycol 3350) 17 Gm Powd.pack 1 Packet PO PRN DAILY PRN Helen-Homa Rx Tablet (Vit B Cmplx 3/Fa/Vit C/Biotin) 1 Each Tablet 1 Each PO DAILY Omeprazole 40 Mg Capsule.dr 40 Mg PO DAILY Vitals/I & O Vital Sign - Last 24 Hours 03/14/21 03/14/21 03/14/21 03/14/21 19:37 20:00 20:52 20:52 Temp 98.8 98.8 Pulse 99 89 Resp 18 18 B/P (MAP) 143/70 (94) 149/74 Pulse Ox 97 97 O2 Delivery Room Air Room Air Room Air 03/14/21 03/14/21 03/15/21 03/15/21 21:22 23:37 03:48 07:00 Temp 98.0 98.1 98.2 98.0 98.1 98.2 Pulse 74 64 68 Resp 18 18 16 16 B/P (MAP) 128/60 (82) 122/47 (72) 137/53 (81) Pulse Ox 97 97 96 97 O2 Delivery Room Air Room Air Room Air Room Air 03/15/21 03/15/21 08:37 08:38 Pulse 68 68 B/P (MAP) 137/53 137/53 Intake and Output 03/14/21 03/14/21 03/15/21 15:00 23:00 07:00 Intake Total 250 ml 450 ml Balance 250 ml 450 ml Justicifation of Admission Dx: Justifications for Admission: Justification of Admission Dx: Yes RAYA HAMILTON MD Mar 15, 2021 11:06
[2021-03-15] MEDS: ACETAMINOPHEN 325 MG TABLET. PO PRN (14:38)
[2021-03-15 15:00] VITALS: BP 122/49
[2021-03-15 19:34] VITALS: BP 116/55
[2021-03-15] MEDS: traMADol 50 MG TABLET PO PRN (21:02)
[2021-03-15 23:21] VITALS: BP 132/37
[2021-03-16 03:09] VITALS: BP 137/44
[2021-03-16] MEDS: PANTOPRAZOLE 40 MG TABLET.DR. PO SCH (05:44)
[2021-03-16 06:40] LABS: BASO % 1 % (0-3); EOS # 0.6 x10^3/uL (0.0-0.7); EOS % 12 % (0-3); HEMATOCRIT 27.3 % (36.0-47.0); HEMOGLOBIN 8.9 g/dL (12.0-15.5); LYMPH # 1.2 x10^3/uL (1.0-4.8); LYMPH % 26 % (24-48); MEAN CORPUSCULAR HEMOGLOBIN 33 pg (25-35); MEAN CORPUSCULAR HGB CONC 33 g/dL (31-37); MEAN CORPUSCULAR VOLUME 100 fL (79-100); MONO # 0.8 x10^3/uL (0.0-1.1); MONO % 16 % (0-9); NEUT # 2.2 x10^3/uL (1.8-7.7); NEUT % 46 % (31-73); PLATELET COUNT 162 x10^3/uL (140-400); RED BLOOD COUNT 2.73 x10^6/uL (3.50-5.40); RED CELL DISTRIBUTION WIDTH 15.4 % (11.5-14.5); WHITE BLOOD COUNT 4.8 x10^3/uL (4.0-11.0)
[2021-03-16 07:00] VITALS: BP 138/46
[2021-03-16 07:32] LABS: ALBUMIN 2.9 g/dL (3.4-5.0); ALBUMIN/GLOBULIN RATIO 0.9 (1.0-1.7); CALCIUM 9.1 mg/dL (8.5-10.1); CREATININE 9.8 mg/dL (0.6-1.0); GFR 4.6; POTASSIUM 5.6 mmol/L (3.5-5.1); TOTAL BILIRUBIN 0.4 mg/dL (0.2-1.0); TOTAL PROTEIN 6.1 g/dL (6.4-8.2)
[2021-03-16] MEDS ORDERED: 0.9 % SODIUM CHLORIDE 10 ML DISP.SYRIN. IV PRN ×2 (08:15)
[2021-03-16] MEDS ORDERED: DIALYSIS PATIENT. MC PRN ×2 (08:15)
[2021-03-16] MEDS ORDERED: IV NORMAL SALINE 1000ML BAG 1,000 ML IV PRN ×2 (08:15)
[2021-03-16] MEDS: CINACALCET HCL 30 MG TABLET PO SCH (08:51)
[2021-03-16] MEDS: LACTOBACILLUS RHAMNOSUS GG 1 CAPSULE. PO SCH ×2 (08:51→19:49)
[2021-03-16] MEDS: CLOPIDOGREL BISULFATE 75 MG TABLET PO SCH (08:52)
[2021-03-16] MEDS: ATORVASTATIN CALCIUM 40 MG TABLET. PO SCH (08:52)
[2021-03-16] MEDS: FOLIC/VIT B COMP W-C (RENAL) TABLET. PO SCH (08:52)
[2021-03-16] MEDS: ASPIRIN ENTERIC COATED 81 MG TABLET.DR. PO SCH (08:52)
[2021-03-16] MEDS: CALCIUM ACETATE 667 MG CAPSULE PO SCH ×3 (08:52→17:00)
[2021-03-16] MEDS: METOPROLOL TART IMMED RELEASE 25 MG TABLET. PO SCH ×2 (09:00→19:50)
[2021-03-16 11:00] VITALS: BP 140/48
--- NOTE | 2021-03-16 13:37 | PDOC ---
PROGRESS NOTES Date of Service DATE: 03/16/21 TIME: 13:36 Subjective Subjective SEEN IN FOLLOW UP OF ESRD Objective Objective Vital Signs Date Time Temp Pulse Resp B/P (MAP) Pulse Ox O2 Delivery O2 Flow Rate FiO2 03/16/21 11:00 98.2 72 16 140/48 (78) 99 Room Air 98.2 Intake and Output 03/16/21 07:00 Intake Total 580 ml Balance 580 ml Intake Oral 580 ml # Voids 1 Physical Exam Heart: Regular rate, Normal S1, Normal S2, No murmurs, Gallops Extremities: No clubbing, No cyanosis, No edema, Normal pulses, No tenderness/swelling General: Alert, Oriented X3, Cooperative, No acute distress Lungs: Clear to auscultation, Normal air movement Psych/Mental Status: Mental status NL, Mood NL Diagnosis RENAL FAILURE: ESRD Assessment Assessment Problems Medical Problems: (1) Hyperkalemia Status: Acute Plan Plan of Care FOR DIALYSIS TODAY. WILL NEED AVF THROMBECTOMY TOMORROW Comment Review of Relevant I have reviewed the following items jonah (where applicable) has been applied. Labs Laboratory Tests Test 03/15/21 08:30 03/16/21 06:15 Sodium Level 136 mmol/L (136-145) 133 mmol/L (136-145) Potassium Level 5.7 mmol/L (3.5-5.1) 5.6 mmol/L (3.5-5.1) Chloride Level 98 mmol/L (98-107) 96 mmol/L (98-107) Carbon Dioxide Level 29 mmol/L (21-32) 27 mmol/L (21-32) Anion Gap 9 (6-14) 10 (6-14) Blood Urea Nitrogen 34 mg/dL (7-20) 48 mg/dL (7-20) Creatinine 7.5 mg/dL (0.6-1.0) 9.8 mg/dL (0.6-1.0) Estimated GFR (Cockcroft-Gault) 6.2 4.6 BUN/Creatinine Ratio 5 (6-20) 5 (6-20) Glucose Level 83 mg/dL (70-99) 80 mg/dL (70-99) Calcium Level 9.3 mg/dL (8.5-10.1) 9.1 mg/dL (8.5-10.1) Total Bilirubin 0.4 mg/dL (0.2-1.0) 0.4 mg/dL (0.2-1.0) Aspartate Amino Transf (AST/SGOT) 20 U/L (15-37) 15 U/L (15-37) Alanine Aminotransferase (ALT/SGPT) 20 U/L (14-59) 24 U/L (14-59) Alkaline Phosphatase 71 U/L (46-116) 64 U/L (46-116) Total Protein 6.3 g/dL (6.4-8.2) 6.1 g/dL (6.4-8.2) Albumin 2.8 g/dL (3.4-5.0) 2.9 g/dL (3.4-5.0) Albumin/Globulin Ratio 0.8 (1.0-1.7) 0.9 (1.0-1.7) White Blood Count 4.8 x10^3/uL (4.0-11.0) Red Blood Count 2.73 x10^6/uL (3.50-5.40) Hemoglobin 8.9 g/dL (12.0-15.5) Hematocrit 27.3 % (36.0-47.0) Mean Corpuscular Volume 100 fL (79-100) Mean Corpuscular Hemoglobin 33 pg (25-35) Mean Corpuscular Hemoglobin Concent 33 g/dL (31-37) Red Cell Distribution Width 15.4 % (11.5-14.5) Platelet Count 162 x10^3/uL (140-400) Neutrophils (%) (Auto) 46 % (31-73) Lymphocytes (%) (Auto) 26 % (24-48) Monocytes (%) (Auto) 16 % (0-9) Eosinophils (%) (Auto) 12 % (0-3) Basophils (%) (Auto) 1 % (0-3) Neutrophils # (Auto) 2.2 x10^3/uL (1.8-7.7) Lymphocytes # (Auto) 1.2 x10^3/uL (1.0-4.8) Monocytes # (Auto) 0.8 x10^3/uL (0.0-1.1) Eosinophils # (Auto) 0.6 x10^3/uL (0.0-0.7) Basophils # (Auto) 0.0 x10^3/uL (0.0-0.2) Laboratory Tests Test 03/16/21 06:15 White Blood Count 4.8 x10^3/uL (4.0-11.0) Red Blood Count 2.73 x10^6/uL (3.50-5.40) Hemoglobin 8.9 g/dL (12.0-15.5) Hematocrit 27.3 % (36.0-47.0) Mean Corpuscular Volume 100 fL (79-100) Mean Corpuscular Hemoglobin 33 pg (25-35) Mean Corpuscular Hemoglobin Concent 33 g/dL (31-37) Red Cell Distribution Width 15.4 % (11.5-14.5) Platelet Count 162 x10^3/uL (140-400) Neutrophils (%) (Auto) 46 % (31-73) Lymphocytes (%) (Auto) 26 % (24-48) Monocytes (%) (Auto) 16 % (0-9) Eosinophils (%) (Auto) 12 % (0-3) Basophils (%) (Auto) 1 % (0-3) Neutrophils # (Auto) 2.2 x10^3/uL (1.8-7.7) Lymphocytes # (Auto) 1.2 x10^3/uL (1.0-4.8) Monocytes # (Auto) 0.8 x10^3/uL (0.0-1.1) Eosinophils # (Auto) 0.6 x10^3/uL (0.0-0.7) Basophils # (Auto) 0.0 x10^3/uL (0.0-0.2) Sodium Level 133 mmol/L (136-145) Potassium Level 5.6 mmol/L (3.5-5.1) Chloride Level 96 mmol/L (98-107) Carbon Dioxide Level 27 mmol/L (21-32) Anion Gap 10 (6-14) Blood Urea Nitrogen 48 mg/dL (7-20) Creatinine 9.8 mg/dL (0.6-1.0) Estimated GFR (Cockcroft-Gault) 4.6 BUN/Creatinine Ratio 5 (6-20) Glucose Level 80 mg/dL (70-99) Calcium Level 9.1 mg/dL (8.5-10.1) Total Bilirubin 0.4 mg/dL (0.2-1.0) Aspartate Amino Transf (AST/SGOT) 15 U/L (15-37) Alanine Aminotransferase (ALT/SGPT) 24 U/L (14-59) Alkaline Phosphatase 64 U/L (46-116) Total Protein 6.1 g/dL (6.4-8.2) Albumin 2.9 g/dL (3.4-5.0) Albumin/Globulin Ratio 0.9 (1.0-1.7) Medications Current Medications Calcium Gluconate (Calcium Gluconate) 1,000 mg 1X ONCE IVP Last administered on 03/13/21at 14:44; Start 03/13/21 at 13:15; Stop 03/13/21 at 13:17; Status DC Dextrose (Dextrose 50%-Water Syringe) 25 gm 1X ONCE IV Last administered on 03/13/21at 14:48; Start 03/13/21 at 13:15; Stop 03/13/21 at 13:17; Status DC Insulin Human Regular (HumuLIN R VIAL) 10 unit 1X ONCE IV Last administered on 03/13/21at 14:50; Start 03/13/21 at 13:15; Stop 03/13/21 at 13:17; Status DC Sodium Polystyrene Sulfonate (Kayexalate) 30 gm 1X ONCE PO Last administered on 03/13/21at 14:51; Start 03/13/21 at 13:15; Stop 03/13/21 at 13:17; Status DC Ondansetron HCl (Zofran) 4 mg PRN Q8HRS PRN IVP NAUSEA/VOMITING; Start 03/13/21 at 13:45; Stop 03/14/21 at 13:44; Status DC Fentanyl Citrate (Fentanyl 2ml Vial) 50 mcg PRN Q1HR PRN IVP PAIN; Start 03/13/21 at 13:45; Stop 03/14/21 at 13:44; Status DC Acetaminophen (Tylenol) 650 mg PRN Q4HRS PRN PO FEVER > 100.3'F Last administered on 03/14/21at 02:10; Start 03/13/21 at 13:45; Stop 03/14/21 at 13:44; Status DC Info (PHARMACY MONITORING -- do not chart) 1 each PRN DAILY PRN MC SEE COMMENTS; Start 03/13/21 at 14:45; Status Cancel Info (PHARMACY MONITORING -- do not chart) 1 each PRN DAILY PRN MC SEE COMMENTS; Start 03/13/21 at 14:45; Status UNV Info (PHARMACY MONITORING -- do not chart) 1 each PRN DAILY PRN MC SEE COMMENTS; Start 03/13/21 at 14:45; Status UNV Sodium Chloride (Normal Saline Flush) 3 ml QSHIFT PRN IV AFTER MEDS AND BLOOD DRAWS; Start 03/13/21 at 14:45 Acetaminophen (Tylenol) 650 mg PRN Q4HRS PRN PO TEMP OVER 100.4F OR MILD PAIN Last administered on 03/15/21at 14:38; Start 03/13/21 at 14:45 Docusate Sodium (Colace) 100 mg PRN BID PRN PO HARD STOOLS; Start 03/13/21 at 14:45 Albuterol Sulfate (Ventolin Neb Soln) 2.5 mg PRN Q4HRS PRN NEB SHORTNESS OF BREATH; Start 03/13/21 at 14:45 Guaifenesin (Robitussin) 200 mg PRN Q4HRS PRN PO COUGH; Start 03/13/21 at 14:45 Lidocaine HCl (Buffered Lidocaine 1%) 3 ml STK-MED ONCE .ROUTE ; Start 03/14/21 at 10:43; Stop 03/14/21 at 10:43; Status DC Heparin Sodium (Porcine) (Heparin Sodium) 10,000 unit STK-MED ONCE .ROUTE ; Start 03/14/21 at 10:44; Stop 03/14/21 at 10:44; Status DC Lidocaine HCl (Buffered Lidocaine 1%) 6 ml 1X ONCE INJ Last administered on 03/14/21at 11:45; Start 03/14/21 at 11:30; Stop 03/14/21 at 11:31; Status DC Sodium Chloride 1,000 ml @ 1,000 mls/hr Q1H PRN IV hypotension; Start 03/14/21 at 14:00; Stop 03/14/21 at 19:59; Status DC Albumin Human 200 ml @ 200 mls/hr 1X PRN PRN IV Hypotension; Start 03/14/21 at 14:00; Stop 03/14/21 at 19:59; Status DC Acetaminophen (Tylenol) 500 mg 1X PRN PRN PO MILD PAIN / TEMP > 100.3'F; Start 03/14/21 at 14:00; Stop 03/14/21 at 21:00; Status DC Diphenhydramine HCl (Benadryl) 25 mg 1X PRN PRN IV ITCHING; Start 03/14/21 at 14:00; Stop 03/14/21 at 21:00; Status DC Diphenhydramine HCl (Benadryl) 25 mg 1X PRN PRN IV ITCHING; Start 03/14/21 at 14:00; Stop 03/14/21 at 21:00; Status DC Sodium Chloride 1,000 ml @ 400 mls/hr Q2H30M PRN IV PATENCY; Start 03/14/21 at 14:00; Stop 03/15/21 at 01:59; Status DC Info (PHARMACY MONITORING -- do not chart) 1 each PRN DAILY PRN MC SEE COMMENTS; Start 03/14/21 at 14:00; Status UNV Info (PHARMACY MONITORING -- do not chart) 1 each PRN DAILY PRN MC SEE COMMENTS; Start 03/14/21 at 14:00; Status UNV Amlodipine Besylate (Norvasc) 5 mg DAILY PO Last administered on 03/15/21at 08:38; Start 03/15/21 at 09:00 Aspirin (Ecotrin) 81 mg DAILY PO Last administered on 03/16/21at 08:52; Start 03/15/21 at 09:00 Atorvastatin Calcium (Lipitor) 40 mg DAILY PO Last administered on 03/16/21at 08:52; Start 03/15/21 at 09:00 Cinacalcet (Sensipar) 30 mg DAILY PO Last administered on 03/16/21at 08:51; Start 03/15/21 at 09:00 Clopidogrel Bisulfate (Plavix) 75 mg DAILY PO Last administered on 03/16/21at 08:52; Start 03/15/21 at 09:00 Lactobacillus Rhamnosus (Culturelle) 1 cap BID PO Last administered on 03/16/21at 08:51; Start 03/14/21 at 21:00 Metoprolol Tartrate (Lopressor) 25 mg BID PO Last administered on 03/15/21at 21:01; Start 03/14/21 at 21:00 Ondansetron HCl (Zofran Odt) 4 mg PRN Q6HRS PRN PO NAUSEA; Start 03/14/21 at 19:30 Polyethylene Glycol (miraLAX PACKET) 17 gm PRN DAILY PRN PO CONSTIPATION; Start 03/14/21 at 19:30 Calcium Acetate (Phoslo) 1,334 mg TIDWMEALS PO Last administered on 03/16/21at 08:52; Start 03/15/21 at 08:00 Pantoprazole Sodium (Protonix) 40 mg DAILYAC PO Last administered on 03/16/21at 05:44; Start 03/15/21 at 07:30 Vitamin B Complex/ Vitamin C (Helen-Homa) 1 tab DAILY PO Last administered on 03/16/21at 08:52; Start 03/15/21 at 09:00 Tramadol HCl (Ultram) 50 mg PRN Q6HRS PRN PO PAIN Last administered on 03/15/21at 21:02; Start 03/14/21 at 19:30 Sodium Chloride 1,000 ml @ 1,000 mls/hr Q1H PRN IV hypotension; Start 03/16/21 at 08:15; Stop 03/16/21 at 14:14 Sodium Chloride (Normal Saline Flush) 10 ml 1X PRN PRN IV AP catheter pack; Start 03/16/21 at 08:15; Stop 03/17/21 at 08:14 Sodium Chloride (Normal Saline Flush) 10 ml 1X PRN PRN IV B[employer]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 catheter pack; Start 03/16/21 at 08:15; Stop 03/17/21 at 08:14 Sodium Chloride 1,000 ml @ 400 mls/hr Q2H30M PRN IV PATENCY; Start 03/16/21 at 08:15; Stop 03/16/21 at 20:14 Info (PHARMACY MONITORING -- do not chart) 1 each PRN DAILY PRN MC SEE COMMENTS; Start 03/16/21 at 08:15; Status UNV Info (PHARMACY MONITORING -- do not chart) 1 each PRN DAILY PRN MC SEE COMMENTS; Start 03/16/21 at 08:15 Active Scripts Active Ondansetron Odt (Ondansetron) 4 Mg Tab.rapdis 1 Tab PO PRN Q6-8HRS PRN Culturelle (Lactobacillus Rhamnosus Gg) 1 Each Cap.sprink 1 Cap PO BID 30 Days Metoprolol Tartrate 25 Mg Tablet 12.5 Mg PO BID 30 Days Reported Metoprolol Tartrate 25 Mg Tablet 25 Mg PO BID Clopidogrel (Clopidogrel Bisulfate) 75 Mg Tablet 75 Mg PO DAILY Sensipar (Cinacalcet Hcl) 30 Mg Tablet 1 Tab PO DAILY 30 Days Calcium Acetate 667 Mg Tablet 1,334 Mg PO TIDWMEALS Amlodipine Besylate 10 Mg Tablet 5 Mg PO DAILY Atorvastatin Calcium 40 Mg Tablet 1 Tab PO DAILY Aspirin Ec (Aspirin) 81 Mg Tablet.dr 1 Tab PO DAILY Miralax (Polyethylene Glycol 3350) 17 Gm Powd.pack 1 Packet PO PRN DAILY PRN Helen-Homa Rx Tablet (Vit B Cmplx 3/Fa/Vit C/Biotin) 1 Each Tablet 1 Each PO DAILY Omeprazole 40 Mg Capsule.dr 40 Mg PO DAILY Vitals/I & O Vital Sign - Last 24 Hours 03/15/21 03/15/21 03/15/21 03/15/21 15:00 19:34 20:00 21:01 Temp 98.4 98.1 98.4 98.1 Pulse 68 69 68 Resp 16 20 B/P (MAP) 122/49 (73) 116/55 (75) 120/62 Pulse Ox 98 98 O2 Delivery Room Air Room Air Room Air 03/15/21 03/15/21 03/15/21 03/16/21 21:02 21:32 23:21 03:09 Temp 98.6 97.7 98.6 97.7 Pulse 67 60 Resp 18 18 16 18 B/P (MAP) 132/37 (68) 137/44 (75) Pulse Ox 98 98 95 97 O2 Delivery Room Air Room Air Room Air Room Air 03/16/21 03/16/21 03/16/21 07:00 08:00 11:00 Temp 98.0 98.2 98.0 98.2 Pulse 68 72 Resp 16 16 B/P (MAP) 138/46 (76) 140/48 (78) Pulse Ox 98 99 O2 Delivery Room Air Room Air Room Air Intake and Output 03/15/21 03/15/21 03/16/21 15:00 23:00 07:00 Intake Total 100 ml 240 ml 240 ml Balance 100 ml 240 ml 240 ml Justifications for Admission General Conditions Other justification for admit: severe hyperkalemia Other Justification Bleeding from HD site, blood loss anemia MARGE BEY MD Mar 16, 2021 13:37
--- NOTE | 2021-03-16 14:48 | PDOC ---
[employer] PROGRESS NOTE Date of Service DOS: DATE: 03/16/21 TIME: 14:44 Chief Complaint Chief Complaint Assessment/Plan Assessment/Plan Impression: Hyperkalemia POST- TUSSIVE EMESIS esrd on dialysis Arthritis, CAD, Hypertension CAD - s/p CABG 01/2017, clinically stable. Anemia of chronic renal disease Patient for dialysis again today. Planning for thrombectomy of fistula tomorrow? D/W RN History of Present Illness History of Present Illness Identification/Chief Complaint Chief Complaint COUGH WITH EMESIS, HIGH K diarrhea for the past 2 or 3 weeks. History of Present Illness History of Present Illness 86 year old female seen in ER posttussive emesis. AND K elevation of 7.4 /she has been coughing up clear mucus. Also has been having diarrhea for the past 2 or 3 weeks. no blood in her diarrhea. Today had some breath that was worse with exertion have difficulty walking. needs Emergent dialysis today - severe Hyperkalemia CAD - s/p CABG 01/2017, clinically stable. / Anemia of chronic renal disease 03/16 Patient examined during dialysis. She is doing well with tolerating well. Planning for thrombectomy tomorrow? Dialysis again today, hyperkalemia improving with dialysis. Plan discussed with bedside RN. Vitals/I&O Vitals/I&O: Vital Signs Date Time Temp Pulse Resp B/P (MAP) Pulse Ox O2 Delivery O2 Flow Rate FiO2 03/16/21 11:00 98.2 72 16 140/48 (78) 99 Room Air 98.2 I & O 03/15/21 03/15/21 03/16/21 15:00 23:00 07:00 Intake Total 100 ml 240 ml 240 ml Balance 100 ml 240 ml 240 ml Physical Exam General: Alert, Oriented X3, Cooperative, No acute distress Heart: Regular rate, Normal S1, Normal S2, No murmurs, Gallops Lungs: Clear Abdomen: Normal bowel sounds, Soft, No tenderness Extremities: No edema, Normal pulses Skin: No significant lesion Labs Labs: Laboratory Tests Test 03/16/21 06:15 White Blood Count 4.8 x10^3/uL (4.0-11.0) Red Blood Count 2.73 x10^6/uL (3.50-5.40) Hemoglobin 8.9 g/dL (12.0-15.5) Hematocrit 27.3 % (36.0-47.0) Mean Corpuscular Volume 100 fL (79-100) Mean Corpuscular Hemoglobin 33 pg (25-35) Mean Corpuscular Hemoglobin Concent 33 g/dL (31-37) Red Cell Distribution Width 15.4 % (11.5-14.5) Platelet Count 162 x10^3/uL (140-400) Neutrophils (%) (Auto) 46 % (31-73) Lymphocytes (%) (Auto) 26 % (24-48) Monocytes (%) (Auto) 16 % (0-9) Eosinophils (%) (Auto) 12 % (0-3) Basophils (%) (Auto) 1 % (0-3) Neutrophils # (Auto) 2.2 x10^3/uL (1.8-7.7) Lymphocytes # (Auto) 1.2 x10^3/uL (1.0-4.8) Monocytes # (Auto) 0.8 x10^3/uL (0.0-1.1) Eosinophils # (Auto) 0.6 x10^3/uL (0.0-0.7) Basophils # (Auto) 0.0 x10^3/uL (0.0-0.2) Sodium Level 133 mmol/L (136-145) Potassium Level 5.6 mmol/L (3.5-5.1) Chloride Level 96 mmol/L (98-107) Carbon Dioxide Level 27 mmol/L (21-32) Anion Gap 10 (6-14) Blood Urea Nitrogen 48 mg/dL (7-20) Creatinine 9.8 mg/dL (0.6-1.0) Estimated GFR (Cockcroft-Gault) 4.6 BUN/Creatinine Ratio 5 (6-20) Glucose Level 80 mg/dL (70-99) Calcium Level 9.1 mg/dL (8.5-10.1) Total Bilirubin 0.4 mg/dL (0.2-1.0) Aspartate Amino Transf (AST/SGOT) 15 U/L (15-37) Alanine Aminotransferase (ALT/SGPT) 24 U/L (14-59) Alkaline Phosphatase 64 U/L (46-116) Total Protein 6.1 g/dL (6.4-8.2) Albumin 2.9 g/dL (3.4-5.0) Albumin/Globulin Ratio 0.9 (1.0-1.7) Assessment and Plan Assessmemt and Plan Problems Medical Problems: (1) Hyperkalemia Status: Acute Comment Review of Relevant I have reviewed the following items jonah (where applicable) has been applied. Justifications for Admission General Conditions Other justification for admit: severe hyperkalemia Other Justification Bleeding from HD site, blood loss anemia MACK MORALES MD Mar 16, 2021 14:48
[2021-03-16 18:00] VITALS: BP 151/78
[2021-03-16] MEDS: traMADol 50 MG TABLET PO PRN (19:50)
[2021-03-16 23:00] VITALS: BP 138/42
[2021-03-17 03:00] VITALS: BP 123/36
[2021-03-17] MEDS: ACETAMINOPHEN 325 MG TABLET. PO PRN (03:09)
[2021-03-17] MEDS: PANTOPRAZOLE 40 MG TABLET.DR. PO SCH (05:19)
[2021-03-17 07:00] VITALS: BP 158/45
[2021-03-17] MEDS: CALCIUM ACETATE 667 MG CAPSULE PO SCH ×3 (08:00→17:47)
[2021-03-17] MEDS: LACTOBACILLUS RHAMNOSUS GG 1 CAPSULE. PO SCH ×2 (09:00→21:07)
[2021-03-17] MEDS: METOPROLOL TART IMMED RELEASE 25 MG TABLET. PO SCH ×2 (09:00→21:08)
--- NOTE | 2021-03-17 10:21 | PDOC ---
Renal-Progress Notes Subjective Notes Notes STILL HAS SOME NAUSEA BUT BETTER History of Present Illness Hx of present illness STABLE Vitals Vitals Vital Signs Date Time Temp Pulse Resp B/P (MAP) Pulse Ox O2 Delivery O2 Flow Rate FiO2 03/17/21 07:00 98.3 54 18 158/45 (82) 99 Room Air 98.3 Weight Weight [ ] I.O. Intake and Output Intake and Output 03/17/21 07:00 Intake Total 480 ml Balance 480 ml Intake Oral 480 ml # Voids 2 Review of Systems Constitutional: yes: weakness, alert, oriented Ears/Nose/Throat: Yes: no symptom reported Eyes: Yes: no symptom reported Pulmonary: Yes no symptom reported Cardiovascular: Yes no symptom reported Gastrointestional: Yes: nausea Genitourinary: Yes: no symptom reported Musculoskeletal: Yes: no symptom reported Skin: Yes no symptom reported Psychiatric/Neurological: Yes: no symptom reported Endocrine: Yes: no symptom reported Physical Exam General Appearance: no apparent distress Skin: warm Respiratory: bilateral CTA Heart: S1S2 Abdomen: soft, bowel sounds present Genitourinary: bladder flat Extremities: pulses present Neurology: alert, oriented Musculoskeletal: Osteoarthritis Assessment Assessment IMP HYPERKALEMIA ESRD-MWF ANEMIA HTN CAD THROMBOSED LEFT FA AVG S/P TEMP HD LINE PLAN HD MWF START HUSSAIN AVG THROMBECTOMY PENDING WILL FOLLOW LONA ENGLAND MD Mar 17, 2021 10:21
[2021-03-17] MEDS ORDERED: DARBEPOETIN ALFA 300 MCG/0.6 ML SQ ONE (10:30)
[2021-03-17 11:00] VITALS: BP 165/88
[2021-03-17] MEDS: ASPIRIN ENTERIC COATED 81 MG TABLET.DR. PO SCH (14:29)
[2021-03-17] MEDS: CLOPIDOGREL BISULFATE 75 MG TABLET PO SCH (14:29)
[2021-03-17] MEDS: ATORVASTATIN CALCIUM 40 MG TABLET. PO SCH (14:29)
[2021-03-17] MEDS: CINACALCET HCL 30 MG TABLET PO SCH (14:30)
[2021-03-17] MEDS: FOLIC/VIT B COMP W-C (RENAL) TABLET. PO SCH (14:30)
[2021-03-17 15:00] VITALS: BP 173/93
[2021-03-17] MEDS: guaiFENesin ORAL 200 MG/10 ML LIQUID. PO PRN (15:19)
--- NOTE | 2021-03-17 15:28 | NUR ---
SW following. Discussed with RN. Pt from home with daughter, room air, renal diet. COVID-19 negative. Therapy recommending SNF. Pt does dialysis at [facility]. Possible thrombectomy of fistula tomorrow. SW will continue to follow.
--- NOTE | 2021-03-17 16:31 | PDOC ---
[employer] PROGRESS NOTE Date of Service DOS: DATE: 03/17/21 TIME: 16:30 Chief Complaint Chief Complaint Assessment/Plan Assessment/Plan Impression: Hyperkalemia POST- TUSSIVE EMESIS esrd on dialysis Arthritis, CAD, Hypertension CAD - s/p CABG 01/2017, clinically stable. Anemia of chronic renal disease Planning for thrombectomy D/W RN History of Present Illness History of Present Illness Identification/Chief Complaint Chief Complaint COUGH WITH EMESIS, HIGH K diarrhea for the past 2 or 3 weeks. History of Present Illness History of Present Illness 86 year old female seen in ER posttussive emesis. AND K elevation of 7.4 /she has been coughing up clear mucus. Also has been having diarrhea for the past 2 or 3 weeks. no blood in her diarrhea. Today had some breath that was worse with exertion have difficulty walking. needs Emergent dialysis today - severe Hyperkalemia CAD - s/p CABG 01/2017, clinically stable. / Anemia of chronic renal disease 03/16 Patient examined during dialysis. She is doing well with tolerating well. Planning for thrombectomy tomorrow? Dialysis again today, hyperkalemia improving with dialysis. Plan discussed with bedside RN. 03/17 Patient evaluated bedside. Doing well no acute complaints. Still needs to undergo thrombectomy. Once that is complete she will likely be able to discharge to resume home dialysis. Vitals/I&O Vitals/I&O: Vital Signs Date Time Temp Pulse Resp B/P (MAP) Pulse Ox O2 Delivery O2 Flow Rate FiO2 03/17/21 14:30 55 165/88 03/17/21 11:00 97.8 18 100 Room Air 97.8 I & O 03/16/21 03/16/21 03/17/21 15:00 23:00 07:00 Intake Total 360 ml 120 ml Balance 360 ml 120 ml Physical Exam General: Alert, Oriented X3, Cooperative, No acute distress Heart: Regular rate, Normal S1, Normal S2, No murmurs, Gallops Lungs: Clear Abdomen: Normal bowel sounds, Soft, No tenderness Extremities: No edema, Normal pulses Skin: No significant lesion Review of Systems Review of Systems: Negative Assessment and Plan Assessmemt and Plan Problems Medical Problems: (1) Hyperkalemia Status: Acute Comment Review of Relevant I have reviewed the following items jonah (where applicable) has been applied. Justifications for Admission General Conditions Other justification for admit: severe hyperkalemia Other Justification Bleeding from HD site, blood loss anemia MACK MORALES MD Mar 17, 2021 16:31
[2021-03-17] MEDS ORDERED: DARBEPOETIN ALFA 100 MCG/0.5 ML DISP.SYRIN. SQ ONE (18:00)
[2021-03-17 19:00] VITALS: BP 179/67
[2021-03-17] MEDS: traMADol 50 MG TABLET PO PRN (21:08)
[2021-03-17 23:00] VITALS: BP 165/51
[2021-03-18 03:00] VITALS: BP 156/48
[2021-03-18] MEDS: PANTOPRAZOLE 40 MG TABLET.DR. PO SCH (04:42)
[2021-03-18 06:50] LABS: CALCIUM 8.8 mg/dL (8.5-10.1); CREATININE 8.2 mg/dL (0.6-1.0); GFR 5.6; POTASSIUM 5.1 mmol/L (3.5-5.1)
[2021-03-18 07:00] VITALS: BP 184/80
[2021-03-18] MEDS ORDERED: DIALYSIS PATIENT. MC PRN ×2 (08:00)
[2021-03-18] MEDS ORDERED: ALBUMIN HUMAN 25% 200 ML IV PRN (08:00)
[2021-03-18] MEDS: CALCIUM ACETATE 667 MG CAPSULE PO SCH ×3 (08:00→17:07)
[2021-03-18] MEDS ORDERED: IV NORMAL SALINE 1000ML BAG 1,000 ML IV PRN ×2 (08:00)
[2021-03-18] MEDS ORDERED: IOHEXOL 300 MG/ML 100ML VIAL. ONE (08:51)
[2021-03-18] MEDS ORDERED: LIDOCAINE WITH 8.4% SOD BICARB 3 ML DISP.SYRIN. ONE (08:52)
[2021-03-18] MEDS: LACTOBACILLUS RHAMNOSUS GG 1 CAPSULE. PO SCH ×2 (09:00→20:56)
[2021-03-18] MEDS: ASPIRIN ENTERIC COATED 81 MG TABLET.DR. PO SCH (09:00)
[2021-03-18] MEDS ORDERED: IODIXANOL 320 MG/ML 100 ML VIAL. ONE (09:04)
[2021-03-18] MEDS ORDERED: HEPARIN for IV BOLUS 10,000 UNIT/10 ML VIAL. ONE (09:13)
[2021-03-18] MEDS ORDERED: MIDAZOLAM HCL/PF 2 MG/2 ML VIAL. ONE (09:13)
[2021-03-18] MEDS ORDERED: fentaNYL PF VIAL 100 MCG/2 ML VIAL ONE (09:13)
[2021-03-18] MEDS ORDERED: ALTEPLASE 2 MG VIAL IV ONE (09:30)
[2021-03-18] MEDS ORDERED: ALTEPLASE 2MG VIAL 10 MG in IV NORMAL SALINE 100ML 100 ML INT CAT ONE (09:30)
[2021-03-18] MEDS ORDERED: MIDAZOLAM HCL/PF 2 MG/2 ML VIAL. IV ONE (09:30)
[2021-03-18] MEDS ORDERED: IODIXANOL 320 MG/ML 100 ML VIAL. IART ONE (09:30)
[2021-03-18] MEDS ORDERED: fentaNYL PF VIAL 100 MCG/2 ML VIAL IV ONE (09:30)
[2021-03-18] MEDS ORDERED: LIDOCAINE WITH 8.4% SOD BICARB 3 ML DISP.SYRIN. IJ ONE (09:30)
[2021-03-18] MEDS ORDERED: CONTRAST GIVEN. MC PRN (09:45)
[2021-03-18] MEDS ORDERED: HEPARIN for IV BOLUS 10,000 UNIT/10 ML VIAL. IV ONE (10:15)
--- NOTE | 2021-03-18 10:42 | PDOC ---
Renal-Progress Notes Subjective Notes Notes NO NEW COMPLAINTS History of Present Illness Hx of present illness STABLE Vitals Vitals Vital Signs Date Time Temp Pulse Resp B/P (MAP) Pulse Ox O2 Delivery O2 Flow Rate FiO2 03/18/21 07:00 97.9 59 18 184/80 (114) 100 Room Air 97.9 Weight Weight [ ] I.O. Intake and Output Intake and Output 03/18/21 07:00 Intake Total 600 ml Balance 600 ml Intake Oral 600 ml # Voids 2 Labs Labs Laboratory Tests Test 03/18/21 03:55 Sodium Level 138 mmol/L (136-145) Potassium Level 5.1 mmol/L (3.5-5.1) Chloride Level 100 mmol/L (98-107) Carbon Dioxide Level 30 mmol/L (21-32) Anion Gap 8 (6-14) Blood Urea Nitrogen 38 mg/dL (7-20) Creatinine 8.2 mg/dL (0.6-1.0) Estimated GFR (Cockcroft-Gault) 5.6 Glucose Level 85 mg/dL (70-99) Calcium Level 8.8 mg/dL (8.5-10.1) Hepatitis B Surface Antibody Reactive Review of Systems Constitutional: yes: weakness, alert, oriented Ears/Nose/Throat: Yes: no symptom reported Eyes: Yes: no symptom reported Pulmonary: Yes no symptom reported Cardiovascular: Yes no symptom reported Gastrointestional: Yes: nausea Genitourinary: Yes: no symptom reported Musculoskeletal: Yes: no symptom reported Skin: Yes no symptom reported Psychiatric/Neurological: Yes: no symptom reported Endocrine: Yes: no symptom reported Physical Exam General Appearance: no apparent distress Skin: warm Respiratory: bilateral CTA Heart: S1S2 Abdomen: soft, bowel sounds present Genitourinary: bladder flat Extremities: pulses present Neurology: alert, oriented Musculoskeletal: Osteoarthritis Assessment Assessment IMP HYPERKALEMIA ESRD-MWF ANEMIA HTN CAD THROMBOSED LEFT FA AVG S/P TEMP HD LINE PLAN THROMBECTOMY THIS AM THEN HD TODAY UF TO TW ON HUSSAIN WILL FOLLOW LONA ENGLAND MD Mar 18, 2021 10:42
--- NOTE | 2021-03-18 11:00 | NUR ---
Received report from IR . Clot removal successful. Pt will be taken to dialysis from IR.
[2021-03-18 11:27] VITALS: BP 194/79
--- NOTE | 2021-03-18 12:59 | RAD ---
03/18/2021 1. Pharmacomechanical thrombolysis, left upper extremity AV graft, and outflow vein 2. Balloon angioplasty of multifocal in stent stenosis following the outflow vein 3. Balloon angioplasty of the venous anastomosis Consent: The procedure was explained in its entirety to the patient or the patients designated repres entative by a member of the treatment team, including a discussion of the risks, benefits and commonl y accepted alternatives to the procedure, as well as the expected consequences of no therapy whatsoev er. Discussion of the risks included, but was not limited to, those that are most frequent and thos e that are rare but possibly severe or life-threatening, as well as the possibility of unforeseen com plications. The left upper extremity was prepped and draped using maximum sterile technique, including the use of : Current guideline approved cutaneous antisepsis, a large sterile sheet to establish a sterile field . Additionally the power cutting machine operator wore a hat, mask, sterile gloves, a sterile gown during the procedure as well as practiced acceptable hand hygiene prior to beginning the procedure. Ultrasound evaluation demonstrates complete thrombosis of the left forearm AV graft extending into th e thrombosed outflow vein with multiple overlying stents extending to the axilla. The graft was acces sed directed towards the venous outflow using direct ultrasound guidance and micropuncture technique. Reference ultrasound images were saved in the medical record. A 7 Syriac sheath was placed. The cath eter was advanced through the thrombosed graft into the axillary vein. Central venogram was obtained demonstrating no significant central stenosis. The level of the thrombosed dense. 5000 units of heparin was administered. An AngioJet catheter was then used to deliver 8 mg of TPA thr oughout the thrombosed graft and outflow vein. During TPA intubation, the graft was accessed directed towards the arterial anastomosis. Following approximately 15 to 20 minutes rheolytic thrombectomy wa s performed throughout the graft and outflow vein. This is immediately followed with pulling of the a rterial plug using a 5 mm x 2 cm compliant balloon, and balloon maceration/angioplasty of the entire graft and outflow vein, through the stented portions, with 7 mm x 80 mm high-pressure balloon. This r esulted in significantly improved morphology and flow. Mild areas of persistent narrowing within the stent are seen. 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 Some residual thrombus is noted within these aneurysms, which will hopefully resolve with fistula rest. Pursestring sutures were placed in the she aths were removed. Sterile dressings were applied. No immediate complications were identified. Total fluoroscopy time: 9.5 minutes Dose area product 10 Woo centimeter squared Sedation: The procedure was performed under conscious sedation including continuous cardiopulmonary m onitoring via a dedicated sedation nurse. Fptf-ke-cotw sedation time: 114 minutes IMPRESSION: 1. Successful pharmacomechanical thrombolysis, left upper extremity AV graft and outflow vein 2. Treatment of venous anastomotic and outflow vein in-stent stenosis with balloon angioplasty up to 7 mm Electronically signed by: Mendel Saldaña MD (03/18/2021 12:56 PM) [id number]
--- NOTE | 2021-03-18 15:14 | PDOC ---
[facility] PROGRESS NOTE Date of Service DOS: DATE: 03/18/21 TIME: 15:14 Chief Complaint Chief Complaint Assessment/Plan Assessment/Plan Impression: Hyperkalemia POST- TUSSIVE EMESIS esrd on dialysis Arthritis, CAD, Hypertension CAD - s/p CABG 01/2017, clinically stable. Anemia of chronic renal disease Planning for thrombectomy D/W RN History of Present Illness History of Present Illness Identification/Chief Complaint Chief Complaint COUGH WITH EMESIS, HIGH K diarrhea for the past 2 or 3 weeks. History of Present Illness History of Present Illness 86 year old female seen in ER posttussive emesis. AND K elevation of 7.4 /she has been coughing up clear mucus. Also has been having diarrhea for the past 2 or 3 weeks. no blood in her diarrhea. Today had some breath that was worse with exertion have difficulty walking. needs Emergent dialysis today - severe Hyperkalemia CAD - s/p CABG 01/2017, clinically stable. / Anemia of chronic renal disease 03/16 Patient examined during dialysis. She is doing well with tolerating well. Planning for thrombectomy tomorrow? Dialysis again today, hyperkalemia improving with dialysis. Plan discussed with bedside RN. 03/17 Patient evaluated bedside. Doing well no acute complaints. Still needs to undergo thrombectomy. Once that is complete she will likely be able to discharge to resume home dialysis. 03/18 Patient evaluated bedside. Underwent thrombectomy today undergoing dialysis today as well. PT OT ordered to evaluate for rehab placement. Hopeful for discharge in the next 1 to 2 days. Vitals/I&O Vitals/I&O: Vital Signs Date Time Temp Pulse Resp B/P (MAP) Pulse Ox O2 Delivery O2 Flow Rate FiO2 03/18/21 11:27 51 15 100 Nasal Cannula 2.0 03/18/21 07:00 97.9 184/80 (114) 97.9 l I & O 03/17/21 03/17/21 03/18/21 15:00 23:00 07:00 Intake Total 0 ml 600 ml Balance 0 ml 600 ml Physical Exam General: Alert, Oriented X3, Cooperative, No acute distress Heart: Regular rate, Normal S1, Normal S2, No murmurs, Gallops Lungs: Clear Abdomen: Normal bowel sounds, Soft, No tenderness Extremities: No edema, Normal pulses Skin: No significant lesion Labs Labs: Laboratory Tests Test 03/18/21 03:55 Sodium Level 138 mmol/L (136-145) Potassium Level 5.1 mmol/L (3.5-5.1) Chloride Level 100 mmol/L (98-107) Carbon Dioxide Level 30 mmol/L (21-32) Anion Gap 8 (6-14) Blood Urea Nitrogen 38 mg/dL (7-20) Creatinine 8.2 mg/dL (0.6-1.0) Estimated GFR (Cockcroft-Gault) 5.6 Glucose Level 85 mg/dL (70-99) Calcium Level 8.8 mg/dL (8.5-10.1) Hepatitis B Surface Antibody Reactive Assessment and Plan Assessmemt and Plan Problems Medical Problems: (1) Hyperkalemia Status: Acute Comment Review of Relevant I have reviewed the following items jonah (where applicable) has been applied. Medications: Current Medications Medications (Trade) Dose Ordered Sig/Willard Route PRN Reason Start Time Stop Time Status Last Admin Dose Admin Darbepoetin Kemar (ARANESP for DIALYSIS PTS) 100 mcg 1X ONCE SQ 03/17/21 18:00 03/17/21 18:01 DC 03/17/21 18:27 Heparin Sodium/ Sodium Chloride (HEPARIN for ARTERIAL LINE FLUSH) 1,000 unit 1X ONCE IART 03/18/21 09:30 03/18/21 09:39 DC 03/18/21 10:47 Lidocaine HCl (Buffered Lidocaine 1%) 3 ml 1X ONCE IJ 03/18/21 09:30 03/18/21 09:39 DC 03/18/21 10:48 Midazolam HCl (Versed) 2 mg 1X ONCE IV 03/18/21 09:30 03/18/21 09:39 DC 03/18/21 10:50 Fentanyl Citrate (Fentanyl 2ml Vial) 100 mcg 1X ONCE IV 03/18/21 09:30 03/18/21 09:39 DC 03/18/21 10:50 Iodixanol (Visipaque 320) 100 ml 1X ONCE IART 03/18/21 09:30 03/18/21 09:39 DC 03/18/21 10:49 Alteplase, Recombinant 10 mg/ Sodium Chloride 100 ml @ 200 mls/hr 1X ONCE INT CAT 03/18/21 09:30 03/18/21 09:59 DC 03/18/21 10:00 Heparin Sodium/ Sodium Chloride (HEPARIN for ARTERIAL LINE FLUSH) 1,000 unit 1X ONCE IART 03/18/21 10:15 03/18/21 10:21 DC 03/18/21 10:47 Heparin Sodium/ Sodium Chloride (HEPARIN for ARTERIAL LINE FLUSH) 1,000 unit 1X ONCE IART 03/18/21 10:15 03/18/21 10:21 DC 03/18/21 10:48 Heparin Sodium (Porcine) (Heparin Sodium) 5,000 unit 1X ONCE IV 03/18/21 10:15 03/18/21 10:21 DC 03/18/21 10:51 Justifications for Admission General Conditions Other justification for admit: severe hyperkalemia Other Justification Bleeding from HD site, blood loss anemia MACK MORALES MD Mar 18, 2021 15:14
[2021-03-18 15:19] VITALS: BP 157/74
[2021-03-18] MEDS: METOPROLOL TART IMMED RELEASE 25 MG TABLET. PO SCH ×2 (15:22→20:56)
[2021-03-18] MEDS: CINACALCET HCL 30 MG TABLET PO SCH (15:22)
[2021-03-18] MEDS: CLOPIDOGREL BISULFATE 75 MG TABLET PO SCH (15:22)
[2021-03-18] MEDS: FOLIC/VIT B COMP W-C (RENAL) TABLET. PO SCH (15:23)
[2021-03-18] MEDS: ATORVASTATIN CALCIUM 40 MG TABLET. PO SCH (15:23)
--- NOTE | 2021-03-18 16:28 | NUR ---
SW following. Discussed with RN, pt had a procedure today as well as dialysis. SW left voicemail for pt's daughter, Carolina. SW to meet with pt tomorrow. SW will continue to follow.
[2021-03-18 19:00] VITALS: BP 126/45
[2021-03-18] MEDS: guaiFENesin ORAL 200 MG/10 ML LIQUID. PO PRN (20:55)
[2021-03-18] MEDS: traMADol 50 MG TABLET PO PRN (20:56)
[2021-03-18 23:00] VITALS: BP 134/49
[2021-03-19 03:00] VITALS: BP 148/52
[2021-03-19 07:15] VITALS: BP 120/54
[2021-03-19] MEDS: FOLIC/VIT B COMP W-C (RENAL) TABLET. PO SCH (08:46)
[2021-03-19] MEDS: CALCIUM ACETATE 667 MG CAPSULE PO SCH ×3 (08:46→17:18)
[2021-03-19] MEDS: LACTOBACILLUS RHAMNOSUS GG 1 CAPSULE. PO SCH ×2 (08:46→21:30)
[2021-03-19] MEDS: CINACALCET HCL 30 MG TABLET PO SCH (08:46)
[2021-03-19] MEDS: ASPIRIN ENTERIC COATED 81 MG TABLET.DR. PO SCH (08:47)
[2021-03-19] MEDS: CLOPIDOGREL BISULFATE 75 MG TABLET PO SCH (08:47)
[2021-03-19] MEDS: ATORVASTATIN CALCIUM 40 MG TABLET. PO SCH (08:47)
[2021-03-19] MEDS: PANTOPRAZOLE 40 MG TABLET.DR. PO SCH ×2 (08:47→17:18)
[2021-03-19] MEDS: METOPROLOL TART IMMED RELEASE 25 MG TABLET. PO SCH ×2 (08:47→21:31)
[2021-03-19] MEDS ORDERED: guaiFENesin/CODEINE 100mg/10mg 5 ML LIQUID PO PRN (09:15)
--- NOTE | 2021-03-19 10:01 | RAD ---
EXAMINATION: Chest radiograph. VIEWS: Single AP view the chest COMPARISON: 03/14/2021 INDICATION:86 years, Female, new cough. FINDINGS: Stable cardiomediastinal silhouette. Sternotomy wires and CABG clips are reidentified. Right IJ hemod ialysis catheter with the tip terminating the right atrium, unchanged. No focal consolidation. No ple ural effusion or pneumothorax. No acute osseous process. Left upper extremity vascular stents are dave ntified. IMPRESSION: No acute cardiopulmonary process. Electronically signed by: Dragan Helm DO (03/19/2021 9:59 AM) [id number]
--- NOTE | 2021-03-19 10:38 | PDOC ---
Renal-Progress Notes Subjective Notes Notes NO NEW COMPLAINTS History of Present Illness Hx of present illness STABLE Vitals Vitals Vital Signs Date Time Temp Pulse Resp B/P (MAP) Pulse Ox O2 Delivery O2 Flow Rate FiO2 03/19/21 08:47 73 120/54 03/19/21 07:15 98.4 18 99 Room Air 2.0 98.4 Weight Weight [ ] I.O. Intake and Output Intake and Output 03/19/21 07:00 Intake Total 240 ml Balance 240 ml Intake Oral 240 ml # Voids 1 Review of Systems Constitutional: yes: weakness, alert, oriented Ears/Nose/Throat: Yes: no symptom reported Eyes: Yes: no symptom reported Pulmonary: Yes no symptom reported Cardiovascular: Yes no symptom reported Gastrointestional: Yes: nausea Genitourinary: Yes: no symptom reported Musculoskeletal: Yes: no symptom reported Skin: Yes no symptom reported Psychiatric/Neurological: Yes: no symptom reported Endocrine: Yes: no symptom reported Physical Exam General Appearance: no apparent distress Skin: warm Respiratory: bilateral CTA Heart: S1S2 Abdomen: soft, bowel sounds present Genitourinary: bladder flat Extremities: pulses present Neurology: alert, oriented Musculoskeletal: Osteoarthritis Assessment Assessment IMP HYPERKALEMIA-RESOLVED ESRD-MWF ANEMIA HTN CAD THROMBOSED LEFT FA AVG S/P TEMP HD LINE PLAN REMOVE TEMP HD LINE HD TOMORROW ON HUSSAIN WILL FOLLOW LONA ENGLAND MD Mar 19, 2021 10:38
[2021-03-19 10:54] VITALS: BP 136/51
--- NOTE | 2021-03-19 12:08 | NUR ---
MIGUEL ÁNGEL following. Discussed with RN, MIGUEL ÁNGEL met with pt, pt declining SNF at this time. Pt would like to go home with [facility] as she has had them before. To Olson RN notified. RN notified. MIGUEL ÁNGEL will continue to follow. Addendum: 03/20/21 at 1443 by ALEJA DEL ROSARIO To notified of discharge orders.
--- NOTE | 2021-03-19 13:36 | PDOC ---
[facility] PROGRESS NOTE Date of Service DOS: DATE: 03/19/21 TIME: 13:35 Chief Complaint Chief Complaint Assessment/Plan Assessment/Plan Impression: Hyperkalemia POST- TUSSIVE EMESIS esrd on dialysis Arthritis, CAD, Hypertension CAD - s/p CABG 01/2017, clinically stable. Anemia of chronic renal disease Planning for thrombectomy D/W RN History of Present Illness History of Present Illness Identification/Chief Complaint Chief Complaint COUGH WITH EMESIS, HIGH K diarrhea for the past 2 or 3 weeks. History of Present Illness History of Present Illness 86 year old female seen in ER posttussive emesis. AND K elevation of 7.4 /she has been coughing up clear mucus. Also has been having diarrhea for the past 2 or 3 weeks. no blood in her diarrhea. Today had some breath that was worse with exertion have difficulty walking. needs Emergent dialysis today - severe Hyperkalemia CAD - s/p CABG 01/2017, clinically stable. / Anemia of chronic renal disease 03/16 Patient examined during dialysis. She is doing well with tolerating well. Planning for thrombectomy tomorrow? Dialysis again today, hyperkalemia improving with dialysis. Plan discussed with bedside RN. 03/17 Patient evaluated bedside. Doing well no acute complaints. Still needs to undergo thrombectomy. Once that is complete she will likely be able to discharge to resume home dialysis. 03/18 Patient evaluated bedside. Underwent thrombectomy today undergoing dialysis today as well. PT OT ordered to evaluate for rehab placement. Hopeful for discharge in the next 1 to 2 days. 03/19 Patient evaluated at bedside. In chair doing well. Complaining of a cough that happens when she eats, we will at least have speech evaluate her. Therapy recommending SNF however patient wants to go home with home health. We will try breathing treatments for cough as well. Vitals/I&O Vitals/I&O: Vital Signs Date Time Temp Pulse Resp B/P (MAP) Pulse Ox O2 Delivery O2 Flow Rate FiO2 03/19/21 10:54 97.9 69 18 136/51 (79) 96 Room Air 2.0 97.9 I & O 03/18/21 03/18/21 03/19/21 15:00 23:00 07:00 Intake Total 0 ml 120 ml 120 ml Balance 0 ml 120 ml 120 ml Physical Exam General: Alert, Oriented X3, Cooperative, No acute distress Heart: Regular rate, Normal S1, Normal S2, No murmurs, Gallops Lungs: Clear Abdomen: Normal bowel sounds, Soft, No tenderness Extremities: No edema, Normal pulses Skin: No significant lesion Assessment and Plan Assessmemt and Plan Problems Medical Problems: (1) Hyperkalemia Status: Acute Comment Review of Relevant I have reviewed the following items jonah (where applicable) has been applied. Justifications for Admission General Conditions Other justification for admit: severe hyperkalemia Other Justification Bleeding from HD site, blood loss anemia MACK MORALES MD Mar 19, 2021 13:36
[2021-03-19 14:58] VITALS: BP 153/64
[2021-03-19] MEDS: IPRATRPIUM/ALBUTEROL 0.5/2.5MG 3 ML NEBU. NEB SCH ×2 (15:36→20:22)
[2021-03-19 19:00] VITALS: BP 148/56
[2021-03-19] MEDS: traMADol 50 MG TABLET PO PRN (21:30)
[2021-03-19 23:00] VITALS: BP 149/68
[2021-03-20] MEDS: ACETAMINOPHEN 325 MG TABLET. PO PRN (02:41)
[2021-03-20 03:00] VITALS: BP 144/45
[2021-03-20] MEDS: IPRATRPIUM/ALBUTEROL 0.5/2.5MG 3 ML NEBU. NEB SCH ×2 (06:17→10:59)
[2021-03-20 07:00] VITALS: BP_SYST 137; BP_SYST 146; BP_DIAS 53; BP_DIAS 86
[2021-03-20] MEDS ORDERED: IV NORMAL SALINE 1000ML BAG 1,000 ML IV PRN ×2 (08:15)
[2021-03-20] MEDS ORDERED: DIALYSIS PATIENT. MC PRN ×2 (08:15)
--- NOTE | 2021-03-20 10:34 | PDOC ---
Renal-Progress Notes Subjective Notes Notes NO NEW COMPLAINTS History of Present Illness Hx of present illness STABLE Vitals Vitals Vital Signs Date Time Temp Pulse Resp B/P (MAP) Pulse Ox O2 Delivery O2 Flow Rate FiO2 03/20/21 07:00 97.7 69 18 137/53 (81) 100 Room Air 97.7 03/20/21 03:00 2.0 Weight Weight [ ] I.O. Intake and Output Intake and Output 03/20/21 07:00 Intake Total 820 ml Balance 820 ml Intake Oral 820 ml # Voids 2 Review of Systems Constitutional: yes: weakness, alert, oriented Ears/Nose/Throat: Yes: no symptom reported Eyes: Yes: no symptom reported Pulmonary: Yes no symptom reported Cardiovascular: Yes no symptom reported Gastrointestional: Yes: nausea Genitourinary: Yes: no symptom reported Musculoskeletal: Yes: no symptom reported Skin: Yes no symptom reported Psychiatric/Neurological: Yes: no symptom reported Endocrine: Yes: no symptom reported Physical Exam General Appearance: no apparent distress Skin: warm Respiratory: bilateral CTA Heart: S1S2 Abdomen: soft, bowel sounds present Genitourinary: bladder flat Extremities: pulses present Neurology: alert, oriented Musculoskeletal: Osteoarthritis Assessment Assessment IMP HYPERKALEMIA-RESOLVED ESRD-MWF ANEMIA HTN CAD THROMBOSED LEFT FA AVG S/P TEMP HD LINE REMOVAL PLAN HD TODAY UF TO [facility] ON HUSSAIN WILL FOLLOW D/C OK FROM RENAL STANDPOINT LONA ENGLAND MD Mar 20, 2021 10:34
--- NOTE | 2021-03-20 10:52 | SNU/HH DC ---
DISCHARGE WITH HOME HEALTH DISCHARGE INFORMATION: Discharge Date: Mar 20, 2021 Final Diagnosis: Problems Medical Problems: (1) Hyperkalemia Status: Acute Condition on Discharge: Stable CODE STATUS: Code Status: Full HOME HEALTH: Face to Face: I certify this patient is under my care and that I, or a nurse practitioner or physician's assistant professor of physics working with me, had a face to face encounter that meets the physician face to face encounter requirements with this patient on []. RN For Eval/Treatment: Yes Physical Therapy For: Evalulation/Treatment Occupational Therapy For: Evaluation/Treatment Pt Meets Homebound Status: Poor coordination w/ amb., Unsteady balance w/ amb,, Extreme weakness w/ amb. POST DISCHARGE ORDERS: Activity Instructions for Disc: No restrictions, Resume previous activity, Activity as tolerated Weight Bearing Status after Di: No restrictions, Full weight bearing, As tolerated Bathing Instructions: Shower-keep dressing dry DIET AFTER DISCHARGE: Cardiac Wound/Incision Care: No wound care needed CHECKS AFTER DISCHARGE: Checks after discharge: Check blood press - daily, Check your Temp as needed, Weigh Yourself Daily TREATMENT/EQUIPMENT ORDERS: Adaptive Equipment Issued: Walker CERTIFICATION STATEMENT: Certification Statement: Certification Statement: Based on the above finding, I certify that this patient is confined to the home and needs intermittent long term care, physical therapy and/or speech therapy, or continues to need occupational therapy.~ This patient is under my care, and I have initiated the establishment of the plan of care.~ This patient will be followed by myself or a community physician who will periodically review the plan of care. Home Meds Active Scripts Ondansetron (ONDANSETRON ODT) 4 Mg Tab.rapdis, 1 TAB PO PRN Q6-8HRS PRN for NAUSEA, #16 TAB Prov:MARGE DIEZ DO 08/29/20 Lactobacillus Rhamnosus Gg (CULTURELLE) 1 Each Cap.sprink, 1 CAP PO BID for probiotic for 30 Days, #60 CAP Prov:PATRICIA LOVELACE MD 12/25/19 Metoprolol Tartrate (METOPROLOL TARTRATE) 25 Mg Tablet, 12.5 MG PO BID for htn for 30 Days, #30 TAB Prov:SANIYA PEPE MD 07/14/18 Reported Medications Metoprolol Tartrate (METOPROLOL TARTRATE) 25 Mg Tablet, 25 MG PO BID for FOR HYPERTENSION, #60 TAB 0 Refills 03/14/21 Clopidogrel Bisulfate (CLOPIDOGREL) 75 Mg Tablet, 75 MG PO DAILY for TO PREVENT BLOOD CLOTS, #30 TAB 0 Refills 03/14/21 Cinacalcet Hcl (SENSIPAR) 30 Mg Tablet, 1 TAB PO DAILY for rx for 30 Days, #30 TAB 0 Refills 11/30/19 Calcium Acetate (CALCIUM ACETATE) 667 Mg Tablet, 1334 MG PO TIDWMEALS for DIALYSIS PATIENTS, CAP 11/30/19 Amlodipine Besylate (AMLODIPINE BESYLATE) 10 Mg Tablet, 5 MG PO DAILY for rx, TAB 11/30/19 Atorvastatin Calcium (ATORVASTATIN CALCIUM) 40 Mg Tablet, 1 TAB PO DAILY for rx, #30 TAB 5 Refills 11/30/19 Aspirin (ASPIRIN EC) 81 Mg Tablet.dr, 1 TAB PO DAILY for rx, #30 TAB 3 Refills 11/30/19 Polyethylene Glycol 3350 (MIRALAX) 17 Gm Powd.pack, 1 PACKET PO PRN DAILY PRN for CONSTIPATION, #30 PACKET 3 Refills 04/10/17 Vit B Cmplx 3/Fa/Vit C/Biotin (MARISELA-MELLY RX TABLET) 1 Each Tablet, 1 EACH PO DAILY, TAB 01/06/17 Omeprazole (OMEPRAZOLE) 40 Mg Capsule., 40 MG PO DAILY, CAP 01/06/17 MACK MORALES MD Mar 20, 2021 10:52
--- NOTE | 2021-03-20 10:56 | PDOC3 ---
[facility]-Discharge Summary Date of Admission: Date of Admission: Mar 17, 2021 Date of Discharge: Date of Discharge: Mar 20, 2021 Admission Diagnosis: Problems: (1) Clotted dialysis access (2) Peripheral vascular disease (3) Hyperkalemia Discharge Diagnosis: Discharge Diagnosis: Same Consults: Consults: Nephrology, IR Procedures: Procedures: AV fistula thrombolysis Hospital Course: Hospital Course: Impression: Hyperkalemia POST- TUSSIVE EMESIS esrd on dialysis Arthritis, CAD, Hypertension CAD - s/p CABG 01/2017, clinically stable. Anemia of chronic renal disease Planning for thrombectomy D/W RN History of Present Illness History of Present Illness Identification/Chief Complaint Chief Complaint COUGH WITH EMESIS, HIGH K diarrhea for the past 2 or 3 weeks. History of Present Illness History of Present Illness 86 year old female seen in ER posttussive emesis. AND K elevation of 7.4 /she has been coughing up clear mucus. Also has been having diarrhea for the past 2 or 3 weeks. no blood in her diarrhea. Today had some breath that was worse with exertion have difficulty walking. needs Emergent dialysis today - severe Hyperkalemia CAD - s/p CABG 01/2017, clinically stable. / Anemia of chronic renal disease 03/16 Patient examined during dialysis. She is doing well with tolerating well. Planning for thrombectomy tomorrow? Dialysis again today, hyperkalemia improving with dialysis. Plan discussed with bedside RN. 03/17 Patient evaluated bedside. Doing well no acute complaints. Still needs to undergo thrombectomy. Once that is complete she will likely be able to discharge to resume home dialysis. 03/18 Patient evaluated bedside. Underwent thrombectomy today undergoing dialysis today as well. PT OT ordered to evaluate for rehab placement. Hopeful for discharge in the next 1 to 2 days. 03/19 Patient evaluated at bedside. In chair doing well. Complaining of a cough that happens when she eats, we will at least have speech evaluate her. Therapy recommending SNF however patient wants to go home with home health. We will try breathing treatments for cough as well. 03/20 Patient evaluated during dialysis. Doing well. Will discharge home with home health today. Disposition: Disposition/Orders: D/C to Home w/ HH Activity: Activity: Resume previous activity Diet: Diet: Renal Medications: Home Meds Active Scripts Ondansetron (ONDANSETRON ODT) 4 Mg Tab.rapdis, 1 TAB PO PRN Q6-8HRS PRN for NAUSEA, #16 TAB Prov:MARGE DIEZ DO 08/29/20 Lactobacillus Rhamnosus Gg (CULTURELLE) 1 Each Cap.sprink, 1 CAP PO BID for probiotic for 30 Days, #60 CAP Prov:PATRICIA LOVELACE MD 12/25/19 Reported Medications Metoprolol Tartrate (METOPROLOL TARTRATE) 25 Mg Tablet, 25 MG PO BID for FOR HYPERTENSION, #60 TAB 0 Refills 03/14/21 Clopidogrel Bisulfate (CLOPIDOGREL) 75 Mg Tablet, 75 MG PO DAILY for TO PREVENT BLOOD CLOTS, #30 TAB 0 Refills 03/14/21 Cinacalcet Hcl (SENSIPAR) 30 Mg Tablet, 1 TAB PO DAILY for rx for 30 Days, #30 TAB 0 Refills 11/30/19 Calcium Acetate (CALCIUM ACETATE) 667 Mg Tablet, 1334 MG PO TIDWMEALS for DIALYSIS PATIENTS, CAP 11/30/19 Amlodipine Besylate (AMLODIPINE BESYLATE) 10 Mg Tablet, 5 MG PO DAILY for rx, TAB 11/30/19 Atorvastatin Calcium (ATORVASTATIN CALCIUM) 40 Mg Tablet, 1 TAB PO DAILY for rx, #30 TAB 5 Refills 11/30/19 Aspirin (ASPIRIN EC) 81 Mg Tablet.dr, 1 TAB PO DAILY for rx, #30 TAB 3 Refills 11/30/19 Polyethylene Glycol 3350 (MIRALAX) 17 Gm Powd.pack, 1 PACKET PO PRN DAILY PRN for CONSTIPATION, #30 PACKET 3 Refills 04/10/17 Vit B Cmplx 3/Fa/Vit C/Biotin (MARISELA-MELLY RX TABLET) 1 Each Tablet, 1 EACH PO DAILY, TAB 01/06/17 Omeprazole (OMEPRAZOLE) 40 Mg Capsule.dr, 40 MG PO DAILY, CAP 01/06/17 Discontinued Scripts Metoprolol Tartrate (METOPROLOL TARTRATE) 25 Mg Tablet, 12.5 MG PO BID for htn for 30 Days, #30 TAB Prov:SANIYA PEPE MD 07/14/18 Scheduled Amlodipine Besylate (Amlodipine Besylate), 5 MG PO DAILY, (Reported) Aspirin (Aspirin Ec), 1 TAB PO DAILY, (Reported) Atorvastatin Calcium (Atorvastatin Calcium), 1 TAB PO DAILY, (Reported) Calcium Acetate (Calcium Acetate), 1,334 MG PO TIDWMEALS, (Reported) Cinacalcet Hcl (Sensipar), 1 TAB PO DAILY, (Reported) Clopidogrel Bisulfate (Clopidogrel), 75 MG PO DAILY, (Reported) Lactobacillus Rhamnosus Gg (Culturelle), 1 CAP PO BID Metoprolol Tartrate (Metoprolol Tartrate), 25 MG PO BID, (Reported) Omeprazole (Omeprazole), 40 MG PO DAILY, (Reported) Vit B Cmplx 3/Fa/Vit C/Biotin (Marisela-Melly Rx Tablet), 1 EACH PO DAILY, (Reported) Scheduled PRN Ondansetron (Ondansetron Odt), 1 TAB PO PRN Q6-8HRS PRN for NAUSEA Polyethylene Glycol 3350 (Miralax), 1 PACKET PO PRN DAILY PRN for CONSTIPATION, (Reported) Discontinued Medications Metoprolol Tartrate (Metoprolol Tartrate), 12.5 MG PO BID Justicifation of Admission Dx: Justifications for Admission: Justification of Admission Dx: Yes MACK MORALES MD Mar 20, 2021 10:56
[2021-03-20 11:00] VITALS: BP 142/61
[2021-03-20] MEDS: CALCIUM ACETATE 667 MG CAPSULE PO SCH ×2 (12:00→13:02)
[2021-03-20] MEDS: FOLIC/VIT B COMP W-C (RENAL) TABLET. PO SCH (13:00)
[2021-03-20] MEDS: CLOPIDOGREL BISULFATE 75 MG TABLET PO SCH (13:01)
[2021-03-20] MEDS: ASPIRIN ENTERIC COATED 81 MG TABLET.DR. PO SCH (13:01)
[2021-03-20] MEDS: ATORVASTATIN CALCIUM 40 MG TABLET. PO SCH (13:01)
[2021-03-20] MEDS: LACTOBACILLUS RHAMNOSUS GG 1 CAPSULE. PO SCH (13:01)
[2021-03-20] MEDS: CINACALCET HCL 30 MG TABLET PO SCH (13:01)
[2021-03-20] MEDS: METOPROLOL TART IMMED RELEASE 25 MG TABLET. PO SCH (13:01)
[2021-03-20 13:02] VITALS: BP 142/61
[2021-03-20] MEDS: PANTOPRAZOLE 40 MG TABLET.DR. PO SCH (13:02)
--- NOTE | 2021-03-20 15:15 | NUR ---
DISCHARGE INSTRUCTIONS GIVEN TO THE PATIENT, QUESTIONS AND CONCERNS ANSWERED, PATIENT VERBALIZED UNDERSTANDING INCLUDING TAKING ALL MEDICATIONS INSTRUCTED AND FOLLOWING UP WITH HER PRIMARY PROVIDER IN 1-2 WEEKS, PATIENT INFORMED THAT [facility] WOULD SEE HER IN THE HOME STARTING Tuesday03/22/21.
== END 2021-03-20 15:34 | disposition home health service (06) ==
LOC: ER 09:49 → ED HOLD 12:30 → 5 NORTH 13:50 → OBSVTOIN 03-17 08:49 → INTOOBSV 03-17 08:49
PROVIDERS: ADMIT Family Medicine; ATTEND Family Medicine
DX: T82.868A Thrombosis due to vascular prosthetic devices, implants and grafts, initial encounter (principal); Z20.822 Contact with and (suspected) exposure to COVID-19; E87.5 Hyperkalemia; I12.0 Hypertensive chronic kidney disease with stage 5 chronic kidney disease or end stage renal disease; R11.10 Vomiting, unspecified; N18.6 End stage renal disease; D63.1 Anemia in chronic kidney disease; I73.9 Peripheral vascular disease, unspecified; M19.90 Unspecified osteoarthritis, unspecified site; E21.3 Hyperparathyroidism, unspecified; I25.10 Atherosclerotic heart disease of native coronary artery without angina pectoris; Z99.2 Dependence on renal dialysis; Z95.1 Presence of aortocoronary bypass graft; Z90.49 Acquired absence of other specified parts of digestive tract; Z98.49 Cataract extraction status, unspecified eye; Z96.659 Presence of unspecified artificial knee joint; Z90.710 Acquired absence of both cervix and uterus; Z79.4 Long term (current) use of insulin; Z79.82 Long term (current) use of aspirin; Z79.899 Other long term (current) drug therapy; Z98.890 Other specified postprocedural states
CPT/HCPCS: 36415; 36556; 36905; 37195; 71045; 71046; 76937; 80048; 80053; 82962; 83690; 83735; 83874; 83880; 84100; 84484; 85025; 86706; 87426; 87804; 93005; 94640; 96372; 96374; 96375; 97110; 97116; 97162; 97165; 99152; 99153; 99285; C1725; C1752; C1757; C1769; C1892; C1894; G0378; J0610; J0882; J1644; J1815; J2250; J2997; J3010; J3490; Q9967; U0003; U0005; G0379